=== PATIENT | female | born 1960 | race Caucasian/White ===

== ENCOUNTER 2021-06-09 21:36 | Emergency (ER) | payer MEDICARE, MEDICAID, SELFPAY ==
[2021-06-09 22:39] VITALS: BP 173/93; PULSE 64; RESP 16; TEMP 37.2; O2SAT 98; BMI 29.0
[2021-06-09 22:58] LABS: Add Urine Microscopic? NO; Charge for UA Resulting for Rev
[2021-06-09 23:05] LABS: Bilirubin Urine Neg (Negative); Blood Urine Neg (Negative); Glucose Urine UA Norm (Normal); Ketones Urine Negative (Negative); Leukocyte Esterase Urine Negative (Negative); Nitrate Urine Negative (Negative); Protein Urine Neg (Negative); Specific Gravity, Urine 1.005 (1.005-1.030); Urine Appearance Clear (CLEAR); Urine Color Yellow (Yellow); Urobilinogen Urine Norm (Negative); pH Urine 7 (5-7)
[2021-06-10 00:30] LABS: Basophils # 0.1 10^3/uL (0.0-0.1); Basophils % 0.7 %; Eosinophils # 0.3 10^3/uL (0.0-0.8); Eosinophils % 2.6 %; Hematocrit 45.6 % (37.0-47.0); Hemoglobin 14.7 g/dL (11.5-15.3); Lymphocytes # 4.1 10^3/uL (0.8-4.8); Lymphocytes % 35.1 %; Mean Corpuscular HGB Conc 32.2 g/dL (30.0-36.0); Mean Corpuscular Hemoglobin 31.4 pg (28.0-34.0); Mean Corpuscular Volume 97.4 fL (81-99); Mean Platelet Volume 12.3 fL (7.4-10.4); Monocytes # 0.7 10^3/uL (0.2-0.9); Monocytes % 5.7 %; Neutrophils # 6.45 10^3/uL (1.8-7.7); Neutrophils % 55.5 %; Nucleated Red Blood Cells % 0 %; Platelet Count 269 10^3/cmm (130-400); Red Blood Count 4.68 10^6/uL (4.1-5.3); Red Cell Distribution Width 12.5 % (12.1-15.1); White Blood Count 11.6 10^3/uL (4.0-10.0)
[2021-06-10 00:55] LABS: Alanine Aminotransferase 23 U/L (0-33); Albumin Level 4.3 g/dL (3.5-5.2); Alkaline Phosphatase 82 IU/L (35-105); Anion Gap 10.9 (5-19); Aspartate Amino Transferase 30 U/L (0-32); Blood Urea Nitrogen 11 mg/dL (8-23); Calcium 9.2 mg/dL (8.5-10.5); Carbon Dioxide 29 mmol/L (22-29); Chloride 107 mmol/L (98-107); Creatinine Clr Calc Pharmacy 76.4991; Globulin 3.5 g/dL (1.3-4.6); Glomerular Filtration Rate 84.5 mL/min (90-130); Glucose 99 mg/dL (65-115); Lipase 19 U/L (13-60); Osmolality Calculated 295 mOsm/kg (285-295); Potassium 3.9 mmol/L (3.5-5.1); Sodium 143 mmol/L (136-145); Total Bilirubin 0.2 mg/dL (0.15-1.2); Total Protein 7.8 g/dL (6.6-8.7)
--- NOTE | 2021-06-10 02:01 | CTR_ITS ---
PROCEDURE INFORMATION: Exam: CT Abdomen And Pelvis With Contrast Exam date and time: 06/10/2021 2:01 AM Age: 61 years old Clinical indication: Nausea and vomiting and other: Diarrhea; Abdominal pain; Localized; Right TECHNIQUE: Imaging protocol: Computed tomography of the abdomen and pelvis with contrast. Radiation optimization: All CT scans at this facility use at least one of these dose optimization techniques: automated exposure control; mA and/or kV adjustment per patient size (includes targeted exams where dose is matched to clinical indication); or iterative reconstruction. Contrast material: OMNI 300; Contrast volume: 95 ml; Contrast route: INTRAVENOUS (IV); COMPARISON: No relevant prior studies available. RADIATION DOSE METRICS: Total DLP (mGy-cm): 1554.3 FINDINGS: Liver: An 8.3 mm hypoattenuation lesions seen within the left hepatic lobe compatible with a simple cyst. Gallbladder and bile ducts: A densities seen in the gallbladder neck possibly representing a partially calcified gallstone. Pancreas: There is an irregular hypoattenuation cystic mass seen within the lesser sac interposed between the pancreas and stomach. It measures approximately 3.5 cm transverse dimension by 1.7 cm AP dimension by 1.6 cm craniocaudal dimension. This could represent pancreatic cyst or pseudocyst. The main pancreatic duct is prominent measuring 3.8 mm within the pancreatic body. However, this may represent a walled-off perforated gastric ulceration. Spleen: Normal. No splenomegaly. Adrenal glands: Normal. No mass. Kidneys and ureters: Normal. No hydronephrosis. Stomach and bowel: Nondilated small bowel loops are seen containing fluid and a few air-fluid levels, findings could represent ileus. Appendix: The appendix is visualized and is normal in configuration. Intraperitoneal space: Unremarkable. No free air. No significant fluid collection. Vasculature: Unremarkable. No abdominal aortic aneurysm. Lymph nodes: Unremarkable. No enlarged lymph nodes. Urinary bladder: Unremarkable as visualized. Reproductive: There is prominence of the left ovarian and adnexal vasculature. Pelvic congestion syndrome can have this appearance. Bones/joints: Unremarkable. No acute fracture. Soft tissues: Unremarkable. CT/CT abdomen pelvis w con* [id number] IMPRESSION: 1. Irregular cystic mass seen within the lesser sac interposed between the pancreas and stomach. Its origin is indeterminate. This may represent a pancreatic cyst or pseudocyst although a walled-off perforated gastric ulceration cannot be excluded. 2. There is mild prominence of the main pancreatic duct measuring 3.8 mm. 3. Prominence of the left ovarian and adnexal vasculature. 4. Nondilated small bowel loops containing fluid and air fluid levels may represent mild ileus. 5. Density present in the gallbladder neck may represent a partially calcified gallstone. 6. Benign appearing hepatic cyst in the left hepatic lobe measuring 8.3 mm. No further workup needed. Radiation Dose CTDIVOL = (mGy): DLP = 1554.3 (mGy-cm)
--- NOTE | 2021-06-10 02:05 | W.ED.NAVMDI ---
HPI - Nausea/Vomiting/Diarrhea General: Chief complaint: Nausea/Vomiting/Diarrhea Stated complaint: abd pain/vomiting Time Seen by Provider: 06/10/21 01:55 Source: patient Mode of arrival: ambulatory Limitations: no limitations History of Present Illness: HPI Narrative: 61-year-old female with a history of chronic pancreatitis and states she has chronic vomiting from that but states of last 2 days she has had pain in her right lower quadrant that is new. States pain is sharp in nature and rates it a 6 out of 10. States is worse with movement improved with rest. She has had some diarrhea as well. Denies any fevers. She is resting comfortably in the room currently. Associated nausea: Yes Associated symtoms: Reports nausea; Denies chest pain, dysuria or headache(s) Review of Systems Const: Denies: fever(s), chills, body aches or change in appetite Eyes: Denies: blurry vision or eye discomfort ENMT: Denies: throat pain or dental pain Card: Denies: chest pain Resp: Denies: dyspnea GI: Reports: abdominal pain, nausea and vomiting : Denies: dysuria Musc: Denies: neck pain or back pain Skin/Breast: Denies: rash Neuro: Denies: headache(s) Psych: Denies: depression Pacheco/Lymph: Denies: easy bruising All/Imm: Denies: urticaria Physical Exam Const: COMMON NORMALS: no acute distress, patient oriented x3 and healthy appearing HENMT: COMMON NORMALS: normocephalic and atraumatic HEAD & SCALP: normocephalic and atraumatic Eye: COMMON NORMALS: Equal, round and reactive pupils present and EOMs intact bilaterally PUPIL: Yes Equal, round and reactive pupils present Neck/C-Spine: COMMON NORMALS: full ROM and supple Chest: COMMONS NORMALS: normal inspection of the chest and normal palpation of entire chest wall Resp: COMMON NORMALS: normal respiratory effort, No retractions, No use of accessory muscles and clear to auscultation bilaterally AUSCULTATION: clear to auscultation bilaterally Cardio: COMMON NORMALS: regular rate, regular rhythm and No murmurs present (Cardio) RATE: regular rate RHYTHM: regular rhythm GI: COMMON NORMALS: Normal to inspection, nondistended, normoactive bowel sounds present, Soft to palpation and no masses PALPATION: Yes Soft to palpation and Yes Tenderness to palpation present (GI) Details: RLQ Extremity: COMMON NORMALS: normal to inspection and full ROM Neuro: COMMON NORMALS: patient oriented x3, moves all extremities and no focal motor deficits Psych: COMMON NORMALS: mental status grossly normal, Normal thought process present and cooperative THOUGHT PROCESS: Normal thought process present Skin: COMMON NORMALS: no rashes or lesions noted and no wounds GENERAL SKIN EXAM: no rashes or lesions noted Course Vital Signs: Vital signs: Vital Signs Temperature 98.9 F 06/09/21 22:39 Pulse Rate 64 06/09/21 22:39 Respiratory Rate 20 H 06/10/21 02:18 Blood Pressure 173/93 06/09/21 22:39 Pulse Oximetry 98 06/09/21 22:39 MDM - Nausea/Vomiting/Diarrhea MDM Narrative: Medical decision making narrative: Patient presents here with abdominal pain likely chronic in nature from her chronic pancreatitis. CT scan showed a cystic mass that believe is likely a pancreatic pseudocyst. Her lactate white count is normal she has no tenderness no signs of a perforated gastric ulcer. She is stable for discharge and she is to follow-up with her PCP and return if worsening. Understands agrees to plan. Lab Data: Labs: Lab Results 06/09/21 06/10/21 06/10/21 Range/Units 22:50 00:22 00:22 WBC 11.6 H (4.0-10.0) 10^3/ uL RBC 4.68 (4.1-5.3) 10^6/u L Hgb 14.7 (11.5-15.3) g/dL Hct 45.6 (37.0-47.0) % MCV 97.4 (81-99) fL MCH 31.4 (28.0-34.0) pg MCHC 32.2 (30.0-36.0) g/dL RDW 12.5 (12.1-15.1) % Plt Count 269 (130-400) 10^3/c mm MPV 12.3 H (7.4-10.4) fL Neut % (Auto) 55.5 % Lymph % (Auto) 35.1 % [place] % (Auto) 5.7 % Eos % (Auto) 2.6 % Baso % (Auto) 0.7 % Neut # (Auto) 6.45 (1.8-7.7) 10^3/u L Lymph # (Auto) 4.1 (0.8-4.8) 10^3/u L [place] # (Auto) 0.7 (0.2-0.9) 10^3/u L Eos # (Auto) 0.3 (0.0-0.8) 10^3/u L Baso # (Auto) 0.1 (0.0-0.1) 10^3/u L Nucleated RBC % (a uto) 0 % Nucleated RBCs # 0.0 /100WBC Sodium 143 (136-145) mmol/L Potassium 3.9 (3.5-5.1) mmol/L Chloride 107 (98-107) mmol/L Carbon Dioxide 29 (22-29) mmol/L Anion Gap 10.9 (5-19) BUN 11 (8-23) mg/dL Creatinine 0.7 (0.5-0.9) mg/dL GFR Calculation 84.5 L (90-130) mL/min Glucose 99 (65-115) mg/dL Calculated Osmolal ity 295 (285-295) mOsm/k g Lactate (0.5-2.2) mmol/L Calcium 9.2 (8.5-10.5) mg/dL Total Bilirubin 0.2 (0.15-1.2) mg/dL AST 30 (0-32) U/L ALT 23 (0-33) U/L Alkaline Phosphata se 82 (35-105) IU/L Total Protein 7.8 (6.6-8.7) g/dL Albumin 4.3 (3.5-5.2) g/dL Globulin 3.5 (1.3-4.6) g/dL Lipase 19 (13-60) U/L Urine Color Yellow (Yellow) Urine Appearance Clear (CLEAR) Urine pH 7 (5-7) Ur Specific Gravit y 1.005 (1.005-1.030) Urine Protein Neg (Negative) Urine Glucose (UA) Norm (Normal) Urine Ketones Negative (Negative) Urine Blood Neg (Negative) Urine Nitrate Negative (Negative) Urine Bilirubin Neg (Negative) Urine Urobilinogen Norm (Negative) mg/dL Ur Leukocyte Arabella ase Negative (Negative) 06/10/21 Range/Units 04:30 WBC (4.0-10.0) 10^3/ uL RBC (4.1-5.3) 10^6/u L Hgb (11.5-15.3) g/dL Hct (37.0-47.0) % MCV (81-99) fL MCH (28.0-34.0) pg MCHC (30.0-36.0) g/dL RDW (12.1-15.1) % Plt Count (130-400) 10^3/c mm MPV (7.4-10.4) fL Neut % (Auto) % Lymph % (Auto) % [place] % (Auto) % Eos % (Auto) % Baso % (Auto) % Neut # (Auto) (1.8-7.7) 10^3/u L Lymph # (Auto) (0.8-4.8) 10^3/u L [place] # (Auto) (0.2-0.9) 10^3/u L Eos # (Auto) (0.0-0.8) 10^3/u L Baso # (Auto) (0.0-0.1) 10^3/u L Nucleated RBC % (a uto) % Nucleated RBCs # /100WBC Sodium (136-145) mmol/L Potassium (3.5-5.1) mmol/L Chloride (98-107) mmol/L Carbon Dioxide (22-29) mmol/L Anion Gap (5-19) BUN (8-23) mg/dL Creatinine (0.5-0.9) mg/dL GFR Calculation (90-130) mL/min Glucose (65-115) mg/dL Calculated Osmolal ity (285-295) mOsm/k g Lactate 0.6 (0.5-2.2) mmol/L Calcium (8.5-10.5) mg/dL Total Bilirubin (0.15-1.2) mg/dL AST (0-32) U/L ALT (0-33) U/L Alkaline Phosphata se (35-105) IU/L Total Protein (6.6-8.7) g/dL Albumin (3.5-5.2) g/dL Globulin (1.3-4.6) g/dL Lipase (13-60) U/L Urine Color (Yellow) Urine Appearance (CLEAR) Urine pH (5-7) Ur Specific Gravit y (1.005-1.030) Urine Protein (Negative) Urine Glucose (UA) (Normal) Urine Ketones (Negative) Urine Blood (Negative) Urine Nitrate (Negative) Urine Bilirubin (Negative) Urine Urobilinogen (Negative) mg/dL Ur Leukocyte Arabella ase (Negative) Imaging Data^: CT Abd/Pel: Attestation: I personally reviewed and interpreted this imaging study as follows: Radiologist's impression: [facility] [address] [address] Scan Report Signed Patient: Judy Malloy Unit #: [id number] : 1960 Age/Sex: 61 / F ADM Date: 06/09/21 Loc: ER Room/Bed: Attending Dr: Ordering Provider/Ordering MD: Latoya Warren MD Date of Service: 06/10/21 Procedure(s): CT abdomen pelvis w con* [id number] Accession Number(s): [id number] Report Number: [id number] PROCEDURE INFORMATION: Exam: CT Abdomen And Pelvis With Contrast Exam date and time: 06/10/2021 2:01 AM Age: 61 years old Clinical indication: Nausea and vomiting and other: Diarrhea; Abdominal pain; Localized; Right TECHNIQUE: Imaging protocol: Computed tomography of the abdomen and pelvis with contrast. Radiation optimization: All CT scans at this facility use at least one of these dose optimization techniques: automated exposure control; mA and/or kV adjustment per patient size (includes targeted exams where dose is matched to clinical indication); or iterative reconstruction. Contrast material: OMNI 300; Contrast volume: 95 ml; Contrast route: INTRAVENOUS (IV); COMPARISON: No relevant prior studies available. RADIATION DOSE METRICS: Total DLP (mGy-cm): 1554.3 FINDINGS: Liver: An 8.3 mm hypoattenuation lesions seen within the left hepatic lobe compatible with a simple cyst. Gallbladder and bile ducts: A densities seen in the gallbladder neck possibly representing a partially calcified gallstone. Pancreas: There is an irregular hypoattenuation cystic mass seen within the lesser sac interposed between the pancreas and stomach. It measures approximately 3.5 cm transverse dimension by 1.7 cm AP dimension by 1.6 cm craniocaudal dimension. This could represent pancreatic cyst or pseudocyst. The main pancreatic duct is prominent measuring 3.8 mm within the pancreatic body. However, this may represent a walled-off perforated gastric ulceration. Spleen: Normal. No splenomegaly. Adrenal glands: Normal. No mass. Kidneys and ureters: Normal. No hydronephrosis. Stomach and bowel: Nondilated small bowel loops are seen containing fluid and a few air-fluid levels, findings could represent ileus. Appendix: The appendix is visualized and is normal in configuration. Intraperitoneal space: Unremarkable. No free air. No significant fluid collection. Vasculature: Unremarkable. No abdominal aortic aneurysm. Lymph nodes: Unremarkable. No enlarged lymph nodes. Urinary bladder: Unremarkable as visualized. Reproductive: There is prominence of the left ovarian and adnexal vasculature. Pelvic congestion syndrome can have this appearance. Bones/joints: Unremarkable. No acute fracture. Soft tissues: Unremarkable. CT/CT abdomen pelvis w con* [id number] IMPRESSION: 1. Irregular cystic mass seen within the lesser sac interposed between the pancreas and stomach. Its origin is indeterminate. This may represent a pancreatic cyst or pseudocyst although a walled-off perforated gastric ulceration cannot be excluded. 2. There is mild prominence of the main pancreatic duct measuring 3.8 mm. 3. Prominence of the left ovarian and adnexal vasculature. 4. Nondilated small bowel loops containing fluid and air fluid levels may represent mild ileus. 5. Density present in the gallbladder neck may represent a partially calcified gallstone. 6. Benign appearing hepatic cyst in the left hepatic lobe measuring 8.3 mm. No further workup needed. Radiation Dose CTDIVOL = (mGy): DLP = 1554.3 (mGy-cm) Dictated By: Roman Kay MD Signed By: Roman Kay MD Signed Date/Time: 06/10/21414 DD/ 3 Discharge Plan Discharge Patient Disposition: Home Clinical Impression: Abdominal pain Qualifiers: Abdominal location: generalized Qualified Code(s): R10.84 - Generalized abdominal pain Vomiting Qualifiers: Vomiting type: unspecified Vomiting Intractability: non-intractable Nausea presence: with nausea Qualified Code(s): R11.2 - Nausea with vomiting, unspecified Condition: Stable Prescriptions: New ondansetron 4 mg tablet,disintegrating 4 mg PO Q6H PRN (Reason: nausea and vomiting) Qty: 14 RF: 0 Discharge Orders: Discharge ED (Routine); Ordered 06/10/21 Ordered By: Latoya Warren Discharge Diet: Advance as tolerated Discharge Activity: Resume usual activity Patient Instructions: Abdominal Pain (ED) Coding Level of Care Code ED Video Control Operator for Tatig Fwd Exam Comprehensive
[2021-06-10 02:18] VITALS: RESP 20
[2021-06-10] MEDS: HYDROmorphone 1 mg/mL INJ 1 mL IVP (02:18)
[2021-06-10] MEDS: ondansetron 2 mg/ML SDV 2 mL 4 MG IVP (02:19)
[2021-06-10] MEDS: iohexol 300 mg/mL 100 mL Btl IV (02:29)
[2021-06-10 05:06] LABS: Lactate (Lactic Acid level) 0.6 mmol/L (0.5-2.2)
[2021-06-10 05:24] VITALS: BP 148/86; PULSE 75; RESP 16; TEMP 36.6; O2SAT 98
[2021-06-10 05:27] VITALS: BP 129/69; PULSE 54; RESP 18; O2SAT 100
== END 2021-06-10 05:29 | disposition home or self-care (01) ==
PROVIDERS: Nurse Practitioner Family; Emergency Provider Emergency Medicine
DX: R11.2 Nausea with vomiting, unspecified (principal); R10.84 Generalized abdominal pain
CPT/HCPCS: 36415; 74177; 80053; 81003; 83605; 83690; 85025; 96374; 96375; 99283; J1170; J2405; Q9967

== ENCOUNTER → 2023-11-05 09:57 | Outpatient (BNVA) | payer MEDICARE, MEDICAID, SELFPAY | PROVIDERS: Visit Provider Family Medicine | DX: E78.5 Hyperlipidemia, unspecified (principal) | CPT/HCPCS: 80053; 80061; 81000; 84439; 84443; 85025 ==

== ENCOUNTER 2023-11-10 03:08 | Emergency (ER) | payer MEDICARE, MEDICAID, SELFPAY ==
[2023-11-10 03:16] VITALS: BP 163/105; PULSE 96; RESP 18; TEMP 36.9; O2SAT 94
--- NOTE | 2023-11-10 03:24 | CTR_ITS ---
PROCEDURE INFORMATION: Exam: CT Abdomen And Pelvis With Contrast Exam date and time: 11/10/2023 4:05 AM Age: 63 years old Clinical indication: Nausea and vomiting; Patient HX: N/v x 2 days. History of pancreatitis. ; Additional info: Abd pain, vomiting TECHNIQUE: Imaging protocol: Computed tomography of the abdomen and pelvis with contrast. Radiation optimization: All CT scans at this facility use at least one of these dose optimization techniques: automated exposure control; mA and/or kV adjustment per patient size (includes targeted exams where dose is matched to clinical indication); or iterative reconstruction. Contrast material: OMNI 350; Contrast volume: 100 ml; Contrast route: INTRAVENOUS (IV); COMPARISON: CT abdomen pelvis w con* [id number] 06/10/2021 2:26 AM RADIATION DOSE METRICS: Total DLP (mGy-cm): 605.74 FINDINGS: Lungs: There is a calcified granuloma in the left lung base. Diaphragm: There is a small hiatal hernia. Liver: There is mild fatty infiltration of the liver. There are no focal liver lesions Gallbladder and bile ducts: The gallbladder is distended. No gallstones or gallbladder wall thickening detected. There is no biliary ductal dilatation. Pancreas: The pancreatic duct is dilated measuring up to 5 mm. There is a cystic mass involving the anterior panc superior pancreas at the junction of the pancreatic head and body. It measures 3.1 x 2.0 x 1.9 cm. Patient apparently has a history of pancreatitis in this may be a pancreatic cyst or pseudocyst related to previous pancreatitis. Cystic neoplasm can not be excluded. It extends to and is contiguous with the thick-walled gastric antrum. The possibility that the pink shunt could have a cystic pancreatic neoplasm can not be excluded. If there are old studies that can be obtained for comparison, recommend that they be obtained in order to establish stability. If old studies can not be obtained recommend follow-up with MRI in 3-4 months' time.. There are no active inflammatory changes at this time to suggest active pancreatitis. Recommend correlation with serum laboratory values. Spleen: Normal. No splenomegaly. Adrenal glands: Normal. No mass. Kidneys and ureters: There is right renal cortical scarring. There is a nonobstructing calculus in the right kidney. Small low-density lesions in the right kidney are favored to be cysts but too small to accurately characterize. There is no hydronephrosis and there are no ureteral calculi detected Stomach and bowel: The bowel-gas pattern is not obstructed. There is definite prominent wall thickening involving the gastric body and antrum findings suggest severe gastritis/peptic ulcer disease. Infiltrating neoplasm can not be excluded however . There is a fairly large amount of stool in the colon suggesting constipation Appendix: Patient's appendix is not definitively identified. There are no inflammatory changes adjacent to the cecum Intraperitoneal space: Unremarkable. No free air. No significant fluid collection. Vasculature: There are atherosclerotic changes involving the aorta and branch vessels without aneurysm. Lymph nodes: There are enlarged mesenteric lymph nodes beginning posterior to the stomach and extending into the more inferior mesentery. Packaging Assembler lymph node is measured on series 3, image 29 1.4 x 0.9 cm. There also mildly enlarged periaortic lymph nodes. One near the takeoff of the superior mesenteric artery is measured on image 29 at 1.0 x 0.8 cm. Urinary bladder: Bladder is decompressed. Reproductive: Uterus and adnexa are unremarkable. Bones/joints: There are degenerative changes in the hips, sacroiliac joints and spine Soft tissues: There is diastasis of the rectus muscles with superimposed umbilical hernia containing only fat. CT/CT abdomen pelvis w con* [id number] IMPRESSION: 1. Prominent wall thickening involving gastric body and antrum suggesting severe gastritis/peptic ulcer disease though infiltrating process such as infiltrating neoplasm can not be excluded 2. Dilated pancreatic duct likely sequela of prior pancreatitis 3. Cystic mass associated with the pancreas and extending to the thickened gastric wall. Given history of prior pancreatitis this is likely a pancreatic cyst or pseudocyst however pancreatic neoplasm can not be excluded. Recommend any attempts to obtain old studies for comparison to establish stability. If no old studies can be obtained, then follow-up with MRI is recommended in 3-4 months' time 4. Fatty infiltration liver 5. Small hiatal hernia 6. Large amount of stool throughout the colon suggesting constipation without fecal impaction 7. Right renal cortical scarring. Nonobstructing calculus right kidney. Tiny low-density lesions likely cysts but too small to accurately characterize 8. Diastasis of the rectus muscles with protrusion of the anterior abdominal wall and superimposed small umbilical hernia 9. Retroperitoneal and mesenteric adenopathy as described. COMMENTS: Consistent with the [place] [employer]'s Incidental Findings Committee white paper (J Am Faviola Radiol 2018): Any incidental renal lesion less than 1 cm or classified as too small to characterize, or any incidental cystic renal lesion characterized as simple-appearing, is likely benign. No follow-up imaging is recommended for these lesions per consensus recommendations based on imaging criteria.
[2023-11-10 03:37] LABS: Basophils # 0.1 10^3/uL (0.0-0.1); Basophils % 0.6 %; Eosinophils % 0.3 %; Hematocrit 45.6 % (36-47); Lymphocytes # 2.4 10^3/uL (0.8-4.8); Lymphocytes % 15.7 %; Mean Corpuscular Hemoglobin 31.7 pg (27-33); Mean Corpuscular Volume 93.3 fl (85-98); Mean Platelet Volume 12.2 fL (7.4-10.4); Monocytes # 0.5 10^3/uL (0.2-0.9); Monocytes % 3.5 %; Neutrophils % 79.5 %; Nucleated Red Blood Cells % 0 %; Platelet Count 371 10^3/cmm (157-399); Red Blood Count 4.89 10^6/uL (3.85-5.65); Red Cell Distribution Width 14.6 % (12.1-15.1); White Blood Count 15.33 10^3/uL (3.29-11.43)
[2023-11-10] MEDS: iohexol 350 mg/mL 500 mL Btl (per mL) IV (04:08)
--- NOTE | 2023-11-10 04:08 | ED_ITS ---
HPI - Nausea/Vomiting/Diarrhea 2 General: Chief complaint: Nausea/Vomiting/Diarrhea Stated complaint: vomiting Time Seen by Provider: 11/10/23 03:20 History of Present Illness: 63-year-old female with a history of mix creatitis. She reports epigastric pain, nausea, and vomiting for the last 5 days or so. No fever. No blood in the stool. No diarrhea. No new medications. No history of abdominal surgery other than a tubal ligation. She took Zofran at home, but this has not seemed to help. She has vomited 10 times in the last 24 hours. Associated nausea: Yes Associated symtoms: Reports nausea; Denies change in vision, chest pain, dizziness, headache(s) or palpitations Review of Systems 2 Const: Denies: fever(s), chills or body aches Eyes: Denies: change in vision Card: Denies: chest pain or palpitations Resp: Denies: dyspnea, productive cough, non-productive cough or wheezing GI: Reports: abdominal pain, nausea and vomiting; Denies: hematemesis, diarrhea or hematochezia : Denies: difficulty voiding Skin/Breast: Denies: rash Neuro: Denies: headache(s), weakness in extremities, dizziness or confusion PFSH ED 2 PFSH: Medical History (Updated 11/10/23 @ 06:19 by Giovanni High DO) Tobacco use disorder, moderate, dependence Pulmonary embolism COPD (chronic obstructive pulmonary disease) History of TIAs Hypokalemia Nausea Chronic pain Severe major depression Insomnia Chronic pancreatitis Hyperlipidemia Hypothyroidism Surgical History (Updated 11/05/23 @ 09:19 by Jun Jaquez MD) History of knee replacement History of back surgery Social History (Updated 11/05/23 @ 09:20 by Jun Jaquez MD) Smoking and tobacco/nicotine status: current every day tobacco/nicotine user cigarettes [ Other cigarette details: 11/07 PPD< 25 PYHx] Alcohol intake: former Substance/Drug Use: former Physical Exam 2 Const: COMMON NORMALS: no acute distress GENERAL APPEARANCE: cooperative; not ill appearing and not frail appearing HENMT: COMMON NORMALS: normocephalic, atraumatic and Normal external nose present HEAD & SCALP: normocephalic and atraumatic FACE & SINUS: normal facial exam and face symmetric NOSE: Normal external nose present Eye: COMMON NORMALS: Equal, round and reactive pupils present and EOMs intact bilaterally PUPIL: Yes Equal, round and reactive pupils present Neck/C-Spine: GENERAL: Yes trachea midline Chest: CHEST: Yes Symmetrical chest wall rise Resp: COMMON NORMALS: normal respiratory effort, No retractions, No use of accessory muscles and clear to auscultation bilaterally AUSCULTATION: clear to auscultation bilaterally Cardio: COMMON NORMALS: regular rate and regular rhythm RATE: regular rate RHYTHM: regular rhythm GI: COMMON NORMALS: Normal to inspection, nondistended, normoactive bowel sounds present PALPATION: Yes Tenderness to palpation present (GI) (Epigastric) and Yes Guarding due to palpation present (GI) Extremity: COMMON NORMALS: no pedal edema Neuro: LORENZO COMA SCALE: document GCS findings Lorenzo coma scale eye opening: Spontaneous [place] coma scale verbal response: Orientated Lorenzo coma scale motor response: Obey commands [place] coma scale total score: 15 S ENSORY EXAM: Yes extremities (intact) Psych: COMMON NORMALS: speech normal SPEECH: Yes normal speech Skin: COMMON NORMALS: no rashes or lesions noted GENERAL SKIN EXAM: no rashes or lesions noted Course 2 Vital Signs: Vital signs: Vital Signs Temperature 98.5 F 11/10/23 03:16 Pulse Rate 60 11/10/23 06:34 Respiratory Rate 16 11/10/23 06:34 Blood Pressure 151/77 11/10/23 06:34 Pulse Oximetry 97 11/10/23 06:34 Oxygen Delivery Me thod Room Air 11/10/23 05:29 MDM - Nausea/Vomiting/Diarrhea Medical Decision Making White blood cell count is 15. Other laboratory and CT are pending. Patient is feeling significantly improved following a liter of fluid antiemetics and pain medication. She has a potassium of 3.1, which has been repleted orally. She has held that down. She has on CAT scan wall thickening involving the gastric body and antrum suggesting gastritis or peptic ulcer disease. She has what appears to be a pseudocyst or cyst in the pancreas that was present on prior studies. With improvement in her symptoms, she would like to try treatment at home. She will be prescribed Reglan, which she will be taking every 4 hours while awake for the first 48 hours, then as needed. She may take her home Zofran intermittently if needed. Liquid diet. Will treat her for a gastric ulcer/gastritis as well. She will be allowed discharged to return for worsening symptoms. Lab Data 11/10/23 03:32 11/10/23 04:28 Radiology Impressions Abdomen/Pelvis CT 11/10/23 03:24 IMPRESSION: 1. Prominent wall thickening involving gastric body and antrum suggesting severe gastritis/peptic ulcer disease though infiltrating process such as infiltrating neoplasm can not be excluded 2. Dilated pancreatic duct likely sequela of prior pancreatitis 3. Cystic mass associated with the pancreas and extending to the thickened gastric wall. Given history of prior pancreatitis this is likely a pancreatic cyst or pseudocyst however pancreatic neoplasm can not be excluded. Recommend any attempts to obtain old studies for comparison to establish stability. If no old studies can be obtained, then follow-up with MRI is recommended in 3-4 months' time 4. Fatty infiltration liver 5. Small hiatal hernia 6. Large amount of stool throughout the colon suggesting constipation without fecal impaction 7. Right renal cortical scarring. Nonobstructing calculus right kidney. Tiny low-density lesions likely cysts but too small to accurately characterize 8. Diastasis of the rectus muscles with protrusion of the anterior abdominal wall and superimposed small umbilical hernia 9. Retroperitoneal and mesenteric adenopathy as described. COMMENTS: Consistent with the [employer]'s Incidental Findings Committee white paper (J Am Faviola Radiol 2018): Any incidental renal lesion less than 1 cm or classified as too small to characterize, or any incidental cystic renal lesion characterized as simple-appearing, is likely benign. No follow-up imaging is recommended for these lesions per consensus recommendations based on imaging criteria. Laboratory Results WBC 15.33 10^3/uL (3.29-11.43) H 11/10/23 03:32 RBC 4.89 10^6/uL (3.85-5.65) 11/10/23 03:32 Hgb 15.50 g/dL (11.27-16.99) 11/10/23 03:32 Hct 45.6 % (36-47) 11/10/23 03:32 MCV 93.3 fl (85-98) 11/10/23 03:32 MCH 31.7 pg (27-33) 11/10/23 03:32 MCHC 34.0 g/dL (30-55) 11/10/23 03:32 RDW 14.6 % (12.1-15.1) 11/10/23 03:32 Plt Count 371 10^3/cmm (157-399) 11/10/23 03:32 MPV 12.2 fL (7.4-10.4) H 11/10/23 03:32 Neut % (Auto) 79.5 % 11/10/23 03:32 Lymph % (Auto) 15.7 % 11/10/23 03:32 Smith % (Auto) 3.5 % 11/10/23 03:32 Eos % (Auto) 0.3 % 11/10/23 03:32 Baso % (Auto) 0.6 % 11/10/23 03:32 Neut # (Auto) 12.20 10^3/uL (1.8-7.7) H 11/10/23 03:32 Lymph # (Auto) 2.4 10^3/uL (0.8-4.8) 11/10/23 03:32 Smith # (Auto) 0.5 10^3/uL (0.2-0.9) 11/10/23 03:32 Eos # (Auto) 0.0 10^3/uL (0.0-0.8) 11/10/23 03:32 Baso # (Auto) 0.1 10^3/uL (0.0-0.1) 11/10/23 03:32 Nucleated RBC % (auto) 0 % 11/10/23 03:32 Nucleated RBCs # 0.0 /100WBC 11/10/23 03:32 Sodium 139 mmol/L (136-145) 11/10/23 04:28 Potassium 3.1 mmol/L (3.5-5.1) L 11/10/23 04:28 Chloride 99 mmol/L (98-107) 11/10/23 04:28 Carbon Dioxide 30 mmol/L (22-29) H 11/10/23 04:28 Anion Gap 13.1 (5-19) 11/10/23 04:28 BUN 22 mg/dL (8-23) 11/10/23 04:28 Creatinine 0.9 mg/dL (0.5-0.9) 11/10/23 04:28 GFR Calculation 62.8 mL/min (90-130) L 11/10/23 04:28 Glucose 136 mg/dL (65-115) H 11/10/23 04:28 Calculated Osmolality 293 mOsm/kg (285-295) 11/10/23 04:28 Lactic Acid 1.3 mmol/L (0.5-2.2) 11/10/23 04:28 Calcium 9.4 mg/dL (8.5-10.5) 11/10/23 04:28 Total Bilirubin 0.4 mg/dL (0.15-1.2) 11/10/23 04:28 AST 22 U/L (0-32) 11/10/23 04:28 ALT 7 U/L (0-33) 11/10/23 04:28 Alkaline Phosphatase 64 U/L (35-105) 11/10/23 04:28 C-Reactive Protein 24.0 mg/L (0.0-4.9) H 11/10/23 04:28 Total Protein 7.0 g/dL (6.6-8.7) 11/10/23 04:28 Albumin 3.9 g/dL (3.5-5.2) 11/10/23 04:28 Globulin 3.1 g/dL (1.3-4.6) 11/10/23 04:28 Lipase 41 U/L (13-60) 11/10/23 04:28 Urine Color Yellow (Yellow) 11/10/23 05:12 Urine Appearance Clear (CLEAR) 11/10/23 05:12 Urine pH 8 (5-7) H 11/10/23 05:12 Ur Specific [place] 1.005 (1.005-1.030) 11/10/23 05:12 Urine Protein 2+ (Negative) H 11/10/23 05:12 Urine Glucose (UA) Norm (Normal) 11/10/23 05:12 Urine Ketones 1+ (Negative) H 11/10/23 05:12 Urine Blood 2+ (Negative) H 11/10/23 05:12 Urine Nitrate Positive (Negative) H 11/10/23 05:12 Urine Bilirubin 1+ (Negative) H 11/10/23 05:12 Prot Sulfosalicylic Acd Negative (Negative) 11/10/23 05:12 Urine Urobilinogen 1 mg/dL (Negative) H 11/10/23 05:12 Ur Leukocyte Esterase Trace (Negative) H 11/10/23 05:12 Urine RBC 5-10 /hpf (0-2) H 11/10/23 05:12 Urine WBC 0-4 /hpf (0-5) H 11/10/23 05:12 Ur Squamous Epith Cells 5-10 /hpf (0-5) H 11/10/23 05:12 Amorphous Sediment 1+ /hpf 11/10/23 05:12 Urine Bacteria 1+ /hpf (NONE) H 11/10/23 05:12 Urine Mucus Trace /hpf 11/10/23 05:12 All radiology interpretation(s) finalized by discharge Discharge Plan Discharge Patient Disposition: Home Clinical Impression: Gastritis, Chronic pancreatitis Condition: Stable Prescriptions: New Reglan 10 mg tablet 10 mg PO Q6H PRN (Reason: nausea and vomiting) Qty: 14 0RF sucralfate 1 gram tablet 1 g PO TID 28 Days Qty: 84 0RF Prevacid 30 mg capsule,delayed release(DR/EC) 30 mg PO DAILY Qty: 30 0RF No Action atorvastatin [Lipitor] 40 mg tablet 40 mg PO DAILY Qty: 90 1RF ondansetron 8 mg tablet,disintegrating 8 mg PO Q8H PRN (Reason: nausea and vomiting) Qty: 180 0RF fenofibrate nanocrystallized 48 mg tablet 48 mg PO DAILY Qty: 90 1RF hydroxyzine HCl 25 mg tablet 25 mg PO TID PRN (Reason: itching) Qty: 180 1RF aripiprazole [Abilify] 10 mg tablet 10 mg PO DAILY Qty: 90 0RF bupropion HCl [Wellbutrin XL] 300 mg tablet extended release 24 hr 300 mg PO QAM Qty: 90 1RF tizanidine 4 mg tablet 4 mg PO Q8H PRN (Reason: muscle spasticity) Qty: 180 1RF gabapentin 300 mg capsule 300 mg PO BID Qty: 180 1RF potassium chloride 20 mEq tablet extended release 20 meq PO DAILY Qty: 90 1RF fluticasone propion-salmeterol 250-50 mcg/dose blister with device See Rx Instructions .ROUTE .COMPLEX Qty: 180 0RF Dose Instruction: INHALE 1 PUFF BY MOUTH TWICE DAILY Rx Instructions: INHALE 1 PUFF BY MOUTH TWICE DAILY ondansetron 4 mg tablet,disintegrating 4 mg PO Q6H PRN (Reason: nausea and vomiting) Qty: 14 0RF Discharge Orders: Discharge ED (Routine); Ordered 11/10/23 Ordered By: Giovanni High Patient Instructions: Gastritis (ED), Pancreatitis (ED), Opioid Safety, Pain Management Activity Restrictions/Additional Instructions: Take medicine for gastritis as directed. Sucralfate should be taken 30 minutes prior to meals 3 times daily. Take the new nausea medication (metoclopramide) every 4 hours while awake for the first 48 hours, then as needed following. You may use your home ondansetron for breakthrough nausea. Liquid diet for the first 48 hours, then you may add foods then as tolerated following if no vomiting. Return for significant fever, liquid in the vomit or stool, vomiting liquids or medications despite treatment, other concerning symptoms. See your doctor next week. Coding Level of Care Code ED [employer] Research Technician for [employer]
[2023-11-10 04:49] LABS: Alanine Aminotransferase 7 U/L (0-33); Albumin Level 3.9 g/dL (3.5-5.2); Alkaline Phosphatase 64 U/L (35-105); Anion Gap 13.1 (5-19); Aspartate Amino Transferase 22 U/L (0-32); Blood Urea Nitrogen 22 mg/dL (8-23); Calcium 9.4 mg/dL (8.5-10.5); Carbon Dioxide 30 mmol/L (22-29); Chloride 99 mmol/L (98-107); Globulin 3.1 g/dL (1.3-4.6); Glomerular Filtration Rate 62.8 mL/min (90-130); Glucose 136 mg/dL (65-115); Lipase 41 U/L (13-60); Osmolality Calculated 293 mOsm/kg (285-295); Potassium 3.1 mmol/L (3.5-5.1); Sodium 139 mmol/L (136-145); Total Bilirubin 0.4 mg/dL (0.15-1.2)
[2023-11-10 04:50] LABS: Lactic Sepsis W/Reflex 1.3 mmol/L (0.5-2.2)
[2023-11-10] MEDS: ondansetron 2 mg/ML SDV 2 mL 4 MG IVP (04:53)
[2023-11-10 04:54] VITALS: RESP 18
[2023-11-10] MEDS: fentaNYL 50 mcg/mL INJ 2mL IVP (04:54)
[2023-11-10] MEDS: sodium chloride 0.9% 1,000 ML 999 ML IV (04:54)
[2023-11-10] MEDS: metoclopramide 5 mg/mL SDV 2 mL 10 MG IVP (04:54)
[2023-11-10 05:23] LABS: Glucose Urine UA Norm (Normal); Protein Urine 2+ (Negative); Specific Gravity, Urine 1.005 (1.005-1.030); Urine Appearance Clear (CLEAR); Urine Color Yellow (Yellow); pH Urine 8 (5-7)
[2023-11-10 05:24] LABS: Add Urine Microscopic? YES; Bilirubin Urine 1+ (Negative); Blood Urine 2+ (Negative); Ketones Urine 1+ (Negative); Leukocyte Esterase Urine Trace (Negative); Nitrate Urine Positive (Negative); Sulfosalicylic Acid Urine Negative (Negative); Urobilinogen Urine 1 mg/dL (Negative)
[2023-11-10 05:26] LABS: Add Urine Culture? Yes; Amorphous Sediment Urine 1+ /hpf; Bacteria Urine 1+ /hpf; Mucus Urine TRACE /hpf; WBC Urine 0-4 /hpf (0-5)
[2023-11-10 05:29] VITALS: BP 151/77; PULSE 76; O2SAT 94
[2023-11-10] MEDS: potassium chloride ER 20 mEq Tablet 40 MEQ PO (06:06)
[2023-11-10 06:34] VITALS: BP 151/77; PULSE 60; RESP 16; O2SAT 97
== END 2023-11-10 06:36 | disposition home or self-care (01) ==
PROVIDERS: Emergency Provider Emergency Medicine
DX: K29.70 Gastritis, unspecified, without bleeding (principal); K86.1 Other chronic pancreatitis; J44.9 Chronic obstructive pulmonary disease, unspecified; Z86.73 Personal history of transient ischemic attack (TIA), and cerebral infarction without residual deficits; E78.5 Hyperlipidemia, unspecified; F17.210 Nicotine dependence, cigarettes, uncomplicated
CPT/HCPCS: 74177; 80053; 81001; 83605; 83690; 85025; 86140; 87086; 96374; 96375; 99285; J2405; J2765; J3010; J7030; Q9967

== ENCOUNTER 2023-11-21 07:44 | Outpatient (CLI) | payer MEDICARE, MEDICAID, SELFPAY ==
--- NOTE | 2023-11-21 07:53 | MM_ITS ---
WS: [id number] SCREENING DIGITAL BREAST TOMOSYNTHESIS MAMMOGRAM WITH CAD HISTORY: Z12.39 - Encounter for other screening for malignant neop... COMPARISON: 08/18/2009 Bilateral CC and MLO with tomosynthesis and synthetic mammography submitted. Computer aided detection analyzed. Breast composition: The breasts are heterogeneously dense, which may obscure small masses. There is a new well-circumscribed 6 x 5 mm nodule in the mid LEFT breast near the 5-6 o'clock axis. This will n eed to be further evaluated. Benign calcifications RIGHT breast. IMPRESSION: MM/[id number] BI-RADS: 0-Incomplete: Need additional imaging evaluation FOLLOW UP: Need Additional Imaging LEFT breast: Spot compression views (CC and MLO). True ML. Ultrasound to follow if abnormality persists.
== END 2023-11-21 07:45 | disposition home or self-care (01) ==
LOC: MOBLMAM 07:46 → RAD 07:53
PROVIDERS: PCP Family Medicine; Visit Provider Family Medicine
DX: Z12.31 Encounter for screening mammogram for malignant neoplasm of breast (principal); N63.23 Unspecified lump in the left breast, lower outer quadrant; R92.333 Mammographic heterogeneous density, bilateral breasts; R92.1 Mammographic calcification found on diagnostic imaging of breast
CPT/HCPCS: 77063; 77067

== ENCOUNTER 2023-11-25 09:52 | Inpatient (IN) | payer MEDICARE, MEDICAID, SELFPAY ==
[2023-11-25] VITALS (7 sets, daily range): BP systolic 171–178; BP diastolic 75–85; PULSE 55–65; RESP 16–18; TEMP 37.1–37.2; O2SAT 96–99; BMI 28.7; BMI 28.1
--- NOTE | 2023-11-25 09:59 | ECG_ITS ---
[facility] Test Date: 2023-11-25 Pat Name: Judy Malloy Department: Room: Gender: Female Soaker Helper: : 1960 Requested By: Wilder Villafana Order Number: [id number] Juli MD: Milana Perez M.D. Measurements Intervals [place] Rate: 61 P: 65 [place]: 176 QRS: -61 QRSD: 109 T: 95 QT: 436 QTc: 442 Interpretive Statements SINUS RHYTHM INCOMPLETE RIGHT BUNDLE BRANCH BLOCK [90+ ms QRS DURATION, TERMINAL R IN V1/V2, 40+ ms S IN I/aVL/V4/V5/V6] LEFT ANTERIOR FASCICULAR BLOCK [QRS AXIS <= -45, QR IN I, RS IN II] NONSPECIFIC ST & T-WAVE ABNORMALITY No previous ECG available for comparison Electronically Signed On 11-25-2023 18:48:30 REGULATORY ATTORNEY by Milana Perez M.D. [id number]
[2023-11-25 10:25] LABS: Basophils # 0.1 10^3/uL (0.0-0.1); Basophils % 0.6 %; Eosinophils # 0.1 10^3/uL (0.0-0.8); Eosinophils % 0.9 %; Hematocrit 40.7 % (36-47); Lymphocytes # 1.6 10^3/uL (0.8-4.8); Lymphocytes % 14.7 %; Mean Corpuscular HGB Conc 33.4 g/dL (30-55); Mean Corpuscular Hemoglobin 31.6 pg (27-33); Mean Corpuscular Volume 94.7 fl (85-98); Mean Platelet Volume 11.4 fL (7.4-10.4); Monocytes # 0.3 10^3/uL (0.2-0.9); Monocytes % 2.5 %; Neutrophils # 8.89 10^3/uL (1.8-7.7); Neutrophils % 80.4 %; Nucleated Red Blood Cells % 0 %; Platelet Count 331 10^3/cmm (157-399); Red Cell Distribution Width 14.3 % (12.1-15.1); White Blood Count 11.07 10^3/uL (3.29-11.43)
[2023-11-25 10:47] LABS: Alanine Aminotransferase 11 U/L (0-33); Albumin Level 4.1 g/dL (3.5-5.2); Alkaline Phosphatase 106 U/L (35-105); Anion Gap 15.3 (5-19); Aspartate Amino Transferase 22 U/L (0-32); Blood Urea Nitrogen 9 mg/dL (8-23); Calcium 9.9 mg/dL (8.5-10.5); Carbon Dioxide 28 mmol/L (22-29); Chloride 99 mmol/L (98-107); Globulin 3.9 g/dL (1.3-4.6); Glucose 156 mg/dL (65-115); Lipase 254 U/L (13-60); Osmolality Calculated 290 mOsm/kg (285-295); Potassium 3.3 mmol/L (3.5-5.1); Sodium 139 mmol/L (136-145); Total Bilirubin 0.3 mg/dL (0.15-1.2)
--- NOTE | 2023-11-25 11:59 | W.ED.ABDPA2 ---
HPI - Abdominal Pain General: Chief Complaint: ER Hold Stated Complaint: abd pains, n/v Time Seen by Provider: 11/25/23 10:57 History of Present Illness: 63-year-old female presents emergency department with complaints of abdominal pain to the epigastric region. She states this been going on for the previous 3 days. She was seen here previously on November 10, 2023 and diagnosed with pancreatitis. She did receive a CT scan that showed a pancreatic pseudocyst and gastritis at that time. Patient also had an elevated white blood cell count of 15,000 and hypokalemia. At that time the patient requested to be discharged home and she will treat herself at home. She presents today with complaints of increased nausea and vomiting and 6 out of 10 abdominal pain. Associated Symptoms: Reports nausea and vomiting Review of Systems General: Reports: 10 or more systems reviewed and unremarkable except in HPI and below GI: Reports: abdominal pain, nausea and vomiting [facility] ED PFSH: Medical History Tobacco use disorder, moderate, dependence Pulmonary embolism COPD (chronic obstructive pulmonary disease) History of TIAs Hypokalemia Nausea Chronic pain Severe major depression Insomnia Chronic pancreatitis Hyperlipidemia Hypothyroidism Surgical History History of knee replacement History of back surgery Social History Smoking and tobacco/nicotine status: current every day tobacco/nicotine user cigarettes [ Other cigarette details: 11/07 PPD< 25 PYHx] Alcohol intake: former Substance/Drug Use: former Physical Exam Narrative: EXAM NARRATIVE: Constitutional: the patient appears well nourished and of normal development. Vital signs as documented. No acute distress at present. Alert and oriented-to person, place, time and situation. Head, eyes, ears, nose, mouth, throat: Normocephalic, atraumatic. Pupils-equal, round, reactive to light. No scleral icterus. Normal-appearing external ears. Normal appearing nasal turbinates, no drainage. No obvious oral lesions, posterior oropharynx without erythema or exudates. Neck: Supple, trachea is midline, no lymphadenopathy, no jugular venous distension, thyromegaly, or carotid bruits. Carotid upstrokes are brisk bilaterally. Lungs: clear to auscultation to all lung de [place]z. Symmetrical rise and fall of chest, no obvious signs of increased work of breathing at present. Cardiac: Regular rate and rhythm, positive S1, S2. No murmurs, rubs or gallops that I can appreciate Abdomen: Soft, tender to palpation to the epigastric region, normal active bowel sounds to all quadrants. No palpable masses, no organomegaly and abdominal bruits. Extremities: 2+ pulses in the upper extremities that are equal bilaterally, 2+ pulses in the lower extremities that are equal bilaterally. Non-edematous. Moves all extremities well, sensation to all extremities are noted. Skin: Warm, dry, intact. Course Vital Signs: Vital signs: Vital Signs Temperature 98.8 F 11/25/23 11:00 Pulse Rate 65 11/25/23 15:46 Respiratory Rate 18 11/25/23 15:46 Blood Pressure 171/85 11/25/23 15:46 Pulse Oximetry 98 11/25/23 15:46 Oxygen Delivery Me thod Room Air 11/25/23 15:46 MDM - Abdominal Pain Medical Decision Making Physical exam completed and documented I reviewed the patient's previous medical records, patient is a 63-year-old female with recurrent history of pancreatitis nonalcohol associated. She states that she was recently seen here in the emergency department and attempted to treat her symptoms after discharged home and has had a reoccurrence of her pancreatitis I will obtain a CBC, CMP PT PTT INR triglycerides and a CT scan of her abdomen provide her IV fluid rehydration as well as antiemetics and pain medication for pain control. I will also contact the hospitalist and request admission of the patient. Medical Records I reviewed the patient's medical records. Lab Data I reviewed the patient's lab results. 11/25/23 10:15 11/25/23 10:15 Labs/Radiology: Laboratory Results WBC 11.07 10^3/uL (3.29-11.43) 11/25/23 10:15 RBC 4.30 10^6/uL (3.85-5.65) 11/25/23 10:15 Hgb 13.60 g/dL (11.27-16.99) 11/25/23 10:15 Hct 40.7 % (36-47) 11/25/23 10:15 MCV 94.7 fl (85-98) 11/25/23 10:15 MCH 31.6 pg (27-33) 11/25/23 10:15 MCHC 33.4 g/dL (30-55) 11/25/23 10:15 RDW 14.3 % (12.1-15.1) 11/25/23 10:15 Plt Count 331 10^3/cmm (157-399) 11/25/23 10:15 MPV 11.4 fL (7.4-10.4) H 11/25/23 10:15 Neut % (Auto) 80.4 % 11/25/23 10:15 Lymph % (Auto) 14.7 % 11/25/23 10:15 [place] % (Auto) 2.5 % 11/25/23 10:15 Eos % (Auto) 0.9 % 11/25/23 10:15 Baso % (Auto) 0.6 % 11/25/23 10:15 Neut # (Auto) 8.89 10^3/uL (1.8-7.7) H 11/25/23 10:15 Lymph # (Auto) 1.6 10^3/uL (0.8-4.8) 11/25/23 10:15 [place] # (Auto) 0.3 10^3/uL (0.2-0.9) 11/25/23 10:15 Eos # (Auto) 0.1 10^3/uL (0.0-0.8) 11/25/23 10:15 Baso # (Auto) 0.1 10^3/uL (0.0-0.1) 11/25/23 10:15 Nucleated RBC % (auto) 0 % 11/25/23 10:15 Nucleated RBCs # 0.0 /100WBC 11/25/23 10:15 Sodium 139 mmol/L (136-145) 11/25/23 10:15 Potassium 3.3 mmol/L (3.5-5.1) L 11/25/23 10:15 Chloride 99 mmol/L (98-107) 11/25/23 10:15 Carbon Dioxide 28 mmol/L (22-29) 11/25/23 10:15 Anion Gap 15.3 (5-19) 11/25/23 10:15 BUN 9 mg/dL (8-23) 11/25/23 10:15 Creatinine 0.8 mg/dL (0.5-0.9) 11/25/23 10:15 GFR Calculation 72.0 mL/min (90-130) L 11/25/23 10:15 Glucose 156 mg/dL (65-115) H 11/25/23 10:15 Estimat Average Glucose 117 11/25/23 10:15 Hemoglobin A1c 5.7 % (4.0-6.0) 11/25/23 10:15 Calculated Osmolality 290 mOsm/kg (285-295) 11/25/23 10:15 Calcium 9.9 mg/dL (8.5-10.5) 11/25/23 10:15 Magnesium 1.8 mg/dL (1.7-2.3) 11/25/23 10:15 Total Bilirubin 0.3 mg/dL (0.15-1.2) 11/25/23 10:15 AST 22 U/L (0-32) 11/25/23 10:15 ALT 11 U/L (0-33) 11/25/23 10:15 Alkaline Phosphatase 106 U/L (35-105) H 11/25/23 10:15 Total Protein 8.0 g/dL (6.6-8.7) 11/25/23 10:15 Albumin 4.1 g/dL (3.5-5.2) 11/25/23 10:15 Globulin 3.9 g/dL (1.3-4.6) 11/25/23 10:15 Triglycerides 248 mg/dL (0-150) H 11/25/23 10:15 Lipase 254 U/L (13-60) H 11/25/23 10:15 TSH 74.89 uIU/mL (0.27-4.20) H 11/25/23 10:15 Urine Color Yellow (Yellow) 11/25/23 12:00 Urine Appearance Cloudy (CLEAR) A 11/25/23 12:00 Urine pH 8 (5-7) H 11/25/23 12:00 Ur Specific [place] 1.015 (1.005-1.030) 11/25/23 12:00 Urine Protein Neg (Negative) 11/25/23 12:00 Urine Glucose (UA) Norm (Normal) 11/25/23 12:00 Urine Ketones Negative (Negative) 11/25/23 12:00 Urine Blood Neg (Negative) 11/25/23 12:00 Urine Nitrate Negative (Negative) 11/25/23 12:00 Urine Bilirubin Neg (Negative) 11/25/23 12:00 Prot Sulfosalicylic Acd Negative (Negative) 11/25/23 12:00 Urine Urobilinogen Norm mg/dL (Negative) 11/25/23 12:00 Ur Leukocyte Esterase Negative (Negative) 11/25/23 12:00 Urine RBC 0-4 /hpf (0-2) H 11/25/23 12:00 Urine WBC 0-4 /hpf (0-5) H 11/25/23 12:00 Ur Squamous Epith Cells 5-10 /hpf (0-5) H 11/25/23 12:00 Amorphous Sediment 3+ /hpf 11/25/23 12:00 Urine Bacteria 1+ /hpf (NONE) H 11/25/23 12:00 All radiology interpretation(s) finalized by discharge EKG Data EKG 1: Interpretation: Twelve-lead EKG obtained at 1234 reviewed at 1236 demonstrates sinus rhythm with a incomplete right bundle branch block, ventricular rate of 61 bpm LA interval 176, QRS duration 109, QT 436, QTc [address] elevation or depression to demonstrate acute ischemia or infarction at present. Discharge Plan Discharge Patient Disposition: Admitted As Inpatient Admit Provider: David Montemayor Clinical Impression: Acute pancreatitis Qualifiers: Pancreatitis type: unspecified pancreatitis type Acute pancreatitis complication: no infection or necrosis Qualified Code(s): K85.90 - Acute pancreatitis without necrosis or infection, unspecified Abdominal pain Qualifiers: Abdominal location: epigastric Qualified Code(s): R10.13 - Epigastric pain Condition: Stable Coding Level of Care Code ED Cabana Attendant for [facility] Sayda
--- NOTE | 2023-11-25 12:14 | CT_ITS ---
WS: [id number] CT ABDOMEN PELVIS TECHNIQUE: Contrast-enhanced CT of the abdomen and pelvis with coronal and sagittal reformatted image s. CLINICAL INFORMATION: epigastric pain COMPARISON: CT 11/10/2023 DLP: 642.[address] scans at [facility] use at least one of these dose optimization techniques: automated e xposure control; mA and/or kV adjustment per patient size (includes targeted exams where dose is matc hed to clinical indication); or iterative reconstruction. FINDINGS: Atelectasis in the lung bases. Diffuse fatty filtration of the liver. Normal gallbladder. Normal port al vein and splenic vein. Small esophageal hernia. Diffuse gastric wall thickening extending into the duodenum similar to previous can be seen with gastritis and duodenitis but neoplasm is an additional consideration. Recommend further evaluation with endoscopy. This is unchanged from 11/10/2023 Dilatation of the pancreatic duct. Stable cystic lesion near the head of the pancreas is indeterminan t and may represent pseudocyst but cystic pancreatic neoplasm not excluded. A few prominent lymph nod es in the upper abdomen. No definite evidence of acute pancreatitis Adrenal glands are normal. Small RIGHT renal cyst. Normal caliber abdominal aorta. Aortic calcificati on. Small amount of free fluid in the cul-de-sac. Fat-containing umbilical hernia. IMPRESSION: 1. Overall no significant changes since 11/10/2023. 2. Stable diffuse gastric and duodenal wall thickening with submucosal enhancement. This can be seen with gastritis and duodenitis but recommend further evaluation with endoscopy to evaluate for neopla sm. This is unchanged in appearance. 3. Stable dilatation of the pancreatic duct with cystic lesion likely pancreatic cyst or pseudocyst. Cystic pancreatic neoplasm not excluded. This measures approximately 1.9 cm. This can be further louise luated with ERCP or endoscopic ultrasound. 4. Diffuse fatty infiltration of the liver. 5. A few reactive lymph nodes in the upper abdomen. Recommend correlation with pancreatic function s tudies. 6. Small esophageal hiatal hernia. 7. Small amount of free fluid in the cul-de-sac. 8. Fat-containing umbilical hernia.
[2023-11-25 12:43] LABS: Add Urine Microscopic? YES; Bilirubin Urine Neg (Negative); Blood Urine Neg (Negative); Glucose Urine UA Norm (Normal); Ketones Urine Negative (Negative); Leukocyte Esterase Urine Negative (Negative); Nitrate Urine Negative (Negative); Protein Urine Neg (Negative); Specific Gravity, Urine 1.015 (1.005-1.030); Sulfosalicylic Acid Urine Negative (Negative); Urine Appearance Cloudy (CLEAR); Urine Color Yellow (Yellow); Urobilinogen Urine Norm (Negative); pH Urine 8 (5-7)
[2023-11-25 12:44] LABS: Add Urine Culture? No; Amorphous Sediment Urine 3+ /hpf; Bacteria Urine 1+ /hpf; RBC Urine 0-4 /hpf (0-2); WBC Urine 0-4 /hpf (0-5)
[2023-11-25] MEDS: sodium chloride 0.9% 1,000 ML 999 ML IV (12:54)
[2023-11-25] MEDS: ondansetron 2 mg/ML SDV 2 mL 4 MG IVP ×2 (12:55→20:30)
[2023-11-25] MEDS: iohexol 350 mg/mL 500 mL Btl (per mL) IV (12:57)
[2023-11-25] MEDS: pantoprazole 40 mg SDV IVP ×2 (13:47→20:35)
[2023-11-25] MEDS: fentaNYL 50 mcg/mL INJ 2mL IVP (13:47)
--- NOTE | 2023-11-25 14:05 | P.HP_ITS ---
Providers/Chief Complaint 2 Admitting Physician: David Montemayor MD Primary Care Provider: Jun Jaquez MD Chief Complaint: abd pains, n/v History of Present Illness Judy Malloy is a 63 year old female presenting to the emergency department with complaints of abdominal pain, epigastric. She has had this for the last 5 days, and has been associated with vomiting. She reports some loose stool with some hard stool. She reports a fever around 5 days ago, but none since. She has had some mild runny nose. She denies any blood in her stool or black or tarry stools. She has had intermittent episodes of pancreatitis for the last 15 years. Review of Systems 2 Card: Denies: chest pain Resp: Denies: dyspnea GI: Reports: abdominal pain, nausea and vomiting; Denies: hematochezia or melena Medications/Allergies Home Medications Medication Instructions Recorded Confirmed Last Taken Type ondansetron 4 mg disintegrating 4 mg PO Q6H PRN nausea and 06/10/21 11/05/23 Unknown Rx tablet vomiting #14 tabs aripiprazole 10 mg tablet (Abilify) 10 mg PO DAILY #90 tabs 11/05/23 11/05/23 Unknown Rx atorvastatin 40 mg tablet (Lipitor) 40 mg PO DAILY #90 tabs 11/05/23 11/05/23 Unknown Rx bupropion HCl 300 mg 24 hr tablet, 300 mg PO QAM #90 tabs 11/05/23 11/05/23 Unknown Rx extended release (Wellbutrin XL) fenofibrate nanocrystallized 48 mg 48 mg PO DAILY #90 tabs 11/05/23 11/05/23 Unknown Rx tablet fluticasone 250 mcg-salmeterol 50 See Rx Instructions .Route 11/05/23 11/05/23 Unknown Rx mcg/dose blistr powdr for .COMPLEX #180 ea inhalation gabapentin 300 mg capsule 300 mg PO BID #180 caps 11/05/23 11/05/23 Unknown Rx hydroxyzine HCl 25 mg tablet 25 mg PO TID PRN itching #180 tabs 11/05/23 11/05/23 Unknown Rx ondansetron 8 mg disintegrating 8 mg PO Q8H PRN nausea and 11/05/23 11/05/23 Unknown Rx tablet vomiting #180 tabs potassium chloride 20 mEq 20 meq PO DAILY #90 tabs 11/05/23 11/05/23 Unknown Rx tablet,extended release tizanidine 4 mg tablet 4 mg PO Q8H PRN muscle spasticity 11/05/23 11/05/23 Unknown Rx #180 tabs lansoprazole 30 mg capsule,delayed 30 mg PO DAILY #30 caps 11/10/23 Unknown Rx release (Prevacid) metoclopramide HCl 10 mg tablet 10 mg PO Q6H PRN nausea and 11/10/23 Unknown Rx (Reglan) vomiting #14 tabs sucralfate 1 gram tablet 1 g PO TID 4 weeks #84 tabs 11/10/23 Unknown Rx Allergies Allergy/AdvReac Type Severity Reaction Status Date / Time morphine Allergy ADR-Halluci Verified 11/10/23 03:19 nating promethazine [From Phenergan] Allergy ADR-Itching Verified 11/10/23 03:19 PFSH Acute 2 PFSH: Medical History Tobacco use disorder, moderate, dependence Pulmonary embolism COPD (chronic obstructive pulmonary disease) History of TIAs Hypokalemia Nausea Chronic pain Severe major depression Insomnia Chronic pancreatitis Hyperlipidemia Hypothyroidism Surgical History History of knee replacement History of back surgery Social History Smoking and tobacco/nicotine status: current every day tobacco/nicotine user cigarettes [ Other cigarette details: 11/07 PPD< 25 PYHx] Alcohol intake: former Substance/Drug Use: former Vitals/I&O/Wt Last Vital Signs Temp 98.8 F 11/25/23 11:00 Pulse 55 L 11/25/23 11:00 Resp 16 11/25/23 13:47 BP 178/75 11/25/23 11:00 Pulse Ox 98 11/25/23 11:00 Weight last 48 hrs Weight 71.214 kg Physical Exam 2 Narrative: General exam is white female, complaining of epigastric pain HEENT: Atraumatic normocephalic. Oropharynx edentulous. Neck is supple no lymphadenopathy thyromegaly Cardiovascular regular rate and rhythm without murmur. No S3 or S4 Lungs clear no wheezing or crackles Abdomen is soft. Tenderness is present in the epigastric area. No obviously organomegaly. exam deferred Extremities no cyanosis, edema, cap refill brisk Skin no rash Neuro no obvious focal deficits. Data 11/25/23 10:15 11/25/23 10:15 Other Labs: Glucose elevated at 156. I have ordered a hemoglobin A1c. LFTs are normal with exception of alk phos which is slightly high at 106 Triglyceride level 248 Albumin, calcium normal Urinalysis 0-4 reds 0-[address] which I reviewed demonstrated some gastric and duodenal wall thickening, stable dilation of pancreatic duct with cystic lesion that has been present at least since 2020. I also believe there is a generous amount of stool. EKG which I reviewed demonstrates sinus rhythm, left axis deviation, nonspecific ST-T wave changes with incomplete right bundle branch block. A&P Assessment and plan (1) Acute pancreatitis: Patient has acute pancreatitis in the setting of chronic pancreatitis Pain control IV hydration Close follow-up Clear liquids Nausea control Triglyceride level has been checked and not significantly elevated. Protonix IV Qualifiers: Acute pancreatitis complication: no infection or necrosis Pancreatitis type: unspecified pancreatitis type Qualified Code(s): K85.90 - Acute pancreatitis without necrosis or infection, unspecified (2) URI (upper respiratory infection): Recent URI with temperature 5 days ago. Check influenza and COVID (3) Hyperglycemia: Check hemoglobin A1c (4) COPD (chronic obstructive pulmonary disease): Budesonide twice daily DuoNeb every 6 hours. (5) Hypokalemia: Supplement with IV fluids Check magnesium level Plan Constipation. Start senna, MiraLAX History of hypothyroidism, check TSH History of pulmonary embolism. She reports she takes Eliquis twice daily 5 mg. Will continue. Attestations 2 Medical Necessity Statement*: Will need greater than 2 midnight stay for evaluation and treatment of acute pancreatitis with vomiting Diagnoses Acute pancreatitis K85.90 Acute pancreatitis complication: no infection or necrosis Pancreatitis type: unspecified pancreatitis type URI (upper respiratory infection) J06.9 Hyperglycemia R73.9 COPD (chronic obstructive pulmonary disease) J44.9 Hypokalemia E87.6 Time Spent (min) 46
[2023-11-25 14:11] LABS: Triglycerides 248 mg/dL (0-150)
[2023-11-25 15:13] LABS: Influenza A by IFA negative (Negative); Influenza B by IFA negative (Negative)
[2023-11-25 15:35] LABS: Estmated Average Glucose 117; Hemoglobin A1C 5.7 % (4.0-6.0)
[2023-11-25 15:48] LABS: Magnesium 1.8 mg/dL (1.7-2.3); Thyroid Stimulating Hormone 74.89 uIU/mL (0.27-4.20)
[2023-11-25] MEDS: sucralfate 1 gm Tablet PO ×2 (16:06→20:35)
[2023-11-25 16:39] LABS: Adenovirus Not Detected (NOT DETECT); Chlamydia Pneumoniae Not Detected (NOT DETECT); Coronavirus 229E,HKU1,NL63,OC4 Not Detected (NOT DETECT); Human Metapneumovirus Not Detected (NOT DETECT); Human Rhinovirus/Enterovirus Not Detected (NOT DETECT); Influenza A Not Detected (NOT DETECT); Influenza A H1 Not Detected (NOT DETECT); Influenza A H1-2009 Not Detected (NOT DETECT); Influenza A H3 Not Detected (NOT DETECT); Influenza B Not Detected (NOT DETECT); Mycoplasma Pneumoniae Not Detected (NOT DETECT); Parainfluenza Virus Type 1 Not Detected (NOT DETECT); Parainfluenza Virus Type 2 Not Detected (NOT DETECT); Parainfluenza Virus Type 3 Not Detected (NOT DETECT); Parainfluenza Virus Type 4 Not Detected (NOT DETECT); Respiratory Syncytial Virus A Not Detected (NOT DETECT); Respiratory Syncytial Virus B Not Detected (NOT DETECT); SARS-COV-2 Not Detected (NOT DETECT)
[2023-11-25] MEDS: polyethylene glycol 3350 Pkt 17 gm PO (18:31)
[2023-11-25] MEDS: sennosides-docusate Tablet 2 TAB PO (18:31)
[2023-11-25] MEDS: gabapentin 300 mg Capsule PO (18:31)
[2023-11-25] MEDS: apixaban 5 mg Tablet PO (20:35)
[2023-11-25] MEDS: sodium chlor 0.9% + KCl 20 mEq 20 MEQ/1,000 ML BAG 125 MEQ IV (20:36)
[2023-11-26] VITALS (12 sets, daily range): BP systolic 145–179; BP diastolic 72–94; PULSE 55–81; RESP 16–18; TEMP 36.7–37.2; O2SAT 94–98
[2023-11-26] MEDS: ondansetron 2 mg/ML SDV 2 mL 4 MG IVP ×2 (02:57→08:49)
[2023-11-26] MEDS: HYDROmorphone 1 mg/mL INJ 1 mL 0.5 MG IVP ×3 (03:03→21:16)
--- NOTE | 2023-11-26 03:38 | USCV_ITS ---
Judy Malloy Age: 63 Gender: F : 1960 Exam Date: 11/26/2023 06:18 Ordering Phys: Gareth Schmitz MD Technologist: Larry Bowen Exam Location: [facility] Indication: rt arm pain and swelling PROCEDURES: Venous duplex imaging was performed in only the right upper extremity. The following venous structures were evaluated: internal jugular vein, subclavian vein, axillary vein, and brachial veins. In addition, the basilic vein, cephalic vein, radial vein, and ulnar vein. FINDINGS: No evidence of deep vein thrombosis or superficial thrombophlebitis in the right upper extremity. CONCLUSIONS No evidence of thrombus of the right upper extremity veins. Alfonzo Choudhury MD (Electronically Signed) Final Date: 26 November 2023 09:56 S
--- NOTE | 2023-11-26 03:42 | PC.NURSE ---
NELLIE was found to be swollen, reddened, and warm to the touch. notified via phone call and gave verbal order for venous duplex US of extremity, No further concerns at this time.
[2023-11-26] MEDS: buPROPion XL (24 HR) 150 mg Tablet 300 MG PO (05:35)
[2023-11-26] MEDS: levothyroxine 150 mcg Tablet PO (05:35)
[2023-11-26] MEDS: oxyCODONE 5 mg IR Tab/Cap PO (05:36)
[2023-11-26 05:44] LABS: Basophils # 0.1 10^3/uL (0.0-0.1); Basophils % 0.6 %; Eosinophils # 0.1 10^3/uL (0.0-0.8); Eosinophils % 0.7 %; Hematocrit 39.7 % (36-47); Lymphocytes # 2.1 10^3/uL (0.8-4.8); Lymphocytes % 22.1 %; Mean Corpuscular Hemoglobin 31.8 pg (27-33); Mean Corpuscular Volume 93.4 fl (85-98); Mean Platelet Volume 11.1 fL (7.4-10.4); Monocytes # 0.4 10^3/uL (0.2-0.9); Monocytes % 3.8 %; Neutrophils # 6.89 10^3/uL (1.8-7.7); Neutrophils % 72.3 %; Nucleated Red Blood Cells % 0 %; Platelet Count 349 10^3/cmm (157-399); Red Blood Count 4.25 10^6/uL (3.85-5.65); Red Cell Distribution Width 14.1 % (12.1-15.1); White Blood Count 9.54 10^3/uL (3.29-11.43)
[2023-11-26 06:05] LABS: Lipase 262 U/L (13-60)
[2023-11-26 06:10] LABS: Alanine Aminotransferase 9 U/L (0-33); Albumin Level 3.8 g/dL (3.5-5.2); Alkaline Phosphatase 85 U/L (35-105); Anion Gap 14.4 (5-19); Aspartate Amino Transferase 19 U/L (0-32); Blood Urea Nitrogen 9 mg/dL (8-23); Calcium 9.3 mg/dL (8.5-10.5); Carbon Dioxide 27 mmol/L (22-29); Chloride 101 mmol/L (98-107); Globulin 2.9 g/dL (1.3-4.6); Glomerular Filtration Rate 123.8 mL/min (90-130); Glucose 117 mg/dL (65-115); Magnesium 1.8 mg/dL (1.7-2.3); Osmolality Calculated 288 mOsm/kg (285-295); Potassium 3.4 mmol/L (3.5-5.1); Sodium 139 mmol/L (136-145); Total Bilirubin 0.3 mg/dL (0.15-1.2); Total Protein 6.7 g/dL (6.6-8.7)
[2023-11-26] MEDS: budesonide 0.5 mg/2 mL Neb INHALATION ×2 (07:33→22:03)
[2023-11-26] MEDS: ipratropium-albuterol 3 mL Neb INHALATION ×2 (07:33→22:03)
[2023-11-26] MEDS: polyethylene glycol 3350 Pkt 17 gm PO (08:19)
[2023-11-26] MEDS: ARIPiprazole 10 mg Tablet PO (08:19)
[2023-11-26] MEDS: fenofibrate 48 mg Tablet PO (08:19)
[2023-11-26] MEDS: pantoprazole 40 mg SDV IVP ×2 (08:19→20:55)
[2023-11-26] MEDS: sucralfate 1 gm Tablet PO ×2 (08:20→20:34)
[2023-11-26] MEDS: apixaban 5 mg Tablet PO ×2 (08:20→17:52)
[2023-11-26] MEDS: gabapentin 300 mg Capsule PO ×2 (08:20→20:34)
[2023-11-26] MEDS: atorvastatin 40 mg Tablet PO (08:20)
[2023-11-26] MEDS: sennosides-docusate Tablet 2 TAB PO (08:21)
[2023-11-26] MEDS: potassium chloride ER 20 mEq Tablet 40 MEQ PO (08:25)
[2023-11-26] MEDS: sodium chlor 0.9% + KCl 20 mEq 20 MEQ/1,000 ML BAG 125 MEQ IV ×2 (08:47→17:52)
--- NOTE | 2023-11-26 11:05 | P.PN_ITS ---
Subjective 2 Subjective: Judy reports she is feeling better this morning but still has abdominal pain. She did vomit this morning. She has been having bowel movements. She does not feel like she can eat anymore currently. Medications: Reviewed: Yes Vitals/I&O/Wt Last Vital Signs Temp 98.0 F 11/26/23 07:55 Pulse 55 L 11/26/23 07:55 Resp 17 11/26/23 07:55 BP 165/72 11/26/23 07:55 Pulse Ox 98 11/26/23 07:55 O2 Del Method Room Air 11/26/23 07:55 11/25/23 11/26/23 11/26/23 22:59 06:59 14:59 Intake Total 1120 / 1120 1000 / 2120 120 / 120 Balance 1120 / 1120 1000 / 2120 120 / 120 Weight last 48 hrs Weight 67.449 kg Weight 69.853 kg Weight 69.853 kg Weight 71.214 kg Physical Exam 2 Narrative: General exam appears comfortable Neck is supple no lymphadenopathy thyromegaly Cardiovascular regular rate and rhythm without murmur. No S3 or S4 Lungs clear no wheezing or crackles Abdomen is soft. Tenderness is present in the epigastric area. No obviously organomegaly. Extremities no cyanosis, edema, cap refill brisk Data 11/26/23 05:19 11/26/23 05:19 A&P Assessment and plan (1) Acute pancreatitis: Patient has acute pancreatitis in the setting of chronic pancreatitis She is having continued pain Continue working on pain control Continue IV hydration Continue clear liquids. If pain improves considering advancing diet Nausea control Triglyceride level has been checked and not significantly elevated. Continue Protonix IV Qualifiers: Acute pancreatitis complication: no infection or necrosis Pancreatitis type: unspecified pancreatitis type Qualified Code(s): K85.90 - Acute pancreatitis without necrosis or infection, unspecified (2) URI (upper respiratory infection): Recent URI with temperature 5 days ago. COVID and flu are negative (3) Hyperglycemia: Hemoglobin A1c normal (4) COPD (chronic obstructive pulmonary disease): Budesonide twice daily DuoNeb every 6 hours. (5) Hypokalemia: Potassium still slightly low Magnesium level normal Supplement potassium Plan Constipation. Start senna, MiraLAX History of hypothyroidism, TSH is abnormal. Will need to reconcile medicine list. She had told me she was taking thyroid hormone but it is not on her list currently. History of pulmonary embolism. She reports she takes Eliquis twice daily 5 mg. Will continue. Full code currently Apixaban will suffice for DVT prophylaxis. Attestations 2 Medical Necessity Statement*: Needs continued hospitalization for current support for pain, nausea control secondary to acute pancreatitis. Diagnoses Acute pancreatitis K85.90 Acute pancreatitis complication: no infection or necrosis Pancreatitis type: unspecified pancreatitis type URI (upper respiratory infection) J06.9 Hyperglycemia R73.9 COPD (chronic obstructive pulmonary disease) J44.9 Hypokalemia E87.6 Time Spent (min) 24
[2023-11-27] MEDS: sodium chlor 0.9% + KCl 20 mEq 20 MEQ/1,000 ML BAG 125 MEQ IV ×2 (01:09→10:22)
[2023-11-27 04:00] VITALS: BP 158/84; PULSE 68; RESP 18; TEMP 37.2; O2SAT 96
[2023-11-27] MEDS: buPROPion XL (24 HR) 150 mg Tablet 300 MG PO (05:25)
[2023-11-27] MEDS: levothyroxine 150 mcg Tablet PO (05:25)
[2023-11-27 06:15] LABS: Basophils # 0.1 10^3/uL (0.0-0.1); Basophils % 0.8 %; Eosinophils # 0.2 10^3/uL (0.0-0.8); Eosinophils % 2.6 %; Hematocrit 34.7 % (36-47); Lymphocytes # 2.2 10^3/uL (0.8-4.8); Lymphocytes % 25.2 %; Mean Corpuscular HGB Conc 33.4 g/dL (30-55); Mean Corpuscular Hemoglobin 31.9 pg (27-33); Mean Corpuscular Volume 95.3 fl (85-98); Monocytes # 0.4 10^3/uL (0.2-0.9); Monocytes % 4.9 %; Neutrophils # 5.64 10^3/uL (1.8-7.7); Neutrophils % 66.1 %; Nucleated Red Blood Cells % 0 %; Platelet Count 300 10^3/cmm (157-399); Red Blood Count 3.64 10^6/uL (3.85-5.65); White Blood Count 8.53 10^3/uL (3.29-11.43)
[2023-11-27 06:41] LABS: Alanine Aminotransferase 8 U/L (0-33); Albumin Level 3.5 g/dL (3.5-5.2); Alkaline Phosphatase 74 U/L (35-105); Anion Gap 12.7 (5-19); Aspartate Amino Transferase 17 U/L (0-32); Blood Urea Nitrogen 6 mg/dL (8-23); Calcium 8.8 mg/dL (8.5-10.5); Carbon Dioxide 24 mmol/L (22-29); Chloride 105 mmol/L (98-107); Glomerular Filtration Rate 123.8 mL/min (90-130); Glucose 96 mg/dL (65-115); Magnesium 1.9 mg/dL (1.7-2.3); Osmolality Calculated 283 mOsm/kg (285-295); Potassium 3.7 mmol/L (3.5-5.1); Sodium 138 mmol/L (136-145); Total Bilirubin 0.4 mg/dL (0.15-1.2); Total Protein 6.5 g/dL (6.6-8.7)
[2023-11-27] MEDS: budesonide 0.5 mg/2 mL Neb INHALATION (07:54)
[2023-11-27] MEDS: ipratropium-albuterol 3 mL Neb INHALATION (07:54)
[2023-11-27 07:55] VITALS: PULSE 68; RESP 16; O2SAT 98
[2023-11-27 08:00] VITALS: BP 142/86; PULSE 67; RESP 17; TEMP 36.7; O2SAT 96
[2023-11-27 08:03] VITALS: PULSE 66
[2023-11-27] MEDS: apixaban 5 mg Tablet PO (09:59)
[2023-11-27] MEDS: pantoprazole 40 mg SDV IVP (09:59)
[2023-11-27] MEDS: atorvastatin 40 mg Tablet PO (09:59)
[2023-11-27] MEDS: sucralfate 1 gm Tablet PO (09:59)
[2023-11-27] MEDS: ARIPiprazole 10 mg Tablet PO (09:59)
[2023-11-27] MEDS: gabapentin 300 mg Capsule PO (09:59)
[2023-11-27] MEDS: fenofibrate 48 mg Tablet PO (09:59)
[2023-11-27 11:48] VITALS: BP 150/79; PULSE 71; RESP 18; TEMP 36.8; O2SAT 96
--- NOTE | 2023-11-27 12:38 | P.DS_ITS ---
Discharge Providers Date of Admission: 11/25/23 14:00 Date of Discharge: November 27, 2023 Attending Provider at Admission: David Montemayor MD Attending Provider at Discharge: David Montemayor MD Primary Care Provider: Jun Jaquez MD Diagnoses at Discharge Discharge Diagnosis (1) Acute pancreatitis: Status: Acute Qualifiers: Acute pancreatitis complication: no infection or necrosis Pancreatitis type: unspecified pancreatitis type Qualified Code(s): K85.90 - Acute pancreatitis without necrosis or infection, unspecified (2) URI (upper respiratory infection): Status: Acute (3) Hyperglycemia: Status: Acute (4) COPD (chronic obstructive pulmonary disease): Status: Acute (5) Hypokalemia: Status: Acute Reason for Visit Reason for Visit: abd pains, n/v Hospital Course Hospital Course Judy is a 63-year-old female with history of recurrent pancreatitis who presented to the hospital with elevated lipase abdominal pain and vomiting. She received pain control, fluids, nausea control and over the course of several days gradually improved. By the end of her hospital stay she was able to take full liquids without difficulty. Pain had significantly improved. It was thought she could be discharged home on a low-fat diet and continue to recover there. She had no fevers. She will be discharged on Protonix 40 twice a day. She told me that she was taking Eliquis 5 twice a day and Synthroid 150 mcg daily. I have called pharmacy to reconcile her medication list again prior to discharge. Patient was given opportunity ask questions and agreed with plan. Physical Exam Narrative: General exam no distress Neck is supple Cardiovascular regular in rhythm Lungs clear Abdomen is soft Extremities no sinus clubbing edema Discharge Data Studies Completed and Pending Completed Studies During Hospitalization Category Date Time Status CT abdomen pelvis w con* [id number] Stat Cat Scan 11/25/23 12:14 Completed US venous duplex upper extremity RT [CV venous duplex Ultrasound 11/26/23 03:38 [place] [id number]] Routine Laboratory Results WBC 8.53 10^3/uL (3.29-11.43) 11/27/23 05:47 RBC 3.64 10^6/uL (3.85-5.65) L 11/27/23 05:47 Hgb 11.60 g/dL (11.27-16.99) 11/27/23 05:47 Hct 34.7 % (36-47) L 11/27/23 05:47 MCV 95.3 fl (85-98) 11/27/23 05:47 MCH 31.9 pg (27-33) 11/27/23 05:47 MCHC 33.4 g/dL (30-55) 11/27/23 05:47 RDW 14.0 % (12.1-15.1) 11/27/23 05:47 Plt Count 300 10^3/cmm (157-399) 11/27/23 05:47 MPV 11.0 fL (7.4-10.4) H 11/27/23 05:47 Neut % (Auto) 66.1 % 11/27/23 05:47 Lymph % (Auto) 25.2 % 11/27/23 05:47 [place] % (Auto) 4.9 % 11/27/23 05:47 Eos % (Auto) 2.6 % 11/27/23 05:47 Baso % (Auto) 0.8 % 11/27/23 05:47 Neut # (Auto) 5.64 10^3/uL (1.8-7.7) 11/27/23 05:47 Lymph # (Auto) 2.2 10^3/uL (0.8-4.8) 11/27/23 05:47 [place] # (Auto) 0.4 10^3/uL (0.2-0.9) 11/27/23 05:47 Eos # (Auto) 0.2 10^3/uL (0.0-0.8) 11/27/23 05:47 Baso # (Auto) 0.1 10^3/uL (0.0-0.1) 11/27/23 05:47 Nucleated RBC % (auto) 0 % 11/27/23 05:47 Nucleated RBCs # 0.0 /100WBC 11/27/23 05:47 Sodium 138 mmol/L (136-145) 11/27/23 05:47 Potassium 3.7 mmol/L (3.5-5.1) 11/27/23 05:47 Chloride 105 mmol/L (98-107) 11/27/23 05:47 Carbon Dioxide 24 mmol/L (22-29) 11/27/23 05:47 Anion Gap 12.7 (5-19) 11/27/23 05:47 BUN 6 mg/dL (8-23) L 11/27/23 05:47 Creatinine 0.5 mg/dL (0.5-0.9) 11/27/23 05:47 GFR Calculation 123.8 mL/min (90-130) 11/27/23 05:47 Glucose 96 mg/dL (65-115) 11/27/23 05:47 Estimat Average Glucose 117 11/25/23 10:15 Hemoglobin A1c 5.7 % (4.0-6.0) 11/25/23 10:15 Calculated Osmolality 283 mOsm/kg (285-295) L 11/27/23 05:47 Calcium 8.8 mg/dL (8.5-10.5) 11/27/23 05:47 Magnesium 1.9 mg/dL (1.7-2.3) 11/27/23 05:47 Total Bilirubin 0.4 mg/dL (0.15-1.2) 11/27/23 05:47 AST 17 U/L (0-32) 11/27/23 05:47 ALT 8 U/L (0-33) 11/27/23 05:47 Alkaline Phosphatase 74 U/L (35-105) 11/27/23 05:47 Total Protein 6.5 g/dL (6.6-8.7) L 11/27/23 05:47 Albumin 3.5 g/dL (3.5-5.2) 11/27/23 05:47 Globulin 3.0 g/dL (1.3-4.6) 11/27/23 05:47 Triglycerides 248 mg/dL (0-150) H 11/25/23 10:15 Lipase 262 U/L (13-60) H 11/26/23 05:19 TSH 74.89 uIU/mL (0.27-4.20) H 11/25/23 10:15 Urine Color Yellow (Yellow) 11/25/23 12:00 Urine Appearance Cloudy (CLEAR) A 11/25/23 12:00 Urine pH 8 (5-7) H 11/25/23 12:00 Ur Specific [place] 1.015 (1.005-1.030) 11/25/23 12:00 Urine Protein Neg (Negative) 11/25/23 12:00 Urine Glucose (UA) Norm (Normal) 11/25/23 12:00 Urine Ketones Negative (Negative) 11/25/23 12:00 Urine Blood Neg (Negative) 11/25/23 12:00 Urine Nitrate Negative (Negative) 11/25/23 12:00 Urine Bilirubin Neg (Negative) 11/25/23 12:00 Prot Sulfosalicylic Acd Negative (Negative) 11/25/23 12:00 Urine Urobilinogen Norm mg/dL (Negative) 11/25/23 12:00 Ur Leukocyte Esterase Negative (Negative) 11/25/23 12:00 Urine RBC 0-4 /hpf (0-2) H 11/25/23 12:00 Urine WBC 0-4 /hpf (0-5) H 11/25/23 12:00 Ur Squamous Epith Cells 5-10 /hpf (0-5) H 11/25/23 12:00 Amorphous Sediment 3+ /hpf 11/25/23 12:00 Urine Bacteria 1+ /hpf (NONE) H 11/25/23 12:00 Coronavirus 229E (PCR) Not detected (NOT DETECT) 11/25/23 14:30 Influenza Type A Ag negative (Negative) 11/25/23 14:30 Influenza Type B Ag negative (Negative) 11/25/23 14:30 SARS-CoV-2 (PCR) Not detected (NOT DETECT) 11/25/23 14:30 Vitals Last Vital Signs Temp 98.2 F 11/27/23 11:48 Pulse 71 11/27/23 11:48 Resp 18 11/27/23 11:48 BP 150/79 11/27/23 11:48 Pulse Ox 96 11/27/23 11:48 O2 Del Method Room Air 11/27/23 11:48 Discharge Plan Discharge Patient Disposition: Home Condition: Stable Prescriptions: New oxycodone 5 mg Tablet 5 mg PO Q4H PRN (Reason: Pain) Qty: 10 0RF sennosides-docusate sodium [Stool Softener-Laxative] 8.6-50 mg Tablet 2 tab PO BID Qty: 120 0RF pantoprazole [Protonix] 40 mg tablet,delayed release (DR/EC) 40 mg PO BID Qty: 60 0RF Eliquis 5 mg Tablet 5 mg PO BID Qty: 60 0RF levothyroxine 150 mcg Tablet 150 mcg PO QAM Qty: 30 0RF Continued atorvastatin [Lipitor] 40 mg tablet 40 mg PO DAILY Qty: 90 1RF ondansetron 8 mg tablet,disintegrating 8 mg PO Q8H PRN (Reason: nausea and vomiting) Qty: 180 0RF fenofibrate nanocrystallized 48 mg tablet 48 mg PO DAILY Qty: 90 1RF hydroxyzine HCl 25 mg tablet 25 mg PO TID PRN (Reason: itching) Qty: 180 1RF aripiprazole [Abilify] 10 mg tablet 10 mg PO DAILY Qty: 90 0RF bupropion HCl [Wellbutrin XL] 300 mg tablet extended release 24 hr 300 mg PO QAM Qty: 90 1RF tizanidine 4 mg tablet 4 mg PO Q8H PRN (Reason: muscle spasticity) Qty: 180 1RF gabapentin 300 mg capsule 300 mg PO BID Qty: 180 1RF potassium chloride 20 mEq tablet extended release 20 meq PO DAILY Qty: 90 1RF sucralfate 1 gram tablet 1 g PO TID 28 Days Qty: 84 0RF fluticasone propion-salmeterol 250-50 mcg/dose blister with device 1 inh inhalation BID Discontinued metoclopramide HCl [Reglan] 10 mg tablet 10 mg PO Q6H PRN (Reason: nausea and vomiting) Qty: 14 0RF lansoprazole [Prevacid] 30 mg capsule,delayed release(DR/EC) 30 mg PO DAILY Qty: 30 0RF amitriptyline 50 mg tablet 50 mg PO BEDTIME Discharge Orders: Discharge Order (Routine); Ordered 11/27/23 Ordered By: David Montemayor Referrals: Jun Jaquez MD [Primary Care Provider] - 4-7 days Discharge Diet: Low Fat Discharge Activity: Increase activity as tolerated Patient Instructions: Opioid Safety Activity Restrictions/Additional Instructions: Take all medicine as prescribed Follow-up with your primary care provider 3 to 5 days Low-fat diet Discharge Attestations Time Spent in Discharge Care*: greater than 30 min Quality Metrics Clinical Quality Measures [ No reported AMI, CVA or VTE this stay] Coding Level of Care Code 63773 Total time (in minutes) for Discharge: 34 Diagnoses Acute pancreatitis K85.90 Acute pancreatitis complication: no infection or necrosis Pancreatitis type: unspecified pancreatitis type URI (upper respiratory infection) J06.9 Hyperglycemia R73.9 COPD (chronic obstructive pulmonary disease) J44.9 Hypokalemia E87.6
--- NOTE | 2023-11-27 12:51 | PC.PHAR ---
PT HAS LEVOTHYROXINE 150 MCG 1 DAILY ON FILE LAST FILLED AND PICKED UP 05/28/23 (0 REFILLS REMAIN) AT [place], [place] [phone]. PT ALSO HAS ELIQUIS 5 MG TWICE DAILY LAST FILLED AND PICKED UP 05/14/23 (3 REFILLS REMAIN) AT [place], [place] [phone]. NEITHER PHARMACY HAS TRANSFERED PRESCRIPTION OUT. PT DID NOT INDICATE TAKING EITHER MEDICATION DURING MED REC. 11/27/23
--- NOTE | 2023-11-27 12:58 | PC.SOCIAL ---
IMM Update pg 2 of IMM updated and reviewed w/ patient. Copy provided and copy dated, initialed and placed in chart.
[2023-11-27 14:11] VITALS: BP 150/79; PULSE 71; RESP 18; TEMP 36.8; O2SAT 96
== END 2023-11-27 14:10 | disposition home or self-care (01) | DRG 440 ==
LOC: ER 13:39 → ER IP 15:25 → MEDSURG 18:46
PROVIDERS: Family Medicine; Admitting Provider Internal Medicine; Emergency Provider Internal Medicine; PCP Family Medicine; Visit Provider Internal Medicine
DX: K85.90 Acute pancreatitis without necrosis or infection, unspecified (principal); K86.1 Other chronic pancreatitis; F17.210 Nicotine dependence, cigarettes, uncomplicated; G89.29 Other chronic pain; F32.9 Major depressive disorder, single episode, unspecified; E78.5 Hyperlipidemia, unspecified; E03.9 Hypothyroidism, unspecified; R73.9 Hyperglycemia, unspecified; E87.6 Hypokalemia; J44.9 Chronic obstructive pulmonary disease, unspecified; M79.89 Other specified soft tissue disorders; J06.9 Acute upper respiratory infection, unspecified; Z11.52 Encounter for screening for COVID-19; Z86.711 Personal history of pulmonary embolism; Z86.73 Personal history of transient ischemic attack (TIA), and cerebral infarction without residual deficits
CPT/HCPCS: 36415; 74177; 80053; 81001; 83036; 83690; 83735; 84443; 84478; 85025; 87635; 87804; 93005; 93971; 94640; 96361; 96374; 96375; 99285; C9113; J1170; J2405; J3010; J3480; J7030; J7626; Q9967

== ENCOUNTER 2023-12-09 18:01 | Emergency (ER) | payer MEDICARE, MEDICAID, SELFPAY ==
[2023-12-09 18:54] VITALS: BP 152/97; PULSE 80; RESP 14; TEMP 36.6; O2SAT 97; BMI 23.8
--- NOTE | 2023-12-09 19:42 | W.ED.ABDPA2 ---
HPI - Abdominal Pain General: Chief Complaint: Abdominal Pain Stated Complaint: n/v,abdomen pain Time Seen by Provider: 12/09/23 19:24 History of Present Illness: Patient presents to the ER with what she says is pancreatitis. Patient had upper abdominal pain with nausea vomiting. Patient was admitted here approximately 2 weeks ago for pancreatitis and when she went home she was feeling better but does not quite perfect and since then she has progressed downhill till she is been vomiting everything she tries to put down for the last 24 hours. Patient said this feels exactly like the other times before but is not quite as bad as far as the pain goes. Patient has Zofran at home which has already been trying with no success. Review of Systems General: Reports: 10 or more systems reviewed and unremarkable except in HPI and below PFSH ED PFSH: Medical History Tobacco use disorder, moderate, dependence Pulmonary embolism COPD (chronic obstructive pulmonary disease) History of TIAs Hypokalemia Nausea Chronic pain Severe major depression Insomnia Chronic pancreatitis Hyperlipidemia Hypothyroidism Surgical History History of knee replacement History of back surgery Social History Smoking and tobacco/nicotine status: current every day tobacco/nicotine user cigarettes [ Other cigarette details: 11/07 PPD< 25 PYHx] Alcohol intake: former Substance/Drug Use: former Physical Exam Const: COMMON NORMALS: no acute distress, average body habitus, patient oriented x3, no limitations, healthy appearing, alert and well nourished HENMT: COMMON NORMALS: normocephalic, atraumatic, hearing grossly normal bilaterally, external ears normal, Normal external nose present, moist oral mucous membranes and oropharynx normal HEAD & SCALP: normocephalic and atraumatic NOSE: Normal external nose present EXTERNAL EAR: Yes external ears normal Neck/C-Spine: COMMON NORMALS: full ROM, no lymphadenopathy, supple, no meningeal signs, no JVD and Thyroid normal THYROID: Thyroid normal Chest: COMMONS NORMALS: normal inspection of the chest and normal palpation of entire chest wall Resp: COMMON NORMALS: normal respiratory effort, No retractions, No use of accessory muscles and clear to auscultation bilaterally AUSCULTATION: clear to auscultation bilaterally Cardio: COMMON NORMALS: no JVD, regular rate, regular rhythm, S1 normal heart sound present, S2 normal heart sound present, No gallops present (Cardio), No clicks present (Cardio), No murmurs present (Cardio) and No rub (Cardio) RATE: regular rate RHYTHM: regular rhythm HEART SOUNDS: S1 normal heart sound present and S2 normal heart sound present GI: COMMON NORMALS: Normal to inspection, nondistended, normoactive bowel sounds present, Soft to palpation, No hepatosplenomegaly present, no masses and no bruits; negative for non-tender (Mild tender to palpate epigastric right upper quadrant region) PALPATION: Yes Soft to palpation and Yes No hepatosplenomegaly present Neuro: COMMON NORMALS: patient oriented x3 SENSORIUM/ORIENTATION: Yes alert MENINGEAL SIGNS: Yes no meningeal signs Course Vital Signs: Vital signs: Vital Signs Temperature 97.9 F 12/09/23 21:49 Pulse Rate 76 12/09/23 21:49 Respiratory Rate 16 12/09/23 21:49 Blood Pressure 152/97 12/09/23 21:49 Pulse Oximetry 96 12/09/23 21:49 Oxygen Delivery Me thod Room Air 12/09/23 18:54 MDM - Abdominal Pain Medical Decision Making Patient was given 0.5 mg Dilaudid, Zofran 8 mg, and 1 L of bolus normal saline while we are waiting on lab work. Lab work was essentially unremarkable. With a lipase of 80 and a CRP of 3.0, urinalysis showed 3+ blood but no signs of infection. Patient was reevaluated and is feeling much better and is ready to go home. Patient be discharged home. Differential Diagnosis Likely abdominal pain and pancreatitis; Unlikely acute appendicitis, calculus of kidney, constipation, diverticulitis, endometriosis, gastroenteritis or small bowel obstruction Medical Records I reviewed the patient's medical records. Lab Data I reviewed the patient's lab results. 12/09/23 19:49 12/09/23 19:49 Labs/Radiology: Laboratory Results WBC 12.02 10^3/uL (3.29-11.43) H 12/09/23 19:49 RBC 4.40 10^6/uL (3.85-5.65) 12/09/23 19:49 Hgb 14.10 g/dL (11.27-16.99) 12/09/23 19:49 Hct 42.8 % (36-47) 12/09/23 19:49 MCV 97.3 fl (85-98) 12/09/23 19:49 MCH 32.0 pg (27-33) 12/09/23 19:49 MCHC 32.9 g/dL (30-55) 12/09/23 19:49 RDW 14.3 % (12.1-15.1) 12/09/23 19:49 Plt Count 373 10^3/cmm (157-399) 12/09/23 19:49 MPV 11.2 fL (7.4-10.4) H 12/09/23 19:49 Neut % (Auto) 78.2 % 12/09/23 19:49 Lymph % (Auto) 15.7 % 12/09/23 19:49 [place] % (Auto) 4.5 % 12/09/23 19:49 Eos % (Auto) 0.7 % 12/09/23 19:49 Baso % (Auto) 0.5 % 12/09/23 19:49 Neut # (Auto) 9.40 10^3/uL (1.8-7.7) H 12/09/23 19:49 Lymph # (Auto) 1.9 10^3/uL (0.8-4.8) 12/09/23 19:49 [place] # (Auto) 0.5 10^3/uL (0.2-0.9) 12/09/23 19:49 Eos # (Auto) 0.1 10^3/uL (0.0-0.8) 12/09/23 19:49 Baso # (Auto) 0.1 10^3/uL (0.0-0.1) 12/09/23 19:49 Nucleated RBC % (auto) 0 % 12/09/23 19:49 Nucleated RBCs # 0.0 /100WBC 12/09/23 19:49 Sodium 141 mmol/L (136-145) 12/09/23 19:49 Potassium 3.7 mmol/L (3.5-5.1) 12/09/23 19:49 Chloride 102 mmol/L (98-107) 12/09/23 19:49 Carbon Dioxide 26 mmol/L (22-29) 12/09/23 19:49 Anion Gap 16.7 (5-19) 12/09/23 19:49 BUN 16 mg/dL (8-23) 12/09/23 19:49 Creatinine 0.9 mg/dL (0.5-0.9) 12/09/23 19:49 GFR Calculation 62.8 mL/min (90-130) L 12/09/23 19:49 Glucose 125 mg/dL (65-115) H 12/09/23 19:49 Calculated Osmolality 295 mOsm/kg (285-295) 12/09/23 19:49 Calcium 9.6 mg/dL (8.5-10.5) 12/09/23 19:49 Magnesium 2.1 mg/dL (1.7-2.3) 12/09/23 19:49 Total Bilirubin 0.3 mg/dL (0.15-1.2) 12/09/23 19:49 AST 20 U/L (0-32) 12/09/23 19:49 ALT 11 U/L (0-33) 12/09/23 19:49 Alkaline Phosphatase 73 U/L (35-105) 12/09/23 19:49 C-Reactive Protein 3.0 mg/L (0.0-4.9) 12/09/23 19:49 Total Protein 8.2 g/dL (6.6-8.7) 12/09/23 19:49 Albumin 4.3 g/dL (3.5-5.2) 12/09/23 19:49 Globulin 3.9 g/dL (1.3-4.6) 12/09/23 19:49 Lipase 80 U/L (13-60) H 12/09/23 19:49 Urine Color Dark yellow (Yellow) 12/09/23 19:39 Urine Appearance Sl hazy (CLEAR) A 12/09/23 19:39 Urine pH 6.5 (5-7) 12/09/23 19:39 Ur Specific [place] 1.015 (1.005-1.030) 12/09/23 19:39 Urine Protein Trace (Negative) 12/09/23 19:39 Urine Glucose (UA) Norm (Normal) 12/09/23 19:39 Urine Ketones 1+ (Negative) H 12/09/23 19:39 Urine Blood 3+ (Negative) H 12/09/23 19:39 Urine Nitrate Negative (Negative) 12/09/23 19:39 Urine Bilirubin 1+ (Negative) H 12/09/23 19:39 Urine Urobilinogen 1 mg/dL (Negative) H 12/09/23 19:39 Ur Leukocyte Esterase Negative (Negative) 12/09/23 19:39 Urine RBC 5-10 /hpf (0-2) H 12/09/23 19:39 Urine WBC 0-4 /hpf (0-5) H 12/09/23 19:39 Ur Squamous Epith Cells None /hpf (0-5) 12/09/23 19:39 Amorphous Sediment Not Reportable 12/09/23 19:39 Urine Bacteria 1+ /hpf (NONE) H 12/09/23 19:39 Urine Mucus 3+ /hpf 12/09/23 19:39 All radiology interpretation(s) finalized by discharge Discharge Plan Discharge Patient Disposition: Home Clinical Impression: Abdominal pain Qualifiers: Abdominal location: epigastric Qualified Code(s): R10.13 - Epigastric pain Nausea & vomiting Qualifiers: Vomiting type: unspecified Qualified Code(s): R11.2 - Nausea with vomiting, unspecified Condition: Stable Prescriptions: No Action ondansetron 8 mg tablet,disintegrating 8 mg PO Q8H PRN (Reason: nausea and vomiting) Qty: 180 0RF fenofibrate nanocrystallized 48 mg tablet 48 mg PO DAILY Qty: 90 1RF hydroxyzine HCl 25 mg tablet 25 mg PO TID PRN (Reason: itching) Qty: 180 1RF aripiprazole [Abilify] 10 mg tablet 10 mg PO DAILY Qty: 90 0RF bupropion HCl [Wellbutrin XL] 300 mg tablet extended release 24 hr 300 mg PO QAM Qty: 90 1RF tizanidine 4 mg tablet 4 mg PO Q8H PRN (Reason: muscle spasticity) Qty: 180 1RF gabapentin 300 mg capsule 300 mg PO BID Qty: 180 1RF potassium chloride 20 mEq tablet extended release 20 meq PO DAILY Qty: 90 1RF fluticasone propion-salmeterol [Advair Diskus] 500-50 mcg/dose blister with device 1 inh inhalation BID Qty: 60 1RF scopolamine base 1 mg over 3 days patch 3 day 1 patch transdermal Q3D PRN (Reason: nausea and vomiting) Qty: 4 0RF atorvastatin 80 mg tablet 80 mg PO DAILY Qty: 90 1RF levothyroxine 150 mcg Tablet 150 mcg PO QAM Qty: 30 0RF Eliquis 5 mg Tablet 5 mg PO BID Qty: 60 0RF Stool Softener-Laxative 8.6-50 mg Tablet 2 tab PO BID Qty: 120 0RF oxycodone 5 mg Tablet 5 mg PO Q4H PRN (Reason: Pain) Qty: 10 0RF Protonix 40 mg tablet,delayed release (DR/EC) 40 mg PO BID Qty: 60 0RF Discharge Orders: Discharge ED (Routine); Ordered 12/09/23 Ordered By: Carlo Davila Referrals: Jun Jaquez MD [Primary Care Provider] - 1 week Patient Instructions: Acute Nausea and Vomiting (DC), Abdominal Pain (ED) Activity Restrictions/Additional Instructions: Please continue take your medications including your Zofran as directed, please drink plenty of fluids. Please advance your diet as tolerated starting with full liquid diet working up to normal diet. Please follow-up with your family practice physician for further evaluation and treatment as needed. Coding Level of Care Code ED Multimedia Programmer for Bunny Alfredo
[2023-12-09 20:02] LABS: Basophils # 0.1 10^3/uL (0.0-0.1); Basophils % 0.5 %; Eosinophils # 0.1 10^3/uL (0.0-0.8); Eosinophils % 0.7 %; Hematocrit 42.8 % (36-47); Lymphocytes # 1.9 10^3/uL (0.8-4.8); Lymphocytes % 15.7 %; Mean Corpuscular HGB Conc 32.9 g/dL (30-55); Mean Corpuscular Volume 97.3 fl (85-98); Mean Platelet Volume 11.2 fL (7.4-10.4); Monocytes # 0.5 10^3/uL (0.2-0.9); Monocytes % 4.5 %; Neutrophils % 78.2 %; Nucleated Red Blood Cells % 0 %; Platelet Count 373 10^3/cmm (157-399); Red Cell Distribution Width 14.3 % (12.1-15.1); White Blood Count 12.02 10^3/uL (3.29-11.43)
[2023-12-09] MEDS: sodium chloride 0.9% 1,000 ML 999 ML IV (20:02)
[2023-12-09] MEDS: ondansetron 2 mg/ML SDV 2 mL 8 MG IVP (20:03)
[2023-12-09] MEDS: HYDROmorphone 1 mg/mL INJ 1 mL 0.5 MG IVP (20:04)
[2023-12-09 20:15] LABS: Add Urine Microscopic? YES; Bilirubin Urine 1+ (Negative); Blood Urine 3+ (Negative); Glucose Urine UA Norm (Normal); Ketones Urine 1+ (Negative); Leukocyte Esterase Urine Negative (Negative); Nitrate Urine Negative (Negative); Protein Urine Trace (Negative); Specific Gravity, Urine 1.015 (1.005-1.030); Urine Appearance SL Hazy (CLEAR); Urine Color Dark Yellow (Yellow); Urobilinogen Urine 1 mg/dL (Negative); pH Urine 6.5 (5-7)
[2023-12-09 20:16] LABS: WBC Urine 0-4 /hpf (0-5)
[2023-12-09 20:17] LABS: Add Urine Culture? No; Bacteria Urine 1+ /hpf; Mucus Urine 3+ /hpf
[2023-12-09 20:20] LABS: Alanine Aminotransferase 11 U/L (0-33); Albumin Level 4.3 g/dL (3.5-5.2); Alkaline Phosphatase 73 U/L (35-105); Anion Gap 16.7 (5-19); Aspartate Amino Transferase 20 U/L (0-32); Blood Urea Nitrogen 16 mg/dL (8-23); Calcium 9.6 mg/dL (8.5-10.5); Carbon Dioxide 26 mmol/L (22-29); Chloride 102 mmol/L (98-107); Globulin 3.9 g/dL (1.3-4.6); Glomerular Filtration Rate 62.8 mL/min (90-130); Glucose 125 mg/dL (65-115); Lipase 80 U/L (13-60); Magnesium 2.1 mg/dL (1.7-2.3); Osmolality Calculated 295 mOsm/kg (285-295); Potassium 3.7 mmol/L (3.5-5.1); Sodium 141 mmol/L (136-145); Total Bilirubin 0.3 mg/dL (0.15-1.2); Total Protein 8.2 g/dL (6.6-8.7)
[2023-12-09 20:24] VITALS: PULSE 76; RESP 16; O2SAT 96
[2023-12-09 21:49] VITALS: BP 152/97; PULSE 76; RESP 16; TEMP 36.6; O2SAT 96
== END 2023-12-09 21:50 | disposition home or self-care (01) ==
PROVIDERS: Emergency Medicine; Emergency Provider Emergency Medicine; PCP Family Medicine
DX: R10.13 Epigastric pain (principal); R11.2 Nausea with vomiting, unspecified; Z79.01 Long term (current) use of anticoagulants; J44.9 Chronic obstructive pulmonary disease, unspecified; E78.5 Hyperlipidemia, unspecified; F17.210 Nicotine dependence, cigarettes, uncomplicated
CPT/HCPCS: 36415; 80053; 81001; 83690; 83735; 85025; 86140; 96361; 96374; 96375; 99284; J1170; J2405; J7030

== ENCOUNTER 2023-12-26 12:19 | Outpatient (CLI) | payer MEDICARE, MEDICAID, SELFPAY ==
--- NOTE | 2023-12-26 12:22 | CT_ITS ---
WS: [id number] LDCT LUNG CANCER SCREENING HISTORY: screening TECHNIQUE: Axial imaging performed from the apices to 1 cm below the costophrenic angles. Coronal and sagittal reformats are submitted with axial MIP series. All CT scans at [facility] use at least one of these dose optimization techniques: automated exposure control; mA and/or kV adjustment per patient size (includes targeted exams where dose is matched to clinical indication); or iterativ e reconstruction. DLP: 59.30 mGy.cm DIvol: Mean CTDIvol: 1.20 (mGy) COMPARISON: None available. Diagnostic quality: Satisfactory Lungs: Benign calcified granuloma central RIGHT lung. No suspicious nodules or masses. There is mild bronchiectasis in the RIGHT middle lobe. Heart: Normal size heart with no pericardial effusion.. Moderate calcification [place] coronary arteri es. Other findings: Pulmonary artery is dilated to 4.0 cm. Normal ascending aorta. Mild plaque which is c alcified in the thoracic aorta. No adenopathy. Small hiatal hernia. No adrenal mass. Reidentified is known wall thickening involving the antrum and duodenum similar to 11/25/2023. Not as well visualized on today's examination as it is without IV contrast. Previously described abnormality at the pancreas is not included on this examination. IMPRESSION: CT/CT lung screening 11724 LUNG-RADS: 1S-Negative with Significant Findings FOLLOW UP: 12 Month: Continue annual screening with LDCT OTHER FINDINGS (S MODIFIER): Pulmonary hypertension. Atherosclerotic plaque within the aorta. Continued wall thickening involving the antrum and duodenum as described on 11/05. Recommend continued close follow-up.
== END 2023-12-26 12:20 | disposition home or self-care (01) ==
LOC: RAD 12:19
PROVIDERS: Visit Provider Family Medicine
DX: F17.219 Nicotine dependence, cigarettes, with unspecified nicotine-induced disorders (principal)
CPT/HCPCS: 71271

== ENCOUNTER → 2023-12-30 10:18 | Outpatient (BNVA) | payer MEDICARE, MEDICAID, SELFPAY | PROVIDERS: PCP Family Medicine; Visit Provider Anesthesiology Pain Medicine | DX: G89.29 Other chronic pain; M51.16 Intervertebral disc disorders with radiculopathy, lumbar region; Z98.890 Other specified postprocedural states; M47.816 Spondylosis without myelopathy or radiculopathy, lumbar region | CPT/HCPCS: 99204 ==

== ENCOUNTER 2024-03-31 09:27 | Outpatient (CLI) | payer MEDICARE, SELFPAY ==
--- NOTE | 2024-03-31 09:39 | MM_ITS ---
WS: [id number] ADDITIONAL VIEWS LEFT MAMMOGRAM with tomosynthesis. LEFT BREAST ULTRASOUND HISTORY: ABNORMAL MAMMO COMPARISON: 12/17/2023, 11/21/2023 LEFT MAMMOGRAM: Spot compression views and true ML with tomosynthesis and sympathetic mammography. Ad ditional full-field LEFT CC and MLO. 5 mm nodule persists along the inferior lateral LEFT breast. Really best seen on the lateral projecti on on today's exam. This is well-circumscribed. No additional abnormalities. LEFT BREAST ULTRASOUND 2-D and color Doppler imaging submitted. LEFT breast at 4:00 is a complex slightly lobulated mass with internal debris and echoes measuring 6 x 5 x 3 mm. This does correspond in location and size to the mammographic abnormality. There is no in creased vascularity but the complex appearance needs to be further evaluated. Recommend follow-up bio psy. MM/[place] [id number] IMPRESSION: BI-RADS: 4-Suspicious Finding-Biopsy Should Be Considered FOLLOW UP: Biopsy Recommended Ultrasound-guided biopsy recommended LEFT breast mass at 4:00. This may be a co mplex cyst that were collapsed after biopsy. This is not a simple cyst and need s to be further evaluated. Notified Jun Jaquez MD at 03/31/2024 11:19 AM. Message left on answering serv ice.
== END 2024-03-31 09:28 | disposition home or self-care (01) ==
LOC: RAD 09:28
PROVIDERS: PCP Family Medicine; Visit Provider Family Medicine
DX: R92.8 Other abnormal and inconclusive findings on diagnostic imaging of breast (principal); Z12.31 Encounter for screening mammogram for malignant neoplasm of breast; N63.20 Unspecified lump in the left breast, unspecified quadrant; N63.23 Unspecified lump in the left breast, lower outer quadrant
CPT/HCPCS: 76642; 77061; G0279

== ENCOUNTER → 2024-04-02 10:27 | Outpatient (BNVA) | payer MEDICARE, MEDICAID, SELFPAY | PROVIDERS: PCP Family Medicine; Visit Provider Family Medicine | DX: E03.9 Hypothyroidism, unspecified (principal); K86.1 Other chronic pancreatitis | CPT/HCPCS: 80053; 83690; 84439; 84443; 85025 ==

== ENCOUNTER 2024-04-29 10:36 | Outpatient (CLI) | payer MEDICARE, MEDICAID, SELFPAY ==
--- NOTE | 2024-04-29 11:45 | US_ITS ---
WS: [id number] ULTRASOUND-GUIDED LEFT BREAST BIOPSY HISTORY: breast mass 4'oclock position. COMPARISON: 03/31/2024, 12/17/2023 Procedure, risks and complications are explained to the patient. Medications are reviewed. Consent is obtained. The mass in the LEFT breast is localized with ultrasound. Breast mass localizes to 4:00, 1 cm from th e nipple. Skin is cleansed with ChloraPrep and anesthetized with 1% buffered lidocaine. Small dermato me is made. Under sterile conditions mass is biopsied with a 14-gauge Achieve needle. Multiple core b iopsies are performed. Material placed in formalin and sent to pathology for review. No complications encountered. Breast tissue marker (Bard ultrasound enhanced ribbon): None. After the first biopsy this mass comple tely collapsed and the exact location could not be reidentified. Patient left the radiology suite with no complications. Patient is instructed to return to [facility] or [facility] with any concerns. US/[place] [id number] IMPRESSION: 1. Uncomplicated core needle biopsy LEFT breast mass at 4:00. PATHOLOGY: Benign fat and fibrocystic changes. Negative for malignancy. RECOMMENDATION: Diagnostic LEFT mammogram and ultrasound follow-up in 6 months.
== END 2024-04-29 10:37 | disposition home or self-care (01) ==
LOC: RAD 10:36
PROVIDERS: PCP Family Medicine; Visit Provider Family Medicine
DX: N63.42 Unspecified lump in left breast, subareolar (principal)
CPT/HCPCS: 19083; 88305

== ENCOUNTER → 2024-06-22 09:08 | Outpatient (BNVA) | payer OTHER, MEDICAID, SELFPAY | PROVIDERS: PCP Family Medicine; Visit Provider Family Medicine | DX: K86.1 Other chronic pancreatitis (principal) | CPT/HCPCS: 80053; 83690; 84439; 84443 ==

== ENCOUNTER → 2024-08-14 11:53 | Outpatient (BNVA) | payer MEDICAID, OTHER, SELFPAY | PROVIDERS: PCP Family Medicine; Visit Provider Family Medicine | DX: E03.9 Hypothyroidism, unspecified (principal) | CPT/HCPCS: 84439; 84443 ==

== ENCOUNTER 2024-10-10 13:15 | Emergency (ER) | payer MEDICARE, MEDICAID, SELFPAY ==
[2024-10-10 13:46] VITALS: BP 122/82; PULSE 52; RESP 16; TEMP 36.7; O2SAT 98
--- NOTE | 2024-10-10 13:57 | XRR_ITS ---
PROCEDURE INFORMATION: Exam: XR Right Knee Exam date and time: 10/10/2024 2:48 PM Age: 64 years old Clinical indication: Injury or trauma; Fall; Blunt trauma; Knee; Right TECHNIQUE: Imaging protocol: Radiologic exam of the right knee. Views: 3 views. COMPARISON: No relevant prior studies available. FINDINGS: Bones/joints: Status post total knee arthroplasty with patellar resurfacing. Hardware appears intact without complication. No periprosthetic fracture. Soft tissues: Mild soft tissue swelling along the medial aspect of the knee. XR/XR knee RT 3V* [id number] IMPRESSION: 1. No acute osseous findings. 2. Mild medial soft tissue swelling.
--- NOTE | 2024-10-10 16:34 | W.ED.EXTPRO ---
HPI - Extremity Problem General: Chief complaint: Extremity Injury, Lower Stated complaint: Right leg injury - Fall Time Seen by Provider: 10/10/24 13:20 Source: patient Mode of arrival: ambulatory Limitations: no limitations History of Present Illness: 64-year-old female states she had slipped and fall in a parking lot states she landed on her right knee she had a history of knee replacement will make sure that she did not have any damage states she has been able to ambulate since then states her pain is a 2 out of 10 denies any other injuries from the fall. Associated symptoms: Deny chest pain, fever(s) or rash Related Data Previous Rx's Medication Instructions Recorded fluticasone 500 mcg-salmeterol 50 1 inh inhalation BID #60 ea 01/31/24 mcg/dose blistr powdr for inhalation (Advair Diskus) lidocaine 4 % topical patch 1 patch topical DAILY PRN pain #30 05/08/24 (Salonpas (lidocaine)) ea scopolamine base 1 mg over 3 days 1 patch transdermal Q3D PRN nausea 06/25/24 transdermal patch and vomiting #24 ea bupropion HCl 300 mg 24 hr tablet, 300 mg PO QAM #90 tabs 07/15/24 extended release (Wellbutrin XL) [id number] 1 cap PO TID #90 caps 08/14/24 24,000-76,000-120,000 unit capsule,delayed rel (Creon) nicotine 14 mg/24 hr daily 1 patch transdermal DAILY #28 ea 08/14/24 transdermal patch potassium chloride 20 mEq 20 meq PO DAILY #90 tabs 08/14/24 tablet,extended release levothyroxine 200 mcg tablet 200 mcg PO DAILY #90 tabs 08/17/24 ondansetron 8 mg disintegrating 8 mg PO Q8H PRN nausea and 08/31/24 tablet vomiting #180 tabs apixaban 5 mg tablet (Eliquis) 5 mg PO BID #180 tabs 09/10/24 aripiprazole 10 mg tablet (Abilify) 10 mg PO DAILY #90 tabs 09/10/24 atorvastatin 80 mg tablet 80 mg PO DAILY #90 tabs 09/10/24 fenofibrate nanocrystallized 48 mg 48 mg PO DAILY #90 tabs 09/10/24 tablet gabapentin 300 mg capsule 300 mg PO BID #180 caps 09/10/24 hydroxyzine HCl 25 mg tablet 25 mg PO TID PRN itching #180 tabs 09/10/24 pantoprazole 40 mg tablet,delayed 40 mg PO DAILY #90 tabs 09/10/24 release (Protonix) sumatriptan succinate 50 mg tablet See Rx Instructions PO .COMPLEX 09/10/24 #10 tabs tizanidine 4 mg tablet 4 mg PO Q8H PRN muscle spasticity 09/10/24 #180 tabs Allergies Allergy/AdvReac Type Severity Reaction Status Date / Time morphine Allergy ADR-Halluci Verified 09/21/24 14:27 nating promethazine [From Phenergan] Allergy ADR-Itching Verified 09/21/24 14:27 chantex Allergy ADR-Confusi Uncoded 09/21/24 14:27 on Review of Systems Const: Denies: fever(s), chills, body aches or change in appetite ENMT: Denies: throat pain or dental pain Card: Denies: chest pain Resp: Denies: dyspnea GI: Denies: abdominal pain, nausea, vomiting or diarrhea Musc: Reports: extremity pain; Denies: neck pain or back pain Skin/Breast: Denies: rash Neuro: Denies: headache(s) PFSH ED PFSH: Medical History Left breast mass Tobacco use disorder, moderate, dependence Pulmonary embolism COPD (chronic obstructive pulmonary disease) History of TIAs Hypokalemia Nausea Chronic pain Severe major depression Insomnia Chronic pancreatitis Hyperlipidemia Hypothyroidism Surgical History History of knee replacement History of back surgery Social History Smoking and tobacco/nicotine status: former use of tobacco/nicotine Alcohol intake: former Substance/Drug Use: former Physical Exam Const: COMMON NORMALS: no acute distress, patient oriented x3 and healthy appearing HENMT: COMMON NORMALS: normocephalic and atraumatic HEAD & SCALP: normocephalic and atraumatic Eye: COMMON NORMALS: conjunctivae normal CONJUNCTIVA: Yes conjunctivae normal Neck/C-Spine: COMMON NORMALS: full ROM and supple Chest: COMMONS NORMALS: normal inspection of the chest Resp: COMMON NORMALS: normal respiratory effort Cardio: COMMON NORMALS: regular rate RATE: regular rate Extremity: COMMON NORMALS: full ROM NARRATIVE EXTREMITY EXAM: Abrasion noted to right knee no obvious deformity has full range of motion able to bear weight Neuro: COMMON NORMALS: patient oriented x3, moves all extremities and no focal motor deficits Psych: COMMON NORMALS: mental status grossly normal, Normal thought process present and cooperative THOUGHT PROCESS: Normal thought process present Skin: COMMON NORMALS: no rashes or lesions noted and no wounds GENERAL SKIN EXAM: no rashes or lesions noted Course Vital Signs: Vital signs: Vital Signs Temperature 98.0 F 10/10/24 13:46 Pulse Rate 52 L 10/10/24 13:46 Respiratory Rate 16 10/10/24 13:46 Blood Pressure 122/82 10/10/24 13:46 Pulse Oximetry 98 10/10/24 13:46 Oxygen Delivery Me thod Room Air 10/10/24 13:46 MDM - Extremity (Nontraumatic) Medical Decision Making Patient presents here with right knee abrasion imaging here is negative patient stable for discharge follow-up PCP return if worsening. Medical Records I reviewed the patient's medical records. Lab Data Radiology Impressions Knee X-Ray 10/10/24 13:57 IMPRESSION: 1. No acute osseous findings. 2. Mild medial soft tissue swelling. All radiology interpretation(s) finalized by discharge Discharge Plan Discharge Patient Disposition: Home Clinical Impression: Injury of knee, right Condition: Stable Prescriptions: No Action bupropion HCl [Wellbutrin XL] 300 mg tablet extended release 24 hr 300 mg PO QAM Qty: 90 1RF Creon 24,000-76,000 -120,000 unit capsule,delayed release(DR/EC) 1 cap PO TID Qty: 90 0RF Rx Instructions: administer with meals and/or snacks nicotine 14 mg/24 hr patch 24 hour 1 patch transdermal DAILY Qty: 28 4RF potassium chloride 20 mEq tablet extended release 20 meq PO DAILY Qty: 90 1RF fluticasone propion-salmeterol [Advair Diskus] 500-50 mcg/dose blister with device 1 inh inhalation BID Qty: 60 1RF lidocaine [Salonpas (lidocaine)] 4 % adhesive patch,medicated 1 patch topical DAILY PRN (Reason: pain) Qty: 30 2RF scopolamine base 1 mg over 3 days patch 3 day 1 patch transdermal Q3D PRN (Reason: nausea and vomiting) Qty: 24 0RF levothyroxine 200 mcg tablet 200 mcg PO DAILY Qty: 90 1RF ondansetron 8 mg tablet,disintegrating 8 mg PO Q8H PRN (Reason: nausea and vomiting) Qty: 180 0RF tizanidine 4 mg tablet 4 mg PO Q8H PRN (Reason: muscle spasticity) Qty: 180 1RF sumatriptan succinate 50 mg tablet See Rx Instructions PO .COMPLEX Qty: 10 4RF Rx Instructions: take 1 tab at onset of headache; if no relief may repeat 1 tab after at least 2 hrs; max = 4 tabs/24 hr PO Eliquis 5 mg tablet 5 mg PO BID Qty: 180 0RF atorvastatin 80 mg tablet 80 mg PO DAILY Qty: 90 1RF aripiprazole [Abilify] 10 mg tablet 10 mg PO DAILY Qty: 90 0RF fenofibrate nanocrystallized 48 mg tablet 48 mg PO DAILY Qty: 90 1RF gabapentin 300 mg capsule 300 mg PO BID Qty: 180 1RF hydroxyzine HCl 25 mg tablet 25 mg PO TID PRN (Reason: itching) Qty: 180 1RF Protonix 40 mg tablet,delayed release (DR/EC) 40 mg PO DAILY Qty: 90 0RF Discharge Orders: Discharge ED (Routine); Ordered 10/10/24 Ordered By: Latoya Warren Referrals: Jun Jaquez MD [Primary Care Provider] - 4-7 days Discharge Diet: Advance as tolerated Discharge Activity: Resume usual activity Patient Instructions: Knee Pain (ED) Coding Level of Care Code ED In Flight Refueling System Repairer for Bunny Alfredo
[2024-10-10 16:39] VITALS: BP 124/80; PULSE 45; O2SAT 96
== END 2024-10-10 16:39 | disposition home or self-care (01) ==
PROVIDERS: Emergency Provider Emergency Medicine; PCP Family Medicine
DX: S89.81XA Other specified injuries of right lower leg, initial encounter (principal); W19.XXXA Unspecified fall, initial encounter; Z79.01 Long term (current) use of anticoagulants; Z87.891 Personal history of nicotine dependence; J44.9 Chronic obstructive pulmonary disease, unspecified; E78.5 Hyperlipidemia, unspecified; Z86.73 Personal history of transient ischemic attack (TIA), and cerebral infarction without residual deficits
CPT/HCPCS: 73562; 99283

== ENCOUNTER 2024-10-19 09:06 | Emergency (ER) | payer MEDICARE, MEDICAID, SELFPAY ==
[2024-10-19 09:47] VITALS: BP 192/78; PULSE 61; RESP 18; TEMP 36.7; O2SAT 95; BMI 25.3
[2024-10-19 13:13] LABS: Basophils # 0.1 10^3/uL (0.0-0.1); Basophils % 0.7 %; Eosinophils # 0.4 10^3/uL (0.0-0.8); Eosinophils % 4.9 %; Hematocrit 38.7 % (36-47); Lymphocytes # 2.9 10^3/uL (0.8-4.8); Lymphocytes % 34.9 %; Mean Corpuscular HGB Conc 32.3 g/dL (30-55); Mean Corpuscular Hemoglobin 30.3 pg (27-33); Mean Corpuscular Volume 93.7 fl (85-98); Monocytes # 0.5 10^3/uL (0.2-0.9); Monocytes % 5.6 %; Neutrophils # 4.42 10^3/uL (1.8-7.7); Neutrophils % 53.7 %; Nucleated Red Blood Cells % 0 %; Platelet Count 246 10^3/cmm (157-399); Red Blood Count 4.13 10^6/uL (3.85-5.65); Red Cell Distribution Width 14.3 % (12.1-15.1); White Blood Count 8.23 10^3/uL (3.29-11.43)
[2024-10-19 13:37] LABS: Alanine Aminotransferase 7 U/L (0-33); Albumin Level 3.6 g/dL (3.5-5.2); Alkaline Phosphatase 96 U/L (35-105); Anion Gap 15.7 (5-19); Aspartate Amino Transferase 15 U/L (0-32); Blood Urea Nitrogen 10 mg/dL (8-23); Calcium 9.3 mg/dL (8.5-10.5); Carbon Dioxide 27 mmol/L (22-29); Chloride 106 mmol/L (98-107); Creatinine Clr Calc Pharmacy 57.8684; Globulin 3.3 g/dL (1.3-4.6); Glomerular Filtration Rate 123.4 mL/min (90-130); Glucose 80 mg/dL (65-115); Lipase 36 U/L (13-60); Osmolality Calculated 298 mOsm/kg (285-295); Potassium 3.7 mmol/L (3.5-5.1); Sodium 145 mmol/L (136-145); Total Bilirubin 0.3 mg/dL (0.15-1.2); Total Protein 6.9 g/dL (6.6-8.7)
--- NOTE | 2024-10-19 14:12 | W.ED.ABDPA2 ---
HPI - Abdominal Pain General: Chief Complaint: Abdominal Pain Stated Complaint: abd pain Time Seen by Provider: 10/19/24 14:08 Source: patient Mode of arrival: ambulatory Limitations: no limitations History of Present Illness: 64-year-old female who states she has had history of pancreatitis states she has been having diffuse abdominal pain today states pains been sharp in nature rates it a 4 out of 10 she had some nausea as well. She denies any fevers denies any dysuria. Associated Symptoms: Denies chills, diarrhea, dysuria, fever(s), nausea and vomiting Related Data Previous Rx's Medication Instructions Recorded fluticasone 500 mcg-salmeterol 50 1 inh inhalation BID #60 ea 01/31/24 mcg/dose blistr powdr for inhalation (Advair Diskus) scopolamine base 1 mg over 3 days 1 patch transdermal Q3D PRN nausea 06/25/24 transdermal patch and vomiting #24 ea sumatriptan succinate 50 mg tablet See Rx Instructions PO .COMPLEX 09/10/24 #10 tabs apixaban 5 mg tablet (Eliquis) 5 mg PO BID #180 tabs 10/14/24 aripiprazole 10 mg tablet (Abilify) 10 mg PO DAILY #90 tabs 10/14/24 atorvastatin 80 mg tablet 80 mg PO DAILY #90 tabs 10/14/24 bupropion HCl 300 mg 24 hr tablet, 300 mg PO QAM #90 tabs 10/14/24 extended release (Wellbutrin XL) fenofibrate nanocrystallized 48 mg 48 mg PO DAILY #90 tabs 10/14/24 tablet gabapentin 300 mg capsule 300 mg PO BID #180 caps 10/14/24 hydroxyzine HCl 25 mg tablet 25 mg PO TID PRN itching #180 tabs 10/14/24 levothyroxine 200 mcg tablet 200 mcg PO DAILY #90 tabs 10/14/24 ollzig-syxzzzaf-edfurer 1 cap PO TID #90 caps 10/14/24 24,000-76,000-120,000 unit capsule,delayed rel (Creon) pantoprazole 40 mg tablet,delayed 40 mg PO DAILY #90 tabs 10/14/24 release (Protonix) potassium chloride 20 mEq 20 meq PO DAILY #90 tabs 10/14/24 tablet,extended release tizanidine 4 mg tablet 4 mg PO Q8H PRN muscle spasticity 10/14/24 #180 tabs ondansetron 4 mg disintegrating 4 mg PO Q6H PRN nausea and 10/19/24 tablet vomiting #14 tabs Allergies Allergy/AdvReac Type Severity Reaction Status Date / Time morphine Allergy ADR-Halluci Verified 10/14/24 11:19 nating promethazine [From Phenergan] Allergy ADR-Itching Verified 10/14/24 11:19 chantex Allergy ADR-Confusi Uncoded 10/14/24 11:19 on Review of Systems Const: Denies: fever(s), chills, body aches or change in appetite ENMT: Denies: throat pain or dental pain Card: Denies: chest pain Resp: Denies: dyspnea GI: Reports: abdominal pain; Denies: nausea, vomiting or diarrhea : Denies: dysuria Musc: Denies: neck pain or back pain Skin/Breast: Denies: rash Neuro: Denies: headache(s) PFSH ED PFSH: Medical History Left breast mass Tobacco use disorder, moderate, dependence Pulmonary embolism COPD (chronic obstructive pulmonary disease) History of TIAs Hypokalemia Nausea Chronic pain Severe major depression Insomnia Chronic pancreatitis Hyperlipidemia Hypothyroidism Surgical History History of knee replacement History of back surgery Social History Smoking and tobacco/nicotine status: former use of tobacco/nicotine Alcohol intake: former Substance/Drug Use: former Physical Exam Const: COMMON NORMALS: no acute distress, patient oriented x3 and healthy appearing HENMT: COMMON NORMALS: normocephalic and atraumatic HEAD & SCALP: normocephalic and atraumatic Eye: COMMON NORMALS: conjunctivae normal CONJUNCTIVA: Yes conjunctivae normal Neck/C-Spine: COMMON NORMALS: full ROM and supple Chest: COMMONS NORMALS: normal inspection of the chest Resp: COMMON NORMALS: normal respiratory effort, No retractions, No use of accessory muscles and clear to auscultation bilaterally AUSCULTATION: clear to auscultation bilaterally Cardio: COMMON NORMALS: regular rate, regular rhythm and No murmurs present (Cardio) RATE: regular rate RHYTHM: regular rhythm GI: COMMON NORMALS: Normal to inspection, nondistended, normoactive bowel sounds present, Soft to palpation and no masses PALPATION: Yes Soft to palpation OTHER: diffuse tenderness Extremity: COMMON NORMALS: normal to inspection and full ROM Neuro: COMMON NORMALS: patient oriented x3, moves all extremities and no focal motor deficits Psych: COMMON NORMALS: mental status grossly normal, Normal thought process present and cooperative THOUGHT PROCESS: Normal thought process present Skin: COMMON NORMALS: no rashes or lesions noted and no wounds GENERAL SKIN EXAM: no rashes or lesions noted Course Vital Signs: Vital signs: Vital Signs Temperature 98.1 F 10/19/24 09:47 Pulse Rate 44 L 10/19/24 15:53 Respiratory Rate 18 10/19/24 09:47 Blood Pressure 172/69 10/19/24 15:53 Pulse Oximetry 97 10/19/24 15:53 Oxygen Delivery Me thod Room Air 10/19/24 15:53 MDM - Abdominal Pain Medical Decision Making Patient presents here with abdominal pain her blood work here is normal she is much improved here abdominal exam at discharge benign patient is wanting to go home at this time. We had a power outage here that knocked down the CT scans I informed her it probably be about another 30 minutes to an hour to get the CT scanners up she states she feels much improved and wants to go home I informed her if her pain worsens she is to return she understands agrees to plan. Medical Records I reviewed the patient's medical records. Lab Data I reviewed the patient's lab results. 10/19/24 12:39 10/19/24 12:39 Labs/Radiology: Laboratory Results WBC 8.23 10^3/uL (3.29-11.43) 10/19/24 12:39 RBC 4.13 10^6/uL (3.85-5.65) 10/19/24 12:39 Hgb 12.50 g/dL (11.27-16.99) 10/19/24 12:39 Hct 38.7 % (36-47) 10/19/24 12:39 MCV 93.7 fl (85-98) 10/19/24 12:39 MCH 30.3 pg (27-33) 10/19/24 12:39 MCHC 32.3 g/dL (30-55) 10/19/24 12:39 RDW 14.3 % (12.1-15.1) 10/19/24 12:39 Plt Count 246 10^3/cmm (157-399) 10/19/24 12:39 MPV 12.0 fL (7.4-10.4) H 10/19/24 12:39 Neut % (Auto) 53.7 % 10/19/24 12:39 Lymph % (Auto) 34.9 % 10/19/24 12:39 [place] % (Auto) 5.6 % 10/19/24 12:39 Eos % (Auto) 4.9 % 10/19/24 12:39 Baso % (Auto) 0.7 % 10/19/24 12:39 Neut # (Auto) 4.42 10^3/uL (1.8-7.7) 10/19/24 12:39 Lymph # (Auto) 2.9 10^3/uL (0.8-4.8) 10/19/24 12:39 [place] # (Auto) 0.5 10^3/uL (0.2-0.9) 10/19/24 12:39 Eos # (Auto) 0.4 10^3/uL (0.0-0.8) 10/19/24 12:39 Baso # (Auto) 0.1 10^3/uL (0.0-0.1) 10/19/24 12:39 Nucleated RBC % (auto) 0 % 10/19/24 12:39 Nucleated RBCs # 0.0 /100WBC 10/19/24 12:39 Sodium 145 mmol/L (136-145) 10/19/24 12:39 Potassium 3.7 mmol/L (3.5-5.1) 10/19/24 12:39 Chloride 106 mmol/L (98-107) 10/19/24 12:39 Carbon Dioxide 27 mmol/L (22-29) 10/19/24 12:39 Anion Gap 15.7 (5-19) 10/19/24 12:39 BUN 10 mg/dL (8-23) 10/19/24 12:39 Creatinine 0.5 mg/dL (0.5-0.9) 10/19/24 12:39 GFR Calculation 123.4 mL/min (90-130) 10/19/24 12:39 Glucose 80 mg/dL (65-115) 10/19/24 12:39 Calculated Osmolality 298 mOsm/kg (285-295) H 10/19/24 12:39 Calcium 9.3 mg/dL (8.5-10.5) 10/19/24 12:39 Total Bilirubin 0.3 mg/dL (0.15-1.2) 10/19/24 12:39 AST 15 U/L (0-32) 10/19/24 12:39 ALT 7 U/L (0-33) 10/19/24 12:39 Alkaline Phosphatase 96 U/L (35-105) 10/19/24 12:39 Total Protein 6.9 g/dL (6.6-8.7) 10/19/24 12:39 Albumin 3.6 g/dL (3.5-5.2) 10/19/24 12:39 Globulin 3.3 g/dL (1.3-4.6) 10/19/24 12:39 Lipase 36 U/L (13-60) 10/19/24 12:39 Urine Color Yellow (Yellow) 10/19/24 13:30 Urine Appearance Clear (CLEAR) 10/19/24 13:30 Urine pH 7.0 (5-7) 10/19/24 13:30 Ur Specific [place] 1.011 (1.005-1.030) 10/19/24 13:30 Urine Protein Negative (Negative) 10/19/24 13:30 Urine Glucose (UA) Negative (Normal) 10/19/24 13:30 Urine Ketones Negative (Negative) 10/19/24 13:30 Urine Blood Trace (Negative) A 10/19/24 13:30 Urine Nitrate Negative (Negative) 10/19/24 13:30 Urine Bilirubin Negative (Negative) 10/19/24 13:30 Urine Urobilinogen 1.0 mg/dL (Negative) 10/19/24 13:30 Ur Leukocyte Esterase Negative (Negative) 10/19/24 13:30 Urine RBC 0-2 /hpf (0-2) 10/19/24 13:30 Urine WBC 0-5 /hpf (0-5) 10/19/24 13:30 Ur Squamous Epith Cells 0-5 /hpf (0-5) 10/19/24 13:30 Amorphous Sediment Not Reportable 10/19/24 13:30 Urine Bacteria None seen /hpf (NONE) 10/19/24 13:30 Hyaline Casts 0.40 /lpf 10/19/24 13:30 No radiology studies performed this visit Discharge Plan Discharge Patient Disposition: Home Clinical Impression: Abdominal pain Qualifiers: Abdominal location: epigastric Qualified Code(s): R10.13 - Epigastric pain Condition: Stable Prescriptions: New ondansetron 4 mg tablet,disintegrating 4 mg PO Q6H PRN (Reason: nausea and vomiting) Qty: 14 0RF No Action Creon 24,000-76,000 -120,000 unit capsule,delayed release(DR/EC) 1 cap PO TID Qty: 90 6RF Rx Instructions: administer with meals and/or snacks potassium chloride 20 mEq tablet extended release 20 meq PO DAILY Qty: 90 3RF levothyroxine 200 mcg tablet 200 mcg PO DAILY Qty: 90 3RF Eliquis 5 mg tablet 5 mg PO BID Qty: 180 3RF aripiprazole [Abilify] 10 mg tablet 10 mg PO DAILY Qty: 90 3RF atorvastatin 80 mg tablet 80 mg PO DAILY Qty: 90 3RF bupropion HCl [Wellbutrin XL] 300 mg tablet extended release 24 hr 300 mg PO QAM Qty: 90 3RF fenofibrate nanocrystallized 48 mg tablet 48 mg PO DAILY Qty: 90 3RF gabapentin 300 mg capsule 300 mg PO BID Qty: 180 3RF hydroxyzine HCl 25 mg tablet 25 mg PO TID PRN (Reason: itching) Qty: 180 3RF Protonix 40 mg tablet,delayed release (DR/EC) 40 mg PO DAILY Qty: 90 3RF tizanidine 4 mg tablet 4 mg PO Q8H PRN (Reason: muscle spasticity) Qty: 180 3RF fluticasone propion-salmeterol [Advair Diskus] 500-50 mcg/dose blister with device 1 inh inhalation BID Qty: 60 1RF scopolamine base 1 mg over 3 days patch 3 day 1 patch transdermal Q3D PRN (Reason: nausea and vomiting) Qty: 24 0RF sumatriptan succinate 50 mg tablet See Rx Instructions PO .COMPLEX Qty: 10 4RF Rx Instructions: take 1 tab at onset of headache; if no relief may repeat 1 tab after at least 2 hrs; max = 4 tabs/24 hr PO Discharge Orders: Discharge ED (Routine); Ordered 10/19/24 Ordered By: Latoya Warren Referrals: Jun Jaquez MD [Primary Care Provider] - 4-7 days Discharge Diet: Advance as tolerated Discharge Activity: Resume usual activity Patient Instructions: Abdominal Pain (ED) Coding Level of Care Code ED Screen Making Supervisor for Bunny Alfredo
[2024-10-19 14:23] LABS: Bacteria Urine None Seen /hpf; RBC Urine 0-2 /hpf (0-2); Squamous Epithelial Cell Urine 0-5 /hpf (0-5); WBC Urine 0-5 /hpf (0-5)
[2024-10-19 14:34] LABS: Add Urine Microscopic? YES; Bilirubin Urine Negative (Negative); Blood Urine Trace (Negative); Glucose Urine UA Negative (Normal); Ketones Urine Negative (Negative); Leukocyte Esterase Urine Negative (Negative); Nitrate Urine Negative (Negative); Protein Urine Negative (Negative); Specific Gravity, Urine 1.011 (1.005-1.030); Urine Appearance Clear (CLEAR); Urine Color Yellow (Yellow)
[2024-10-19] MEDS: HYDROmorphone 1 mg/mL INJ 1 mL 0.5 MG IVP (14:50)
[2024-10-19] MEDS: ondansetron 2 mg/ML SDV 2 mL 4 MG IVP (14:50)
[2024-10-19 15:53] VITALS: BP 172/69; PULSE 44; O2SAT 97
[2024-10-19 17:52] VITALS: BP 175/84; PULSE 54; O2SAT 98
== END 2024-10-19 17:53 | disposition home or self-care (01) ==
PROVIDERS: Physician Assistant; Emergency Provider Emergency Medicine; PCP Family Medicine
DX: R10.13 Epigastric pain (principal); Z79.01 Long term (current) use of anticoagulants; Z87.891 Personal history of nicotine dependence; E78.5 Hyperlipidemia, unspecified; J44.9 Chronic obstructive pulmonary disease, unspecified; Z86.73 Personal history of transient ischemic attack (TIA), and cerebral infarction without residual deficits; Z86.711 Personal history of pulmonary embolism
CPT/HCPCS: 36415; 80053; 81001; 83690; 85025; 96374; 96375; 99285; J1171; J2405

== ENCOUNTER 2024-11-16 10:24 | Outpatient (CLI) | payer MEDICARE, MEDICAID, SELFPAY ==
--- NOTE | 2024-11-16 10:30 | MM_ITS ---
WS: [id number] ADDITIONAL VIEWS LEFT MAMMOGRAM with tomosynthesis. LEFT BREAST ULTRASOUND HISTORY: Left Breast Mass COMPARISON: 03/31/2024, 12/17/2023, 11/21/2023 LEFT MAMMOGRAM: Spot compression views and true ML with tomosynthesis and synthetic mammography. No suspicious masses or calcifications. Previously biopsied mass at 4:00 is not identified. Benign sc attered calcifications. Ultrasound will be performed of the LEFT breast at 4:00 to ensure there is no recurrence of the cyst that was biopsied. LEFT BREAST ULTRASOUND 2-D and color Doppler imaging submitted. Ultrasound is directed to 4:00, 1 cm from the nipple at the site of the previous biopsy. There is no recurrent cyst or mass. MM/MM diag LT tomosynthesis [id number] IMPRESSION: BI-RADS: 2- Benign FOLLOW UP: 1 Year Follow-up Return to annual screening mammography.
== END 2024-11-16 10:25 | disposition home or self-care (01) ==
LOC: RAD 10:27
PROVIDERS: PCP Family Medicine; Visit Provider Family Medicine
DX: N63.23 Unspecified lump in the left breast, lower outer quadrant (principal); R92.322 Mammographic fibroglandular density, left breast; R92.1 Mammographic calcification found on diagnostic imaging of breast
CPT/HCPCS: 76642; 77061; G0279

== ENCOUNTER → 2024-11-24 10:15 | Outpatient (BNVA) | payer MEDICARE, SELFPAY | PROVIDERS: PCP Family Medicine; Visit Provider Family Medicine | DX: E03.9 Hypothyroidism, unspecified (principal) | CPT/HCPCS: 80048; 84439; 84443 ==

== ENCOUNTER 2024-11-26 09:06 | Emergency (ER) | payer MEDICARE, SELFPAY ==
--- NOTE | 2024-11-26 09:10 | ECG_ITS ---
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 Measurements Intervals [place] Rate: 53 P: 9 W[place]: 151 QRS: -56 QRSD: 110 T: 105 QT: 469 QTc: 442 Interpretive Statements SINUS BRADYCARDIA INCOMPLETE RIGHT BUNDLE BRANCH BLOCK [90+ ms QRS DURATION, TERMINAL R IN V1/V2, 40+ ms S IN I/aVL/V4/V5/V6] LEFT ANTERIOR FASCICULAR BLOCK [QRS AXIS <= -45, QR IN I, RS IN II] SEPTAL MYOCARDIAL INFARCTION , OF INDETERMINATE AGE [40+ ms Q WAVE IN V1/V2] MODERATE T-WAVE ABNORMALITY, CONSIDER LATERAL ISCHEMIA [-0.1+ mV T-WAVE IN I/aVL/V5/V6] Compared to ECG 11/25/2023 12:34:07 Myocardial infarct finding now present Sinus rhythm no longer present T-wave abnormality still present Electronically Signed On 11-27-2024 09:03:31 MEDICAID BILLER by Catracho Doherty M.D. [id number]
[2024-11-26 09:13] VITALS: BP 153/65; PULSE 57; RESP 18; TEMP 36.8; O2SAT 100; BMI 23.3
--- NOTE | 2024-11-26 09:16 | XR_ITS ---
WS: [id number] Portable AP upright chest, 11/26/2024 Clinical Data: cp Comparison: Portable chest, 10/22/2009 Findings: No nodules, masses or effusions are seen. The heart is normal. The pulmonary vascularity is not increased. No pneumonia or pneumothorax is seen. The aortic arch shows calcification and tortuos ity. XR/XR chest 1V portable [id number] Impression: Atherosclerosis.
[2024-11-26 09:30] LABS: Basophils % 0.6 %; Eosinophils # 0.2 10^3/uL (0.0-0.8); Eosinophils % 3.3 %; Hematocrit 44.8 % (36-47); Lymphocytes # 2.4 10^3/uL (0.8-4.8); Lymphocytes % 32.9 %; Mean Corpuscular HGB Conc 33.5 g/dL (30-55); Mean Corpuscular Hemoglobin 30.8 pg (27-33); Mean Platelet Volume 10.9 fL (7.4-10.4); Monocytes # 0.4 10^3/uL (0.2-0.9); Monocytes % 5.6 %; Neutrophils # 4.18 10^3/uL (1.8-7.7); Neutrophils % 57.5 %; Nucleated Red Blood Cells % 0 %; Platelet Count 315 10^3/cmm (157-399); Red Blood Count 4.87 10^6/uL (3.85-5.65); Red Cell Distribution Width 13.2 % (12.1-15.1); White Blood Count 7.27 10^3/uL (3.29-11.43)
--- NOTE | 2024-11-26 09:47 | ED_ITS ---
HPI - Chest Pain 2 General: Chief Complaint: Chest Pain Stated Complaint: chest pain, sob Time Seen by Provider: 11/26/24 09:16 Source: patient Mode of arrival: ambulatory Limitations: no limitations History of Present Illness: 64-year-old female who states that she h as been having chest pain since last night states it worsened today pains in the center of her chest she has had some dyspnea. Patient states she had a procedure done in [place] last month she believes it was an angiogram of her leg but she is unsure. She denies any fever cough Associated symptoms: Deny abdominal pain, dyspnea, fever(s), nausea or vomiting Related Data Home Medications Medication Instructions Recorded Confirmed gabapentin 300 mg capsule 600 mg PO BID 11/23/24 11/26/24 aspirin 81 mg tablet,delayed 81 mg PO DAILY 11/26/24 11/26/24 release (Fozia Low Dose Aspirin) gabapentin 600 mg tablet 600 mg PO BID 11/26/24 11/26/24 Previous Rx's Medication Instructions Recorded scopolamine base 1 mg over 3 days 1 patch transdermal Q3D PRN nausea 06/25/24 transdermal patch and vomiting #24 ea sumatriptan succinate 50 mg tablet See Rx Instructions PO .COMPLEX 09/10/24 #10 tabs apixaban 5 mg tablet (Eliquis) 5 mg PO BID #180 tabs 10/14/24 aripiprazole 10 mg tablet (Abilify) 10 mg PO DAILY #90 tabs 10/14/24 atorvastatin 80 mg tablet 80 mg PO DAILY #90 tabs 10/14/24 bupropion HCl 300 mg 24 hr tablet, 300 mg PO QAM #90 tabs 10/14/24 extended release (Wellbutrin XL) fenofibrate nanocrystallized 48 mg 48 mg PO DAILY #90 tabs 10/14/24 tablet hydroxyzine HCl 25 mg tablet 25 mg PO TID PRN itching #180 tabs 10/14/24 levothyroxine 200 mcg tablet 200 mcg PO DAILY #90 tabs 10/14/24 mzdowa-vyqlkxui-xvntsui 1 cap PO TID #90 caps 10/14/24 24,000-76,000-120,000 unit capsule,delayed rel (Creon) pantoprazole 40 mg tablet,delayed 40 mg PO DAILY #90 tabs 10/14/24 release (Protonix) potassium chloride 20 mEq 20 meq PO DAILY #90 tabs 10/14/24 tablet,extended release tizanidine 4 mg tablet 4 mg PO Q8H PRN muscle spasticity 10/14/24 #180 tabs ondansetron 4 mg disintegrating 4 mg PO Q6H PRN nausea and 10/19/24 tablet vomiting #14 tabs ropinirole 0.5 mg tablet 0.5 mg PO .qnightly #30 tabs 11/23/24 Allergies Allergy/AdvReac Type Severity Reaction Status Date / Time morphine Allergy ADR-Halluci Verified 11/23/24 15:19 nating promethazine [From Phenergan] Allergy ADR-Itching Verified 11/23/24 15:19 chantex Allergy ADR-Confusi Uncoded 11/23/24 15:19 on Review of Systems 2 Const: Denies: fever(s), chills, body aches or change in appetite ENMT: Denies: throat pain or dental pain Card: Reports: chest pain Resp: Denies: dyspnea GI: Denies: abdominal pain, nausea, vomiting or diarrhea Musc: Denies: neck pain or back pain Skin/Breast: Denies: rash Neuro: Denies: headache(s) PFSH ED 2 PFSH: Medical History Hx of non-ST elevation myocardial infarction (NSTEMI) Restless leg syndrome Left breast mass Tobacco use disorder, moderate, dependence Pulmonary embolism COPD (chronic obstructive pulmonary disease) History of TIAs Hypokalemia Nausea Chronic pain Severe major depression Insomnia Chronic pancreatitis Hyperlipidemia Hypothyroidism Surgical History History of knee replacement History of back surgery Social History Smoking and tobacco/nicotine status: former use of tobacco/nicotine Alcohol intake: former Substance/Drug Use: former Physical Exam 2 Const: COMMON NORMALS: patient oriented x3 HENMT: COMMON NORMALS: normocephalic and atraumatic HEAD & SCALP: n ormocephalic and atraumatic Eye: COMMON NORMALS: Equal, round and reactive pupils present and EOMs intact bilaterally PUPIL: Yes Equal, round and reactive pupils present Neck/C-Spine: COMMON NORMALS: full ROM and supple Chest: COMMONS NORMALS: normal inspection of the chest and normal palpation of entire chest wall Resp: COMMON NORMALS: normal respiratory effort, No retractions, No use of accessory muscles and clear to auscultation bilaterally AUSCULTATION: clear to auscultation bilaterally Cardio: COMMON NORMALS: regular rate, regular rhythm and No murmurs present (Cardio) RATE: regular rate RHYTHM: regular rhythm GI: COMMON NORMALS: Normal to inspection, nondistended, normoactive bowel sounds present, Soft to palpation, non-tender and no masses PALPATION: Yes Soft to palpation Extremity: COMMON NORMALS: normal to inspection and full ROM Neuro: COMMON NORMALS: patient oriented x3, moves all extremities and no focal motor deficits Psych: COMMON NORMALS: mental status grossly normal, Normal thought process present and cooperative THOUGHT PROCESS: Normal thought process present Skin: COMMON NORMALS: no rashes or lesions noted and no wounds GENERAL SKIN EXAM: no rashes or lesions noted Course 2 Vital Signs: Vital signs: Vital Signs Temperature 98.3 F 11/26/24 09:13 Pulse Rate 51 L 11/26/24 12:31 Respiratory Rate 18 11/26/24 09:13 Blood Pressure 163/80 11/26/24 12:31 Pulse Oximetry 98 11/26/24 12:31 Oxygen Delivery Me thod Room Air 11/26/24 09:13 MDM - Chest Pain Medical Decision Making Patient presents here with chest pain that is resolved here her 2-hour troponin here is negative did get her records from [facility] she had a heart cath less than a month ago that showed no severe acute coronary syndrome did not require any stents I feel she is stable for discharge she has no signs of ACS here no signs of pulmonary embolism she is to follow-up with her esthetician facialist return if worsening Medical Records I reviewed the patient's medical records. Lab Data I reviewed the patient's lab results. 11/26/24 09:22 11/26/24 09:22 Radiology Impressions Chest X-Ray 11/26/24 09:16 Impression: Atherosclerosis. Laboratory Results WBC 7.27 10^3/uL (3.29-11.43) 11/26/24 09:22 RBC 4.87 10^6/uL (3.85-5.65) 11/26/24 09:22 Hgb 15.00 g/dL (11.27-16.99) 11/26/24 09:22 Hct 44.8 % (36-47) 11/26/24 09:22 MCV 92.0 fl (85-98) 11/26/24 09:22 MCH 30.8 pg (27-33) 11/26/24 09:22 MCHC 33.5 g/dL (30-55) 11/26/24 09:22 RDW 13.2 % (12.1-15.1) 11/26/24 09:22 Plt Count 315 10^3/cmm (157-399) 11/26/24 09:22 MPV 10.9 fL (7.4-10.4) H 11/26/24 09:22 Neut % (Auto) 57.5 % 11/26/24 09:22 Lymph % (Auto) 32.9 % 11/26/24 09:22 [place] % (Auto) 5.6 % 11/26/24 09:22 Eos % (Auto) 3.3 % 11/26/24 09:22 Baso % (Auto) 0.6 % 11/26/24 09:22 Neut # (Auto) 4.18 10^3/uL (1.8-7.7) 11/26/24 09:22 Lymph # (Auto) 2.4 10^3/uL (0.8-4.8) 11/26/24 09:22 [place] # (Auto) 0.4 10^3/uL (0.2-0.9) 11/26/24 09:22 Eos # (Auto) 0.2 10^3/uL (0.0-0.8) 11/26/24 09:22 Baso # (Auto) 0.0 10^3/uL (0.0-0.1) 11/26/24 09:22 Nucleated RBC % (auto) 0 % 11/26/24 09: Nucleated RBCs # 0.0 /100WBC 11/26/24 09:22 Sodium 136 mmol/L (136-145) 11/26/24 09:22 Potassium 4.0 mmol/L (3.5-5.1) 11/26/24 09:22 Chloride 99 mmol/L (98-107) 11/26/24 09:22 Carbon Dioxide 26 mmol/L (22-29) 11/26/24 09:22 Anion Gap 15.0 (5-19) 11/26/24 09:22 BUN 8 mg/dL (8-23) 11/26/24 09:22 Creatinine 0.7 mg/dL (0.5-0.9) 11/26/24 09:22 GFR Calculation 83.7 mL/min (90-130) L 11/26/24 09:22 Glucose 135 mg/dL (65-115) H 11/26/24 09:22 Calculated Osmolality 282 mOsm/kg (285-295) L 11/26/24 09:22 Calcium 9.7 mg/dL (8.5-10.5) 11/26/24 09:22 Total Bilirubin 0.2 mg/dL (0.15-1.2) 11/26/24 09:22 AST 14 U/L (0-32) 11/26/24 09:22 ALT 11 U/L (0-33) 11/26/24 09:22 Alkaline Phosphatase 112 U/L (35-105) H 11/26/24 09:22 Troponin T Baseline 18 ng/L (0-10) H 11/26/24 09:22 Troponin T 120 Minute 16.63 ng/L (0-10) H 11/26/24 11:50 Delta Troponin T -1.37 ABS# (0-10) L 11/26/24 11:50 Total Protein 7.1 g/dL (6.6-8.7) 11/26/24 09:22 Albumin 4.2 g/dL (3.5-5.2) 11/26/24 09:22 Globulin 2.9 g/dL (1.3-4.6) 11/26/24 09:22 Lipase 86 U/L (13-60) H 11/26/24 09:22 All radiology interpretation(s) finalized by discharge EKG Data EKG 1: I personally reviewed and interpreted this EKG as follows: EKG interpretation date: 11/26/24 EKG interpretation time: 09:21 Interpretation: sinus [place] hr [address] elevation t wave inversion noted qrs 110 qtc 452 Discharge Plan Discharge Patient Disposition: Home Clinical Impression: Chest pain Condition: Stable Prescriptions: No Action Creon 24,000-76,000 -120,000 unit capsule,delayed release(DR/EC) 1 cap PO TID Qty: 90 6RF Rx Instructions: administer with meals and/or snacks potassium chloride 20 mEq tablet extended release 20 meq PO DAILY Qty: 90 3RF levothyroxine 200 mcg tablet 200 mcg PO DAILY Qty: 90 3RF Eliquis 5 mg tablet 5 mg PO BID Qty: 180 3RF aripiprazole [Abilify] 10 mg tablet 10 mg PO DAILY Qty: 90 3RF atorvastatin 80 mg tablet 80 mg PO DAILY Qty: 90 3RF bupropion HCl [Wellbutrin XL] 300 mg tablet extended release 24 hr 300 mg PO QAM Qty: 90 3RF fenofibrate nanocrystallized 48 mg tablet 48 mg PO DAILY Qty: 90 3RF hydroxyzine HCl 25 mg tablet 25 mg PO TID PRN (Reason: itching) Qty: 180 3RF Protonix 40 mg tablet,delayed release (DR/EC) 40 mg PO DAILY Qty: 90 3RF tizanidine 4 mg tablet 4 mg PO Q8H PRN (Reason: muscle spasticity) Qty: 180 3RF gabapentin 300 mg capsule 600 mg PO BID ropinirole 0.5 mg tablet 0.5 mg PO .qnightly Qty: 30 3RF scopolamine base 1 mg over 3 days patch 3 day 1 patch transdermal Q3D PRN (Reason: nausea and vomiting) Qty: 24 0RF sumatriptan succinate 50 mg tablet See Rx Instructions PO .COMPLEX Qty: 10 4RF Rx Instructions: take 1 tab at onset of headache; if no relief may repeat 1 tab after at least 2 hrs; max = 4 tabs/24 hr PO gabapentin 600 mg tablet 600 mg PO BID aspirin [Fozia Low Dose Aspirin] 81 mg Tablet,Delayed Release (Dr/Ec) 81 mg PO DAILY ondansetron 4 mg tablet,disintegrating 4 mg PO Q6H PRN (Reason: nausea and vomiting) Qty: 14 0RF Discharge Orders: Discharge ED (Routine); Ordered 11/26/24 Ordered By: Latoya Warren Referrals: Jun Jaquez MD [Primary Care Provider] - 4-7 days Discharge Diet: Advance as tolerated Discharge Activity: Use walker/crutches as instructed Patient Instructions: Chest Pain (ED) Coding Level of Care Code ED Ski Maker for Bunny Alfredo
[2024-11-26 09:53] LABS: Alanine Aminotransferase 11 U/L (0-33); Albumin Level 4.2 g/dL (3.5-5.2); Alkaline Phosphatase 112 U/L (35-105); Aspartate Amino Transferase 14 U/L (0-32); Blood Urea Nitrogen 8 mg/dL (8-23); Calcium 9.7 mg/dL (8.5-10.5); Carbon Dioxide 26 mmol/L (22-29); Chloride 99 mmol/L (98-107); Creatinine Clr Calc Pharmacy 58.1869; Globulin 2.9 g/dL (1.3-4.6); Glomerular Filtration Rate 83.7 mL/min (90-130); Glucose 135 mg/dL (65-115); Lipase 86 U/L (13-60); Osmolality Calculated 282 mOsm/kg (285-295); Sodium 136 mmol/L (136-145); Total Bilirubin 0.2 mg/dL (0.15-1.2); Total Protein 7.1 g/dL (6.6-8.7)
[2024-11-26 09:54] LABS: Troponin(5th) Baseline 18 ng/L (0-10)
[2024-11-26 09:57] VITALS: BP 153/65; PULSE 50; O2SAT 99
[2024-11-26 11:05] VITALS: PULSE 54; O2SAT 99
[2024-11-26] MEDS: aspirin 81 mg Chew Tablet 324 MG PO (11:15)
--- NOTE | 2024-11-26 11:16 | ECG_ITS ---
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 Measurements Intervals [place] Rate: 50 P: 8 SC: 155 QRS: -51 QRSD: 113 T: 116 QT: 489 QTc: 449 Interpretive Statements SINUS BRADYCARDIA INCOMPLETE RIGHT BUNDLE BRANCH BLOCK [90+ ms QRS DURATION, TERMINAL R IN V1/V2, 40+ ms S IN I/aVL/V4/V5/V6] LEFT ANTERIOR FASCICULAR BLOCK [QRS AXIS <= -45, QR IN I, RS IN II] LEFT VENTRICULAR HYPERTROPHY AND ST-T CHANGE [VOLTAGE CRITERIA PLUS ST/T ABNORMALITY] Compared to ECG 11/26/2024 09:21:02 Left anterior fascicular block now present Ventricular premature complex(es) no longer present ST (T wave) deviation still present Myocardial infarct finding still present Electronically Signed On 11-28-2024 23:30:59 NEWS CLERK by Catracho Doherty M.D. [id number]
[2024-11-26 11:30] VITALS: BP 188/76; PULSE 49; O2SAT 97
[2024-11-26 12:27] LABS: Troponin 5 2HR 16.63 ng/L (0-10)
[2024-11-26 12:29] LABS: Troponin 5 2HR Delta -1.37 ABS# (0-10)
[2024-11-26 12:31] VITALS: BP 163/80; PULSE 51; O2SAT 98
[2024-11-26 13:03] VITALS: BP 163/80; PULSE 52; O2SAT 98
== END 2024-11-26 13:10 | disposition home or self-care (01) ==
PROVIDERS: Emergency Provider Emergency Medicine; PCP Family Medicine
DX: R07.9 Chest pain, unspecified (principal); Z79.01 Long term (current) use of anticoagulants; Z79.82 Long term (current) use of aspirin; Z87.891 Personal history of nicotine dependence; J44.9 Chronic obstructive pulmonary disease, unspecified; E78.5 Hyperlipidemia, unspecified
CPT/HCPCS: 36415; 71045; 80053; 83690; 84484; 85025; 93005; 99285

== ENCOUNTER 2025-05-04 07:49 | Emergency (ER) | payer OTHER, MEDICAID, SELFPAY ==
--- OUTSIDE RECORDS SUMMARY | 2024-04-13 06:46 | XMS_ITS | Continuity of Care Document ---
Author Organization [facility] Address [address] 346X02009257[place] [address] Phone Care Team Providers Care Associate Professor Of Forestry Name Role Phone Nurse Specialist, Team Unavailable [...] PANEL ROUTINE VENIPUNCTURE OFFICE/OUTPATIENT VISIT EST Nurse Grinder Carbon PlantBusiness Professor Face To Fac e SBIRT - AUDIT/DAST, [...] VISIT EST Pap Test & HPV CPT 28560/90951 16 OFFICE/OUTPATIENT VISIT EST ASSAY THYROID STIM [...] COMPLETE CBC W/AUTO DIFF WBC (PP $10) Wv LIPID PANEL (PP $20) OFFICE/OUTPATIENT VISIT, EST [...] OFFICE/OUTPATIENT VISIT, EST COMPREHEN METABOLIC PANEL $15 (397985) M TSH+Free T4 $20 (865709) Office/Outpatient Visit, Est X-RAY SPINE - LUMBAR-2 OR 3 VIEWS Estab Outpatient Expanded H&P - Low Comp lexity Decisions INJ KETOROLAC TROMETHAMINE 30 MG 2009 TSH+Free T4 $20 (098551) Office/Outpatient Visit, Est Office/Outpatient Visit, Est TSH+Free T4 $20 (135702) Office/Outpatient Visit, Est PROTIME $5 in-house Office/Outpatient Visit, Est COMPLETE CBC W/AUTO DIFF WBC $10 (070425 ) TSH+Free T4 $20 (624942) LIPID PANEL $20 (980078) Hemoglobin Glycosated (A1C) $15 (in-hous e) URINALYSIS MACROSCOPIC $5 (in-house) Jan COMPREHEN METABOLIC PANEL $15 (903987) M Office/Outpatient Visit, Est COMPLETE CBC W/AUTO DIFF WBC LIPID PANEL [facility] TSH FREE T4 Office/Outpatient Visit, New GLYCATED HEMOGLOBIN TEST URINALYSIS NONAUTO W/O SCOPE COMPREHEN METABOLIC PANEL Advance Directives Directive Yes / No Effective Date File Name No Information Encounters Encounter Description Practice Location Reason(s) For Visit Diagnoses Date Provider Providers Copied on Encounter [facility], [id number] 7508664VS- [place], [address], [place] tel:[phone] Family Medicine F1 No Information 0 4 Nurse Specialist Team. [address], [place], [address], [place]. tel:[phone] [facility], [address] Ktttb975W9 5103448EUCh[place], [place], [address], [place] tel:[phone] Family Medicine F1 No Information 3 No Information [facility], [address] Edbpf342M8 3548630JZCh[place], [address], [place] tel:[phone] Family Medicine F1 No Information 3 Anders Handy. [address], [place], [address], [place]. tel:[phone] [facility], [address] Fxwjk233W9 9104520HFCh[place], [address], [place] tel:[phone] Family Medicine F1 No Information 3 Anders Handy. [address], [place], [address], [place]. tel:[phone] OFFICE/OUTPA TIENT VISIT EST [facility], [address] Ioaca214K9 6658117ZZCh[place], [place], [address], [place] tel:[phone] Family Medicine F1 Hospital f/u (chief complaint) Lower abdominal painLeft flank painEpigastr ic abdominal painMicrosco pic hematuriaHos pital discharge follow-upChr onic pancreatitis , unspecified pancreatitis type 3 Anders Handy. [address], [place], [address], [place]. tel:[phone] Referring Provider: Ole Stacy, [address] [place], [address] . tel:[phone] [facility], [address] Zwirh333G4 3323918HE- [place], [address], [place] tel:[phone] [place] [address] No Information 3 Anders Handy. [address], [place], [address], [place]. tel:[phone] [facility], [address] Uawjg224O9 1292501AU- [place], [address], [place] tel:[phone] [place] [address] No Information 3 Anders Handy. [address], [place], [address], [place]. tel:[phone] OFFICE/OUTPA TIENT VISIT EST [facility], [address] Sqazw642A4 1652731FBLea[place], [place], [address], [place] tel:[phone] [facility] Eval cough, headache (chief complaint) Acute coughRhinorr heaScattered rhonchi of right lung 3 Jovanny Gray. [address], [place], [address], [place]. tel:[phone] Referring Provider: Isaac Petty, [address] [place], [address] . tel:[phone] [facility], [address] Kmzim639I2 3354729WL- [place], [address], [place] tel:[phone] Family Medicine F1 No Information 3 Anders Ole. [address], [place], [address], [place]. tel:[phone] OFFICE/OUTPA TIENT VISIT EST [facility], [address] Ppkko648A0 6097603MW- [place], [address], [place] tel:[phone] Family Medicine F1 Pain follow up (chief complaint) Chronic left shoulder painEssentia l hypertension Hypothyroidi sm (acquired)Hu meral head fracture, left, sequelaLumba r spondylosisH yperlipidemi a, unspecified Jan- 3 Anders Ole. [address], [place], [address], [place]. tel:[phone] Referring Provider: Ole Stacy, [address] [place], [address] . tel:[phone] [facility], [address] Ahiyc705X2 0239918YJ- [place], [address], [place] tel:[phone] Family Medicine F1 No Information 3 Anders Ole. [address], [place], [address], [place]. tel:[phone] [facility], [address] Srose023L7 5679615SD- [place], [place], [address], [place] tel:[phone] Family [facility] F1 Closed fracture of proximal end of left humerus, unspecified fracture morphology, sequelaChron ic left shoulder pain 3 Anders Handy. [address], [place], [address], [place]. tel:[phone] [facility], [address] Fbjav382Z4 3259898YE- [place], [place], [address], [place] tel:[phone] [facility] No Information 3 Anders Handy. [address], [place], [address], [place]. tel:[phone] [facility], [address] Lzgjs176L8 3091763GLCharenton, [place], [address], [place] tel:[phone] [place] [address] No Information 3 [employer]. [address], [place], [address], [place]. tel:[phone] Referring Provider: Freight Flow Sales Leader, [address] [place], [address] . tel:[phone] OFFICE/OUTPA TIENT VISIT, [facility], [address] Dwmyy631J7 0481619EPCh[place], [place], [address], [place] tel:[phone] Family [facility] Hospital f/u (chief complaint)gary k pain (chief complaint)thy roid f/u (chief complaint) Cigarette nicotine dependence without complication COPD with chronic bronchitisEs sential hypertension Hypothyroidi sm (acquired)In jury of left shoulder, subsequent encounterOth er chronic pancreatitis Chronic low back pain without sciatica, unspecified back pain lateralityOt her chronic painOther digester capper (current) drug therapyChron ic left shoulder pain 3 Anders Handy. [address], [place], [address], [place]. tel:[phone] Referring Provider: lOe Stacy, [address] [place], [address] . tel:[phone] [facility], [address] Koxuc922D4 4165012WR- [place], [address], [place] tel:[phone] [place] [address] No Information 2 Anders Handy. [address], [place], [address], [place]. tel:[phone] OFFICE/OUTPA TIENT VISIT [facility], [address] Kiukm289C0 8309501ZN- [place], [place], [address], [place] tel:[phone] [facility] Hospital follow up (chief complaint)Daniel quent falls (chief complaint) COPD with chronic bronchitisCi garette nicotine dependence without complication H/O: strokeHeart murmurLong term (current) use of anticoagulan tsUnsteady gait 2 Anders Handy. [address], [place], [address], [place]. tel:[phone] Referring Provider: Ole Stacy, [address] [place], [address] . tel:[phone] [facility], [address] Ettsb388R0 8142040BQDille, [place], [address], [place] tel:[phone] [place] [address] No Information 2 [employer]. [address], [place], [address], [place]. tel:[phone] OFFICE/OUTPA TIENT VISIT [facility], [address] Dwrxl307A8 5018710YPCharenton, [place], [address], [place] tel:[phone] [place] [address] falls (chief complaint) Unsteady gaitLow back pain, unspecifiedI njury of left shoulder, subsequent encounterEss ential (primary) hypertension Vitamin D deficiency, unspecifiedH ypothyroidis m, unspecified 2 Anders Handy. [address], [place], [address], [place]. tel:[phone] Referring Provider: Ole Stacy, [address] [place], [address] . tel:[phone] OFFICE/OUTPA TIENT VISIT [facility], [address] Xklpr445I0 1066341NVCharenton, [place], [address], [place] tel:[phone] [facility] Eval. PAULA, sore throat, fatigue, cough x 2-3 days (chief complaint) Fatigue, unspecified typeAcute coughAcute pharyngitis, unspecifiedO ther headache syndromeExpo sure to COVID-19 virus 2 Jovanny Gray. [address], [place], [address], [place]. tel:[phone] Referring Provider: Isaac Petty, [address] [place], [address] . tel:[phone] [facility], [address] Xiwjh271N2 0709445WWCh[place]on, [place], [address], [place] tel:[phone] [facility] No Information 2 Arsalan Walters. [address] [place], [address], [place]. tel:[phone] OFFICE/OUTPA TIENT VISIT EST [facility], [address] Relst613K7 5849235RVCharenton, [place], [address], [place] tel:[phone] Family Medicine F1 Est Care (chief complaint) Chronic nauseaTIA (transient ischemic attack)Prima ry insomniaRepe ated fallsRight carotid artery occlusionPer samson hx of PEOther chronic pancreatitis Tobacco abuse 2 Anders Handy. [address], [place], [address], [place]. tel:[phone] Referring Provider: Ole Stacy, [address] [place], [address] . tel:[phone] [facility], [address] Lieva276T8 7451627CU- [place], [place], [address], [place] tel:[phone] [facility] No Information 2 No Information [facility], [address] Bwuxq670D9 7766396YK- [place], [address], [place] tel:[phone] [facility] No Information 2 No Information [facility], [address] Uxlii665G5 3097569AX- [facility], [place], [place], [address], [place] tel:[phone] Family Medicine F1 Contact w and exposure to oth viral communicable diseases 2 No Information OFFICE/OUTPA TIENT VISIT [facility], [address] Ckcxy419Y7 4787679RVCom[facility], [place], [place], [address], [place] tel:[phone] [facility] Follow up (chief complaint) History of shinglesRigh t foot dropCough, persistentCO PD with chronic bronchitisCh soledad GERDEncsudheere r for immunization 1 No Information [facility], [address] Tnloc649G4 0700545EOBob [facility], [place], [place], [address], [place] tel:[phone] [facility] No Information 1 No Information OFFICE/OUTPA TIENT VISIT, [facility], [address] Ruzhc887E2 7688092FCBob [facility], [place], [place], [address], [place] tel:[phone] [facility] rash worse, burning, painful (chief complaint) Herpes zoster without complication 1 Carolann Quinteros. [address], [place], [address], [place]. tel:[phone] Referring Provider: Neli Vuong, [address] [place], [address] . tel:[phone] OFFICE/OUTPA TIENT VISIT [facility], [address] Vtjqs051V8 8716954DFCh[place]on, [place], [address], [place] tel:[phone] [facility] rash (chief complaint) Dermatitis 1 Karishma Howell. [address] [place], [address], [place]. tel:[phone] Referring Provider: Lynda Schwarz, [address] [place], [address]. tel:[phone] OFFICE/OUTPA TIENT VISIT EST [facility], [address] Evkta524B0 5531097UV- [place], [address], [place] tel:[phone] [place] [address] follow up (chief complaint) COPD with chronic bronchitisEs sential hypertension TIA (transient ischemic attack)Right carotid artery occlusionHyp othyroidism (acquired)Ch ronic nauseaMajor depress, part remisEncount er for screening mammogram for malignant neoplasm of breastScreen ing for colon cancerScreen ing for cervical cancer 1 No Information [facility], [address] Ynkrk250R7 6659543DTLeawood, [place], [address], [place] tel:[phone] [facility] HTN Follow-up (chief complaint) Essential hypertension 1 Avelino Ulloa. [address], [place], [address], [place]. tel:[phone] Referring Provider: Laila You, [address] [place], [address] . tel:[phone] OFFICE/OUTPA TIENT VISIT [facility], [address] Pnvxb630R6 7593704GXLeawood, [place], [address], [place] tel:[phone] Family [place] [phone] Hospital followup (chief complaint) Essential hypertension DizzinessLef t lower quadrant abdominal painTobacco abuseOther chronic pancreatitis Pharyngoesop hageal dysphagiaTIA (transient ischemic attack)Right carotid artery occlusion 1 No Information [facility], [address] Fserx868E4 3031134QJLeawood, [place], [address], [place] tel:[phone] Patient (chief complaint)HTN Initial (chief complaint) Essential hypertension 0 Avelino Ulloa. [address], [place], [address], [place]. tel:[phone] Referring Provider: Laila You, [address] [place], [address] . tel:[phone] OFFICE/OUTPA TIENT VISIT EST [facility], [address] Zwgrv360K0 0909977BOLeawood, [place], [address], [place] tel:[phone] Family Medicine F1 Followup (chief complaint)hyp ertension (chief complaint) Essential hypertension Migraine without aura and without status migrainosus, not intractableP ain in right axillaRight carotid bruit 0 No Information OFFICE/OUTPA TIENT VISIT EST [facility], [address] Ptjet690A9 5740000XYCharenton, [place], [address], [place] tel:[phone] Family Medicine F1 C/O migraines ~2 months (chief complaint)Dis cuss brace for RT foot (chief complaint)CHr onic Pancreatitis Pain (chief complaint)'Va ginal Cramps' (chief complaint) Right foot dropElevated BP without diagnosis of hypertension Migraine without aura and without status migrainosus, not intractable 0 No Information PREV VISIT, EST, AGE 40-64 [facility], [address] Ewmvz663T1 3235821DGCharenton, [place], [address], [place] tel:[phone] Family Medicine F2 Well Woman Exam (chief complaint) Encounter for gynecologica l examination (general) (routine) without abnormal findingsEnco unter for screening mammogram for malignant neoplasm of breastScreen ing for cervical cancer 0 No Information OFFICE/OUTPA TIENT VISIT EST [facility], [address] Ifwwz815K7 2588707MNCh[place]on, [place], [address], [place] tel:[phone] Family Medicine F2 Chronic Pancreatitis (chief complaint)Nithin costello (chief complaint) Encounter for immunization Other chronic pancreatitis Hypothyroidi sm (acquired)CO PD with chronic bronchitisPr imary insomniaVita min D deficiencySc reening for breast cancerScreen ing for cervical cancerScreen ing for colon cancer 0 No Information [facility], [address] Kmffq425W1 1298614QR- [place], [place], [address], [place] tel:[phone] Family Medicine F1 No Information 0 [employer]. [address], [place], [address], [place]. tel:[phone] OFFICE/OUTPA TIENT VISIT [facility], [address] Qcztd399T3 0982248MSCharenton, [place], [address], [place] tel:[phone] [facility] follow up (chief complaint) Spring of footOther chronic pancreatitis Tobacco use 0 No Information OFFICE/OUTPA TIENT VISIT, [facility], [address] Sturj596C2 0197899DSCharenton, [place], [address], [place] tel:[phone] Family [facility] F1 Follow Up of [facility] (chief complaint)smo trang cessation (chief complaint) Other chronic pancreatitis Encounter for immunization Tobacco abuseChronic obstructive pulmonary disease, unspecified 9 No Information BEHAV CHNG SMOKING > 10 MIN [facility], [address] Ntedw634J1 6665619NKCharenton, [place], [address], [place] tel:[phone] [facility] Tobacco use disorder, moderate Sep-2 9 Kaylie Brambila. [address], [place], [address], [place]. tel:[phone] Referring Provider: Patty Lott, [address] [place], [address] . tel:[phone] OFFICE/OUTPA TIENT VISIT [facility], [address] Iwuqa947K9 3636452LQCharenton, [place], [address], [place] tel:[phone] Family Medicine F1 blood work (chief complaint)med ication refills (chief complaint)smo trang cessation (chief complaint) Nausea with vomiting, unspecifiedH ypokalemiaHy pothyroidism Tobacco useHyperlipi demia, unspecified Sep-2 9 No Information OFFICE/OUTPA TIENT VISIT, [facility], [address] Zxejv395Y2 0865817AE- [facility], [place], [place], [address], [place] tel:[phone] Family Medicine F1 3 mo f/u (chief complaint) Hypothyroidi smOther chronic pancreatitis HypokalemiaS creening mammogram, encounter for Aron 9 No Information OFFICE/OUTPA TIENT VISIT, [facility], [address] Txshr635Q7 6706929CW- [place], [place], [address], [place] tel:[phone] Family Medicine F1 Follow Up of ER (chief complaint) Gross hematuriaIdi opathic chronic pancreatitis March- 9 No Information [facility], [address] Ccqyl132J2 9299844VECharenton, [place], [address], [place] tel:[phone] Family Medicine F1 Other chronic pancreatitis Apr-3 9 Roselia Coppola. [address], [place], [address], [place]. tel:[phone] Referring Provider: Abdon Veloz, [address] [place], [address] . tel:[phone] [facility], [address] Vqfxy387V8 4727946XT- [place], [place], [address], [place] tel:[phone] [facility] F1 Other chronic pancreatitis Feb-2 9 No Information [facility], [address] Iwgvs146I4 9274673VHCharenton, [place], [address], [place] tel:[phone] Family Medicine F1 Chronic obstructive pulmonary disease, unspecified Feb- 9 [employer]. [address], [place], [address], [place]. tel:[phone] OFFICE/OUTPA TIENT VISIT, [facility], [address] Zczbo961X4 6810311VG- [facility], [facility] [place], [address], [place] tel:[phone] [facility] Hospital f/u for Hematuria (chief complaint) Gross hematuriaOth er chronic pancreatitis 9 No Information OFFICE/OUTPA TIENT VISIT [facility], [address] Veoyi278V2 6769627KDComanche [facility], [facility] [place], [address], [place] tel:[phone] Family Medicine Follow Up of Hypothyroidis m (chief complaint)Fol low Up of Hyperlipidemi a (chief complaint)Fol low Up of Hypokalemia (chief complaint)Ramirez creatitis (chief complaint) HypokalemiaH ypothyroidis mNausea with vomiting, unspecifiedI diopathic chronic pancreatitis 9 No Information OFFICE/OUTPA TIENT VISIT [facility], [address] Pmyul769I8 3536289HS- [facility], [place], [place], [address], [place] tel:[phone] Family Medicine history of Pancreatitis (chief complaint)Hyp erlipidemia (chief complaint)Hyp othyroidism (chief complaint)Chon n Management (chief complaint) Hyperlipidem iaHypothyroi dismHypokale miaInsomniaE ncounter for immunization Tobacco use 8 No Information [facility], [address] Ehcks819Q7 6774447MNComanche County Hospital, [facility] [place], [address], [place] tel:[phone] Family Medicine No Information 8 No Information OFFICE/OUTPA TIENT VISIT, [facility], [address] Swhzz231I6 9424516FMCitizens [facility] [place], [address], [place] tel:[phone] Family Medicine F1 Follow Up of anxiety (chief complaint)Fol low Up of depression (chief complaint) Anxiety disorder, unspecifiedM ajor depressive disorder, single episode, unspecified 8 No Information OFFICE/OUTPA TIENT VISIT EST [facility], [address] Mdmof676Z4 0185007KX- [facility], [place], [place], [address], [place] tel:[phone] Family Medicine F1 Hypothyroid (chief complaint)N/V (chief complaint)Ins omnia (chief complaint) Nausea with vomiting, unspecifiedH ypothyroidis m, unspecifiedI nsomnia, unspecified 8 No Information PSYTX PT&/FAMILY 30 MINUTES [facility], [address] Dyivr618M6 2718862JS- [facility], [place], [place], [address], [place] tel:[phone] [facility] Depressive disorder due to another medical condition, with major depressive-l neelima episode 8 No Information [facility], [address] Bhshc112B8 1008255IRBob [facility], [place], [place], [address], [place] tel:[phone] Family Medicine F1 Hypothyroidi sm, unspecifiedV itamin D deficiency, unspecified 8 No Information OFFICE/OUTPA TIENT VISIT EST [facility], [address] Fiaef590K6 1571851QO- [facility], [place], [place], [address], [place] tel:[phone] Family Medicine F1 Hypothyroidis m (chief complaint)hyp erlipidemia (chief complaint)dep ression (chief complaint)Vit D Deficiency (chief complaint) Hypothyroidi sm, unspecifiedV itamin D deficiency, unspecifiedD ry skin dermatitis 8 No Information [facility], [address] Lmbtr627H9 7247985BXBob [facility], [place], [place], [address], [place] tel:[phone] Family [facility] F1 No Information [facility]. [address], [place], [address], [place]. tel:[phone] [facility], [address] Gxelm629M4 8855262AV- [facility], [facility] [place], [address], [place] tel:[phone] Family Medicine F1 No Information [facility]. [address], [place], [address], [place]. tel:[phone] [facility], [address] Uhxbz540A2 0478438VI- [place], [place], [address], [place] tel:[phone] Family [facility] F1 No Information [facility]. [address], [place], [address], [place]. tel:[phone] [facility], [address] Qynvr264B0 5167072OB- [place], [place], [address], [place] tel:[phone] Family Medicine F1 No Information 8 [facility]. [address], [place], [address], [place]. tel:[phone] [facility], [address] Hnvzr320D2 1477557QR- [place], [place], [address], [place] tel:[phone] Family Medicine F1 Abnormal weight lossHypothyr oidism, unspecifiedV itamin D deficiency, unspecified 8 Anders Handy. [address], [place], [address], [place]. tel:[phone] Referring Provider: Ole Stacy, [address] [place], [address] . tel:[phone] OFFICE/OUTPA TIENT VISIT EST [facility], [address] Tdmdg767T5 7949704FMLeawood, [place], [address], [place] tel:[phone] Family [facility] F1 Weight Loss (chief complaint) Vitamin D deficiency, unspecifiedN icotine dependence, unspecified, uncomplicate dHypothyroid ism, unspecifiedO ther chronic pancreatitis Abnormal weight loss 8 Anders Handy. [address], [place], [address], [place]. tel:[phone] Referring Provider: Ole Stacy, [address] [facility], [place], [address] . tel:[phone] OFFICE/OUTPA TIENT VISIT EST [facility], [address] Wwwyb940F4 1266162DG- [facility], [place], [place], [address], [place] tel:[phone] [facility] F1 [facility] f/u (chief complaint)R foot pain (chief complaint)dep ression (chief complaint) HeadacheVita min D deficiency, unspecifiedH ypothyroidis m, unspecifiedH yperlipidemi a, unspecifiedM ajor depressive disorder, single episode, unspecifiedD isorder of the skinInsomnia , unspecified 7 No Information [facility], [address] Qendb723J6 2475749OP- [place], [address], [place] tel:[phone] Family Medicine F1 Hyperlipidem ia, unspecifiedH ypothyroidis m, unspecifiedV itamin D deficiency, unspecifiedH eadache 7 No Information [facility], [address] Rfjvz422J6 5232589WV- [facility], [place], [place], [address], [place] tel:[phone] Family Medicine F1 Major depressive disorder, single episode, unspecifiedN icotine dependence, unspecified, uncomplicate dChronic obstructive pulmonary disease, unspecified 7 [employer]. [address], [place], [address], [place]. tel:[phone] [facility], [address] Cqeiv256U3 1531201KY- [place], [place], [address], [place] tel:[phone] Family [facility] F1 No Information [facility]. [address], [place], [address], [place]. tel:[phone] [facility], [address] Ppgxo929A5 7965995VR- [facility], [place], [place], [address], [place] tel:[phone] Family Medicine F1 No Information 7 No Information [facility], [address] Mslgf950F9 8320582DWComanche County [facility], [place], [place], [address], [place] tel:[phone] Family Medicine F1 No Information [employer]. [address], [place], [address], [place]. tel:[phone] OFFICE/OUTPA TIENT VISIT [facility], [address] Fytdt[address]Y7 [id number], [place], [address], [place] tel:[phone] Family Medicine F1 foot sore/swelling (chief complaint) Disorder of the skinAcute pancreatitis with infected necrosis, unspecified No Information [facility], [address] Fpjmx534F0 9976477WALeawood, [place], [address], [place] tel:[phone] Family Medicine F1 Major depressive disorder, single episode, unspecifiedN icotine dependence, unspecified, uncomplicate dChronic obstructive pulmonary disease, unspecified [employer]. [address], [place], [address], [place]. tel:[phone] [facility], [address] Dydfs000E6 3089064IHCharenton, [place], [address], [place] tel:[phone] Family Medicine F1 Abnormal weight lossOther chronic pancreatitis 7 Kisha Babcock. [address] [place], [place], [address], [place]. tel:[phone] Referring Provider: Yoko Beard, [address] [place], [address] . tel:[phone] OFFICE/OUTPA TIENT VISIT EST [facility], [address] Dzysx323O6 7944712NI- [place], [place], [address], [place] tel:[phone] Family Medicine F1 blister to right foot (chief complaint) Local infection of the skin and subcutaneous tissue, unspecified Hernan Bethea. [address], [place], [address], [place]. tel:[phone] Referring Provider: Lake Becerra, [address] [place], [address] . tel:[phone] [facility], [address] Kyfuw966Q2 4052865SU- [place], [place], [address], [place] tel:[phone] Family Medicine F1 Local infection of the skin and subcutaneous tissue, unsp Hernan Bethea. [address], [place], [address], [place]. tel:[phone] Referring Provider: Lake Becerra, [address] [place], [address] . tel:[phone] [facility], [address] Smxhr187Z1 5431445UW- [place], [address], [place] tel:[phone] Family Medicine F1 No Information Kisha Babcock. [address] [place], [place], [address], [place]. tel:[phone] Referring Provider: Yoko Beard, [address] [place], [address] . tel:[phone] [facility], [address] Lewyt284D2 5007126WF- [place], [place], [address], [place] tel:[phone] Family Medicine F1 No Information 7 [employer]. [address], [place], [address], [place]. tel:[phone] [facility], [address] Iqgnh025A0 2747683VM- [facility], [place], [place], [address], [place] tel:[phone] Family Medicine F1 Hyperlipidem ia, unspecifiedN icotine dependence, unspecified, uncomplicate dChronic obstructive pulmonary disease, unspecifiedM ajor depressive disorder, single episode, unspecified 7 [employer]. [address], [place], [address], [place]. tel:[phone] OFFICE/OUTPA TIENT VISIT EST [facility], [address] Pofml257O9 7540644NEComanche [facility], [place], [place], [address], [place] tel:[phone] Family Medicine F1 rash on legs (chief complaint)f/u on pancreas (chief complaint)sharad lucinating (chief complaint) HypokalemiaH ypothyroidis m, unspecifiedC hronic pancreatitis Stenosis of cerebral arteryRepeat ed falls 7 No Information OFFICE/OUTPA TIENT VISIT EST [facility], [address] Fgfho116D6 0147328CF- [facility], [place], [place], [address], [place] tel:[phone] Family Medicine F1 F/U swollen feet (chief complaint)kathia ght loss (chief complaint)Ramirez creatitis (chief complaint)TSH (chief complaint) Hypothyroidi sm, unspecifiedH ypokalemiaEd jenn, unspecifiedO ther chronic pancreatitis Abnormal wt loss No Information [facility], [address] Leqrw277K2 3289775DMComanche County Hospital, [place], [place], [address], [place] tel:[phone] Family Medicine F1 Other chronic pancreatitis HypokalemiaE reshma, unspecifiedH ypothyroidis m, unspecified 7 No Information [facility], [address] Tqnnx661Y4 8891718AGComanche County Hospital, [place], [place], [address], [place] tel:[phone] Family Medicine F1 Other chronic pancreatitis HypokalemiaE reshma, unspecifiedH ypothyroidis m, unspecified Sep-1 5 7 No Information [facility], [address] Zigom520X0 8266577HA- [facility], [place], [place], [address], [place] tel:[phone] Family Medicine F1 Localized swelling, mass and lump, unspecified lower limb Sep-1 7 Roselia Coppola. [address], [place], [address], [place]. tel:[phone] [facility], [address] Cmvmh642E7 5479424NR- [place], [place], [address], [place] tel:[phone] Family Medicine F1 No Information Sep-1 7 [facility]. [address], [place], [address], [place]. [phone] [facility], [address] Mhwmm818D7 8560818BW- [place], [address], [place] tel:[phone] Family Medicine F1 Localized swelling, mass and lump, unspecified lower limb Sep-1 7 Hernan Bethea. [address], [place], [address], [place]. tel:[phone] Referring Provider: Lake Becerra, [address] [place], [address] . tel:[phone] [facility], [address] Rbbnv715L2 4606044IL- [place], [place], [address], [place] tel:[phone] Family Medicine F1 Localized swelling, mass and lump, unspecified lower limb Sep-1 7 Hernan Bethea. [address], [place], [address], [place]. tel:[phone] Referring Provider: Lake Becerra, [address] [place], [address] . tel:[phone] OFFICE/OUTPA TIENT VISIT [facility], [address] Rsuyc452I0 0192160QG- [place], [place], [address], [place] tel:[phone] Family Medicine F1 bilateral foot swelling (chief complaint) Localized swelling of leg w/ lump 7 Hernan Bethea. [address], [place], [address], [place]. tel:[phone] Referring Provider: Lake Becerra, [address] [place], [address] . tel:[phone] [facility], [address] Iumqp680R3 9483401ACCharenton, [place], [address], [place] tel:[phone] Family Medicine F1 No Information [facility]. [address], [place], [address], [place]. tel:[phone] OFFICE/OUTPA TIENT VISIT, [facility], [address] Fhtoo669F1 2270411KOLeawood, [place], [address], [place] tel:[phone] Family Medicine F1 Pancreatitis (chief complaint)TIA (chief complaint) Prsnl hx of TIA (TIA), and cereb infrc w/o resid deficits 7 Anders Handy. [address], [place], [address], [place]. tel:[phone] Referring Provider: Ole Stacy, [address] [place], [address] . tel:[phone] [facility], [address] Quend526R6 3539680WNCharenton, [place], [address], [place] tel:[phone] Family Medicine F1 No Information 7 [facility]. [address], [place], [address], [place]. tel:[phone] [facility], [address] Ezmaw543G5 0099481SK- [facility], [place], [place], [address], [place] tel:[phone] Family Medicine F1 Hypokalemia Aron-1 2- 7 No Information OFFICE/OUTPA TIENT VISIT, EST [facility], [address] Lqjce984E0 1612206QEComanche County Hospital, [place], [place], [address], [place] tel:[phone] Family Medicine F1 ER f/u (chief complaint) Hypokalemia Aron-1 2 7 No Information [facility], [address] Yybvo180Q7 8046555OKComanche County Hospital, [place], [place], [address], [place] tel:[phone] Family Medicine F1 Repeated falls Aron-0 7 Roselia Coppola. [address], [place], [address], [place]. tel:[phone] [facility], [address] Uxjnn311S7 1606855IJBob [facility], [place], [place], [address], [place] tel:[phone] Family Medicine F1 No Information Aron-0 7 [employer]. [address], [place], [address], [place]. tel:[phone] [facility], [address] Qhmbm038J1 0471878XRComanche County Hospital, [place], [place], [address], [place] tel:[phone] Family Medicine F1 Repeated falls Aron-0 2 7 No Information [facility], [address] Upxxm682A1 7377167KEComanche County Hospital, [place], [place], [address], [place] tel:[phone] Family Medicine F1 No Information Aron-0 7 No Information [facility], [address] Kjujs636N3 [id number] [facility], [place], [place], [address], [place] tel:[phone] Family Medicine F1 Nicotine dependence, unspecified, uncomplicate d 7 [employer]. [address], [place], [address], [place]. tel:[phone] [facility], [address] Tjqwy869M7 2362730NN- [place], [address], [place] tel:[phone] Family Medicine F1 Acute pancreatitis with infected necrosis, unspecifiedA bnormal weight loss March-3 0- 7 No Information OFFICE/OUTPA TIENT VISIT [facility], [address] Vamop036T0 1171330IRLeawood, [place], [address], [place] tel:[phone] Family Medicine F1 Falling (chief complaint)Fol low Up of Pancreatitis (chief complaint)Col onoscopy (chief complaint) Abnormal wt lossPain in right kneeEncounte r for screening colonoscopy NOSRepeated falls 3 0 7 No Information [facility], [address] Txqvf712F3 0348150QO- [place], [place], [address], [place] tel:[phone] Family Medicine F1 Cervicalgia March-0 3 7 Roselia Coppola. [address], [place], [address], [place]. tel:[phone] OFFICE/OUTPA TIENT VISIT, [facility], [address] Gnjti157U1 0668259LVLeawood, [place], [address], [place] tel:[phone] Family Medicine F1 Neck pain (chief complaint)Blo od thinner (chief complaint)Ramirez creatitis (chief complaint) CervicalgiaP ersonal hx of PEAcute pancreatitis with infected necrosis, unspecified March-0 7 No Information OFFICE/OUTPA TIENT VISIT [facility], [address] Rvluw797I5 5791930QFCharenton, [place], [address], [place] tel:[phone] Family Medicine F1 f/u on pancreas (chief complaint)Nec k pain (chief complaint)Dep ression (chief complaint) CervicalgiaD epressionAcu te pancreatitis with infected necrosis, unspecified May-0 1-201 7 No Information [facility], [address] Ooexm348T4 1467452XVComanche County Hospital, [place], [place], [address], [place] tel:[phone] Family Medicine F1 No Information [facility] [address], [place], [address], [place]. tel:[phone] OFFICE/OUTPA TIENT VISIT, [facility], [address] Stxhs732B8 5043990UWBob [facility], [place], [place], [address], [place] tel:[phone] Family Medicine F1 Follow Up of [facility] Inpatient - Pancreatitis (chief complaint) Acute pancreatitis with infected necrosis, unspecified No Information OFFICE/OUTPA TIENT VISIT, [facility], [address] Vumeb685D0 3876525HFComanche County Hospital, [place], [place], [address], [place] tel:[phone] Family Medicine F1 Hopital Follow-up (chief complaint) Idiopathic acute pancreatitis without necrosis or infection No Information [facility], [address] Lumpm305G9 9478643GBCharenton, [place], [address], [place] tel:[phone] Family Medicine F1 Nicotine dependence, unspecified, uncomplicate d [employer]. [address], [place], [address], [place]. tel:[phone] OFFICE/OUTPA TIENT VISIT [facility], [address] Arswr866F2 3617292AGBob [facility], [place], [place], [address], [place] tel:[phone] Family Medicine F1 Follow Up of [facility] ER (chief complaint) Constipation , unspecifiedA cute pancreatitis with infected necrosis, unspecifiedP ersonal hx of PE No Information [facility], [address] Rtdcr249J0 [id number] [facility], [place], [place], [address], [place] tel:[phone] Family Medicine F1 Nicotine dependence, unspecified, uncomplicate d [employer]. [address], [place], [address], [place]. tel:[phone] OFFICE/OUTPA TIENT VISIT, [facility], [address] Lxewg720M5 1801525AELeawood, [place], [address], [place] tel:[phone] Family Medicine F1 Follow Up of [facility] (chief complaint)Fol low Up of Pancreatitis (chief complaint) Vitamin D deficiency, unspecifiedN icotine dependence, unspecified, uncomplicate dHypothyroid ism, unspecified 7 No Information OFFICE/OUTPA TIENT VISIT, [facility], [address] Kokru999R4 1118918WPLeawood, [place], [address], [place] tel:[phone] Family Medicine F1 Eval abdominal pain, nauswa, vomitting (chief complaint) Generalized abdominal painNausea with vomiting, unspecified 7 No Information Referring Provider: Kaushal Siegel, [address] [place], [address] . tel:[phone] [facility], [address] Jqmhk348J9 2300196DKLeawood, [place], [address], [place] tel:[phone] Family Medicine F1 Vitamin D deficiency, unspecifiedH ypothyroidis m, unspecified 7 No Information OFFICE/OUTPA TIENT VISIT, [facility], [address] Wijya610C6 9606303UULeawood, [place], [address], [place] tel:[phone] Family Medicine F1 Fasting labs (chief complaint)Hea dache (chief complaint)sle ep walking (chief complaint) Hypothyroidi sm, unspecifiedV itamin D deficiency, unspecifiedA cute sinusitis, unspecifiedH eadache 7 No Information [facility], [address] Yzhdn414C6 2665295WWComanche County Hospital, [place], [place], [address], [place] tel:[phone] Family Medicine F1 No Information Oct-3 1- 6 [employer]. [address], [place], [address], [place]. tel:[phone] [facility], [address] Bvarb058Z8 [id number] [facility], [place], [place], [address], [place] tel:[phone] Family Medicine F1 No Information Oct-1 8 6 [employer]. [address], [place], [address], [place]. tel:[phone] OFFICE/OUTPA TIENT VISIT, EST [facility], [address] Ocaed732I3 0303678ELComanche County Hospital, [place], [place], [address], [place] tel:[phone] Family Medicine F1 Eval increases sleep walking (chief complaint)fal l (chief complaint) Sleepwalking [somnambulis m]Nicotine dependence Oct-1 0-201 6 No Information [facility], [address] Xafyx492D2 5116065ZOCharenton, [place], [address], [place] tel:[phone] Family Medicine F1 No Information Oct-1 0- 6 [employer]. [address], [place], [address], [place]. tel:[phone] BEHAV CHNG SMOKING > 10 MIN [facility], [address] Nkzqm937U0 6940457DLCharenton, [place], [address], [place] tel:[phone] [facility] Nicotine dependence, unspecified, uncomplicate d Oct-1 0-201 6 No Information [facility], [address] Urbaj317G0 8207243KUCharenton, [place], [address], [place] tel:[phone] Family Medicine F1 No Information Oct-0 7-201 6 [employer]. [address], [place], [address], [place]. tel:[phone] [facility], [address] Arwic788A0 7771057CP- [place], [place], [address], [place] tel:[phone] Family Medicine F1 No Information 6 [employer]. [address], [place], [address], [place]. tel:[phone] [facility], [address] Beelq977B1 4640237MYLeawood, [place], [address], [place] tel:[phone] Family Medicine F1 Chronic obstructive pulmonary disease, unspecified Jul- 6 [employer]. [address], [place], [address], [place]. tel:[phone] [facility], [address] Yrmek864O9 6783021WDCharenton, [place], [address], [place] tel:[phone] Family Medicine F1 Encounter for screening for lipoid disordersNic otine dependence, unspecified, uncomplicate dHypothyroid ism, unspecified Jul- 6 No Information OFFICE/OUTPA TIENT VISIT EST [facility], [address] Bisqe369L8 0532563WBLeawood, [place], [address], [place] tel:[phone] Family Medicine F1 Thyroid problems (chief complaint)Meseret l Feet swelling (chief complaint)ER Visit (chief complaint)smo trang (chief complaint) Hypothyroidi smNicotine dependenceEn counter for screening for lipoid disorders Sep-2 6 No Information OFFICE/OUTPA TIENT VISIT EST [facility], [address] Dhzxc390V5 3672619JHCharenton, [place], [address], [place] tel:[phone] Family Medicine F1 Thyroid Check (chief complaint)Meseret l bumps on back, arms (chief complaint)Velásquez dicapp plaquard (chief complaint) HeadacheHist ory of fallingHypot hyroidismWhe ezingNicotin e dependence, unspecified, uncomplicate d No Information [facility], [address] Mtkyc657T5 8880607HUBob [facility], [place], [place], [address], [place] tel:[phone] Family Medicine F1 Hyperlipidem ia [employer]. [address], [place], [address], [place]. [phone] [facility], [address] Wimcc235S0 2815081IHDille, [place], [address], [place] tel:[phone] Family Medicine F1 Repeated fallsOther amnesiaHypot hyroidism, unspecifiedN icotine dependence, unspecified, uncomplicate d No Information OFFICE/OUTPA TIENT VISIT [facility], [address] Tdmom434X1 6999866ZHDille, [place], [address], [place] tel:[phone] Family Medicine F1 MRI results (chief complaint)Thy roid check (chief complaint) Hypothyroidi smNicotine dependence, unspecified, uncomplicate dOther amnesiaRepea kathy falls No Information BEHAV CHNG SMOKING > 10 MIN [facility], [address] Sgkvi236T0 1590199ZKCharenton, [place], [address], [place] tel:[phone] [facility] Nicotine dependence, unspecified, uncomplicate d No Information OFFICE/OUTPA TIENT VISIT EST [facility], [address] Axfxe051X6 6228872NZCharenton, [place], [address], [place] tel:[phone] Family Medicine F1 Discuss increased falls (chief complaint)Smo trang cessations (chief complaint)Hea dache (chief complaint) HeadacheRepe ated fallsNicotin e dependence, unspecified, uncomplicate d 6 No Information [facility], [address] Uzktq479M2 5353229SPSt. Francis at [facility], [address], [place] tel:[phone] Family Medicine F1 Chronic obstructive pulmonary disease, unspecified [employer]. [address] [place], [place], [address], [place]. tel:[phone] OFFICE/OUTPA TIENT VISIT [facility], [address] Joahz453M8 7779668DRBob [facility], [place], [place], [address], [place] tel:[phone] Family Medicine F1 WWE (chief complaint) Encntr for neurosurgical physician assistant exam (general) (routine) w/o abn findingsEnco unter for screening for malignant neoplasm of cervixEncoun ter for oth screening for malignant neoplasm of breast 6 No Information [facility], [address] Nuifx888D1 8381529HXDille, [place], [address], [place] tel:[phone] Family Medicine F1 Encounter for screening for malignant neoplasm of cervix No Information [facility], [address] Ydneb886V2 1952605QXDille, [place], [address], [place] tel:[phone] Family Medicine F1 Hypothyroidi sm, unspecified No Information OFFICE/OUTPA TIENT VISIT [facility], [address] Qhoad084Z2 3326192CSDille, [place], 133[address], [place] tel:[phone] Family Medicine F1 Follow Up of Thyroid (chief complaint)Dis cuss Smoking Cessation (chief complaint)Sor e throat (chief complaint) Hypothyroidi smNicotine dependenceAc ivette pharyngitis, unspecified 6 No Information OFFICE/OUTPA TIENT VISIT, [facility], [address] Oiwiq969Z8 3816855TFBob [facility], [place], [place], [address], [place] tel:[phone] Family Medicine F1 Rash (chief complaint) Rash 6 No Information OFFICE/OUTPA TIENT VISIT [facility], [address] Brqqm111W2 3677042FL- [place], [place], [address], [place] tel:[phone] Family Medicine F1 Discuss Back & Knee Braces (chief complaint)Thy roid problems (chief complaint)Raj h (chief complaint) RashHypothyr oidismLow back pain Dec- 6 No Information OFFICE/OUTPA TIENT VISIT [facility], [address] Kmvpq203I5 8239707KNCharenton, [place], [address], [place] tel:[phone] Family Medicine F1 Estab Care (chief complaint)hyp othyroidism (chief complaint)hea dache (chief complaint)hyp erlipidemia (chief complaint)dep ression (chief complaint) Hyperlipidem iaHypothyroi dismHeadache Depression Oct- 5 No Information [facility], [address] Thmgn318T8 6719610HHCharenton, [place], [address], [place] tel:[phone] Family Medicine F1 No Information 5 Johnathon Brambila. [address], [place], [address], [place]. tel:[phone] Referring Provider: Patty Zavaleta, [address] [place], [address] . tel:[phone] OFFICE/OUTPA TIENT VISIT [facility], [address] Gqeht273C6 4448036IRCharenton, [place], [address], [place] tel:[phone] Family Medicine F1 Follow Up of Thyroid problems (chief complaint)mem ory concerns (chief complaint) No Information 5 Johnathon Brambila. [address], [place], [address], [place]. tel:[phone] Referring Provider: Patty Zavaleta, [address] [place], [address] . tel:[phone] [facility], [address] Ewfag767Q7 0311171IB- [place], [place], 344[address], [place] tel:[phone] Family Medicine F1 No Information 5 Johnathon Brambila. [address], [place], [address], [place]. tel:[phone] Referring Provider: Patty Zavaleta, [address] [place], [address] . tel:[phone] [facility], [address] Djrwn556Y3 8318002DI- [place], [place], [address], [place] tel:[phone] Family Medicine F1 No Information 5 [employer]. [address], [place], [address], [place]. tel:[phone] [facility], [address] Bwbsb141G4 3934150FM- [place], [place], [address], [place] tel:[phone] Family Medicine F1 No Information 5 Johnathno Brambila. [address], [place], [address], [place]. tel:[phone] Referring Provider: Patty Zavaleta, [address] [place], [address] . tel:[phone] [facility], [address] Npfqx135P3 7025144HU- [place], [place], [address], [place] tel:[phone] Family Medicine F1 No Information 5 Johnathon Brambila. [address], [place], [address], [place]. tel:[phone] Referring Provider: Patyt Zavaleta, [address] [place], [address] . tel:[phone] OFFICE/OUTPA TIENT VISIT EST [facility], [address] Rdvdc489B1 8377093HXLeawood, [place], [address]606[address], [place] tel:[phone] Family Medicine F1 Meds (chief complaint)Mem ory loss (FP) (chief complaint)Fol low Up of Swollen Feet (chief complaint) No Information 5 Johnathon Brambila. [address], [place], [address], [place]. tel:[phone] Referring Provider: Patty Zavaleta, [address] [place], [address] . tel:[phone] [facility], [address] Sftgx867D1 7382847FECharenton, [place], 126222505, [place] tel:[phone] Family Medicine F1 No Information 5 Roselia Coppola. [address], [place], [address], [place]. tel:[phone] OFFICE/OUTPA TIENT VISIT EST [facility], [address] Yghtg806W9 5871191SSCharenton, [place], [address]406, [place] tel:[phone] Family Medicine F1 Follow Up of Pain Clinic (chief complaint)Hea daches (chief complaint)dys phagia (chief complaint)jeremiah st pain (chief complaint) No Information Johnathon Brambila. [address], [place], [address], [place]. tel:[phone] Referring Provider: Patty Zavaleta, [address] [place], [address] . tel:[phone] [facility], [address] Vjbfd282I2 4527113CKCharenton, [place], [address]64[address]34, [place] tel:[phone] Family Medicine F1 No Information 5 Johnathon Brambila. [address], [place], [address], [place]. tel:[phone] Referring Provider: Patty Zavaleta, [address] [place], [address] . tel:[phone] [facility], [address] Bsyuc857Q1 2856895QX- [place], [place], [address]676[address], [place] tel:[phone] Family Medicine F1 No Information Apr-0 1 5 Johnathon Brambila. [address], [place], [address], [place]. tel:[phone] Referring Provider: Patty Zavaleta, [address] [place], [address] . tel:[phone] OFFICE/OUTPA TIENT VISIT EST [facility], [address] Yosdj211T5 9169386FH- [place], [place], [address], [place] tel:[phone] Family Medicine F1 Follow Up of Thyroid problems (FP) (chief complaint)Fol low Up of Headache (FP) (chief complaint)hea rt burn (chief complaint) No Information Apr-0 1 5 Johnathon Brambila. [address], [place], [address], [place]. tel:[phone] Referring Provider: Patty Zavaleta, [address] [place], [address] . tel:[phone] [facility], [address] Hozcv555K2 6863600AQ- [place], [place], [address], [place] tel:[phone] Family Medicine F1 No Information Apr-0 1 5 Johnathon Brambila. [address], [place], [address], [place]. tel:[phone] Referring Provider: Patty Zavaleta, [address] [place], [address] . tel:[phone] [facility], [address] Gqmew953I7 4475050ZB- [place], [place], 13854[address]87, [place] tel:[phone] Family Medicine F1 No Information 5 Roselia Coppola. [address], [place], [address], [place]. tel:[phone] [facility], [address] [id number] [id number], [place], [address], [place] tel:[phone] Family Medicine F1 No Information 5 Jovanny Gray. [address], [place], [address], [place]. tel:[phone] Referring Provider: Isaac Petty, [address] [place], [address] . 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 [address], [place], [address], [place]. tel:[phone] Referring Provider: Isaac Petty, [address] [place], [address] . 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 [address], [place], [address], [place]. tel:[phone] Referring Provider: Isaac Petty, [address] [place], [address] . tel:[phone] [facility], [address] [id number] 0334659UQ- [place], [address], [place] tel:[phone] Family Medicine F1 No Information 4 Petty Isaac. [address], [place], [address], [place]. tel:[phone] Referring Provider: Isaac Petty, [address] [place], [address] . tel:[phone] [facility], [address] Zhuxn572D7 7455917GJLeawood, [place], [address], [place] tel:[phone] Family Medicine F1 No Information 3 No Information OFFICE/OUTPA TIENT VISIT, [facility], [address] [id number] 9301631XBLeawood, [place], [address], [place] tel:[phone] Family Medicine F1 thyroid problems (chief complaint)hyp erlipidemia (chief complaint)dep ression (chief complaint) No Information 3 No Information [facility], [address] [id number], [place], [address], [place] tel:[phone] Family Medicine F1 No Information 3 [employer]. [address], [place], [address], [place]. tel:[phone] OFFICE/OUTPA TIENT VISIT, [facility], [address] [id number] 1419362PSLeawood, [place], [address], [place] tel:[phone] Family Medicine F1 total knee replacement f/u (chief complaint) No Information 3 No Information [facility], [address] [id number] 4373156HDLeawood, [place], [address], [place] tel:[phone] Family Medicine F1 No Information 3 No Information OFFICE/OUTPA TIENT VISIT, [facility], [address] [id number] 9675068JSCom[facility], [place], [place], [address], [place] tel:[phone] Family Medicine F1 abdominal pain (chief complaint)UA (chief complaint) No Information 2 No Information [facility], [address] Oqyqi652F9 0908874TSComanche [facility], [place], [place], [address], [place] tel:[phone] Family Medicine F1 No Information 2 No Information OFFICE/OUTPA TIENT VISIT, [facility], [address] [id number] 4018610ZLComanche County Hospital, [place], [place], [address], [place] tel:[phone] Family Medicine F1 hospital f/u (chief complaint)hyp erlipidemia (chief complaint)hyp othyroidism (chief complaint) No Information 2 No Information [facility], [address] [id number] [id number] [facility], [place], [place], [address], [place] tel:[phone] Family Medicine F1 No Information 2 No Information OFFICE/OUTPA TIENT VISIT, [facility], [address] Unjbi836U2 [id number] County Hospital, [place], [place], [address], [place] tel:[phone] Family Medicine F1 dizziness (chief complaint)hyp erthyroidism (chief complaint)con stipation (chief complaint) No Information 2 No Information OFFICE/OUTPA TIENT VISIT, [facility], [address] [id number] 5024396MZComanche County Hospital, [place], [place], [address], [place] tel:[phone] Family Medicine F1 foot swelling/pain (chief complaint) No Information 2 No Information OFFICE/OUTPA TIENT VISIT, [facility], [address] Gaztk559R6 [id number] [facility], [place], [place], [address], [place] tel:[phone] Family Medicine F1 pain (chief complaint)med s (chief complaint) No Information 2 No Information OFFICE/OUTPA TIENT VISIT, [facility], [address] [id number] [id number] Regional [facility], [place], [place], [address], [place] tel:[phone] Family Medicine F1 back pain (chief complaint)cou gh (chief complaint) No Information 1 No Information OFFICE/OUTPA TIENT VISIT, [facility], [address] [id number] Regional [facility], [place], [place], [address], [place] tel:[phone] Family Medicine F1 scooter eval (chief complaint)hea rtburn (chief complaint)hea dache (chief complaint) No Information 1 No Information OFFICE/OUTPA TIENT VISIT, [facility], [address] Cdqme289R7 4706206EVHutchinson Regional Medical Center, [place], [place], [address], [place] tel:[phone] Family Medicine F1 multiple falls (chief complaint)dep ression (chief complaint) No Information 1 No Information OFFICE/OUTPA TIENT VISIT, [facility], [address] Fgpmj290U5 8194423BLHutchinson Regional Medical Center, [place], [place], [address], [place] tel:[phone] Family Medicine F1 Potassium levels (chief complaint)hea rtburn (chief complaint)moo ds (chief complaint)rx refills (chief complaint) No Information 1 No Information OFFICE/OUTPA TIENT VISIT, [facility], [address] Khavj676K5 7570166ROHutchinson Regional Medical Center, [place], [place], [address], [place] tel:[phone] Family Medicine F1 hypokalemia (chief complaint) No Information 1 No Information OFFICE/OUTPA TIENT VISIT, [facility], [address] [id number] 0182467WQComanche County Hospital, [place], [place], [address], [place] tel:[phone] Family Medicine F1 pain (chief complaint) No Information 1 No Information OFFICE/OUTPA TIENT VISIT, [facility], [address] Daupk978H5 [id number] [facility], [place], [place], [address], [place] tel:[phone] Family Medicine F1 swelling (chief complaint)hyp othyroidism (chief complaint) No Information 1 No Information OFFICE/OUTPA TIENT VISIT, [facility], [address] [id number] [id number] [facility], [place], [place], [address], [place] tel:[phone] Family Medicine F1 swelling (chief complaint) No Information 1 No Information OFFICE/OUTPA TIENT VISIT, [facility], [address] Fbgow123F6 1833061QXHutchinson Regional Medical Center, [place], [place], [address], [place] tel:[phone] Family Medicine F1 MRI results (chief complaint)nee ds refill on Albuterol (chief complaint) No Information 0 No Information OFFICE/OUTPA TIENT VISIT, [facility], [address] [id number] Regional Medical Center, [place], [place], [address], [place] tel:[phone] Family Medicine F1 follow up on lab / diagnostic test (chief complaint)chon n (chief complaint) No Information 0 No Information OFFICE/OUTPA TIENT VISIT, [facility], [address] [id number] 1573039QEBob [facility], [place], [place], [address], [place] tel:[phone] Family Medicine F1 chest pain (chief complaint)hea dache (chief complaint) No Information 0 No Information OFFICE/OUTPA TIENT VISIT, [facility], [address] Fuqqm281K5 [id number] County Hospital, [place], [place], [address], [place] tel:[phone] Family Medicine F1 F/U hosp visit for pneumonia (chief complaint) No Information Jul-2 7 0 No Information OFFICE/OUTPA TIENT VISIT, [facility], [address] Mgxxm071U4 [id number] County Hospital, [place], [place], [address], [place] tel:[phone] Family Medicine F1 Pneumonia (chief complaint) No Information Sep-0 2- 0 No Information OFFICE/OUTPA TIENT VISIT, [facility], [address] Exisc168W1 [id number] [facility], [place], [place], [address], [place] tel:[phone] Family Medicine F1 headache (chief complaint)dep ression (chief complaint) No Information Jun- 0 No Information OFFICE/OUTPA TIENT VISIT, [facility], [address] Idbzc231F9 0807523DSBob [facility], [place], [place], [address], [place] tel:[phone] Family Medicine F1 remove wart to left thumb (chief complaint)ski n peeling on right hand (chief complaint) No Information 0- 0 No Information OFFICE/OUTPA TIENT VISIT, [facility], [address] Czmti571Q1 [id number] [facility], [place], [place], [address], [place] tel:[phone] Family Medicine F1 headache (chief complaint) No Information 4 0 No Information OFFICE/OUTPA TIENT VISIT, [facility], [address] Vpehh169Y7 8403616YACharenton, [place], [address], [place] tel:[phone] Family Medicine F1 pain (chief complaint) No Information 0- 0 No Information Office/Outpa tient Visit, [facility], [address] [id number] [facility], [place], [place], [address], [place] tel:[phone] Family Medicine F1 No Information 8- 0 No Information Estab Outpatient Expanded H&P - Low Complexity Decisions [facility], [address] [id number] 0182554PAComanche County Hospital, [place], [place], [address], [place] tel:[phone] Family Medicine F1 No Information Feb-2 6 0 No Information Office/Outpa tient Visit, [facility], [address] Pyojc304E9 6460157WJComanche County Hospital, [place], [place], [address], [place] tel:[phone] Family Medicine F1 No Information 2 0- 0 No Information Office/Outpa tient Visit, [facility], [address] [id number] 6292018YFComanche County Hospital, [place], [place], [address], [place] tel:[phone] Family Medicine F1 No Information Jan-3 1- 0 No Information Office/Outpa tient Visit, [facility], [address] [id number] [facility], [place], [place], [address], [place] tel:[phone] Family Medicine F1 No Information Jan-2 4- 0 No Information Office/Outpa tient Visit, [facility], [address] [id number] 0645251EYComanche County Hospital, [place], [place], [address], [place] tel:[phone] Family Medicine F1 No Information Jan-0 8- 0 No Information Office/Outpa tient Visit, [facility], [address] [id number] [id number], [place], [address], [place] tel:[phone] Family Medicine F1 No Information Apr- 0-200 9 No Information Office/Outpa tient Visit, [facility], [address] Tpsvh384U9 8113455RTComanche County Hospital, [place], [place], [address], tel:[phone] Family Medicine F1 No Information 9 No [...] with no adverse reactions reported in 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 [place] VIS:06/10/15 ; Source: New Immunization Record InfluenzaQuad Inj P 6+MOS administered So urce: Other Registry Flu (split) (3 yrs or older) administered Note: [facility]#[id number] ; Source: New Immunization Record Tdap, Adsorbed administered Source: Other Registry Flu (split) (3 yrs or older) cancelled Source: New Immunization Record Payers Payer name Insurance type Covered green party ID Authoriza tion(s) M [facility] [id number] M [facility] Dual Com plete Medica [id number] M [place] [employer] MC [id number] [facility] Dual Com plete Medica CI [id number] M [place] [employer] MC [id number] M Tirso Ortiz HMO BL [id number] M [place] [employer] [place] [id number] M [facility] [id number] M [place] [employer] [place] [id number] M [facility] [id number] M [place] [employer] MC [id number] Social History Type Description Quantity Date Captured [...] Goal Mammogram. Due on 2 due Goal Dental exam. Due on 023 due Goal Mammogram. Due on due Goal [...] due Goal Mammogram. Due on due Goal Dietary manageme nt [...] nt education, guidance, and counseling completed Goal Tobacco cessation counseling completed Goal Dietary [...] Goal Dental exam. Due on due Goal Tobacco cessation counseling completed Goal Mammogram. Due on due Goal Eye exam. Due on due Goal Lipid panel. Due on due Goal Dental exam. Due on due Goal Tobacco cessation counseling completed Goal Mammogram. Due on due Goal Lipid [...] Goal Dental exam. Due on due Goal Tobacco cessation [...] Goal Eye exam. Due on due Goal Influenza Vaccin e. Due on due Goal Colonoscopy. Due on due Goal Pap/HPV testing. Due on due Goal Mammogram. Due on due Goal Diabetes screeni ng. Due on due Goal Eye exam. Due on due Goal Influenza Vaccin [...] Goal Eye exam. Due on due Goal HIV screen. Due [...] Goal TD Vaccine. Due on due Goal HIV screen. Due on due Goal FOBT. Due on due Goal TD Vaccine. Due on due Goal Hep B Screening. Due on due Goal Dental exam. Due on due Goal Sigmoidoscopy. Due on due Goal Diabetes screeni ng. Due on due Goal Mammogram. Due on 2 due Goal Pap/HPV testing. Due on due Goal H&P. Due on due Goal Eye exam. Due on due Goal Breast exam. Due on due Goal Colonoscopy. Due on due Goal Influenza Vaccin e. Due on due Goal Eye exam. Due on due Goal HIV screen. Due on due Goal Sigmoidoscopy. Due on [...] due Goal FOBT. Due on due Goal H&P. Due on due Goal Tdap. Due on due Goal Breast exam. Due on due Goal Mammogram. Due on due Goal TD Vaccine. Due on 16 due Goal FOBT. Due on due Goal Diabetes screeni ng. Due on due Goal Pap/HPV testing. Due on due Goal Eye exam. Due on due Goal Sigmoidoscopy. Due on due Goal Influenza Vaccin e. Due on due Goal Colonoscopy. Due on due Goal PAP. Due on [...] due Goal H&P. Due on due Goal PAP. Due on due Goal Tdap. Due on due Goal H&P. Due on due Goal Pap/HPV testing. Due on due Goal Sigmoidoscopy. Due on due Goal Influenza Vaccin e. Due on due Goal Mammogram. Due on due Goal FOBT. Due on due Goal Breast exam. Due on due Goal Eye exam. Due on due Goal Diabetes screeni ng. Due on due Goal TD Vaccine. Due on due Goal Colonoscopy. Due on due Goal Breast exam. Due on due Goal Eye exam. Due on due Goal Influenza Vaccin [...] Diabetes screeni ng. Due on due Goal PAP. Due on due Goal Breast exam. Due on due Goal FOBT. Due on due Goal Mammogram. Due on 2 due Goal Diabetes screeni ng. Due on due Goal H&P. Due on due Goal Colonoscopy. Due on due Goal Influenza Vaccin e. Due on due Goal Depression scree alan. Due on due Goal Tdap. Due on due Goal Sigmoidoscopy. Due on due Goal Pap/HPV testing. Due on due Goal Lipid Panel. Due on 021 due Goal COMPUTER REPAIRER exam. Due on due Goal Eye exam. Due on due Goal TD Vaccine. Due on 16 due Goal Sigmoidoscopy. Due on due Goal H&P. Due on due Goal Influenza Vaccin e. Due on due Goal Tdap. Due on due Goal Mammogram. Due on 2 due Goal Colonoscopy. Due on 016 due Goal TD Vaccine. Due on 16 due Goal Pap/HPV testing. Due on due Goal Diabetes screeni ng. Due on due Goal Breast exam. Due on due Goal PAP. Due on due Goal FOBT. Due on due Goal Eye exam. Due on due Goal FOBT. Due on due Goal Tdap. Due on due Goal PAP. Due on due Goal H&P. Due on due Goal Mammogram. Due on 2 due Goal Sigmoidoscopy. Due on due Goal Influenza Vaccin e. Due on due Goal TD Vaccine. Due on 16 due Goal Colonoscopy. Due on due Goal Breast exam. Due on due Goal Pap/HPV testing. Due on due Goal Diabetes screeni ng. Due on due Goal Eye exam. Due on due Goal Sigmoidoscopy. Due on due Goal FOBT. Due on due Goal Colonoscopy. Due on 016 due Goal COMPUTER REPAIRER exam. Due on due Goal H&P. Due on due Goal Influenza Vaccin e. Due on due Goal PAP. Due on due Goal TD Vaccine. Due on 16 due Goal Breast exam. Due on due Goal Mammogram. Due on 2 due Goal Mammogram. Due on due Goal H&P. Due on due Goal FOBT. Due on due Goal Sigmoidoscopy. Due on due Goal Breast exam. Due on due Goal COMPUTER REPAIRER exam. Due on due Goal TD Vaccine. Due on 16 due Goal PAP. Due on due Goal Colonoscopy. Due on due Goal Influenza Vaccin e. Due on due Goal Tobacco cessation counseling completed Goal Mammogram. Due on due Goal Influenza Vaccin e. Due on due Goal FOBT. Due on due Goal Breast exam. Due on due Goal PAP. Due on due Goal Sigmoidoscopy. Due on due Goal COMPUTER REPAIRER exam. Due on due Goal TD Vaccine. Due on 16 due Goal Colonoscopy. Due on due Goal H&P. Due on due Goal Tobacco cessation counseling completed Goal PAP. Due on due Goal COMPUTER REPAIRER exam. Due on due Goal Sigmoidoscopy. Due on due Goal Colonoscopy. Due on due Goal FOBT. Due on due Goal Influenza Vaccin e. Due on due Goal Mammogram. Due on due Goal Breast exam. Due on due Goal H&P. Due on due Goal TD Vaccine. Due on 16 due Goal Breast exam. Due on due Goal COMPUTER REPAIRER exam. Due on due Goal Sigmoidoscopy. Due on due Goal Colonoscopy. Due on due Goal PAP. Due on due Goal TD Vaccine. Due on due Goal FOBT. Due on due Goal Mammogram. Due on due Goal H&P. Due on due Goal Influenza Vaccin e. Due on due Goal FOBT. Due on due Goal COMPUTER REPAIRER exam. Due on due Goal Colonoscopy. Due on due Goal Influenza Vaccin e. Due on due Goal H&P. Due on due Goal Breast exam. Due on due Goal Mammogram. Due on due Goal Sigmoidoscopy. Due on due Goal TD Vaccine. Due on due Goal PAP. Due on due Goal PAP. Due on due Goal COMPUTER REPAIRER exam. Due on due Goal TD Vaccine. Due on 16 due Goal FOBT. Due on due Goal Influenza Vaccin e. Due on due Goal Sigmoidoscopy. Due on due Goal Colonoscopy. Due on due Goal Mammogram. Due on due Goal Breast exam. Due on due Goal H&P. Due on due Goal Tobacco cessation counseling completed Goal H&P. Due on due Goal FOBT. Due on due Goal Colonoscopy. Due on due Goal Mammogram. Due on due Goal Sigmoidoscopy. Due on due Goal Breast exam. Due on due Goal PAP. Due on due Goal TD Vaccine. Due on 16 due Goal Influenza Vaccin e. Due on due Goal COMPUTER REPAIRER exam. Due on due Goal H&P. Due on due Goal FOBT. Due on due Goal PAP. Due on due Goal COMPUTER REPAIRER exam. Due on due Goal Sigmoidoscopy. Due on due Goal Influenza Vaccin e. Due on due Goal Mammogram. Due on 2 due Goal TD Vaccine. Due on 16 due Goal Colonoscopy. Due on due Goal Breast exam. Due on due Goal Tobacco cessation counseling completed Goal Colonoscopy. Due on due Goal Sigmoidoscopy. Due on due Goal Breast exam. Due on due Goal FOBT. Due on due Goal COMPUTER REPAIRER exam. Due on due Goal Mammogram. Due on due Goal Influenza Vaccin e. Due on due Goal PAP. Due on due Goal H&P. Due on due Goal TD Vaccine. Due on due Goal Sigmoidoscopy. Due on due Goal Colonoscopy. Due on due Goal Breast exam. Due on due Goal COMPUTER REPAIRER exam. Due on due Goal TD Vaccine. Due on due Goal Mammogram. Due on due Goal PAP. Due on due Goal H&P. Due on due Goal FOBT. Due on due Goal Influenza Vaccin e. Due on due Goal COMPUTER REPAIRER exam. Due on due Goal TD Vaccine. [...] due Goal Sigmoidoscopy. Due on due Goal COMPUTER REPAIRER exam. Due on due Goal Mammogram. Due on due Goal TD Vaccine. Due on due Goal H&P. Due on due Goal Colonoscopy. Due on due Goal COMPUTER REPAIRER exam. Due on due Goal FOBT. Due on due Goal Mammogram. Due on due Goal Influenza Vaccin e. Due on due Goal PAP. Due on due Goal TD Vaccine. Due on due Goal Breast exam. Due on due Goal Sigmoidoscopy. Due on due Goal PAP. Due on due Goal TD Vaccine. Due on due Goal Influenza Vaccin e. Due on due Goal Breast exam. Due on due Goal Sigmoidoscopy. Due on due Goal Colonoscopy. Due on due Goal FOBT. Due on due Goal Mammogram. Due on due Goal COMPUTER REPAIRER exam. Due on due Goal H&P. Due on due Goal PAP. Due on due Goal Colonoscopy. Due on due Goal COMPUTER REPAIRER exam. Due on due Goal H&P. Due on due Goal Breast exam. Due on due Goal Influenza Vaccin e. Due on due Goal Sigmoidoscopy. Due on due Goal Mammogram. Due on due Goal TD Vaccine. Due on due Goal FOBT. Due on due Goal Tobacco cessation counseling completed Goal PAP. Due on due Goal TD Vaccine. Due on due Goal FOBT. Due on due Goal Breast exam. Due on due Goal Colonoscopy. Due on due Goal H&P. Due on due Goal Mammogram. Due on due Goal Influenza Vaccin e. Due on due Goal Sigmoidoscopy. Due on due Goal COMPUTER REPAIRER exam. Due on due Goal Tobacco cessation counseling completed Goal FOBT. Due on due Goal Breast exam. Due on due Goal Colonoscopy. Due on due Goal PAP. Due on due Goal TD Vaccine. Due on 15 due Goal Influenza Vaccin e. Due on due Goal COMPUTER REPAIRER exam. Due on due Goal Sigmoidoscopy. Due [...] Goal Colonoscopy. Due on 015 due Goal COMPUTER REPAIRER exam. Due on due Goal PAP. Due on due Goal Influenza Vaccin e. Due on due Goal COMPUTER REPAIRER exam. Due on due Goal Breast exam. [...] falls ordered Referral Ordered: Referrals: Neurology. Location: [facility]. Evaluate and treat ordered Referral Ordered: Referrals: Neurology. Location: [facility] ordered Referral Ordered: Referrals: Screening Mammogram. Location: [facility] ordered Referral Ordered: Referrals: [facility] Interventional Pain Management. Location: [facility]. Consult ordered Referral Ordered: Referrals: Bilateral Screening Mammogram of the Breast. Location: [facility] ordered Referral Ordered: Referrals: Gastroenterology. Location: [facility]. Evaluate and treat ordered Referral Ordered: [...] 2 lumbar surgeries---last one 2001; went to [facility] pain clinic around that time for epidurals; would like to see if she can have these again. thanks-- (related to Lumbago) ordered Referral Ordered: Roentgenology,Radiology, DO. Appointment date/timeframe: 09/26/2010 ordered Referral Ordered: Interventional Radiology. ordered Referral Ordered: Cardiology. Appointment date/timeframe: 05/18/2010 ordered Future Order: Radiology Order Ca rotid Artery Bilateral ([id number]), Ordered on: Ordered Future Order: Radiology Order Re nal - Bilateral ([id number]), Sent on: Sent Future Order: Lab Order T4 Free ([id number]), Scheduled for: , Scheduled for: Sent Future Order: Lab Order TSH-[place] use ([id number]), Scheduled for: , Scheduled for: Sent Future Order: Lab Order CMP ([id number]), Sen t on: Sent Future Order: Lab Order Lipid Pr ofile ([id number]), Sent on: Sent Future Order: Lab Order Vitamin D 25-OH ([id number]), Sent on: Sent Future Order: Lab Order Ammonia, Plasma ([id number]), Sent on: Sent Future Order: Radiology Order Ch est X-ray- PA/AP and Left Lateral, 2 Views ([id number]), Ordered on: Ordered Future Order: Radiology Order Ab dominal Series X-ray - Upright and Flat, Minimum 2 views ([id number]), Ordered on: Ordered History Of Present Illness Encounter Date Complaint History Of Prese nt Illness Hospital f/u Pt was admitted to [facility] from 06/25/23-06/27/23 for pancreatitis and UTI [...] see specialist or J PM.Saw neuro at [facility] Dr. Figueroa, to get NELLIE and event monitor x 14 days via specialist; wearing it right now. Pt has not had opiate medication since Nov 2022. Hospital f/u [facility] for pa ncreatitis and covid infection x 5 days. Pt finished with abx/steroids and eating bland food. back pain Additional infor curt: Was seeing [facility]as [facility] ans she would [...] by Dr. Waldrop in clinic: 110/58 mmHg [id number]/64 mmHg S/Sx of hypertension: Patient gets dizzy [...] a hospital followup- she was admitted to [facility] for TIA.Reviewed hospital records for admission from [...] name: Judy Malloy [address] : 1960Date of prescription order: 10/26/2020 Clinical indication: HTN Authorizing physician: Kathy Tolliver Physician's address: [address] [place] [address]. HTN Initial The client state s the [...] dysuria, frequency Well Woman Exam Presents for [facility] woman exam. Breast Lumps/Masses - None Breast [...] Compliant with inhalersChr Pancr - Going to [place] for evaluation of her GI condition. Was going to have injinto pancreas but pain management doctor suggested she be seen in [place] or for this. Still has chronic abdominal [...] her pain upon standing. She sees her obstetrics and gynecology professor soon .PMH= hypothyroid, chronic pancreatitis, depression Social= [...] today Follow Up of ER-Raj Went to [facility] ER on 08/14/19 due to vomiting [...] on Creon smoking cessation Willing to see [facility], wonders about nicotine patches, down to 2-3 cigarettes per day medication refills Needs refills on eloquis and potassium blood work time to recheck TSH, K and cholesterol per pt 3 mo f/u She was admitted to [facility] on 04/09/18-04/12/19 for recurrent Acute on chronic [...] Follow Up of ER Went to the [facility] ED on 03/03/19. she was discharged [...] Management For DJD - seegabriel Huertas at [facility] Hypothyroidism TSH has been jimmy vated on [...] brain without IV contrast from 05/02/17 at [facility] discussed loss of the normal flow [...] and swelling started after being discharged from [facility]. Swelling up to b/l knees now. TIA Additional infor mation: Patient states she was in [facility] for TIA on 05-03-17. 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 Follow Up of [facility] I npatient - Pancreatitis Pt presents to clinic to discuss recent [facility] admission for pancreatitis. Pt had endoscopic ultrasound, [...] for hopital follow-up. Patient was admitted to [facility] with pancreatitis. Patient was RX'd medications while [...] routine mammogram as well Follow Up of [facility] ER Robin jain reports she was an inpatient at [facility] for pancreatitis at which time they did [...] cause pancreatitis. Patient brought in records form [facility]. Follow Up of [facility] Patient is a 6 year old female presents today for [facility] inpatient f/u and was Dx with pancreatitisReports was released form [facility] 11/27/16 Reports seeing surgeon 12/10/16 Dr [...] Dr Huertas knows that medications prescribed at [facility]. Reports getting medication from [facility] and [facility]. Reports left sholder bruise, right hip pain [...] (Opana and Oxycodone) From Dr Huertas at [facility] and medication at [facility]. ER Visit Went to [facility] last Wednesday 07/25 thinking she was [...] to Dr Orion Ballesteros for neurology at [facility] where her friend recieves care. Handicapp plaquard [...] weeks. Estab Care headache (comments) Has been shubahm ing depakote for headaches for years. Thinks [...] to Lumbar spondylosis per #2 Related to Chron ic left shoulder pain per #2 Related to Other chronic pain Labs ordered. Will c all with results and treat as needed per results. Continue current medications. Prescription sent if due. Follow up depending on how you are doing and every 3-6 months. 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 Related to Essential hypertension Try to cut back on t obacco [...] months. 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 Related to Primary insomnia Restart Eliquis 5mg. Related to Personal hx of PE Follow up with baljit marcus as directed. Related to Right carotid artery occlusion Continue ondansetron. Related to Other chronic pancreatitis Ondansetron refill. Continue to follow with GI. [...] Continue Zofran Related to Chron ic nausea No further symptoms Followed up with Neurology Related to TIA (transient ischemic attack) Will schedule follow up mammogra m Related to Encounter for screening mammogram for malignant neoplasm of breast Reviewed dietary radha delines for hypertension management Continue current medication and monitor BP regularly Call office for consistently elevated SBP > 150 mmhg or DBP > 90mmHgEmphasized importance of daily exercise and low salt diet. 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 Referred to neurology Related to Right carotid artery occlusion will f/u neuro for r ecommendations on any needed changes/right ica stenosis Added atorvastatin as no documented statin allergy Last lipids in 05/2020 were normal Related to TIA (transient ischemic attack) Will f/u gi Related to Phary ngoesophageal dysphagia Episodes are more in frequent now than [...] aura and without status migrainosus, not intractable -Monitor for now-Use heat / ice as needed Related to Pain in right axilla -Start Lisinopril 5m g- F/U Alila in 2 weeks - Low salt diet Related to Essential hypertension Dietary management e [...] gynecological examination (general) (routine) without abnormal findings Decrease dose of Rem darcie since does not appear to be effective for sleep at current dose denies current or past h/o depression Related to Primary insomnia [facility] Will review notes from Dr. 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 - Up to date Related to Scree alan for colon cancer Recheck today Related to Vitam in D deficiency - PAP Smear ordered Related to S creening for cervical cancer - STOP Smoking- Does not use nicotine patch - CHantix does not work - Wellbutrin to be considered if unable to quit - f/U in 3 months Related to Tobacco use - STOP SMOKING, this could be worsening pancreatitis episodes- Referred to Raj Hagan PM for consideration of nerve block for chronic pancreatitis - Will f/u with GI next week - if no improvement, will consider referral to GI at [facility] center- Zofran to ODT Related to Other chronic pancreatitis - Will use corn pads - Supportive shoes Related to Spring of foot Continue Inhalers Related to Chr onic obstructive pulmonary disease, unspecified Hopefully she has qu it smokingEncouraged to maintain Related to Tobacco abuse - Continue to advanc e diet as tolerated- Continue to avoid cigarettes Related to Other chronic pancreatitis recheck labs todayrefill K Relat ed to Hypokalemia recheck labs today Related to Hy pothyroidism hx of pancreatitis d oes take pancreatic enzymes with mealscontinue to stay hydrated, take Zofran as needed Related to Nausea with vomiting, unspecified Referred for screening mammogram Related to Screening mammogram, encounter for Resolved Related to Hypok alemia F?U with GI Dr. Cristina and discuss other investigations/prevention of episodes Related to Other chronic pancreatitis Low TSH but will re- check due [...] x 10 d ays Related to Hypokalemia See #1 Related to Nause a with vomiting, unspecified LTX dose increased t o 175mcgRepeat TSH in 12 weeks Related to Hypothyroidism - Continue Ice chips /Popsicles to stay hydrated and advance as tolerated - Restart Creon - Tolerating medication - If pain worsens/unable to tolerate hydration, go to the ED for admission - GI Referral placed for recommendations regarding chronic episodes- Creon restarted- She is abstinent from drugs/alcohol Related to Idiopathic chronic pancreatitis Continue Levothyroxi ne at 175 mcg TSH, FT4 in 8 weeks Related to Hypothyroidism Taper off Amitryptil line since patient is also on RemeronConsider Ambien or Trazodone Related to Insomnia Repeat BMP done toda y and this is improved Related to Hypokalemia Flu shot given today Related to Encounter for immunization Continue Fenofibrate, refilled R elated to Hyperlipidemia See above # Related to Major depressive disorder, single episode, unspecified Take medications as directed.Encouraged therapy. RTC for recheck in and refills in 3 month.Call with any questions or concerns.Go to ED immediately for SI, HI, hallucinations or delusions.Patient verbalized understanding and is agreeable to plan. Related to Anxiety disorder, unspecified Labs today. Will not epi of results. Treatment will depend on results. Related to Hypothyroidism, unspecified Take medications as directed.Call with any [...] Related to Nicotine dependence, unspecified, uncomplicated Continue to follow u p with specialist as scheduled and as needed. Call them with concerns specific to the specialty. Continue current medications. Related to Other chronic pancreatitis Continue current sonu atment plan and follow-up with PCP as instructed/needed. Related to Vitamin D deficiency, unspecified Will call with lab r esults and any changes in medications/dosing. If pt has not heard from this office in two weeks regarding results, instructed to call and inquire. Related to Hypothyroidism, unspecified Will start Remeron for sleep. Re lated to Insomnia, unspecified Will stop Zoloft. Wi ll start Abilify. Take medications as directed.Encouraged therapy. Will have Eva [facility] contact patient psychRTC for recheck in and [...] low fat diet Related to Hyperlipidemia, unspecified labs today and will resend meds if needed and be sure to get 30 minutes of sunlight daily. Call with any questions or concerns. Pt verbalzied understanding and is agreeable to plan. Related to Vitamin D deficiency, unspecified Labs today. Will not epi of results. Treatment will depend on results. Recheck in 2 months. Related to Hypothyroidism, unspecified Will Topimax as her headaches are stable and Topimax may be increasing weight loss. Pt verbalized understanding and is agreeable to plan. Related to Headache Mental health care education Rel ated to Major depressive disorder, single episode, unspecified Chronic disease will refer to GI Related to Acut e pancreatitis with infected necrosis, unspecified Will refer to wound care Related to Disorder of the skin Chronic disease Mental health care education Rel ated to Major depressive disorder, single episode, unspecified Cultures obtained, w ill try oral clindamycin, Pt to f/u with PCP in 7-10 days if not better or sooner if problems. Will contact pt when cultures are available. Related to Local infection of the skin and subcutaneous tissue, unspecified Labs today. Will not epi of results. Treatment will depend on results. Related to Hypothyroidism, unspecified Will send CREON but consider:Pancreaze, Pertzye, [...] Will try and get PA approved for [facility] GI med has been continously declined. Related to Other chronic pancreatitis Labs today. Will not epi of results. Treatment will depend on results. Related to Edema, unspecified Labs today. Will not epi of results. Treatment will depend on results. Related to Hypothyroidism, unspecified Labs today. Will not epi of results. Treatment will depend on results. Related to Hypokalemia Will refer to ER for further evaluation [...] ioid pain medication through Dr. Huertas at [facility]. So she will begin taking coolies stool [...] depend on results Related to Hypothyroidism, unspecified Rx sent to pharmacy[facility] as directedRTC if worsensCall with any questions or concernsPatient understands and agrees to plan Related to Acute sinusitis, unspecified Labs doneWill notify with result s Related to Vitamin D deficiency, unspecified Will increase dose t o 100 [...] [facility] directedPatient understands and agrees to plan. [...] agreeable to plan. Related to Sleepwalking [somnambulism] See above Related to Encou nter for screening for lipoid disorders Labs done today Will notify with results Treatment will depend on resultsRTC in 6 months or PRN for f/u on medicationsCall with any questions or concerns Related to Hypothyroidism Chronic Disease - COPD Related t o Chronic obstructive pulmonary disease, unspecified Weight control education Related to Hypothyroidism [facility] directedCall with any questions or concerns.Patient [...] dependence, unspecified, uncomplicated [facility] as directedRTC in 1 monthCall with any questions or concerns.Patient verbalizes and agrees to plan. Related to Wheezing Will check throid ne xt visit.Call with any questions or concernsPatient verbalizes and agrees to plan Related to Hypothyroidism See above #1 Related to Histo ry of falling Will refer to [facility] neurology Dr Orion Ballesteros after reviewing the MRI if appropriate.Keep all apointsments as madeFilled out paperwork for parking pass and gave to patient. Related to Headache Thyroid today. Will refill meds. Continue to medication as prescribed. Related to Hypothyroidism See above #4Angjayjay Hong leandro was acting as the scribe [...] start Topamax on Saturday. Related to Headache See above #1 Related to Encou nter for oth screening for malignant neoplasm of breast See above #1 Related to Encou nter for screening for malignant neoplasm of cervix Pap today. Will noti fy of results. Treatment will depend on results.Will refer for Mammogram at [facility] as this was were she believes her last was peformed.Patient verbalized understanding and is agreeable to plan. Related to Encntr for neurosurgical physician assistant exam (general) (routine) w/o abn findings Chronic Disease - COPD Related t o [...] is agreeable to plan. Related to Rash Zoloft refilled. Doi ng well on it. Will let me know if counseling needed. Follow up in 6 months or sooner as needed. Related to Depression Lipid profile today. Will call with results and refill lovastatin and tricor accordingly. Low-cholesterol, low-fat diet, regular physical activity strongly encouraged. Follow up in 6 months or sooner as needed. Related to Hyperlipidemia Depakote refilled. W ill restart amitriptyline. Noticed [...] Related to Hypothyroidism [facility] PT agreeable with plan. Will monitor [...]
--- OUTSIDE RECORDS SUMMARY | 2024-12-15 04:00 | XMS_ITS ---
Author Organization [facility] Address [address] [place] [address] Care Team Providers Care Skiver Hand Name Role Phone Gisele SALAMANCA, Jun Primary Care Provider UnavailLiane Mijares Unavailable [phone] REASON FOR VISIT 1 month f/u Medications Medication SIG (Take, Route, Frequency, Duration) Notes Start Date End Date Status Eliquis bid Active Potassium Active tiZANidine HCl 4 MG as directed Orally t hree times a day Active Gabapentin 300 MG 1 capsule Orally thr ee times a day twice a day Active Levothyroxine Sodium Active Amitriptyline HCl Ac tive Atorvastatin Calcium Active Gabapentin 600 MG 1 tablet Orally twic e a day for 30 days 11/17/2024 Active Acetaminophen Active Problems Problem Type SNOMED Code ICD Code Onset Dates Problem Status W/U Status Risk Notes Problem Lumbosacral spondylosis (355274993) Lumbosacral spondylosis (M47.817) Active confirmed Encounters Encounter Location Date Provider Diagnosis [facility] Interventional Pain Management [address] [address] 12/15/2024 Liane garcia Chronic pain syndrome G89.4 ; Lumbosacral radiculopathy M54.17 ; Lumbosacral spondylosis M47.817 and Myalgia M79.10 Assessments Encounter Date Diagnosis (ICD Code) Assessment Notes Treatment Notes Treatment Clinical Notes Section Notes 12/15/2024 Chronic pain syndrome (ICD-10 - G89.4) 12/15/2024 Lumbosacral radiculopathy (ICD-10 - M54.17) 12/15/2024 Lumbosacral spondylosis (ICD-10 - M47.817) 12/15/2024 Myalgia (ICD-10 - M79.10) Plan Of Treatment No Information Progress Notes * Judy MALLOYDOB:[birth year] (65 yo F)Acc No.[id number]:12/15/2024 Progress Notes Patient: Judy AARON Provider: Eliecer Dan MD :1960 A ge:64 Y S ex:Female Date:12/15/2024 Address:[address] [place] [address], [id number] Pcp:Jun Jaquez MD Subjective: * Chief Complaints: * 1 . 1 month f/u. * HPI: P ain Details: Pain Location : , middle and lower back, down right leg and buttocks, right shoulder down right arm. Both knees. Onset 3 years ago. Frequency of Pain C onstant, Constant with intermittent flareups. Quality T hrobbing, Shooting, Stabbing, Sharp, Tingling, Deep, Tender, Spreading, Aching, Puzy-jty-nvsroch. Severity of pain at its worst : , 10/10. Severity of pain at its best : , 7/10. Severity of pain on medication : , 4/10. Severity of average pain : , 7/10. Severity of pain right now 8 /10. Worsening factors S tanding, Sitting a long time, Walking, Lifting, Coughing, Housework, Lying flat, Increased activity, Bending, Twisting. Relieving factors M edication. Associated symptoms W eakness, Falling, Frustration, Numbness, Tingling, Crying, Depression, Insomnia. When did you last take your pain medicine : , OTC 0600 Tylenol. M edication Details: Do you have a lock box or safe place for medication away from minors and/or others? Y es , Yes. Do you have any leftover pain medication building up at your house? N o , No. Do you understand that pain medication can be addicting and can cause overdose? Y es , Yes. Do you feel you can REDUCE the amount of medication you take today? N o , No. O pioid Assessment Tools: SOAPP-R (Screener/Opioid Assessment for Patient) : , 7-20 : Indicates moderate risk for abuse. Patient will subsequently be monitored by clinic policy at least every two to three months with urine drug screen testing. Pill counts will be performed at every visit. Today's SOAPP-R Score 1 4. COMM (Current Opioid Misuse Measure) _ __. Pill Count n /a. Last Urine Drug Screen n ew patient. Today's Rapid Urine Drug Screen n ot performed. [place] Prescription Monitoring Program m o reviewed. T reatment History: Caregivers you have visited F nuviay physician, Physical therapist, Pain medicine physician. Test undergone in the past M RI scan or CT scan. Past medication you have taken N SAIDs; ibuprofen, Aleve, Tylenol, sports creams, Flexeril, Gabapentin/Neurontin,depakote, Hydrocodone. Treatments you have had injections , TENS, Physical therapy. Were prior treatments of any help? N o. S TOP-BANG Questionnaire: Do you snore loudly (louder than talking or loud enough to be heard through closed doors)? P atient reports no. Do you often feel tired, fatigued, or sleepy during the day??Patient reports yes. Has anyone observed you stop breathing during your sleep P atient reports no. Do you have or are you being treated for high blood pressure??Patient reports no. BMI greater than 35 kg/m2? N o. Age over 50 years old? Y es. Gender: Male N o. Score P kina has scored less than 3 on STOP BANG, which indicates low risk for NELLIE. Oxygen N o. CPAP N o. Ayse sterling Note: Patient presents today for re-evaluation/Patient presents today to establish care. - - - - - - - - - - - - - - - - - - - - - - - - - - - - - - - - - - - - - - - - - Last UDS Confirmation: Consent for chronic opioid therapy/clinic policies: 11/17/24 KIRSTY: 5 4% 11/17/24 SOAPP-R: Physical Therapy: yes, dates: Bowel/bladder incontinence - d enies - - - - - - - - - - - - - - - - - - - - - - - - - - - - - - - - - - - - - - - - -. Interventions: Pertinent Imaging: Original HPI:. * Medical History: P ulmonary embolism (10 years ago), Hypothyroidism, COPD, [place], Stomach ulcers, Migraine headaches, Stroke, Depression. * Surgical History: k nee replacements bilateral , 4 back surgeries . * Hospitalization/Major Diagno stic Procedure: a angel . * Family History: heart disease, fibromyalgia, chronic pain,stroke, cancer ,RA. * Social History: c urrent smoker on disablilty currently denies alcohol denies street drugs denies rehab/detox. * Medications: T aking Gabapentin 600 MG Tablet 1 tablet Orally twice a day , Taking Acetaminophen , Taking Amitriptyline HCl , Taking Atorvastatin Calcium , Taking Eliquis , Notes to Pharmacist: bid, Taking Gabapentin 300 MG Capsule 1 capsule Orally three times a day , Notes to Pharmacist: twice a day, Taking Levothyroxine Sodium , Taking Potassium , Taking tiZANidine HCl 4 MG Capsule as directed Orally three times a day Objective: * Vitals: Assessment: * Assessment: 1. C hronic pain syndrome - G89.4 (Primary) 2 . L umbosacral radiculopathy - M54.17 3 . L umbosacral spondylosis - M47.817 4 . M yalgia - M79.10 Plan: * Treatment: Forms: * Billing Information: * Visit Code: * Procedure Codes: Care Plan Details* * Electronic signature of Kiera Dan MD on 05/04/2025 at 08:03 AM CDT Sign off status: Pending * Provider: Eliecer Dan MD Date: 0 12/15/2024 Generated for Lavern pena/Marcela/Rivka on: 0 05/04/2025 08:03 AM CDT History and Physical Notes * HPI (History of Present Illness) Category Sub-Category Detail Notes Category Not es Provider Note Interventions: Pertinent Imaging: Original HPI: Pain Details Pain Location : , middle and l ower back, down right leg and buttocks, right shoulder down right arm. Both knees Duration Onset 3 years ago Frequency of Pain Constant, Constant w ith intermittent flareups Quality Throbbing, Shooting, Stabbing, Sharp, Tingling, Deep, Tender, Spreading, Aching, Pxna-xxd-aqmkaci Severity of pain at its worst : , 10/10 Severity of pain at its best : , 710 Severity of average pain : , 710 Severity of pain right now 8/10 Worsening factors Standing, Sitting a long time, Walking, Lifting, Coughing, Housework, Lying flat, Increased activity, Bending, Twisting Relieving factors Medication Associated symptoms Weakness, Falling, F rustration, Numbness, Tingling, Crying, Depression, Insomnia Severity of pain on medication : , 02/11 When did you last take your pain medicin e : , OTC 0600 Tylenol Medication Details Do you have a lock b ox or safe place for medication away from minors and/or others? Yes , Yes Do you have any leftover pain medication building up at your house? No , No Do you understand that pain medication can be addicting and can cause overdose? Yes , Yes Do you feel you can REDUCE the amount of medication you take today? No , No Opioid Assessment Tools Pill Count n/a Last Urine Drug Screen new patient Today's Rapid Urine Drug Screen not [facility] Prescription Monitoring Program mo reviewed SOAPP-R (Screener/Opioid Ass essment for Patient) : , 7-20 : Indicates moderate risk for a buse. Patient will subsequently be monitored by clinic policy at least every two to three months with urine drug screen testing. Pill counts will be performed at every visit Today's SOAPP-R Score 14 COMM (Current Opioid Misuse Measure) ___ Treatment History Caregivers you have visited [facility] physician, Physical therapist, Pain medicine physician Test undergone in the past MRI scan or C T scan Past medication you have taken NSAIDs; i buprofen, Aleve, Tylenol, sports creams, Flexeril, Gabapentin/Neurontin,depakote, Hydrocodone Treatments you have had injections , TE NS, Physical therapy Were prior treatments of any help? No STOP-BANG Questionnaire Do you snore cristian dly (louder than talking or loud enough to be heard through closed doors)? Patient reports no Do you often feel tired, fat igued, or sleepy during the day? Patient reports yes Has anyone observed you stop breathing during your sleep Patient reports no Do you have or are you being treated for high blood pressure? Patient reports no BMI greater than 35 kg/m2? No Age over 50 years old? Yes Gender: Male No Score Patient has scored l ess than 3 on STOP BANG, which indicates low risk for NELLIE Oxygen No CPAP No
--- NOTE | 2025-05-04 07:56 | ECG_ITS ---
[employer] Test Date: 2025-05-04 Pat Name: Judy Malloy Department: Room: Gender: Female Wire Rigger: : 1960 Requested By: Wilder Villafaan Order Number: [id number] Juli MD: Catracho Doherty M.D. Measurements Intervals [place] Rate: 57 P: 29 WI: 185 QRS: -51 QRSD: 115 T: 69 QT: 475 QTc: 466 Interpretive Statements SINUS BRADYCARDIA PATTERN CONSISTENT WITH PULMONARY DISEASE INCOMPLETE RIGHT BUNDLE BRANCH BLOCK [90+ ms QRS DURATION, TERMINAL R IN V1/V2, 40+ ms S IN I/aVL/V4/V5/V6] LEFT ANTERIOR FASCICULAR BLOCK [QRS AXIS <= -45, QR IN I, RS IN II] LEFT VENTRICULAR HYPERTROPHY AND ST-T CHANGE [VOLTAGE CRITERIA PLUS ST/T ABNORMALITY] POSSIBLE SEPTAL MYOCARDIAL INFARCTION , OF INDETERMINATE AGE [30 ms Q WAVE IN V1/V2] Compared to ECG 11/26/2024 10:29:02 Myocardial infarct finding now present ST (T wave) deviation still present Electronically Signed On 05-06-2025 09:05:34 CDT by Catracho Doherty M.D. [email or web address]
--- NOTE | 2025-05-04 07:56 | CTR_ITS ---
PROCEDURE INFORMATION: Exam: CT Head Without Contrast Exam date and time: 05/04/2025 8:42 AM Age: 65 years old Clinical indication: Dizziness TECHNIQUE: Imaging protocol: Computed tomography of the head without contrast. Radiation optimization: All CT scans at this facility use at least one of these dose optimization techniques: automated exposure control; mA and/or kV adjustment per patient size (includes targeted exams where dose is matched to clinical indication); or iterative reconstruction. COMPARISON: No relevant prior studies available. RADIATION DOSE METRICS: Total DLP (mGy-cm): 1019.79 FINDINGS: Brain: No hemorrhage, mass effect or midline shift. No acute, major vascular distribution infarction identified. There are foci of decreased attenuation in the periventricular and subcortical white matter, likely representing chronic small vessel ischemic changes. Mild cerebral volume loss is present. No intra-axial or extra-axial fluid collection seen. Cerebral ventricles: No ventriculomegaly. Paranasal sinuses: Visualized sinuses are unremarkable. No fluid levels. Mastoid air cells: Visualized mastoid air cells are well aerated. Bones: Unremarkable. No acute fracture. Soft tissues: Unremarkable. CT/CT head wo con* [id number] IMPRESSION: No acute intracranial abnormality.
[2025-05-04 07:57] VITALS: BP 165/54; PULSE 60; RESP 18; TEMP 36.7; O2SAT 99; BMI 26.5
--- OUTSIDE RECORDS SUMMARY | 2025-05-04 08:02 | XMS_ITS | Encounter Summary ---
Author Organization [facility] Address [address] [place] [address] Care Team Providers Care Blending Tank Tender Helper Name Role Phone Kathy Tolliver MD Primary Care Provider +1- [phone] Encounter Details Date Type Department Care Team (Latest Contact Info) Description 09/24/2003 Outpatient [facility] Dermatology- 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
--- OUTSIDE RECORDS SUMMARY | 2025-05-04 08:02 | XMS_ITS | Encounter Summary ---
Author Organization [facility] Address [address] [place] [address] Care Team Providers Care Light Rail Vehicle Operator Name Role Phone Kathy Tolliver MD Primary Care Provider +1- [phone] Encounter Details Date Type Department Care Team (Latest Contact Info) Description 04/21/[address] 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
--- OUTSIDE RECORDS SUMMARY | 2025-05-04 08:02 | XMS_ITS | Encounter Summary ---
Author Organization [facility] Address [address] [place] [address] Care Team Providers Care Patient Advocate Name Role Phone Kathy Tolliver MD Primary Care Provider +1- [phone] Encounter Details Date Type Department Care Team (Latest Contact Info) Description 02/24/2002 Outpatient Historical [facility] Medicine-[facility] [address] [place] [address] Krishna Toscano DO NO ADDRESS ON FILE LUMBAGO (Primary Dx); HYPOTHYROIDISM NOS Social History Tobacco Use Types Packs/Day Years Used Date Smoking Tobacco: Never Assessed Comments Unknown Sex and Gender Information Value Date Recorded Sex Assigned at Not on file Legal Sex 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
--- OUTSIDE RECORDS SUMMARY | 2025-05-04 08:02 | XMS_ITS | Encounter Summary ---
Author Organization [facility] Address [address] [place] [address] Care Team Providers Care Diesel Truck Driver Name Role Phone Kathy Tolliver MD Primary Care Provider +1- [phone] Encounter Details Date Type Department Care Team (Latest Contact Info) Description 04/11/2004 Outpatient Historical [facility] Medicine-[facility] [address] [place] [address] Krishna Toscano DO NO ADDRESS ON FILE MENSTRUAL DISORDER NOS (Primary Dx); UTERINE LEIOMYOMA NOS; HYPOTHYROIDISM NOS Social History Tobacco Use Types Packs/Day Years Used Date Smoking Tobacco: Never Assessed Comments Unknown Sex and Gender Information Value Date Recorded Sex Assigned at Not on file Legal Sex Female 2:46 AM BRAIDED RUG MAKER Gender Identity Not on file Sexual Orientation Not on file documented as of this encounter Plan of Treatment Not on file documented as of this encounter Visit Diagnoses Diagnosis Unspecified disorder of menstruation and other abnormal bleeding from female genital tract- Primary Leiomyoma of uterus, unspecified Unspecified hypothyroidism documented in this encounter Care Teams Diesel Truck Driver Relationship Specialty Start Date End Date Kathy Tolliver MD [address] [place] [address] PCP - General Internal Medicine 07/06/20 documented as of this encounter
--- OUTSIDE RECORDS SUMMARY | 2025-05-04 08:02 | XMS_ITS | Encounter Summary ---
Author Organization [facility] Address [address] [place] [address] Care Team Providers Care Metal Melter Name Role Phone Kathy Tolliver MD Primary Care Provider +1- [phone] Encounter Details Date Type Department Care Team (Late st Contact Info) Description 08/16/[address] 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
--- OUTSIDE RECORDS SUMMARY | 2025-05-04 08:02 | XMS_ITS | Encounter Summary ---
Author Organization [facility] Address [address] [place] [address] Care Team Providers Care Oil Recovery Operator Name Role Phone Kathy Tolliver MD Primary Care Provider +1- [phone] Encounter Details Date Type Department Care Team (Late st Contact Info) Description 06/13/2003 Emergency [facility] Emergency Department [address] [place] [phone] Joe Marcano, DO NO ADDRESS ON FILE LUMBAGO (Primary Dx) Social History Tobacco Use Types Packs/Day Years Used Date Smoking Tobacco: Never Assessed Comments Unknown Sex and Gender Information Value Date Recorded Sex Assigned at Not on file Legal Sex Female 2: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
--- OUTSIDE RECORDS SUMMARY | 2025-05-04 08:02 | XMS_ITS | Encounter Summary ---
Author Organization [facility] Address [address] [place] [address] Care Team Providers Care Financial Advisor Trainee Name Role Phone Kathy Tolliver MD Primary Care Provider +1- [phone] Encounter Details Date Type Department Care Team (Latest Contact Info) Description 09/27/2003 Outpatient [facility] Podiatry-[facility] [address] [place] [address] Issa Howard, DPM NO ADDRESS ON FILE MONONEURITIS LEG NOS (Primary Dx); Pain in limb Social History Tobacco Use Types Packs/Day Years Used Date Smoking Tobacco: Never Assessed Comments Unknown Sex and Gender Information Value Date Recorded Sex Assigned at Not on file Legal 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
--- OUTSIDE RECORDS SUMMARY | 2025-05-04 08:02 | XMS_ITS | Encounter Summary ---
Author Organization [facility] Address [address] [place] [address] Care Team Providers Care Seo Manager Name Role Phone Kathy Tolliver MD Primary Care Provider +1- [phone] Encounter Details Date Type Department Care Team (Latest Contact Info) Description 09/21/2002 Outpatient [facility] Podiatry-[facility] Alfredo [address] [place] [address] Issa Howard, DPM NO ADDRESS ON FILE MONONEURITIS LEG NOS (Primary Dx); Pain in limb Social History Tobacco Use Types Packs/Day Years Used Date Smoking Tobacco: Never Assessed Comments Unknown Sex and Gender Information Value Date Recorded Sex Assigned at Not on file Legal Sex Female 2:46 AM EVENTS 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
--- OUTSIDE RECORDS SUMMARY | 2025-05-04 08:02 | XMS_ITS | Encounter Summary ---
Author Organization [facility] Address [address] [place] [address] Care Team Providers Care Team Assistant Name Role Phone Kathy Tolliver MD Primary Care Provider +1- [phone] Encounter Details Date Type Department Care Team (Latest Contact Info) Description 02/05/2002 Outpatient [facility] [address] [place] [phone] Krishna Toscano, NO ADDRESS ON FILE LUMBAGO (Primary Dx) Social History Tobacco Use Types Packs/Day Years Used Date Smoking Tobacco: Never Assessed Comments Unknown Sex and Gender Information Value Date Recorded Sex Assigned at Not on file Legal Sex Female 2: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
--- OUTSIDE RECORDS SUMMARY | 2025-05-04 08:02 | XMS_ITS | Encounter Summary ---
Author Organization [facility] Address [address] [place] [address] Care Team Providers Care Corporate Securities Research Analyst Name Role Phone Kathy Tolliver MD Primary Care Provider +1- [phone] Encounter Details Date Type Department Care Team (Latest Contact Info) Description 03/23/2002 Outpatient [facility] [address] [place] [address] Krishna Toscano, NO ADDRESS ON FILE LUMBAGO (Primary Dx) Social History Tobacco Use Types Packs/Day Years Used Date Smoking Tobacco: Never Assessed Comments Unknown Sex and Gender Information Value Date Recorded Sex Assigned at Not on file Legal 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
--- OUTSIDE RECORDS SUMMARY | 2025-05-04 08:02 | XMS_ITS | Encounter Summary ---
Author Organization [facility] Address [address] [place] [address] Care Team Providers Care Metal Organ Pipe Maker Name Role Phone Kathy Tolliver MD Primary Care Provider +1- [phone] Encounter Details Date Type Department Care Team (Latest Contact Info) Description 09/10/2002 Outpatient Historical [facility] [address] [place] [address] Krishna Toscano DO NO ADDRESS ON FILE MENSTRUAL DISORDER NOS (Primary Dx); DEPRESSIVE DISORDER NEC; FEMALE GENITAL SYMPTOMS NOS Social History Tobacco Use Types Packs/Day Years Used Date Smoking Tobacco: Never Assessed Comments Unknown Sex and Gender Information Value Date Recorded Sex Assigned at Not on file Legal Sex Female 2:46 AM CITY DRIVER Gender Identity Not on file Sexual Orientation Not on file documented as of this encounter Plan of Treatment Not on file documented as of this encounter Visit Diagnoses Diagnosis Unspecified disorder of menstruation and other abnormal bleeding from female genital tract- Primary Depressive disorder, not elsewhere classified Unspecified symptom associated with female genital organs documented in this encounter Care Teams Metal Organ Pipe Maker Relationship Specialty Start Date End Date Kathy Tolliver MD [address] [place] [address] PCP - General Internal Medicine 07/06/20 documented as of this encounter
--- OUTSIDE RECORDS SUMMARY | 2025-05-04 08:02 | XMS_ITS | Encounter Summary ---
Author Organization [facility] Address [address] [place] [address] Care Team Providers Care Agricultural Researcher Name Role Phone Kathy Tolliver MD Primary Care Provider +1- [phone] Encounter Details Date Type Department Care Team (Latest Contact Info) Description 03/19/2002 Outpatient Historical [facility] [address] [place] [address] Krishna Toscano, NO ADDRESS ON FILE LUMBAGO (Primary Dx) Social History Tobacco Use Types Packs/Day Years Used Date Smoking Tobacco: Never Assessed Comments Unknown Sex and Gender Information Value Date Recorded Sex Assigned at Not on file Legal Sex Female 2:46 AM PERSONNEL SCHEDULER Gender Identity Not on file Sexual Orientation Not on file documented as of this encounter Plan of Treatment Not on file documented as of this encounter Visit Diagnoses Diagnosis Lumbago- Primary documented in this encounter Care Teams Agricultural Researcher Relationship Specialty Start Date End Date Kathy Tolliver MD [address] [place] [address] PCP - General Internal Medicine 07/06/20 documented as of this encounter
--- OUTSIDE RECORDS SUMMARY | 2025-05-04 08:02 | XMS_ITS | Encounter Summary ---
Author Organization [facility] Address [address] [place] [address] Care Team Providers Care Video Production Coordinator Name Role Phone Kathy Tolliver MD Primary Care Provider +1- [phone] Encounter Details Date Type Department Care Team (Late st Contact Info) Description 01/08/2002 Outpatient [facility]- [place] [address] [place] [address] Ruben Geiger MD [address] [place] [address] CARDIAC DYSRHYTHMIA NOS (Primary Dx); PRECORDIAL PAIN Social History Tobacco Use Types Packs/Day Years Used Date Smoking Tobacco: Never Assessed Comments Unknown Sex and Gender Information Value Date Recorded Sex Assigned at Not on file Legal Sex Female 2:46 AM FINISH PAINTER Gender Identity Not on file Sexual Orientation Not on file documented as of this encounter Plan of Treatment Not on file documented as of this encounter Visit Diagnoses Diagnosis Cardiac dysrhythmia, unspecified- Primary Precordial pain documented in this encounter Care Teams Video Production Coordinator Relationship Specialty Start Date End Date Kathy Tolliver MD [address] [place] [address] PCP - General Internal Medicine 07/06/20 documented as of this encounter
--- OUTSIDE RECORDS SUMMARY | 2025-05-04 08:02 | XMS_ITS | Encounter Summary ---
Author Organization [facility] Address [address] [place] [address] Care Team Providers Care Medical Receptionist Medical Assistant Name Role Phone Kathy Tolliver MD Primary Care Provider +1- [phone] Encounter Details Date Type Department Care Team (Latest Contact Info) Description 09/22/2003 Outpatient [facility] [address] [place] [address] Krishna Toscano DO NO ADDRESS ON FILE BONE/SKIN NEOPLASM NOS (Primary Dx); HYPOTHYROIDISM NOS; LUMBAGO Social History Tobacco Use Types Packs/Day Years Used Date Smoking Tobacco: Never Assessed Comments Unknown Sex and Gender Information Value Date Recorded Sex Assigned at Not on file Legal Sex Female 2:46 AM PATHOLOGIST Gender Identity Not on file Sexual Orientation Not on file documented as of this encounter Plan of Treatment Not on file documented as of this encounter Visit Diagnoses Diagnosis Neoplasm of unspecified nature of bone, soft tissue, and skin- Primary Unspecified hypothyroidism Lumbago documented in this encounter Care Teams Medical Receptionist Medical Assistant Relationship Specialty Start Date End Date Kathy Tolliver MD [address] [place] [address] PCP - General Internal Medicine 07/06/20 documented as of this encounter
--- OUTSIDE RECORDS SUMMARY | 2025-05-04 08:02 | XMS_ITS | Encounter Summary ---
Author Organization [facility] Address [address] Gupta: [place] [address] Care Team Providers Care Program Checker Name Role Phone Kathy Tolliver MD Primary Care Provider +1- [phone] Encounter Details Date Type Department Care Team (Late st Contact Info) Description 03/25/2002 Outpatient Historical Matty Barlow MD [address] [place] [address] [address] [place] [address] Social History Tobacco Use Types Packs/Day Years Used Date Smoking Tobacco: Never Assessed Comments Unknown Sex and Gender Information Value Date Recorded Sex Assigned at Not on file Legal Sex Female 2:46 AM DIRECTOR STYLE Gender Identity Not on file Sexual Orientation Not on file documented as of this encounter Plan of Treatment Not on file documented as of this encounter Visit Diagnoses Not on filedocumented in this encounter Care Teams Program Checker Relationship Specialty Start Date End Date Kathy Tolliver MD [address] [place] [address] PCP - General Internal Medicine 07/06/20 documented as of this encounter
--- OUTSIDE RECORDS SUMMARY | 2025-05-04 08:02 | XMS_ITS | Encounter Summary ---
Author Organization [facility] Address [address] [place] [address] Care Team Providers Care Senior Search Marketing Analyst Name Role Phone Kathy Tolliver MD Primary Care Provider +1- [phone] Encounter Details Date Type Department Care Team (Latest Contact Info) Description 09/01/2002 Outpatient Historical [facility] [address] [place] [address] Krishna Toscano, NO ADDRESS ON FILE Pain in limb (Primary Dx) Social History Tobacco Use Types Packs/Day Years Used Date Smoking Tobacco: Never Assessed Comments Unknown Sex and Gender Information Value Date Recorded Sex Assigned at Not on file Legal Sex Female 2:46 AM ENDOCRINOLOGIST Gender Identity Not on file Sexual Orientation Not on file documented as of this encounter Plan of Treatment Not on file documented as of this encounter Visit Diagnoses Diagnosis Pain in limb- Primary Pain in soft tissues of limb documented in this encounter Care Teams Senior Search Marketing Analyst Relationship Specialty Start Date End Date Kathy Tolliver MD [address] [place] [address] PCP - General Internal Medicine 07/06/20 documented as of this encounter
--- OUTSIDE RECORDS SUMMARY | 2025-05-04 08:02 | XMS_ITS | Encounter Summary ---
Author Organization [facility] Address [address] [place] [address] Care Team Providers Care Housekeeping Laundry Worker Name Role Phone Kathy Tolliver MD Primary Care Provider +1- [phone] Encounter Details Date Type Department Care Team (Late st Contact Info) Description 08/05/2003 Emergency [facility] Emergency Department [address] [place] [address] Edgar Powell MD NO ADDRESS ON FILE TRICHOMONIASIS NOS (Primary Dx) Social History Tobacco Use Types Packs/Day Years Used Date Smoking Tobacco: Never Assessed Comments Unknown Sex and Gender Information Value Date Recorded Sex Assigned at Not on file Legal Sex Female 2:46 AM MANAGER FINANCIAL PLANNING Gender Identity Not on file Sexual Orientation Not on file documented as of this encounter Plan of Treatment Not on file documented as of this encounter Visit Diagnoses Diagnosis Trichomoniasis, unspecified- Primary documented in this encounter Care Teams Housekeeping Laundry Worker Relationship Specialty Start Date End Date Kathy Tolliver MD [address] [place] [address] PCP - General Internal Medicine 07/06/20 documented as of this encounter
--- OUTSIDE RECORDS SUMMARY | 2025-05-04 08:02 | XMS_ITS | Encounter Summary ---
Author Organization [facility] Address [address] [place] [address] Care Team Providers Care Tinning Equipment Tender Name Role Phone Kathy Tolliver MD Primary Care Provider +1- [phone] Encounter Details Date Type Department Care Team (Latest Contact Info) Description 01/09/2002 Outpatient [facility] [address] [phone] Robin Brito MD [address] [address] [place] [address] PRECORDIAL PAIN (Primary Dx); SHORTNESS OF BREATH Social History Tobacco Use Types Packs/Day Years Used Date Smoking Tobacco: Never Assessed Comments Unknown Sex and Gender Information Value Date Recorded Sex Assigned at Not on file Legal Sex Female 2:46 AM BRICK OFFBEARER Gender Identity Not on file Sexual Orientation Not on file documented as of this encounter Plan of Treatment Not on file documented as of this encounter Visit Diagnoses Diagnosis Precordial pain- Primary Shortness of breath documented in this encounter Care Teams Tinning Equipment Tender Relationship Specialty Start Date End Date Kathy Tolliver MD [address] [place] [address] PCP - General Internal Medicine 07/06/20 documented as of this encounter
--- OUTSIDE RECORDS SUMMARY | 2025-05-04 08:02 | XMS_ITS | Encounter Summary ---
Author Organization [facility] Address [address] [place] [address] Care Team Providers Care Platform Material Handling Supervisor Name Role Phone Kathy Tolliver MD Primary Care Provider +1- [phone] Encounter Details Date Type Department Care Team (Latest Contact Info) Description 12/31/2001 Outpatient [facility] [address] [address] Miguel A Augustine MD NO ADDRESS ON FILE MAMMOGRAPHIC MICROCALCIFICATION (Primary Dx) Social History Tobacco Use Types Packs/Day Years Used Date Smoking Tobacco: Never Assessed Comments Unknown Sex and Gender Information Value Date Recorded Sex Assigned at Not on file Legal Sex Female 2:46 AM ER PHYSICIAN Gender Identity Not on file Sexual Orientation Not on file documented as of this encounter Plan of Treatment Not on file documented as of this encounter Visit Diagnoses Diagnosis Mammographic microcalcification- Primary documented in this encounter Care Teams Platform Material Handling Supervisor Relationship Specialty Start Date End Date Kathy Tolliver MD [address] [place] [address] PCP - General Internal Medicine 07/06/20 documented as of this encounter
--- OUTSIDE RECORDS SUMMARY | 2025-05-04 08:02 | XMS_ITS | Encounter Summary ---
Author Organization [facility] Address [address] [place] [address] Care Team Providers Care Extrusion Press Operator Name Role Phone Kathy Tolliver MD Primary Care Provider +1- [phone] Encounter Details Date Type Department Care Team (Latest Contact Info) Description 11/26/2003 Outpatient Historical [facility] [address] [place] [address] Reena Tillman MD [address] [place] [address] SHOULDER REGION DIS NEC (Primary Dx) Social History Tobacco Use Types Packs/Day Years Used Date Smoking Tobacco: Never Assessed Comments Unknown Sex and Gender Information Value Date Recorded Sex Assigned at Not on file Legal Sex Female 2:46 AM TANGIBLE PERSONAL PROPERTY APPRAISER Gender Identity Not on file Sexual Orientation Not on file documented as of this encounter Plan of Treatment Not on file documented as of this encounter Visit Diagnoses Diagnosis Other affections of shoulder region, not elsewhere classified- Primary documented in this encounter Care Teams Extrusion Press Operator Relationship Specialty Start Date End Date Kathy Tolliver MD [address] [place] [address] PCP - General Internal Medicine 07/06/20 documented as of this encounter
--- OUTSIDE RECORDS SUMMARY | 2025-05-04 08:02 | XMS_ITS | Encounter Summary ---
Author Organization [facility] Address [address] [place] [address] Care Team Providers Care Distance Education Faculty Liaison Name Role Phone Kathy Tolliver MD Primary Care Provider +1- [phone] Encounter Details Date Type Department Care Team (Late st Contact Info) Description 02/28/2003 Emergency [facility] Emergency Department [address] [place] [address] Aline Young MD [address] [address] PAIN IN LIMB (Primary Dx) Social History Tobacco Use Types Packs/Day Years Used Date Smoking Tobacco: Never Assessed Comments Unknown Sex and Gender Information Value Date Recorded Sex Assigned at Not on file Legal Sex Female 2:46 AM CARPENTER ASSISTANT INSTALLER Gender Identity Not on file Sexual Orientation Not on file documented as of this encounter Plan of Treatment Not on file documented as of this encounter Visit Diagnoses Diagnosis Pain in limb- Primary documented in this encounter Care Teams Distance Education Faculty Liaison Relationship Specialty Start Date End Date Kathy Tolliver MD [address] [place] [address] PCP - General Internal Medicine 07/06/20 documented as of this encounter
--- OUTSIDE RECORDS SUMMARY | 2025-05-04 08:02 | XMS_ITS | Encounter Summary ---
Author Organization [facility] Address [address] [place] [address] Care Team Providers Care Forging Die Finisher Name Role Phone Kathy Tolliver MD Primary Care Provider +1- [phone] Encounter Details Date Type Department Care Team (Latest Contact Info) Description 01/15/2002 Outpatient Historical [facility] [address] [place] [address] Reena Tillman MD [address] [place] [address] SPRAIN SACROILIAC NOS (Primary Dx); POSTSURGICAL STATES NEC; LUMBAGO Social History Tobacco Use Types Packs/Day Years Used Date Smoking Tobacco: Never Assessed Comments Unknown Sex and Gender Information Value Date Recorded Sex Assigned at Not on file Legal Sex Female 2:46 AM MOVER HELPER Gender Identity Not on file Sexual Orientation Not on file documented as of this encounter Plan of Treatment Not on file documented as of this encounter Visit Diagnoses Diagnosis Sprain of unspecified site of sacroiliac region- Primary Other postprocedural status(V45.89) Other postprocedural status Lumbago documented in this encounter Care Teams Forging Die Finisher Relationship Specialty Start Date End Date Kathy Tolliver MD [address] [place] [address] PCP - General Internal Medicine 9/2/20 documented as of this encounter
--- OUTSIDE RECORDS SUMMARY | 2025-05-04 08:02 | XMS_ITS | Encounter Summary ---
Author Organization [facility] Address [address] [place] [address] Care Team Providers Care Weatherization Technician Name Role Phone Kathy Tolliver MD Primary Care Provider +1- [phone] Encounter Details Date Type Department Care Team (Late st Contact Info) Description 04/11/[address] [address] Krishna Toscano, NO ADDRESS ON FILE Social History Tobacco Use Types Packs/Day Years Used Date Smoking Tobacco: Never Assessed Comments Unknown Sex and Gender Information Value Date Recorded Sex Assigned at Not on file Legal Sex Female 2:46 AM MOVEMENT ASSEMBLER Gender Identity Not on file Sexual Orientation Not on file documented as of this encounter Plan of Treatment Not on file documented as of this encounter Visit Diagnoses Not on filedocumented in this encounter Care Teams Weatherization Technician Relationship Specialty Start Date End Date Kathy Tolliver MD [address] [place] [address] PCP - General Internal Medicine 07/06/20 documented as of this encounter
--- OUTSIDE RECORDS SUMMARY | 2025-05-04 08:02 | XMS_ITS | Encounter Summary ---
Author Organization [employer] [facility] Address [address] [place] [address] Care Team Providers Care Die Engraving Supervisor Name Role Phone Kathy Tolliver MD Primary Care Provider +1- [phone] Encounter Details Date Type Department Care Team (Latest Contact Info) Description 04/11/2004 Outpatient Historical [facility] [address] [place] [address] [place] [address] Krishna Toscano, NO ADDRESS ON FILE DISORDERS OF UTERUS NEC (Primary Dx) Social History Tobacco Use Types Packs/Day Years Used Date Smoking Tobacco: Never Assessed Comments Unknown Sex and Gender Information Value Date Recorded Sex Assigned at Not on file Legal Sex Female 2:46 AM INSPECTOR SALVAGE Gender Identity Not on file Sexual Orientation Not on file documented as of this encounter Plan of Treatment Not on file documented as of this encounter Visit Diagnoses Diagnosis Other specified disorders of uterus, not elsewhere classified- Primary documented in this encounter Care Teams Die Engraving Supervisor Relationship Specialty Start Date End Date Kathy Tolliver MD [address] [place] [address] PCP - General Internal Medicine 07/06/20 documented as of this encounter
--- OUTSIDE RECORDS SUMMARY | 2025-05-04 08:02 | XMS_ITS | Encounter Summary ---
Author Organization [facility] Address [address] Gupta: [place] [address] Care Team Providers Care Upholstery Cutter Name Role Phone Kathy Tolliver MD Primary Care Provider +1- [phone] Encounter Details Date Type Department Care Team (Late st Contact Info) Description 03/26/2002 Inpatient Historical Matty Barlow MD [address] [facility] [place] [address] Social History Tobacco Use Types Packs/Day Years Used Date Smoking Tobacco: Never Assessed Comments Unknown Sex and Gender Information Value Date Recorded Sex Assigned at Not on file Legal Sex Female 2:46 AM APPLICATION ARCHITECT MANAGER Gender Identity Not on file Sexual Orientation Not on file documented as of this encounter Plan of Treatment Not on file documented as of this encounter Visit Diagnoses Not on filedocumented in this encounter Care Teams Upholstery Cutter Relationship Specialty Start Date End Date Kathy Tolliver MD [address] [place] [address] PCP - General Internal Medicine 07/06/20 documented as of this encounter
--- OUTSIDE RECORDS SUMMARY | 2025-05-04 08:02 | XMS_ITS | Encounter Summary ---
Author Organization [facility] Address [address] Gupta: [place] [address] Care Team Providers Care Taker Off Drying Kiln Name Role Phone Kathy Tolliver MD Primary Care Provider +1- [phone] Encounter Details Date Type Department Care Team (Late st Contact Info) Description 03/03/2002 Outpatient Historical Krishna Toscano DO NO ADDRESS ON FILE Social History Tobacco Use Types Packs/Day Years Used Date Smoking Tobacco: Never Assessed Comments Unknown Sex and Gender Information Value Date Recorded Sex Assigned at Not on file Legal Sex Female 2:46 AM NEGATIVE CHECKER Gender Identity Not on file Sexual Orientation Not on file documented as of this encounter Plan of Treatment Not on file documented as of this encounter Visit Diagnoses Not on filedocumented in this encounter Care Teams Taker Off Drying Kiln Relationship Specialty Start Date End Date Kathy Tolliver MD [address] [place] [address] PCP - General Internal Medicine 07/06/20 documented as of this encounter
--- OUTSIDE RECORDS SUMMARY | 2025-05-04 08:02 | XMS_ITS | Encounter Summary ---
Author Organization [facility] Address [address] [place] [address] Care Team Providers Care Production Honing Machine Operator Name Role Phone Kathy Tolliver MD Primary Care Provider +1- [phone] Encounter Details Date Type Department Care Team (Late st Contact Info) Description 10/31/2003 Emergency [facility] Emergency Department [address] [place] [address] Choco George MD SPRAIN LUMBAR REGION (Primary Dx) Social History Tobacco Use Types Packs/Day Years Used Date Smoking Tobacco: Never Assessed Comments Unknown Sex and Gender Information Value Date Recorded Sex Assigned at Not on file Legal Sex Female 2:46 AM LOAN SERVICES PROFESSIONAL Gender Identity Not on file Sexual Orientation Not on file documented as of this encounter Plan of Treatment Not on file documented as of this encounter Visit Diagnoses Diagnosis Sprain of lumbar region- Primary documented in this encounter Care Teams Production Honing Machine Operator Relationship Specialty Start Date End Date Kathy Tolliver MD [address] [place] [address] PCP - General Internal Medicine 07/06/20 documented as of this encounter
--- OUTSIDE RECORDS SUMMARY | 2025-05-04 08:02 | XMS_ITS | Encounter Summary ---
Author Organization [facility] Address [address] [place] [address] Care Team Providers Care Pharmacy Salesperson Name Role Phone Kathy Tolliver MD Primary Care Provider +1- [phone] Encounter Details Date Type Department Care Team (Latest Contact Info) Description 09/04/2002 Outpatient Historical [facility] Medicine-[facility] ks [address] [place] [phone] Reena Tillman MD [address] [place] [address] Pain in limb (Primary Dx); LUMBAGO Social History Tobacco Use Types Packs/Day Years Used Date Smoking Tobacco: Never Assessed Comments Unknown Sex and Gender Information Value Date Recorded Sex Assigned at Not on file Legal Sex Female 2:46 AM BUSINESS PERFORMANCE ADVISOR Gender Identity Not on file Sexual Orientation Not on file documented as of this encounter Plan of Treatment Not on file documented as of this encounter Visit Diagnoses Diagnosis Pain in limb- Primary Pain in soft tissues of limb Lumbago documented in this encounter Care Teams Pharmacy Salesperson Relationship Specialty Start Date End Date Kathy Tolliver MD [address] [place] [address] PCP - General Internal Medicine 07/06/20 documented as of this encounter
--- OUTSIDE RECORDS SUMMARY | 2025-05-04 08:02 | XMS_ITS | Encounter Summary ---
Author Organization [facility] Address [address] [place] [address] Care Team Providers Care Parts Department Supervisor Name Role Phone Kathy Tolliver MD Primary Care Provider +1- [phone] Encounter Details Date Type Department Care Team (Late st Contact Info) Description 07/30/2005 Outpatient [facility] [id number] [place] [address] Social History Tobacco Use Types Packs/Day Years Used Date Smoking Tobacco: Never Assessed Comments Unknown Sex and Gender Information Value Date Recorded Sex Assigned at Not on file Legal Sex Female 2:46 AM EVENT ORGANIZER Gender Identity Not on file Sexual Orientation Not on file documented as of this encounter Plan of Treatment Not on file documented as of this encounter Visit Diagnoses Not on filedocumented in this encounter Care Teams Parts Department Supervisor Relationship Specialty Start Date End Date Kathy Tolliver MD [address] [place] [address] PCP - General Internal Medicine 07/06/20 documented as of this encounter
--- OUTSIDE RECORDS SUMMARY | 2025-05-04 08:02 | XMS_ITS | Encounter Summary ---
Author Organization [facility] Address [address] [place] [address] Care Team Providers Care Lan Analyst Name Role Phone Kathy Tolliver MD Primary Care Provider +1- [phone] Encounter Details Date Type Department Care Team (Latest Contact Info) Description 09/07/2002 Outpatient [facility] Podiatry-[facility] Alfredo [address] [place] [address] Issa Howard, DPM NO ADDRESS ON FILE MONONEURITIS LEG NOS (Primary Dx); Hallux valgus Social History Tobacco Use Types Packs/Day Years Used Date Smoking Tobacco: Never Assessed Comments Unknown Sex and Gender Information Value Date Recorded Sex Assigned at Not on file Legal Sex Female 2:46 AM CAKE ICER Gender Identity Not on file Sexual Orientation Not on file documented as of this encounter Plan of Treatment Not on file documented as of this encounter Visit Diagnoses Diagnosis Mononeuritis of lower limb, unspecified- Primary Hallux valgus Hallux valgus (acquired) documented in this encounter Care Teams Lan Analyst Relationship Specialty Start Date End Date Kathy Tolliver MD [address] [place] [address] PCP - General Internal Medicine 07/06/20 documented as of this encounter
--- OUTSIDE RECORDS SUMMARY | 2025-05-04 08:02 | XMS_ITS | Encounter Summary ---
Author Organization [facility] Address [address] [place] [address] Care Team Providers Care Social And Political Studies Professor Name Role Phone Kathy Tolliver MD Primary Care Provider +1- [phone] Encounter Details Date Type Department Care Team (Late st Contact Info) Description 07/30/2005 Emergency [facility] Emergency Department [address] [place] [phone] Kaleb Maki MD [address] [place] [address] LUMBAGO (Primary Dx) Social History Tobacco Use Types Packs/Day Years Used Date Smoking Tobacco: Never Assessed Comments Unknown Sex and Gender Information Value Date Recorded Sex Assigned at Not on file Legal Sex Female 2:46 AM 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 Gender Identity Not on file Sexual Orientation Not on file documented as of this encounter Plan of Treatment Not on file documented as of this encounter Procedures Procedure Name Priority Date/Time Associated Diagnosis Comments URINALYSIS MICROSCOPY ONLY Routine 07/30/2005 3:30 PM CDT URINALYSIS W/REFLEX MICROSCOPIC Routine 07/30/2005 3:30 PM CDT documented in this encounter Results * (ABNORMAL) URINALYSIS (07/30/2005 3:30 PM CDT) COLOR UA Yellow Straw INTERFACE SYSTEM CLARITY UA Clear Clear INTERFACE SYSTEM LEUKOCYTE ESTERASE UA Trace(A) NEGATIVE INTERFACE SYSTEM NITRITE UA NEGATIVE NEGATIVE INTERFACE SYSTEM PH UA 6.0 5.0 - 9.0 INTERFACE SYSTEM PROTEIN UA NEGATIVE NEGATIVE INTERFACE SYSTEM Comment: As of 05 positive protein results obtained on routine urinalysis will not be confirmed by sulfosalicylic acid (SSA) precipitation. Current methodology for protein detection is highly sensitive for detection of albumin; therefore, confirmation is not necessary. GLUCOSE UA NEGATIVE NEGATIVE INTERFACE SYSTEM KETONES UA NEGATIVE NEGATIVE INTERFACE SYSTEM UROBILINOGEN UA 0.2 0.2 INTE RFACE SYSTEM BILIRUBIN UA NEGATIVE NEGATIVE INTERFA CE SYSTEM BLOOD UA NEGATIVE NEGATIVE INTERFACE SYSTEM SPECIFIC GRAVITY UA <=1.005(A) 1.005 - 1.030 INTERFACE SYSTEM MICRO EXAM Yes(A) No INTERFACE SYSTEM 07/30/2005 3:30 PM CDT Kaleb Maki MD URINE ORDERABLES Final Resul t Performing Organization Address City/[facility] Co de Phone Number INTERFACE SYSTEM Refer to clinic/hospital department * URINALYSIS MICROSCOPY ONLY (07/30/2005 3:30 PM CDT) WBC URINE 0-2 0 - 2 INTERFACE SYSTEM RBC UA None Seen 0 - 2 INTERFACE SYSTEM HYALINE CAST None Seen 0 - 2 INTERFA CE SYSTEM 07/30/2005 3:30 PM CDT Kaleb Maki MD URINE ORDERABLES Final Resul t Performing Organization Address [facility] Co de Phone Number INTERFACE SYSTEM Refer to clinic/hospital department documented in this encounter Visit Diagnoses Diagnosis Lumbago- Primary documented in this encounter Care Teams Social And Political Studies Professor Relationship Specialty Start Date End Date Kathy Tolliver MD [address] [place] [address] PCP - General Internal Medicine 07/06/20 documented as of this encounter
--- OUTSIDE RECORDS SUMMARY | 2025-05-04 08:02 | XMS_ITS | Encounter Summary ---
Author Organization [facility] Address [address] [place] [address] Care Team Providers Care Gridcap Machine Operator Name Role Phone Kathy Tolliver MD Primary Care Provider +1- [phone] Encounter Details Date Type Department Care Team (Latest Contact Info) Description 10/06/2002 Outpatient [facility] Podiatry-[facility] Alfredo [address] [place] [address] Issa Howard, DPM NO ADDRESS ON FILE Pain in limb (Primary Dx); MONONEURITIS LEG NOS Social History Tobacco Use Types Packs/Day Years Used Date Smoking Tobacco: Never Assessed Comments Unknown Sex and Gender Information Value Date Recorded Sex Assigned at Not on file Legal Sex Female 2:46 AM AVIATION 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
--- OUTSIDE RECORDS SUMMARY | 2025-05-04 08:02 | XMS_ITS | Encounter Summary ---
Author Organization [facility] Address [address] [place] [address] Care Team Providers Care Municipal Court Judge Name Role Phone Kathy Tolliver MD Primary Care Provider +1- [phone] Encounter Details Date Type Department Care Team (Latest Contact Info) Description 02/29/2004 Outpatient Historical [facility] Medicine-[facility] [address] [place] [address] Krishna Toscano DO NO ADDRESS ON FILE JOINT PAIN-SHLDER (Primary Dx); VIRAL WARTS NOS; DEPRESSIVE DISORDER NEC Social History Tobacco Use Types Packs/Day Years Used Date Smoking Tobacco: Never Assessed Comments Unknown Sex and Gender Information Value Date Recorded Sex Assigned at Not on file Legal Sex Female 2:46 AM 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
--- OUTSIDE RECORDS SUMMARY | 2025-05-04 08:02 | XMS_ITS | Encounter Summary ---
Author Organization [facility] Address [address] Gupta: [place] [address] Care Team Providers Care Nutrition Program Instructor Name Role Phone Kathy Tolliver MD Primary Care Provider +1- [phone] Encounter Details Date Type Department Care Team (Late st Contact Info) Description 03/22/2002 Outpatient Historical Leroy Hernandez DO NO ADDRESS ON FILE Social History Tobacco Use Types Packs/Day Years Used Date Smoking Tobacco: Never Assessed Comments Unknown Sex and Gender Information Value Date Recorded Sex Assigned at Not on file Legal Sex Female 2:46 AM GIS COORDINATOR Gender Identity Not on file Sexual Orientation Not on file documented as of this encounter Plan of Treatment Not on file documented as of this encounter Visit Diagnoses Not on filedocumented in this encounter Care Teams Nutrition Program Instructor Relationship Specialty Start Date End Date Kathy Tolliver MD [address] [place] [address] PCP - General Internal Medicine 07/06/20 documented as of this encounter
--- OUTSIDE RECORDS SUMMARY | 2025-05-04 08:02 | XMS_ITS | Encounter Summary ---
Author Organization [facility] Address [address] [place] [address] Care Team Providers Care Leave Specialist Name Role Phone Kathy Tolliver MD Primary Care Provider +1- [phone] Encounter Details Date Type Department Care Team (Latest Contact Info) Description 03/14/2004 Outpatient Historical 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
--- OUTSIDE RECORDS SUMMARY | 2025-05-04 08:02 | XMS_ITS | Encounter Summary ---
Author Organization [facility] Address [address] [place] [address] Care Team Providers Care Global Supply Chain Vice President Name Role Phone Kathy Tolliver MD Primary Care Provider +1- [phone] Encounter Details Date Type Department Care Team (Late st Contact Info) Description 09/25/2004 Emergency [facility] Emergency Department [address] [place] [address] Elisabet Craig MD [address] [place] [address] SPRAIN LUMBAR REGION (Primary Dx) Social History Tobacco Use Types Packs/Day Years Used Date Smoking Tobacco: Never Assessed Comments Unknown Sex and Gender Information Value Date Recorded Sex Assigned at Not on file Legal Sex Female 2:46 AM SUPERVISOR ROD PLACING Gender Identity Not on file Sexual Orientation Not on file documented as of this encounter Plan of Treatment Not on file documented as of this encounter Visit Diagnoses Diagnosis Sprain of lumbar region- Primary documented in this encounter Care Teams Global Supply Chain Vice President Relationship Specialty Start Date End Date Kathy Tolliver MD [address] [place] [address] PCP - General Internal Medicine 07/06/20 documented as of this encounter
--- OUTSIDE RECORDS SUMMARY | 2025-05-04 08:02 | XMS_ITS | Encounter Summary ---
Author Organization [facility] Address [address] [place] [address] Care Team Providers Care Cabin Crew Name Role Phone Kathy Tolliver MD Primary Care Provider +1- [phone] Encounter Details Date Type Department Care Team (Latest Contact Info) Description 04/20/2003 Outpatient Historical [facility] Medicine-[facility] [address] [place] [address] Krishna Toscano DO NO ADDRESS ON FILE LUMBAGO (Primary Dx); HYPOTHYROIDISM NOS Social History Tobacco Use Types Packs/Day Years Used Date Smoking Tobacco: Never Assessed Comments Unknown Sex and Gender Information Value Date Recorded Sex Assigned at Not on file Legal Sex Female 2:46 AM LOOM STARTER Gender Identity Not on file Sexual Orientation Not on file documented as of this encounter Plan of Treatment Not on file documented as of this encounter Visit Diagnoses Diagnosis Lumbago- Primary Unspecified hypothyroidism documented in this encounter Care Teams Cabin Crew Relationship Specialty Start Date End Date Kathy Tolliver MD [address] [place] [address] PCP - General Internal Medicine 07/06/20 documented as of this encounter
--- OUTSIDE RECORDS SUMMARY | 2025-05-04 08:02 | XMS_ITS | Encounter Summary ---
Author Organization [facility] Address [address] [place] [address] Care Team Providers Care Supervisor Car Installations Name Role Phone Kathy Tolliver MD Primary Care Provider +1- [phone] Encounter Details Date Type Department Care Team (Late st Contact Info) Description 02/08/2003 Emergency [facility] Emergency Department [address] [place] [phone] Agustín Scales MD [address] [facility] [place] [address] UNS ASTHMA WOSTATUS ASTHMATICUS (Primary Dx) Social History Tobacco Use Types Packs/Day Years Used Date Smoking Tobacco: Never Assessed Comments Unknown Sex and Gender Information Value Date Recorded Sex Assigned at Not on file Legal Sex Female 2:46 AM ASSISTANT NURSE MANAGER Gender Identity Not on file Sexual Orientation Not on file documented as of this encounter Plan of Treatment Not on file documented as of this encounter Visit Diagnoses Diagnosis Unspecified asthma(493.90)- Primary Unspecified asthma documented in this encounter Care Teams Supervisor Car Installations Relationship Specialty Start Date End Date Kathy Tolliver MD [address] [place] [address] PCP - General Internal Medicine 07/06/20 documented as of this encounter
--- OUTSIDE RECORDS SUMMARY | 2025-05-04 08:02 | XMS_ITS | Encounter Summary ---
Author Organization [facility] Address [address] Gupta: [place] [address] Care Team Providers Care Machine Rug Cleaner Name Role Phone Kathy Tolliver MD Primary Care Provider +1- [phone] Encounter Details Date Type Department Care Team (Late st Contact Info) Description 03/24/2002 Outpatient Historical Mynor Delatorre MD NO ADDRESS ON FILE Social History Tobacco Use Types Packs/Day Years Used Date Smoking Tobacco: Never Assessed Comments Unknown Sex and Gender Information Value Date Recorded Sex Assigned at Not on file Legal Sex Female 2:46 AM SCREEN MAKING SUPERVISOR Gender Identity Not on file Sexual Orientation Not on file documented as of this encounter Plan of Treatment Not on file documented as of this encounter Visit Diagnoses Not on filedocumented in this encounter Care Teams Machine Rug Cleaner Relationship Specialty Start Date End Date Kathy Tolliver MD [address] [place] [address] PCP - General Internal Medicine 07/06/20 documented as of this encounter
--- OUTSIDE RECORDS SUMMARY | 2025-05-04 08:02 | XMS_ITS | Encounter Summary ---
Author Organization [facility] Address [address] [place] [address] Care Team Providers Care Drafter Mechanical Name Role Phone Kathy oTlliver MD Primary Care Provider +1- [phone] Encounter Details Date Type Department Care Team (Late st Contact Info) Description 04/17/2005 Emergency [facility] Emergency Department [address] [place] [phone] Aline Young MD [address] [address] BACKACHE NOS (Primary Dx) Social History Tobacco Use Types Packs/Day Years Used Date Smoking Tobacco: Never Assessed Comments Unknown Sex and Gender Information Value Date Recorded Sex Assigned at Not on file Legal Sex Female 2:46 AM BAR WELDER Gender Identity Not on file Sexual Orientation Not on file documented as of this encounter Plan of Treatment Not on file documented as of this encounter Visit Diagnoses Diagnosis Backache, unspecified- Primary documented in this encounter Care Teams Drafter Mechanical Relationship Specialty Start Date End Date Kathy Tolliver MD [address] [place] [address] PCP - General Internal Medicine 07/06/20 documented as of this encounter
--- OUTSIDE RECORDS SUMMARY | 2025-05-04 08:02 | XMS_ITS | Encounter Summary ---
Author Organization [facility] Address [address] Gupta: [place] [address] Care Team Providers Care Agent Licensing Clerk Name Role Phone Kathy Tolliver MD Primary Care Provider +1- [phone] Encounter Details Date Type Department Care Team (Late st Contact Info) Description 01/08/2002 Outpatient Historical Ruben Geiger MD [address] [facility] [address] [place] [address] Social History Tobacco Use Types Packs/Day Years Used Date Smoking Tobacco: Never Assessed Comments Unknown Sex and Gender Information Value Date Recorded Sex Assigned at Not on file Legal Sex Female 2:46 AM HARNESS INSPECTOR Gender Identity Not on file Sexual Orientation Not on file documented as of this encounter Plan of Treatment Not on file documented as of this encounter Visit Diagnoses Not on filedocumented in this encounter Care Teams Agent Licensing Clerk Relationship Specialty Start Date End Date Kathy Tolliver MD [address] [place] [address] PCP - General Internal Medicine 07/06/20 documented as of this encounter
--- OUTSIDE RECORDS SUMMARY | 2025-05-04 08:02 | XMS_ITS | Encounter Summary ---
Author Organization [facility] Address [address] [place] [address] Care Team Providers Care Battery Test Engineer Name Role Phone Kathy Tolliver MD Primary Care Provider +1- [phone] Encounter Details Date Type Department Care Team (Late st Contact Info) Description 01/12/2004 Emergency [facility] Emergency Department [address] [place] [phone] Luke Brown DO NO ADDRESS ON FILE LUMBAGO (Primary Dx) Social History Tobacco Use Types Packs/Day Years Used Date Smoking Tobacco: Never Assessed Comments Unknown Sex and Gender Information Value Date Recorded Sex Assigned at Not on file Legal Sex Female 2:46 AM PENSION CONSULTANT Gender Identity Not on file Sexual Orientation Not on file documented as of this encounter Plan of Treatment Not on file documented as of this encounter Visit Diagnoses Diagnosis Lumbago- Primary documented in this encounter Care Teams Battery Test Engineer Relationship Specialty Start Date End Date Kathy Tolliver MD [address] [place] [address] PCP - General Internal Medicine 07/06/20 documented as of this encounter
--- OUTSIDE RECORDS SUMMARY | 2025-05-04 08:02 | XMS_ITS | Encounter Summary ---
Author Organization [facility] Address [address] [place] [address] Care Team Providers Care Transportation Escort Name Role Phone Kathy Tolliver MD Primary Care Provider +1- [phone] Encounter Details Date Type Department Care Team (Latest Contact Info) Description 05/01/2004 Outpatient Historical [facility] Orthopedics- 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
--- OUTSIDE RECORDS SUMMARY | 2025-05-04 08:02 | XMS_ITS | Encounter Summary ---
Author Organization [facility] Address [address] [place] [address] Care Team Providers Care Spooler Rubber Strand Name Role Phone Kathy Tolliver MD Primary Care Provider +1- [phone] Encounter Details Date Type Department Care Team (Late st Contact Info) Description 03/20/2004 Outpatient Historical [facility] Imaging Services [place] [address] [place] [address] Krishna Toscano, NO ADDRESS ON FILE Social History Tobacco Use Types Packs/Day Years Used Date Smoking Tobacco: Never Assessed Comments Unknown Sex and Gender Information Value Date Recorded Sex Assigned at Not on file Legal Sex Female 2:46 AM SEISMOGRAPH OPERATOR Gender Identity Not on file Sexual Orientation Not on file documented as of this encounter Plan of Treatment Not on file documented as of this encounter Visit Diagnoses Not on filedocumented in this encounter Care Teams Spooler Rubber Strand Relationship Specialty Start Date End Date Kathy Tolliver MD [address] [place] [address] PCP - General Internal Medicine 07/06/20 documented as of this encounter
--- OUTSIDE RECORDS SUMMARY | 2025-05-04 08:02 | XMS_ITS | Encounter Summary ---
Author Organization [facility] Address [address] [place] [address] Care Team Providers Care Pediatric Assistant Name Role Phone Kathy Tolliver MD Primary Care Provider +1- [phone] Encounter Details Date Type Department Care Team (Latest Contact Info) Description 09/10/2002 Outpatient Historical [facility] [employer] [address] [place] [address] Krishna Toscano, NO ADDRESS ON FILE ABNORMAL FINDINGS- ORGANS (Primary Dx) Social History Tobacco Use Types Packs/Day Years Used Date Smoking Tobacco: Never Assessed Comments Unknown Sex and Gender Information Value Date Recorded Sex Assigned at Not on file Legal Sex Female 2:46 AM SALES AND MARKETING SPECIALIST Gender Identity Not on file Sexual Orientation Not on file documented as of this encounter Plan of Treatment Not on file documented as of this encounter Visit Diagnoses Diagnosis Nonspecific (abnormal) findings on radiological and other examination of genitourinary organs- Primary documented in this encounter Care Teams Pediatric Assistant Relationship Specialty Start Date End Date Kathy Tolliver MD [address] [place] [phone] PCP - General Internal Medicine 07/06/20 documented as of this encounter
--- OUTSIDE RECORDS SUMMARY | 2025-05-04 08:02 | XMS_ITS | Encounter Summary ---
Author Organization [facility] Address [address] Gupta: [place] [address] Care Team Providers Care Hand Alterations Seamstress Name Role Phone Kathy Tolliver MD Primary Care Provider +1- [phone] Encounter Details Date Type Department Care Team (Late st Contact Info) Description 02/10/2002 Outpatient Historical Krishna Toscano DO NO ADDRESS ON FILE Social History Tobacco Use Types Packs/Day Years Used Date Smoking Tobacco: Never Assessed Comments Unknown Sex and Gender Information Value Date Recorded Sex Assigned at Not on file Legal Sex Female 2:46 AM MORNING CAREGIVER Gender Identity Not on file Sexual Orientation Not on file documented as of this encounter Plan of Treatment Not on file documented as of this encounter Visit Diagnoses Not on filedocumented in this encounter Care Teams Hand Alterations Seamstress Relationship Specialty Start Date End Date Kathy Tolliver MD [address] [place] [address] PCP - General Internal Medicine 07/06/20 documented as of this encounter
--- OUTSIDE RECORDS SUMMARY | 2025-05-04 08:02 | XMS_ITS | Encounter Summary ---
Author Organization [facility] Address [address] [place] [address] Care Team Providers Care Interior Painter Name Role Phone Kathy Tolliver MD Primary Care Provider +1- [phone] Encounter Details Date Type Department Care Team (Latest Contact Info) Description 09/11/2002 Outpatient Historical [facility] [address] [place] [id number] Krishna Toscano, NO ADDRESS ON FILE OVARIAN CYST NEC/NOS (Primary Dx) Social History Tobacco Use Types Packs/Day Years Used Date Smoking Tobacco: Never Assessed Comments Unknown Sex and Gender Information Value Date Recorded Sex Assigned at Not on file Legal Sex Female 2:46 AM BUDGET COUNSELOR Gender Identity Not on file Sexual Orientation Not on file documented as of this encounter Plan of Treatment Not on file documented as of this encounter Visit Diagnoses Diagnosis Other and unspecified ovarian cyst- Primary documented in this encounter Care Teams Interior Painter Relationship Specialty Start Date End Date Kathy Tolliver MD [address] [place] [phone] PCP - General Internal Medicine 07/06/20 documented as of this encounter
--- OUTSIDE RECORDS SUMMARY | 2025-05-04 08:02 | XMS_ITS | Encounter Summary ---
Author Organization [facility] Address [address] [place] [address] Care Team Providers Care Ophthalmic Lens Inspector Name Role Phone Kathy Tolliver MD Primary Care Provider +1- [phone] Encounter Details Date Type Department Care Team (Late st Contact Info) Description 03/18/2006 Inpatient Historical [facility] Edgar Manzanares Jr., MD NO ADDRESS ON FILE Niki Rodriguez MD NO ADDRESS ON FILE Other Postoperative Infection (Primary Dx) Social History Tobacco Use Types Packs/Day Years Used Date Smoking Tobacco: Never Assessed Comments Unknown Sex and Gender Information Value Date Recorded Sex Assigned at Not on file Legal Sex Female 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 Gender Identity Not on file Sexual Orientation Not on file documented as of this encounter Plan of Treatment Not on file documented as of this encounter Procedures Procedure Name Priority Date/Time Associated Diagnosis Comments CBC WITH DIFFERENTIAL Routine 03/20/2006 4:12 AM CDT BASIC METABOLIC PANEL Routine 03/20/2006 4:12 AM CDT CBC WITH DIFFERENTIAL Routine 03/18/2006 5:59 AM CDT BASIC METABOLIC PANEL Routine 03/18/2006 5:59 AM CDT documented in this encounter Results * (ABNORMAL) BASIC METABOLIC PANEL (03/20/2006 4:12 AM CDT) GLUCOSE 90 70 - 110 mg/dL INTERFACE SYSTEM BUN 8 7 - 17 mg/dL INTERFACE SYSTEM CREATININE 0.5(L) 0.7 - 1.2 mg/dL INTERFACE SYSTEM SODIUM 138 136 - 145 mEq/L INTERFACE SYSTEM POTASSIUM 3.5 3.5 - 5.0 mEq/L INTERFACE SYSTEM CHLORIDE 104 95 - 110 mEq/L INTERFACE SYSTEM CO2 29 22 - 32 mmol/l INTERFACE SYSTEM ANION GAP 9 9 - 20 mEq/L INTERFACE SYSTEM OSMOLALITY, CALCULATED 281 275 - 295 mOsm/Kg INTERFACE SYSTEM CALCIUM 9.1 8.4 - 10.5 mg/dL INTERFACE SYSTEM 03/20/2006 4:12 AM CDT us Niki Rodriguez MD CHEMISTRY ORDERABLES Final Res ult INTERFACE SYSTEM Refer to clinic/hospital department * (ABNORMAL) CBC WITH DIFFERENTIAL (03/20/2006 4:12 AM CDT) WBC 6.2 4.5 - 11.0 K/ul INTERFACE SYSTEM RBC 3.92(L) 4.20 - 5.40 Mil/ul INTERFACE SYSTEM HEMOGLOBIN 12.6 12.0 - 16.0 g/dL INTERFACE SYSTEM HEMATOCRIT 37.5 36.0 - 46.0 % INTERFACE SYSTEM MCV 95.7 84.0 - 103.0 Fl INTERFACE SYSTEM MCH 32.1 27.0 - 34.0 pg INTERFACE SYSTEM MCHC 33.6 30.0 - 35.0 g/dL INTERFACE SYSTEM RDW 12.3 11.0 - 14.5 % INTERFACE SYSTEM PLATELETS 352 140 - 440 K/ul INTERFACE SYSTEM MPV 10.6 8.9 - 12.8 Fl INTERFACE SYSTEM NEUTROPHILS 49.7 42.2 - 75.2 % INTERFACE SYSTEM LYMPHOCYTES 38.5 24.0 - 44.0 % INTERFACE SYSTEM MONOCYTES 8.1 2.0 - 10.0 % INTERFACE SYSTEM EOSINOPHILS 3.2 0.0 - 7.0 % INTERFACE SYSTEM BASOPHILS 0.5 0.0 - 1.0 % INTERFACE SYSTEM NEUTROPHIL ABSOLUTE 3.1 2.0 - 8.0 K/uL INTERFACE SYSTEM LYMPHOCYTE ABSOLUTE 2.4 1.2 - 4.0 K/ul INTERFACE SYSTEM MONOCYTE ABSOLUTE 0.5 0.1 - 0.6 K/ul INTERFACE SYSTEM EOSINOPHIL ABSOLUTE 0.2 0.0 - 0.7 K/ul INTERFACE SYSTEM BASOPHILS ABSOLUTE 0.0 0.0 - 0.2 K/ul INTERFACE SYSTEM 03/20/2006 4:12 AM CDT us Niki Rodriguez MD HEMATOLOGY ORDERABLES Final Re sult INTERFACE SYSTEM Refer to clinic/hospital department * (ABNORMAL) CBC WITH DIFFERENTIAL (03/18/2006 5:59 AM CDT) WBC 8.8 4.5 - 11.0 K/ul INTERFACE SYSTEM RBC 3.97(L) 4.20 - 5.40 Mil/ul INTERFACE SYSTEM HEMOGLOBIN 13.0 12.0 - 16.0 g/dL INTERFACE SYSTEM HEMATOCRIT 37.4 36.0 - 46.0 % INTERFACE SYSTEM MCV 94.2 84.0 - 103.0 Fl INTERFACE SYSTEM MCH 32.7 27.0 - 34.0 pg INTERFACE SYSTEM MCHC 34.8 30.0 - 35.0 g/dL INTERFACE SYSTEM RDW 12.4 11.0 - 14.5 % INTERFACE SYSTEM PLATELETS 289 140 - 440 K/ul INTERFACE SYSTEM MPV 11.2 8.9 - 12.8 Fl INTERFACE SYSTEM NEUTROPHILS 62.1 42.2 - 75.2 % INTERFACE SYSTEM LYMPHOCYTES 26.0 24.0 - 44.0 % INTERFACE SYSTEM MONOCYTES 8.2 2.0 - 10.0 % INTERFACE SYSTEM EOSINOPHILS 3.5 0.0 - 7.0 % INTERFACE SYSTEM BASOPHILS 0.2 0.0 - 1.0 % INTERFACE SYSTEM NEUTROPHIL ABSOLUTE 5.5 2.0 - 8.0 K/uL INTERFACE SYSTEM LYMPHOCYTE ABSOLUTE 2.3 1.2 - 4.0 K/ul INTERFACE SYSTEM MONOCYTE ABSOLUTE 0.7(H) 0.1 - 0.6 K/ul INTERFACE SYSTEM EOSINOPHIL ABSOLUTE 0.3 0.0 - 0.7 K/ul INTERFACE SYSTEM BASOPHILS ABSOLUTE 0.0 0.0 - 0.2 K/ul INTERFACE SYSTEM 03/18/2006 5:59 AM CDT us Matty Garcia MD HEMATOLOGY ORDERABLES Final Res ult INTERFACE SYSTEM Refer to clinic/hospital department * (ABNORMAL) BASIC METABOLIC PANEL (03/18/2006 5:59 AM CDT) GLUCOSE 100 70 - 110 mg/dL INTERFACE SYSTEM BUN 5(L) 7 - 17 mg/dL INTERFACE SYSTEM CREATININE 0.6(L) 0.7 - 1.2 mg/dL INTERFACE SYSTEM SODIUM 136 136 - 145 mEq/L INTERFACE SYSTEM POTASSIUM 3.2(L) 3.5 - 5.0 mEq/L INTERFACE SYSTEM CHLORIDE 99 95 - 110 mEq/L INTERFACE SYSTEM CO2 29 22 - 32 mmol/l INTERFACE SYSTEM ANION GAP 11 9 - 20 mEq/L INTERFACE SYSTEM OSMOLALITY, CALCULATED 276 275 - 295 mOsm/Kg INTERFACE SYSTEM CALCIUM 9.6 8.4 - 10.5 mg/dL INTERFACE SYSTEM 03/18/2006 5:59 AM CDT us Matty Garcia MD CHEMISTRY ORDERABLES Final Resu lt INTERFACE SYSTEM Refer to clinic/hospital department documented in this encounter Visit Diagnoses Diagnosis Other postoperative infection- Primary documented in this encounter Care Teams Ophthalmic Lens Inspector Relationship Specialty Start Date End Date Kathy Tolliver MD [address] [place] [address] PCP - General Internal Medicine 07/06/20 documented as of this encounter
--- OUTSIDE RECORDS SUMMARY | 2025-05-04 08:02 | XMS_ITS | Encounter Summary ---
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
--- OUTSIDE RECORDS SUMMARY | 2025-05-04 08:02 | XMS_ITS | Encounter Summary ---
Author Organization [facility] Address [address] [place] [address] Care Team Providers Care Informatica Developer Name Role Phone Kathy Tolliver MD Primary Care Provider +1- [phone] Encounter Details Date Type Department Care Team (Late st Contact Info) Description 09/20/1999 Outpatient Historical 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
--- OUTSIDE RECORDS SUMMARY | 2025-05-04 08:02 | XMS_ITS | Encounter Summary ---
Author Organization [facility] Address [address] [place] [address] Care Team Providers Care Marking Stitcher Name Role Phone Kathy Tolliver MD Primary Care Provider +1- [phone] Encounter Details Date Type Department Care Team (Late st Contact Info) Description 01/10/2004 Emergency [facility] Emergency Department [address] [place] [id number] Aline Young MD [address] [address] LUMBAGO (Primary Dx) Social History Tobacco Use Types Packs/Day Years Used Date Smoking Tobacco: Never Assessed Comments Unknown Sex and Gender Information Value Date Recorded Sex Assigned at Not on file 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
--- OUTSIDE RECORDS SUMMARY | 2025-05-04 08:03 | XMS_ITS | Encounter Summary ---
Author Organization [facility] Address [address] [place] [address] Care Team Providers Care It Communications Manager Name Role Phone Kathy Tolliver MD Primary Care Provider +1- [phone] Encounter Details Date Type Department Care Team (Latest Contact Info) Description 01/30/[address] 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
--- OUTSIDE RECORDS SUMMARY | 2025-05-04 08:03 | XMS_ITS | Encounter Summary ---
Author Organization [facility] Address [address] [place] [address] Care Team Providers Care Black Powder Glazing Operator Name Role Phone Kathy Tolliver MD Primary Care Provider +1- [phone] Encounter Details Date Type Department Care Team (Latest Contact Info) Description 11/28/2000 Outpatient [facility] Medicine [address] [address] Ashish Woodruff MD NO ADDRESS ON FILE Premenopause menorrhagia (Primary Dx); Thyroiditis, unspecified; Cellulitis and abscess of leg, except foot Social History Tobacco Use Types Packs/Day Years Used Date Smoking Tobacco: Never Assessed Comments Unknown Sex and Gender Information Value Date Recorded Sex Assigned at Not on file Legal Sex Female 2:46 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
--- OUTSIDE RECORDS SUMMARY | 2025-05-04 08:03 | XMS_ITS | Clinical Summary ---
Author Organization [facility] Address [address] [place] [address] Care Team Providers Care Mysql Database Administrator Name Role Phone Ole Mcnamara MD Primary Care Provider [phone] Source Comments PLEASE NOTE, if this patient is a minor, it may be UNLAWFUL to discuss sensitive information that is contained in these records (such as FAMILY PLANNING, MENTAL HEALTH or SUBSTANCE ABUSE) with the minor patient's parent or other person without the patient's specific authorization.[facility] Allergies Active Allergy Reactions Criticality Noted Date Comments Morphine 04/15/2017 Other Reaction(s) from [employer]: aggressive behavior Promethazine Anaphylaxis High 12/18/2024 Medications tiZANidine (ZANAFLEX) 4 mg tablet TAKE 1 TABLET BY MOUTH 3 TIMES A DAY NEEDED FOR MUSCLE SPASMS 09/27/20 23 Active potassium chloride (KAYCIEL) 20 mEq/15 mL solution take 15 milliliter by oral route every day diluted in one-half glass (120 ml) of cold water or juice; to replace tablet form d/t trouble swallowing larger pill 12/24/19 23 Active buPROPion SR (WELLBUTRIN SR) 150 mg 12 hr tablet Take 300 mg by mouth every morning TAKE ONE TABLET BY MOUTH TWICE DAILY FOR SMOKING CESSATION 02/12/20 23 Active fenofibrate nanocrystallized 48 mg tab Take 1 Tablet by mouth nightly at bedtime AT BEDTIME 05/29/20 23 Active levothyroxine 150 mcg tablet Take 200 mcg by mouth daily. 05/28/20 23 Active fluticasone (FLONASE) 50 mcg/actuation nasal spray Place 2 Sprays in both nostrils once daily as needed 02/07/20 22 Active hydrOXYzine HCL (ATARAX) 25 mg tablet Take 1 Tablet by mouth 3 (three) times daily as needed FOR NAUSEA 07/26/20 23 Active ARIPiprazole (ABILIFY) 10 mg tablet TAKE ONE TABLET BY MOUTH EVERY DAY NEEDED FOR MOOD STABILIZATION 12/21/19 23 Active apixaban (ELIQUIS) 5 mg tab Take 1 Tablet by mouth 2 (two) times daily 12/26/19 23 Active CREON 24,000-76,000 -120,[address] capsule take 1 capsule BY MOUTH THREE TIMES DAILY with meal and or snacks Active pantoprazole (PROTONIX) 40 mg EC tablet Take 40 mg by mouth once daily 11/12/19 25 Active atorvastatin (LIPITOR) 80 mg tabletIndications:M ixed hyperlipidemia Take 1 Tablet by mouth daily 90 Tablet 1 01/30/20 25 Active gabapentin (NEURONTIN) 600 mg tabletIndications:S pondylosis of lumbar region without myelopathy or radiculopathy Take 1 Tablet by mouth 2 (two) times daily 180 Tablet 1 01/30/20 25 Active ondansetron ODT (ZOFRAN-ODT) 4 mg disintegrating tabletIndications:O ther chronic pancreatitis ([facility]) Take 1 Tablet by mouth 3 (three) times daily as needed for nausea 30 Tablet 2 01/30/20 25 Active SUMAtriptan succinate (IMITREX) 100 mg tabletIndications:M igraine without aura and without status migrainosus, not intractable Take 1 Tablet by mouth 1 (one) time as needed for migraine May repeat dose x 1 after at least 2 hrs; max 200 mg/day. Note higher dose 9 Tablet 2 02/23/20 25 Active topiramate (TOPAMAX) 50 mg tablet Take 1 Tablet by mouth 2 (two) times daily 60 Tablet 2 03/12/20 25 Active rOPINIRole (REQUIP) 2 mg tablet Take 1 Tablet by mouth nightly at bedtime. 14 Tablet 04/08/20 25 Active rOPINIRole (REQUIP) 2 mg tablet Take 1 Tablet by mouth nightly at bedtime. 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/2016 Recurrent falls 04/04/2016 Nicotine dependence 02/22/2016 Chest pain 09/21/2010 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 10 Hypothyroidism 06/26/2010 Contact dermatitis 06/02/2010 Headache 05/17/2010 Depressive disorder 05/03/2010 Anxiety state 05/03/2010 Low back pain 05/03/2010 Chronic low back pain Long-term current use of drug therapy Chronic pain of left upper limb Wheeze - rhonchi Post-discharge follow-up Lower abdominal pain Left flank pain Epigastric pain Microscopic hematuria Closed fracture of shaft of humerus Lumbar spondylosis Fracture of head of humerus Resolved Problems Problem Noted Date Diagnosed Date Resolved Date Acute sinusitis 11/09/2016 05/20/2024 Acute pharyngitis 02/22/2016 05/20/2024 Encounters Date Type Department Care Team Description 03/08/2025 8:25 AM CDT Ancillary Services [address] [address] Tasha William 02/22/2025 10:00 AM CDT Office Visit [address] [address] Ole Mcnamara MD from Last 3 Months Immunizations Immunization Administration Dates Next Due Flu, Preservative Free 10/10/2021,2019,08/20/2019,10/10/2018, [facility] State Funded Flu Vaccine 07/31/2010 TDAP 05/13/2020,07/29/2010 Social History Tobacco Use Types Packs/Day Years Used Date Smoking Tobacco: Former Cigarettes Smokeless Tobacco: Never Social Connections Answer Date Recorded Connectedness 0 07/16/2024 Financial Resource Strain Answer Date R ecorded Financial Resource Strain 0 2023 Stress Answer Date Recorded Stress 0 02/26/2024 Physical Activity Answer Date Recorded Physical Activity 0 02/26/2024 Food Insecurity Answer Date Recorded Food 0 07/30/2024 Transportation Needs Answer Date Record ed Transportation 0 02/26/2024 Housing Stability Answer Date Recorded Housing 0 02/26/2024 Safety and Environment Answer Date David rded Safety 0 02/26/2024 Utilities Answer Date Recorded Utilities 0 02/26/2024 Employment Answer Date Recorded Stress 0 07/16/2024 Comments No Sex and Gender Information Value Date Recorded Sex Assigned at Female 12/18/2024 2:20 PM PST Legal Sex Female 5:46 PM PDT Gender Identity Female 04/24/2024 4:36 PM PDT Sexual Orientation Choose not to disclose 2023 4:36 PM PDT Last Filed Vital Signs Vital Sign Reading Time Taken Comments Blood Pressure 104/70 02/22/2025 9:50 AM CDT Pulse 68 02/22/2025 9:50 AM CDT Temperature 36.2 C (97.1 F) 02/22/2025 9:50 AM CDT Respiratory Rate 16 02/22/2025 9:50 AM CDT Oxygen Saturation 96% 02/22/2025 9:50 AM CDT Inhaled Oxygen Concentration - - Weight 62.1 kg (137 lb) 02/22/2025 9:50 AM CDT Height 157.5 cm (5' 2 ) 02/22/2025 9:50 AM CDT Body Mass Index 25.06 02/22/2025 9:50 AM CDT Plan of Treatment Upcoming Encounters Date Type Department Care Team (Late st Contact Info) Description 06/03/2025 11:00 AM CDT Behavioral Health Visit [facility] [address] [place] [address] Abdon Black, [facility] [address] [place] [address] Health Maintenance Due Date Last Done Comments Medicare Annual Wellness Visit 1976 CT Colonography 2003 Colonoscopy 2003 Colorectal Cancer Screening 2003 FIT/gFOBT 2003 Fecal DNA 2003 Flexible Sigmoidoscopy 2003 Imm-Zoster, Recombinant (1 of 2) 2008 Imm-Pneumococcal 50+ (2 of 2 - PCV) 07/04/2011 07/04/2010 Breast Cancer Screening (Mammogram) 08/28/2012 08/28/2010, 08/28/2010 Depression Monitoring 11/14/2022 08/14/2022, 022 Bone Density Screening 2023 Falls Prevention 2023 Alcohol and Drug Screen 11/04/2024 [id number] ( season) 2025 07/18/2024, 07/28/2022, 04/27/2022, Additional history exists Diabetes Screening 12/18/2025 12/18/2024, 0 12/18/2024, 12/04/2022, Additional history exists Lipid Screening 12/18/2025 12/18/2024, 01/04, 12/04/2022, Additional history exists TSH Monitoring 12/18/2025 12/18/2024, 01/04, 12/04/2022, Additional history exists Tobacco Cessation Counseling (#1) 03/12/2026 Tobacco Screening 03/12/2026 03/12/2025 Imm-DTaP/Tdap/Td (3 - Td or Tdap) 05/13/2030 020, 07/29/2010 Imm-Influenza Completed 07/18/2024, 12/0 05/2021, 09/15/2020, Additional history exists Hepatitis C Screening Completed 12/18/2024 Procedures Procedure Name Priority Date/Time Associated Diagnosis Comments [facility] PDF REPORT DRUG Routine 02/22/2025 2:44 PM CDT Spondylosis of lumbar region without myelopathy or radiculopathy Encounter for long-term (current) use of medications [facility] URINE DRUG TEST Routine 02/22/2025 12:44 PM CDT Spondylosis of lumbar region without myelopathy or radiculopathy Encounter for long-term (current) use of medications HEALTH HISTORY SCANNED DOCUMENT 02/22/2025 2:00 AM CDT IMAGING SCANNED DOCUMENT 02/10/2025 2:00 AM CDT IMAGING SCANNED DOCUMENT 02/10/2025 2:00 AM CDT REFERRAL SCANNED DOCUMENT 02/03/2025 2:00 AM CDT ASSAY OF THYROID STIMULATING HORMONE TSH Routine 12/18/2024 8:36 AM SENIOR BILLING CONSULTANT Acquired hypothyroidism HEMOGLOBIN GLYCOSYLATED A1C Routine 12/18/2024 8:36 AM SENIOR BILLING CONSULTANT Encounter for long-term (current) use of medications LIPID PANEL Routine 12/18/2024 8:36 AM SENIOR BILLING CONSULTANT Essential (primary) hypertension Mixed hyperlipidemia HEPATITIS C VIRUS Routine 12/18/2024 8:3 5 AM SENIOR BILLING CONSULTANT Screening for viral disease MAMMOGRAM, ABSTRACTED NARRATIVE Routine 08/28/2010 12:00 AM CDT from Last 3 Months or Most Recently Relevant to Health Maintenance Results * [facility] PDF REPORT DRUG (02/22/2025 2:44 PM CDT) 02/22/2025 2:44 PM CDT 02/23/2025 8:15 PM CDT us Ole Mcnamara MD LAB - NO BLOOD DRAW Final Result [facility] [id number] [place] [address], * (ABNORMAL) [employer] URINE DRUG TEST (02/22/2025 12:44 PM CDT) CODEINE QUANTIFICATION negative 50 ng/mL [facility] MORPHINE QUANTIFICATION negative 50 ng/mL [facility] HYDROCODONE QUANTIFICATION negative 50 ng/mL [facility] NORHYDROCODONE QUANTIFICATION negative 50 ng/mL [facility] HYDROMORPHONE QUANTIFICATION negative 50 ng/mL [facility] OXYCODONE QUANTIFICATION negative 50 ng/mL [facility] NOROXYCODONE QUANTIFICATION negative 50 ng/mL [facility] OXYMORPHONE QUANTIFICATION negative 50 ng/mL [facility] BUPRENORPHINE QUANTIFICATION negative 5 ng/mL [facility] NORBUPRENORPHINE QUANTIFICATION negative 20 ng/mL [facility] FENTANYL QUANTIFICATION negative 1 ng/mL [facility] NORFENTANYL QUANTIFICATION negative 8 ng/mL [facility] METHADONE QUANTIFICATION negative 100 ng/mL [facility] EDDP (METHADONE METABOLITE) QUANTIFICATION negative 100 ng/mL [facility] TRAMADOL QUANTIFICATION negative 100 ng/mL [facility] T-[id number]-[id number] QUANTIFICATION negative 100 ng/mL [facility] U-BEHFXISQP-RPTASRIF QUANTIFICATION negative 100 ng/mL [facility] Tapentadol Quantification negative 50 ng/mL [facility] MEPERIDINE QUANTIFICATION negative 50 ng/mL [facility] NORMEPERIDINE QUANTIFICATION negative 50 ng/mL [facility] ALPHA-HYDROXYALPRAZOLAM QUANTIFICATION negative 20 ng/mL [facility] [id number] QUANTIFICATION negative 20 ng/mL [facility] LORAZEPAM QUANTIFICATION negative 40 ng/mL [facility] NORDIAZEPAM QUANTIFICATION positive-10 6.954(A) 40 ng/mL [facility] TEMAZEPAM QUANTIFICATION positive-14 7.923(A) 50 ng/mL [facility] OXAZEPAM QUANTIFICATION positive-24 2.507(A) 40 ng/mL [facility] AMPHETAMINE QUANTIFICATION negative 100 ng/mL [facility] METHYLPHENIDATE QUANTIFICATION negative 50 ng/mL [facility] RITALINIC ACID QUANTIFICATION negative 50 ng/mL [facility] CITALOPRAM/ESCITALOPRAM QUANTIFICATION negative 25 ng/mL [facility] N-DESMETHYLCITALOPRAM QUANTIFICATION negative 25 ng/mL [facility] Hydroxybupropion Quantification positive-17 224.171 50 ng/mL [facility] DULOXETINE QUANTIFICATION negative 25 ng/mL [facility] Fluoxetine Quantification negative 25 ng/mL [facility] Norfluoxetine Quantification negative 25 ng/mL [facility] Paroxetine Quantification negative 25 ng/mL [facility] Venlafaxine Quantification negative 100 ng/mL [facility] Desmethylvenlafaxine Quantification negative 100 ng/mL [facility] ARIPIPAZOLE QUANTIFICATION positive-15 9.188 5 ng/mL [facility] [id number]-[id number] Quantification positive-> 3750 15 ng/mL [facility] CLOZAPINE QUANTIFICATION negative 25 ng/mL [facility] N-Desmethylclozapine Quantification negative 25 ng/mL [facility] Haloperidol Quantification negative 5 ng/mL [facility] Reduced Haloperidol Quantification negative 5 ng/mL [facility] Olanzapine Quantification negative 25 ng/mL [facility] Quetiapine Quantification negative 25 ng/mL [facility] NORQUETIAPINE QUANTIFICATION negative 25 ng/mL [facility] Risperidone Quantification negative 10 ng/mL [facility] Hydroxyrisperidone Quantification negative 25 ng/mL [facility] GABAPENTIN QUANTIFICATION positive-> [id number] 3916 ng/mL [facility] PREGABALIN QUANTIFICATION negative 400 ng/mL [facility] Ketamine Quantification negative 50 ng/mL [facility] Norketamine Quantification negative 50 ng/mL [facility] NALTREXONE QUANTIFICATION negative 10 ng/mL [facility] NALTREXOL QUANTIFICATION negative 10 ng/mL [facility] Naloxone Quantification negative 20 ng/mL [facility] CZOLPIDEM QUANTIFICATION negative 10 ng/mL [facility] CARISOPRODOL QUANTIFICATION negative 100 ng/mL [facility] MEPROBAMATE QUANTIFICATION negative 100 ng/mL [facility] PHENOBARBITAL QUANTIFICATION negative 200 ng/mL [facility] SECOBARBITAL QUANTIFICATION negative 200 ng/mL [facility] BUTALBITAL QUANTIFICATION negative 200 ng/mL [facility] Amitriptyline Quantification negative 50 ng/mL [facility] Nortriptyline Quantification negative 50 ng/mL [facility] Imipramine Quantification negative 50 ng/mL [facility] Desipramine Quantification negative 50 ng/mL [facility] Cyclobenzaprine Quantification negative 50 ng/mL [facility] Dextromethorphan negative 50 ng/mL [facility] Levorphanol / Dextrorphan Quantification negative 50 ng/mL [facility] Phentermine Quantification negative 50 ng/mL [facility] METHAMPHETAMINE QUANTIFICATION negative 100 ng/mL [facility] COCAINE METABOLITE QUANTIFICATION negative 50 ng/mL [facility] CTHC (MARIJUANA METABOLITE) QUANTIFICATION negative 15 ng/mL [facility] MDMA QUANTIFICATION negative 100 ng/mL [facility] 6-BRITTNI (HEROIN METABOLITE) QUANTIFICATION negative 10 ng/mL [facility] Phencyclidine Quantification negative 10 ng/mL [facility] ACETYL FENTANYL QUANTIFICATION Fen Neg 2 ng/mL [facility] ACETYL NORFENTANYL QUANTIFICATION Fen Neg 5 ng/mL [facility] ACRYL FENTANYL QUANTIFICATION Fen Neg 1 ng/mL [facility] CARFENTANIL QUANTIFICATION Fen Neg 2 ng/mL [facility] PARA-FLUOROFENTANYL QUANTIFICATION Fen Neg 1 ng/mL [facility] [id number] METABOLITE QUANTIFICATION negative 10 ng/mL [facility] BBQ085 METABOLITE QUANTIFICATION negative 10 ng/mL [facility] RCS4 METABOLITE QUANTIFICATION negative 10 ng/mL [facility] XLR11/UR144 METABOLITE negative 10 ng/mL [facility] 5F-ADB-M7 negative 10 ng/mL [facility] RF-SYUJTWAE-U2 negative 10 ng/mL Diligent Board Member ServicesE NNyeppt UUYW-[id number] negative 10 ng/mL [facility] EUTYLONE QUANTIFICATION negative 10 ng/mL [facility] METHYLONE QUANTIFICATION SEE COMMENTS 3 ng/mL [facility] XYLAZINE, URINE negative 10 ng/mL [facility] [employer] [facility] [employer] 4-HYDROXY XYLAZINE QUANTIFICATION negative 10 ng/mL [facility] MITRAGYNINE (KRATOM ALKALOID) QUANTIFICATION negative 1 ng/mL [facility] [id number]-[id number] (KRATOM ALKALOID) QUANTIFICATION negative 1 ng/mL [facility] ETHYL GLUCURONIDE QUANTIFICATION negative 500 ng/mL [facility] ETHYL SULFATE QUANTIFICATION negative 500 ng/mL [facility] NICOTINE METABOLITE SCREEN positive 300 ng/mL [facility] CREATININE (CHEMICAL) normal-161. 6 >20 mg/dL mg/dL [facility] OXIDANT normal-0 <200 ug/mL ug/mL [facility] PH normal-5.8 4.5 - 9.5 [facility] SPECIFIC GRAVITY normal-1.02 9 1.003 - 1.035 [facility] Urine Urine specimen / Unknown 02/22/2025 12:44 PM CDT 02/23/2025 8:15 PM CDT us Ole Mcnamara MD LAB URINE AMBULATORY Final Resul t [facility] [id number] [place] [address], * HEALTH HISTORY SCANNED DOCUMENT (02/22/2025 2:00 AM CDT) 02/22/2025 2:00 AM CDT [facility] Provider Default SCAN OTHER ORDERS Final R esult * IMAGING SCANNED DOCUMENT (02/10/2025 2:00 AM CDT) Only the most recent of2 resultswithin the time period is included. 02/10/2025 2:00 AM CDT us Ole Mcnamara MD SCAN IMAGING Final Result * REFERRAL SCANNED DOCUMENT (02/03/2025 2:00 AM CDT) 02/03/2025 2:00 AM CDT us Ole Mcnamara MD SCAN REFERRAL Final Result * (ABNORMAL) TSH (12/18/2024 8:36 AM SENIOR BILLING CONSULTANT) TSH 13.800(H) 0.450 - 4.500 uIU/mL [facility] Blood Blood / Unknown 12/18/2024 8 :36 AM SENIOR BILLING CONSULTANT 12/18/2024 8:39 AM SENIOR BILLING CONSULTANT us Ole Mcnamara MD LAB - BLOOD DRAW Final Result [facility] [address] [place] [address], [place] [phone] * (ABNORMAL) [id number] (12/18/2024 8:36 AM SENIOR BILLING CONSULTANT) YynS9j-Eccbg 5.8(H) 4.8 - 5.6 % [facility] Comment: INTERPRETIVE COMMENT: Normal: Below 5.7% Prediabetes: 5.7 - 6.4% Diabetes: 6.5% or above The level of Hgb A1c reflects the average of a person's glucose levels over the past 3 months. The table shows the predicted relationship between A1C and estimated average glucose: A1C Average Glucose 4 % 60 mg/dL 5 % 90 mg/dL 6 % 126 mg/dL 7 % 154 mg/dL 8 % 183 mg/dL 9 % 212 mg/dL 10 % 240 mg/dL 11 % 269 mg/dL 12+% 298+ mg/dL REFERENCES: 1. Adapted from [place] [employer]. Standards of medical care in diabetes-2014. Diabetes Care.2014;37 (Supp 1):S14-S80, table 8. 2. The A1C Test and Diabetes, National [place] of Diabetes and Digestive and Kidney Diseases, January 2014. Blood Blood / Unknown 12/18/2024 8 :36 AM SENIOR BILLING CONSULTANT 12/18/2024 8:39 AM SENIOR BILLING CONSULTANT us Ole Mcnamara MD LAB - BLOOD DRAW Final Result Performing Organization Address City/[facility]/ZIP Co de Phone Number [facility] [address] [place] [address], * (ABNORMAL) Lipid Profile (12/18/2024 8:36 AM SENIOR BILLING CONSULTANT) Triglycerides 183(H) <149 mg/dL [facility] HDL, Direct 60 39 - 61 mg/dL [facility] Calculated LDL 110(H) <99 [facility] VLDL 37 6 - 40 [facility] CHOL/dHDL RATIO 3 [facility] Cholesterol 206(H) 100 - 199 mg/dL [facility] Blood Blood / Unknown 12/18/2024 8 :36 AM SENIOR BILLING CONSULTANT 12/18/2024 8:39 AM SENIOR BILLING CONSULTANT us Ole Mcnaamra MD LAB - BLOOD DRAW Final Result Performing Organization Address City/[facility]/ZIP Co de Phone Number [facility] [address] [place] [address], * Noel HCV (12/18/2024 8:35 AM SENIOR BILLING CONSULTANT) Noel HCV Negative Negative [facility] Blood Blood / Unknown 12/18/2024 8 :35 AM SENIOR BILLING CONSULTANT 12/18/2024 9:05 AM SENIOR BILLING CONSULTANT Ole Mcnamara MD LAB - BLOOD DRAW Final Result [facility] [address] [place] [address], * MAMMOGRAM, ABSTRACTED NARRATIVE (08/28/2010 12:00 AM CDT) Anatomical Region Laterality Modality Other 08/28/2010 us [facility] Provider Default IMG MAMMO Final Res ult from Last 3 Months or Most Recently Relevant to Health Maintenance Insurance [place] [facility] [place] [address] Member Subscriber Plan / Payer (Ef fective 2025-Present) Name:Judy Malloy Relation to Subscriber:Self Name:uJdy Malloy Payer ID:[id number] Type:Indemnity Address: [address] [address] [place] [address] Care Teams Mysql Database Administrator Relationship Specialty Start Date End Date Ole Mcnamara MD [address] [place] [address] PCP - General 04/24/24
--- OUTSIDE RECORDS SUMMARY | 2025-05-04 08:03 | XMS_ITS | Encounter Summary ---
Author Organization [facility] Address [address] [place] [address] Care Team Providers Care Residential Concierge Name Role Phone Kathy Tolliver MD Primary Care Provider [phone] Encounter Details Date Type Department Care Team (Late st Contact Info) Description 05/13/2001 Outpatient Historical [facility] [address] [place] [phone] Social History Tobacco Use Types Packs/Day Years Used Date Smoking Tobacco: Never Assessed Comments Unknown Sex and Gender Information Value Date Recorded Sex Assigned at Not on file 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
--- OUTSIDE RECORDS SUMMARY | 2025-05-04 08:03 | XMS_ITS | Encounter Summary ---
Author Organization [facility] Address [address] 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
--- OUTSIDE RECORDS SUMMARY | 2025-05-04 08:03 | XMS_ITS | Encounter Summary ---
Author Organization [facility] Address [address] 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
--- OUTSIDE RECORDS SUMMARY | 2025-05-04 08:03 | XMS_ITS | Encounter Summary ---
Author Organization [facility] Address [address] [place] [address] Care Team Providers Care Administrative Assistant Data Entry Name Role Phone Kathy Tolliver MD Primary Care Provider +1- [phone] Encounter Details Date Type Department Care Team (Latest Contact Info) Description 04/06/2016 Ancillary Orders [facility] Pre-Registration [place] CALL TO MAKE APPOINTMENT ONLY [address] [place] [address] Daron Arango, SCOW DERRICK OPERATOR [address] [place] [address] Visit for screening mammogram (Primary Dx) Social History Tobacco Use Types Packs/Day Years Used Date Smoking Tobacco: Every Day Cigarettes Alcohol Use Standard Drinks/Week Comments No 0 (1 standard drink = 0.6 oz pur e alcohol) Comments No Sex and Gender Information Value Date Recorded Sex Assigned at Not on file 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
--- OUTSIDE RECORDS SUMMARY | 2025-05-04 08:03 | XMS_ITS | Encounter Summary ---
Author Organization [facility] Address [address] Gupta: [place] [address] Care Team Providers Care Snorkelling Instructor Name Role Phone Kathy Tolliver MD Primary Care Provider +1- [phone] Encounter Details Date Type Department Care Team (Late st Contact Info) Description 11/08/2000 Outpatient Historical Wade Sahni MD NO ADDRESS ON FILE Social History Tobacco Use Types Packs/Day Years Used Date Smoking Tobacco: Never Assessed Comments Unknown Sex and Gender Information Value Date Recorded Sex Assigned at Not on file Legal Sex Female 2:46 AM RECYCLING DIRECTOR Gender Identity Not on file Sexual Orientation Not on file documented as of this encounter Plan of Treatment Not on file documented as of this encounter Visit Diagnoses Not on filedocumented in this encounter Care Teams Snorkelling Instructor Relationship Specialty Start Date End Date Kathy Tolliver MD [address] [place] [address] PCP - General Internal Medicine 07/06/20 documented as of this encounter
--- OUTSIDE RECORDS SUMMARY | 2025-05-04 08:03 | XMS_ITS | Encounter Summary ---
Author Organization [facility] Address [address] [place] [address] Care Team Providers Care Project Financial Analyst Name Role Phone Kathy Tolliver MD Primary Care Provider +1- [phone] Encounter Details Date Type Department Care Team (Latest Contact Info) Description 01/22/2001 Outpatient Historical [facility] [address] [address] Ashish Woodruff MD NO ADDRESS ON FILE Neuralgia, neuritis, and radiculitis, unspecified (Primary Dx); Acute sinusitis, unspecified Social History Tobacco Use Types Packs/Day Years Used Date Smoking Tobacco: Never Assessed Comments Unknown Sex and Gender Information Value Date Recorded Sex Assigned at Not on file Legal Sex Female 2:46 AM ORGANIZATIONAL EFFECTIVENESS DIRECTOR Gender Identity Not on file Sexual Orientation Not on file documented as of this encounter Plan of Treatment Not on file documented as of this encounter Visit Diagnoses Diagnosis Neuralgia, neuritis, and radiculitis, unspecified- Primary Acute sinusitis, unspecified documented in this encounter Care Teams Project Financial Analyst Relationship Specialty Start Date End Date Kathy Tolliver MD [address] [place] [address] PCP - General Internal Medicine 07/06/20 documented as of this encounter
--- OUTSIDE RECORDS SUMMARY | 2025-05-04 08:03 | XMS_ITS | Encounter Summary ---
Author Organization [facility] Address [address] Gupta: [place] [address] Care Team Providers Care Angle Furnaceman Name Role Phone Kathy Tolliver MD Primary Care Provider +1- [phone] Encounter Details Date Type Department Care Team (Late st Contact Info) Description 12/26/2001 Outpatient Historical Krishna Toscano DO NO ADDRESS ON FILE Social History Tobacco Use Types Packs/Day Years Used Date Smoking Tobacco: Never Assessed Comments Unknown Sex and Gender Information Value Date Recorded Sex Assigned at Not on file Legal Sex Female 2:46 AM ROOF TILE LAYER Gender Identity Not on file Sexual Orientation Not on file documented as of this encounter Plan of Treatment Not on file documented as of this encounter Visit Diagnoses Not on filedocumented in this encounter Care Teams Angle Furnaceman Relationship Specialty Start Date End Date Kathy Tolliver MD [address] [place] [address] PCP - General Internal Medicine 07/06/20 documented as of this encounter
--- OUTSIDE RECORDS SUMMARY | 2025-05-04 08:03 | XMS_ITS | Encounter Summary ---
Author Organization [facility] Address [address] [place] [address] Care Team Providers Care Psychology Tech Name Role Phone Kathy Tolliver MD Primary Care Provider +1- [phone] Encounter Details Date Type Department Care Team (Latest Contact Info) Description 12/30/2001 Outpatient Historical [facility] [address] [place] [address] Krishna Toscano, NO ADDRESS ON FILE CARDIAC DYSRHYTHMIAS NEC (Primary Dx); DIZZINESS AND GIDDINESS; HYPOTHYROIDISM NOS Social History Tobacco Use Types Packs/Day Years Used Date Smoking Tobacco: Never Assessed Comments Unknown Sex and Gender Information Value Date Recorded Sex Assigned at Not on file Legal Sex Female 2:46 AM SUPERVISOR GRA[employer] Gender Identity Not on file Sexual Orientation Not on file documented as of this encounter Plan of Treatment Not on file documented as of this encounter Visit Diagnoses Diagnosis Other specified cardiac dysrhythmias(427.89)- Primary Other specified cardiac dysrhythmias Dizziness and giddiness Unspecified hypothyroidism documented in this encounter Care Teams Psychology Tech Relationship Specialty Start Date End Date Kathy Tolliver MD [address] [place] [address] PCP - General Internal Medicine 07/06/20 documented as of this encounter
--- OUTSIDE RECORDS SUMMARY | 2025-05-04 08:03 | XMS_ITS | Encounter Summary ---
Author Organization [facility] Address [address] [place] [address] Care Team Providers Care Polymerization Oven Operator Name Role Phone Kathy Tolliver MD Primary Care Provider +1- [phone] Encounter Details Date Type Department Care Team (Latest Contact Info) Description 02/20/2001 Outpatient Historical [address] [address] Ashish Woodruff MD NO ADDRESS ON FILE Headache(784.0) (Primary Dx); Abdominal pain, right upper quadrant; Special screening for malignant neoplasms of other sites Social History Tobacco Use Types Packs/Day Years Used Date Smoking Tobacco: Never Assessed Comments Unknown Sex and Gender Information Value Date Recorded Sex Assigned at Not on file Legal Sex Female 2:46 AM MANAGER WEB APPLICATION Gender Identity Not on file Sexual Orientation Not on file documented as of this encounter Plan of Treatment Not on file documented as of this encounter Visit Diagnoses Diagnosis Headache(784.0)- Primary Headache Abdominal pain, right upper quadrant Special screening for malignant neoplasms of other sites documented in this encounter Care Teams Polymerization Oven Operator Relationship Specialty Start Date End Date Kathy Tolliver MD [address] [place] [address] PCP - General Internal Medicine 07/06/20 documented as of this encounter
--- OUTSIDE RECORDS SUMMARY | 2025-05-04 08:03 | XMS_ITS | Encounter Summary ---
Author Organization [facility] Address [address] Gupta: [place] [address] Care Team Providers Care Instructor Psychiatric Aide Name Role Phone Kathy Tolliver MD Primary Care Provider +1- [phone] Encounter Details Date Type Department Care Team (Late st Contact Info) Description 12/30/2000 Outpatient Historical Cordell Pedersen MD NO ADDRESS ON FILE Social History Tobacco Use Types Packs/Day Years Used Date Smoking Tobacco: Never Assessed Comments Unknown Sex and Gender Information Value Date Recorded Sex Assigned at Not on file Legal Sex Female 2:46 AM HAND EDGE BANDER Gender Identity Not on file Sexual Orientation Not on file documented as of this encounter Plan of Treatment Not on file documented as of this encounter Visit Diagnoses Not on filedocumented in this encounter Care Teams Instructor Psychiatric Aide Relationship Specialty Start Date End Date Kathy Tolliver MD [address] [place] [address] PCP - General Internal Medicine 07/06/20 documented as of this encounter
--- OUTSIDE RECORDS SUMMARY | 2025-05-04 08:03 | XMS_ITS | Encounter Summary ---
Author Organization [facility] Address [address] Gupta: [place] [address] Care Team Providers Care Shellfish Bed Worker Name Role Phone Kathy Tolliver MD Primary Care Provider +1- [phone] Encounter Details Date Type Department Care Team (Late st Contact Info) Description 02/21/2000 Outpatient Historical Luke Brown DO NO ADDRESS ON FILE Social History Tobacco Use Types Packs/Day Years Used Date Smoking Tobacco: Never Assessed Comments Unknown Sex and Gender Information Value Date Recorded Sex Assigned at Not on file Legal Sex Female 2:46 AM DISC JOCKEY Gender Identity Not on file Sexual Orientation Not on file documented as of this encounter Plan of Treatment Not on file documented as of this encounter Visit Diagnoses Not on filedocumented in this encounter Care Teams Shellfish Bed Worker Relationship Specialty Start Date End Date Kathy Tolliver MD [address] [place] [address] PCP - General Internal Medicine 07/06/20 documented as of this encounter
--- OUTSIDE RECORDS SUMMARY | 2025-05-04 08:03 | XMS_ITS | Encounter Summary ---
Author Organization [facility] Address [address] Gupta: [place] [address] Care Team Providers Care Typesetter Apprentice Name Role Phone Kathy Tolliver MD Primary Care Provider +1- [phone] Encounter Details Date Type Department Care Team (Late st Contact Info) Description 01/20/2001 Outpatient Historical Harsha Reyes, NO ADDRESS ON FILE Social History Tobacco Use Types Packs/Day Years Used Date Smoking Tobacco: Never Assessed Comments Unknown Sex and Gender Information Value Date Recorded Sex Assigned at Not on file Legal Sex Female 2:46 AM MEAT SUPERVISOR Gender Identity Not on file Sexual Orientation Not on file documented as of this encounter Plan of Treatment Not on file documented as of this encounter Visit Diagnoses Not on filedocumented in this encounter Care Teams Typesetter Apprentice Relationship Specialty Start Date End Date Kathy Tolliver MD [address] [place] [address] PCP - General Internal Medicine 07/06/20 documented as of this encounter
--- OUTSIDE RECORDS SUMMARY | 2025-05-04 08:03 | XMS_ITS | Clinical Summary ---
Author Organization [facility] Address [address] [place] [address] Phone Care Team Providers Care Tile Setter Name Role Phone Ole Mcnamara MD Primary Care Provider [phone] Allergies Active Allergy Reactions Criticality Noted Date Comments Morphine Unknown 07/10/2017 Other reaction(s): hallucinations, it made me act badly Promethazine Hives High 05/28/2010 Medications atorvastatin (LIPITOR) 80 mg tablet Take 1 Tablet (80 mg) by mouth daily. 90 Tablet 3 02/09/20 21 Active fluticasone propion-salmeteroL (ADVAIR DISKUS,WIXELA INHUB) 250-50 mcg/dose disk inhaler 02/22/20 20 Active Additional Information Patient taking differently: 1 Puff Inhalation TWO TIMES DAILY, Reported on 05/28/2023 ondansetron (ZOFRAN ODT) 4 mg Tablet, Rapid Dissolve 02/22/20 20 Active Additional Information Patient taking differently: 4 mg Sublingual EVERY 6 HOURS PRN, Reported on 05/28/2023 calcipotriene (DOVONEX) 0.005 % Cream 02/02/20 20 Active Additional Information Patient taking differently: Topical, Reported on 05/28/2023 tiZANidine (ZANAFLEX) 4 mg Tablet 02/22/20 20 Active Additional Information Patient taking differently: 4 mg Oral EVERY 8 HOURS, Reported on 05/28/2023 pantoprazole (PROTONIX) 40 mg Tablet, Delayed Release (E.C.) Take 1 Tablet (40 mg) by mouth daily. 90 Tablet 3 01/16/20 17 Active buPROPion HCL (Wellbutrin SR) 150 mg Sustained Release 12 hour tablet TAKE ONE TABLET BY MOUTH TWICE DAILY FOR SMOKING CESSATION 02/12/20 23 Active fluticasone propionate (FLONASE) 50 mcg/spray [place], Suspension nasal inhaler USE 1 TO 2 SPRAYS IN EACH NOSTRIL ONCE DAILY NEEDED 02/07/20 22 Active levothyroxine 150 mcg tablet Take 150 mcg by mouth daily. 03/04/20 23 Active potassium CHLORIDE (KAYCIEL) 20 mEq/15 mL solution Take 20 mEq by mouth daily. 12/24/19 23 Active ARIPiprazole (ABILIFY) 10 mg tablet TAKE ONE TABLET BY MOUTH EVERY DAY NEEDED FOR MOOD STABILIZATION 12/21/19 23 Active fenofibrate nanocrystallized (TRICOR) 48 mg tablet Take 1 Tablet by mouth daily at bedtime. 04/18/20 23 Active diclofenac sodium (VOLTAREN) 1 % gel Apply 2 Grams to affected area 4 times daily. Active bismuth subsalicylate (PEPTO-BISMOL MAX) 525 mg/15 mL Suspension Take 15 mL by mouth every 6 hours as needed for Diarrhea/Loose Stools. Active diphenhydrAMINE (BENADRYL) 25 mg tablet Take 25 mg by mouth every 6 hours as needed for Allergies. Active gabapentin (Neurontin) 300 mg capsule Take 1 Capsule (300 mg) by mouth 2 times daily. 60 Capsule 05/29/20 23 Active methylPREDNISolone (MEDROL DOSPACK) 4 mg Tablets, Dose Pack Take as directed 21 Tablet 07/02/20 23 Active diazePAM (Valium) 5 mg tabletIndications:B ilateral low back pain with right-sided sciatica, unspecified chronicity Take 1 Tablet (5 mg) by mouth see administration instructions. Take 1 tablet 1 hour before imaging, may take 2nd tablet 15 minutes prior if needed. 2 Tablet 02/06/20 25 Active Active Problems Problem Noted Date Diagnosed Date DDD (degenerative disc disease), lumbar 05/31/20 23 Preoperative general physical examination 2022 Anemia 05/31/2023 History of tobacco use 05/31/2023 GERD without esophagitis 05/31/2023 Anxiety and depression 05/31/2023 Idiopathic chronic pancreatitis 10/05/2017 Falls frequently 10/03/2017 Hypoalbuminemia due to protein-calorie malnutrit ion 10/03/2017 Mass of head of pancreas 01/10/2017 Protein-calorie malnutrition, severe 01/10/2017 History of CVA (cerebrovascular accident) 2016 Hypothyroidism 01/10/2017 Nausea and vomiting 01/04/2017 Opioid dependence with opioid-induced disorder Resolved Problems Problem Noted Date Diagnosed Date Resolved Date Dehydration, severe 07/12/2017 05/31/20 Idiopathic acute pancreatiti s with infected necrosis 01/11/2017 05/31/2023 Hypokalemia due to inadequat e potassium intake 01/05/2017 05/31/2023 Epigastric pain 01/04/2017 05/31/2023 Community acquired pneumonia 07/02/2010 05/31/2023 Hypovolemic shock 05/31/2023 Encounters Date Type Department Care Team Description 03/23/2025 External Device Data [facility] ABSTRACTION Provider, Abstract 02/10/2025 7:30 AM CDT - 02/10/2025 11:59 PM CDT Hospital Encounter [facility] [address] [place] [address] Faustino Taveras PA Discharge Disposition: Home or Self Care 02/10/2025 Results Follow-Up [facility] [address] [place] [address] Rajni Nelson MRI LUMBAR W WO CONTRAST 02/08/[address] [facility] [address] [place] [address] Faustino Taveras PA Documentation Only 02/05/[address] [facility] [address] [place] [address] Chris Moya MD Bilateral low back pain with right-sided sciatica, unspecified chronicity 02/02/2025 Transcribe Orders [facility] Pre-Registration [place] CALL TO MAKE APPOINTMENT ONLY [address] [place] [address] Ole Mcnamara MD Low bone density for age (Primary Dx) from Last 3 Months Immunizations Immunization Administration Dates Next Due (ADACEL/BOOSTRIX)(10 YR UP) TDAP VACCINE, 0.5ML, IM 07/29/2010 (PNEUMOVAX 23)(50 YRS UP) PN EUMOCOCCAL POLYSACCHARIDE (PPV23) 0.5 ML, IM 07/04/2010 INFLUENZA VACCINE QUADRIVALENT 3 YR UP PF IM 01/2017 Family History Medical History Relation Name Comments Heart Disease Mother [place] 70's CABG Relation Name Status Comments Mother Social History Tobacco Use Types Packs/Day Years Used Date Smoking Tobacco: Former Cigarettes 1 47 0 05/20/1976 - 05/20/2023 Smokeless Tobacco: Never Tobacco Cessation:Counseling Given: Not Answered Alcohol Use Standard Drinks/Week Comments No 0 (1 standard drink = 0.6 oz pur e alcohol) Feeling Safe Answer Date Recorded Are you in a relationship wi th someone who hurts you emotionally and/or physically? No 06/13/2023 Food Insecurity Answer Date Recorded Patient needs follow up regarding: Not on file 01/08/2024 Transportation Needs Answer Date Record ed Patient needs follow up regarding: Not on file 01/08/2024 Housing Stability Answer Date Recorded Patient needs follow up regarding: Not on file 01/08/2024 Utility Needs Answer Date Recorded Patient needs follow up regarding: Not on file 01/08/2024 Comments No Sex and Gender Information Value Date Recorded Sex Assigned at Not on file Legal Sex Female 3:43 AM MILK INSPECTOR Gender Identity Not on file Sexual Orientation Not on file Last Filed Vital Signs Vital Sign Reading Time Taken Comments Blood Pressure 136/70 01/26/2025 10:08 AM CDT Pulse 89 02/03/2024 12:55 PM CDT Temperature 36.8 C (98.2 F) 02/03/2024 12:55 PM CDT Respiratory Rate 16 06/13/2023 6:30 PM CDT Oxygen Saturation 97% 02/03/2024 12:55 PM CDT Inhaled Oxygen Concentration - - Weight 59.9 kg (132 lb) 01/26/2025 10:08 AM CDT Height 157.5 cm (5' 2 ) 01/26/2025 10:08 AM CDT Body Mass Index 24.14 01/26/2025 10:08 AM CDT Plan of Treatment Upcoming Encounters Date Type Department Care Team (Late st Contact Info) Description 05/18/2025 11:15 AM CDT Office Visit [facility] [address] [place] [phone] Reena Tillman MD [address] [place] [phone] Health Maintenance Due Date Last Done Comments BREAST CANCER SCREENING 1998 COLORECTAL SCREENING 2003 Colorectal Cancer Screening 2003 FIT-DNA Q 3 years 2003 FIT/FOBT Q 1 year 2003 Flex Sig/CT Colonography Q 5 years 2003 Lung Cancer Screening 2008 ZOSTER VACCINE (1 of 2) 2008 PNEUMOCOCCAL VACCINE 50+ YEA RS (2 of 2 - PCV) 07/04/2011 07/04/2010 RSV VACCINE (60+ or ) (1 - Risk 60-74 years 1-dose series) 2018 OSTEOPOROSIS SCREENING 2023 Pre-Diabetes and Diabetes Screening 02/09/2024 02/08/2021 INFLUENZA VACCINE (#1) 2024 , 09/15/2020, 08/20/2019, Additional history exists COVID-19 Vaccine (6 - 2023-2 5 season) 2025 07/18/2024, 07/28/2022, 04/27/2022, Additional history exists DTAP/TDAP/TD VACCINES (3 - T d or Tdap) 05/13/2030 05/13/2020, 07/29/2010 Procedures Procedure Name Priority Date/Time Associated Diagnosis Comments MRI LUMBAR W WO CONTRAST Routine 02/10/2025 8:33 AM CDT Post-operative pain HEMOGLOBIN A1C Routine 02/08/2021 3:34 PM CDT from Last 3 Months or Most Recently Relevant to Health Maintenance Results * MRI LUMBAR W WO CONTRAST (02/10/2025 8:33 AM CDT) Anatomical Region Laterality Modality Spine Magnetic Resonan ce 02/10/2025 8:34 AM CDT Impressions 02/10/2025 9:38 AM CDT IMPRESSION: Please see below. Exam: MRI LUMBAR W WO CONTRAST Date/Time of Exam: 02/10/2025 8:33 AM Reason For Exam: Low back pain, prior surgery, new symptoms. Diagnosis: Post-operative pain. Technique: MRI of the lumbar spine was performed prior to and following the administration of intravenous contrast. Contrast: 11 mL Multihance intravenously Findings: Unremarkable sagittal alignment. No compression fracture. Mild subcortical marrow edema anteriorly within the L1 vertebral body is likely degenerative in nature. The conus terminates at the L1 level. L1-2: Mild disc bulge, otherwise unremarkable. L2-3: Slight disc bulge and mild facet arthropathy, otherwise unremarkable. L3-4: Slight disc bulge and mild facet arthropathy, otherwise unremarkable. L4-5: Disc height loss, endplate ridging, and mild facet arthropathy. Mild bilateral foraminal narrowing. L5-S1:Laminectomies and discectomy. Enhancing scar tissue in the laminectomy bed. Previously seen subarticular narrowing on the exam from 03/05/2023 has essentially resolved. No significant spinal stenosis on the current exam. Moderate bilateral foraminal narrowing. There is a small cyst in the right kidney. IMPRESSION: 1. Laminectomies at L5-S1 with resolution of previously seen subarticular narrowing. 2. No significant spinal stenosis on the current exam. 3. Moderate foraminal narrowing bilaterally at L5-S1. Narrative Procedure Note Orion Parmar MD - 02/10/2025 IMPRESSION: Please see below. Exam: MRI LUMBAR W WO CONTRAST Date/Time of Exam: 02/10/2025 8:33 AM Reason For Exam: Low back pain, prior surgery, new symptoms. Diagnosis: Post-operative pain. Technique: MRI of the lumbar spine was performed prior to and following the administration of intravenous contrast. Contrast: 11 mL Multihance intravenously Findings: Unremarkable sagittal alignment. No compression fracture. Mild subcortical marrow edema anteriorly within the L1 vertebral body is likely degenerative in nature. The conus terminates at the L1 level. L1-2: Mild disc bulge, otherwise unremarkable. L2-3: Slight disc bulge and mild facet arthropathy, otherwise unremarkable. L3-4: Slight disc bulge and mild facet arthropathy, otherwise unremarkable. L4-5: Disc height loss, endplate ridging, and mild facet arthropathy. Mild bilateral foraminal narrowing. L5-S1:Laminectomies and discectomy. Enhancing scar tissue in the laminectomy bed. Previously seen subarticular narrowing on the exam from 03/05/2023 has essentially resolved. No significant spinal stenosis on the current exam. Moderate bilateral foraminal narrowing. There is a small cyst in the right kidney. IMPRESSION: 1. Laminectomies at L5-S1 with resolution of previously seen subarticular narrowing. 2. No significant spinal stenosis on the current exam. 3. Moderate foraminal narrowing bilaterally at L5-S1. Faustino WESLEY MR ORDERABLES Final Result * HEMOGLOBIN A1C (02/08/2021 3:34 PM CDT) HEMOGLOBIN A1C 5.6 <=5.6 % 02/08/2021 4:15 PM CDT [facility] EST. AVG GLUCOSE, A1C 114 mg/dL 02/08/2021 4:15 PM CDT [facility] Blood Venipuncture / Unknown 02/08/2021 3:34 PM CDT 02/08/2021 3:34 PM CDT Narrative [facility] - 02/08/2021 4:15 PM CDT HGB A1C INTERPRETATION NORMAL: <5.7% PRE-DIABETES: 5.7 - 6.4% DIABETES: 6.5% OR GREATER Falsely low A1C measurements can occur when: 1. Anemia and/or hemolytic anemia is present. 2. Hemoglobin variants present. 3. Renal failure. 4. Transfusion of blood product in the last 120 days. We recommend ordering a fructosamine test([id number]) to more accurately assess glycemic status if any of the above conditions are present. Shahnaz Nueñz MD CHEMISTRY ORDERABLES Final Result [facility] CLIA# [id number] [id number] [place] [address] [facility] CLIA# [id number] [address] [place] [address] from Last 3 Months or Most Recently Relevant to Health Maintenance Insurance MEDICAID [facility] RX [employer] RX Member Subscriber Plan / Payer (Ef fective 2023-Present) Name:Judy Malloy Relation to Subscriber:Self Name:Vikas Malloyna Karrie Payer ID:Not on file Group ID:[id number] Type:RX Medicare Part D Address: [place], [place] RX INFOCROSSING Medicaid Advance Directives For more information, please contact: [phone] Documents on File Type Date Recorded Patient Side Trimmer Expl anation Advance Directive POA 01/08/2017 4:10 PM Ad jacobs Directive POA Care Teams Tile Setter Relationship Specialty Start Date End Date Ole Mcnamara MD [address] [place] [phone] PCP - General Family Practice 03/20/23
--- OUTSIDE RECORDS SUMMARY | 2025-05-04 08:03 | XMS_ITS | Encounter Summary ---
Author Organization [facility] Address [address] [place] [address] Care Team Providers Care Clinical Informatics Spec Name Role Phone Kathy Tolliver MD Primary Care Provider [phone]- [phone] Encounter Details Date Type Department Care Team (Latest Contact Info) Description 01/06/2001 Outpatient Historical [facility] INDUSTRIAL COMMERCIAL GROUNDSKEEPER [address] [place] [phone] Cordell Pedersen MD NO ADDRESS ON FILE Other disorder of menstruation and other abnormal bleeding from female genital tract (Primary Dx) Social History Tobacco Use Types Packs/Day Years Used Date Smoking Tobacco: Never Assessed Comments Unknown Sex and Gender Information Value Date Recorded Sex Assigned at Not on file Legal Sex Female 2:46 AM SHEAR TENDER Gender Identity Not on file Sexual Orientation Not on file documented as of this encounter Plan of Treatment Not on file documented as of this encounter Visit Diagnoses Diagnosis Other disorder of menstruation and other abnormal bleeding from female genital tract- Primary documented in this encounter Care Teams Clinical Informatics Spec Relationship Specialty Start Date End Date Kathy Tolliver MD [address] [place] [phone] PCP - General Internal Medicine 07/06/20 documented as of this encounter
--- OUTSIDE RECORDS SUMMARY | 2025-05-04 08:03 | XMS_ITS | Encounter Summary ---
Author Organization [facility] Address [address] [place] [address] Care Team Providers Care Certified Nurse Midwife Name Role Phone Kathy Tolliver MD Primary Care Provider [phone]- [phone] Encounter Details Date Type Department Care Team (Latest Contact Info) Description 02/27/2000 Outpatient Historical [facility] [address] [place] [address] Matty Main Jr., DO NO ADDRESS ON FILE Abdominal pain, unspecified site (Primary Dx); Other and unspecified ovarian cyst Social History Tobacco Use Types Packs/Day Years Used Date Smoking Tobacco: Never Assessed Comments Unknown Sex and Gender Information Value Date Recorded Sex Assigned at Not on file Legal Sex Female 2:46 AM WEAPONS SYSTEM INSTRUMENT MECHANIC Gender Identity Not on file Sexual Orientation Not on file documented as of this encounter Plan of Treatment Not on file documented as of this encounter Visit Diagnoses Diagnosis Abdominal pain, unspecified site- Primary Other and unspecified ovarian cyst documented in this encounter Care Teams Certified Nurse Midwife Relationship Specialty Start Date End Date Kathy Tolliver MD [address] [place] [address] PCP - General Internal Medicine 07/06/20 documented as of this encounter
--- OUTSIDE RECORDS SUMMARY | 2025-05-04 08:03 | XMS_ITS | Encounter Summary ---
Author Organization [facility] Address [address] [place] [address] Care Team Providers Care Enterprise Integration Developer Name Role Phone Kathy Tolliver MD Primary Care Provider [phone]- [phone] Encounter Details Date Type Department Care Team (Late st Contact Info) Description 09/22/1999 Outpatient Historical [facility] Social History Tobacco Use Types Packs/Day Years Used Date Smoking Tobacco: Never Assessed Comments Unknown Sex and Gender Information Value Date Recorded Sex Assigned at Not on file Legal Sex Female 2:46 AM TUNGSTEN REFINER Gender Identity Not on file Sexual Orientation Not on file documented as of this encounter Plan of Treatment Not on file documented as of this encounter Visit Diagnoses Not on filedocumented in this encounter Care Teams Enterprise Integration Developer Relationship Specialty Start Date End Date Kathy Tolliver MD [address] [place] [address] PCP - General Internal Medicine 07/06/20 documented as of this encounter
--- OUTSIDE RECORDS SUMMARY | 2025-05-04 08:03 | XMS_ITS | Encounter Summary ---
Author Organization [facility] Address [address] [place] [address] Care Team Providers Care Bar Porter Name Role Phone Kathy Tolliver MD Primary Care Provider [phone]- [phone] Encounter Details Date Type Department Care Team (Latest Contact Info) Description 12/30/2000 Outpatient [facility] SURGICAL INSTRUMENT REPAIR SPECIALIST [address] [place] [phone] Cordell Pedersen MD NO ADDRESS ON FILE Other disorder of menstruation and other abnormal bleeding from female genital tract (Primary Dx); Dysmenorrhea; Hypertrophy of uterus Social History Tobacco Use Types Packs/Day Years Used Date Smoking Tobacco: Never Assessed Comments Unknown Sex and Gender Information Value Date Recorded Sex Assigned at Not on file Legal Sex Female 2:46 AM BUSINESS SYSTEMS ADVISOR Gender Identity Not on file Sexual Orientation Not on file documented as of this encounter Plan of Treatment Not on file documented as of this encounter Visit Diagnoses Diagnosis Other disorder of menstruation and other abnormal bleeding from female genital tract- Primary Dysmenorrhea Hypertrophy of uterus documented in this encounter Care Teams Bar Porter Relationship Specialty Start Date End Date Kathy Tolliver MD [address] [place] [phone] PCP - General Internal Medicine 07/06/20 documented as of this encounter
--- OUTSIDE RECORDS SUMMARY | 2025-05-04 08:03 | XMS_ITS | Encounter Summary ---
Author Organization [facility] Address [address]: [place] [address] Care Team Providers Care Licensing Director Name Role Phone Kathy Tolliver MD Primary Care Provider +1- [phone] Encounter Details Date Type Department Care Team (Late st Contact Info) Description 08/31/2000 Outpatient Historical Etelvina Santos, Matty Wilhelm DO NO ADDRESS ON FILE Social History Tobacco Use Types Packs/Day Years Used Date Smoking Tobacco: Never Assessed Comments Unknown Sex and Gender Information Value Date Recorded Sex Assigned at Not on file Legal Sex Female 2:46 AM SHEET METAL SMITH Gender Identity Not on file Sexual Orientation Not on file documented as of this encounter Plan of Treatment Not on file documented as of this encounter Visit Diagnoses Not on filedocumented in this encounter Care Teams Licensing Director Relationship Specialty Start Date End Date Kathy Tolliver MD [address] [place] [phone] PCP - General Internal Medicine 07/06/20 documented as of this encounter
--- OUTSIDE RECORDS SUMMARY | 2025-05-04 08:03 | XMS_ITS | Encounter Summary ---
Author Organization [facility] Address [address]: [place] [address] Care Team Providers Care Rubber Flap Tuber Machine Operator Name Role Phone Kathy Tolliver MD Primary Care Provider +1- [phone] Encounter Details Date Type Department Care Team (Late st Contact Info) Description 12/31/2001 Outpatient Historical Krishna Toscano DO NO ADDRESS ON FILE Social History Tobacco Use Types Packs/Day Years Used Date Smoking Tobacco: Never Assessed Comments Unknown Sex and Gender Information Value Date Recorded Sex Assigned at Not on file Legal Sex Female 2:46 AM PATTERNMAKER BENCH Gender Identity Not on file Sexual Orientation Not on file documented as of this encounter Plan of Treatment Not on file documented as of this encounter Visit Diagnoses Not on filedocumented in this encounter Care Teams Rubber Flap Tuber Machine Operator Relationship Specialty Start Date End Date Kathy Tolliver MD [address] [place] [address] PCP - General Internal Medicine 07/06/20 documented as of this encounter
--- OUTSIDE RECORDS SUMMARY | 2025-05-04 08:03 | XMS_ITS | Encounter Summary ---
Author Organization [facility] Address [address]: [place] [address] Care Team Providers Care Director Women Name Role Phone Kathy Tolliver MD Primary Care Provider +1- [phone] Encounter Details Date Type Department Care Team (Late st Contact Info) Description 01/12/2000 Outpatient Historical Wilder Powell MD NO ADDRESS ON FILE Social History Tobacco Use Types Packs/Day Years Used Date Smoking Tobacco: Never Assessed Comments Unknown Sex and Gender Information Value Date Recorded Sex Assigned at Not on file Legal Sex Female 2:46 AM NIPPLE THREADER Gender Identity Not on file Sexual Orientation Not on file documented as of this encounter Plan of Treatment Not on file documented as of this encounter Visit Diagnoses Not on filedocumented in this encounter Care Teams Director Women Relationship Specialty Start Date End Date Kathy Tolliver MD [address] [place] [address] PCP - General Internal Medicine 07/06/20 documented as of this encounter
--- OUTSIDE RECORDS SUMMARY | 2025-05-04 08:03 | XMS_ITS | Encounter Summary ---
Author Organization [facility] Address [address] [place] [address] Care Team Providers Care Playground Equipment Erector Name Role Phone Kathy Tolliver MD Primary Care Provider +1- [phone] Encounter Details Date Type Department Care Team (Latest Contact Info) Description 07/04/2020 Ancillary Orders [facility] Pre-Registration [place] CALL TO MAKE APPOINTMENT ONLY [address] [place] [address] Kathy Tolliver MD [address] [place] [address] Screening for breast cancer Social History Tobacco Use Types Packs/Day Years Used Date Smoking Tobacco: Former Cigarettes Q uit: 01/07/2020 Smokeless Tobacco: Never Alcohol Use Standard Drinks/Week Comments No 0 (1 standard drink = 0.6 oz pur e alcohol) Comments No Sex and Gender Information Value Date Recorded Sex Assigned at Not on file Legal Sex Female 2:46 AM MEDICAID ELIGIBILITY SPECIALIST Gender Identity Not on file Sexual Orientation Not on file COVID-19 Exposure Response Date Recorded In the last month, have you been in contact with someone who was confirmed or suspected to have Coronavirus / COVID-19? No / Unsure 07/06/2020 12:51 PM CDT documented as of this encounter Plan of Treatment Not on file documented as of this encounter Visit Diagnoses Diagnosis Screening for breast cancer Breast screening, unspecified documented in this encounter Care Teams Playground Equipment Erector Relationship Specialty Start Date End Date Kathy Tolliver MD [address] [place] [address] PCP - General Internal Medicine 07/06/20 documented as of this encounter
--- OUTSIDE RECORDS SUMMARY | 2025-05-04 08:03 | XMS_ITS | Encounter Summary ---
Author Organization [facility] Address [address] Gupta: [place] [address] Care Team Providers Care Rig Operator Name Role Phone Kathy Tolliver MD Primary Care Provider +1- [phone] Encounter Details Date Type Department Care Team (Late st Contact Info) Description 09/04/2001 Outpatient Historical Woodruff, Ashish Bowie MD NO ADDRESS ON FILE Social History Tobacco Use Types Packs/Day Years Used Date Smoking Tobacco: Never Assessed Comments Unknown Sex and Gender Information Value Date Recorded Sex Assigned at Not on file Legal Sex Female 2:46 AM HAND PAINTER Gender Identity Not on file Sexual Orientation Not on file documented as of this encounter Plan of Treatment Not on file documented as of this encounter Visit Diagnoses Not on filedocumented in this encounter Care Teams Rig Operator Relationship Specialty Start Date End Date Kathy Tolliver MD [address] [place] [address] PCP - General Internal Medicine 07/06/20 documented as of this encounter
--- OUTSIDE RECORDS SUMMARY | 2025-05-04 08:03 | XMS_ITS | Encounter Summary ---
Author Organization [facility] Address [address] Gupta: [place] [address] Care Team Providers Care Waste Baler Name Role Phone Kathy Tolliver MD Primary Care Provider +1- [phone] Encounter Details Date Type Department Care Team (Late st Contact Info) Description 09/08/2001 Outpatient Historical Woodruff, Ashish Bowie MD NO ADDRESS ON FILE Social History Tobacco Use Types Packs/Day Years Used Date Smoking Tobacco: Never Assessed Comments Unknown Sex and Gender Information Value Date Recorded Sex Assigned at Not on file Legal Sex Female 2:46 AM NEWS CLERK Gender Identity Not on file Sexual Orientation Not on file documented as of this encounter Plan of Treatment Not on file documented as of this encounter Visit Diagnoses Not on filedocumented in this encounter Care Teams Waste Baler Relationship Specialty Start Date End Date Kathy Tolliver MD [address] [place] [address] PCP - General Internal Medicine 07/06/20 documented as of this encounter
--- OUTSIDE RECORDS SUMMARY | 2025-05-04 08:03 | XMS_ITS | Encounter Summary ---
Author Organization [facility] Address [address] Gupta: [place] [address] Care Team Providers Care Line Staker Name Role Phone Kathy Tolliver MD Primary Care Provider +1- [phone] Encounter Details Date Type Department Care Team (Late st Contact Info) Description 09/13/1999 Outpatient Historical Matty Barlow MD [address] [facility] [address] [place] [address] Social History Tobacco Use Types Packs/Day Years Used Date Smoking Tobacco: Never Assessed Comments Unknown Sex and Gender Information Value Date Recorded Sex Assigned at Not on file Legal Sex Female 2:46 AM PIZZA DELIVERY Gender Identity Not on file Sexual Orientation Not on file documented as of this encounter Plan of Treatment Not on file documented as of this encounter Visit Diagnoses Not on filedocumented in this encounter Care Teams Line Staker Relationship Specialty Start Date End Date Kathy Tolliver MD [address] [place] [address] PCP - General Internal Medicine 07/06/20 documented as of this encounter
--- OUTSIDE RECORDS SUMMARY | 2025-05-04 08:03 | XMS_ITS | Encounter Summary ---
Author Organization [facility] Address [address] [place] [address] Care Team Providers Care Supervisor Paste Mixing Name Role Phone Kathy Tolliver MD Primary Care Provider +1- [phone] Encounter Details Date Type Department Care Team (Latest Contact Info) Description 10/06/1999 Outpatient [facility] [address] [place] [address] Matty Main Jr., DO NO ADDRESS ON FILE Lumbago (Primary Dx) Social History Tobacco Use Types Packs/Day Years Used Date Smoking Tobacco: Never Assessed Comments Unknown Sex and Gender Information Value Date Recorded Sex Assigned at Not on file Legal Sex Female 2:46 AM HEEL LIFT GOUGER Gender Identity Not on file Sexual Orientation Not on file documented as of this encounter Plan of Treatment Not on file documented as of this encounter Visit Diagnoses Diagnosis Lumbago- Primary documented in this encounter Care Teams Supervisor Paste Mixing Relationship Specialty Start Date End Date Kathy Tolliver MD [address] [place] [address] PCP - General Internal Medicine 07/06/20 documented as of this encounter
--- OUTSIDE RECORDS SUMMARY | 2025-05-04 08:03 | XMS_ITS | Encounter Summary ---
Author Organization [facility] Address [address] [place] [address] Care Team Providers Care Volunteer Manager Name Role Phone Kathy Tolliver MD Primary Care Provider +1- [phone] Encounter Details Date Type Department Care Team (Latest Contact Info) Description 06/20/1998 Outpatient Historical [facility] Orion Francis MD [address] [place] [address] Trigger finger (Primary Dx) Social History Tobacco Use Types Packs/Day Years Used Date Smoking Tobacco: Never Assessed Comments Unknown Sex and Gender Information Value Date Recorded Sex Assigned at Not on file Legal Sex Female 2:46 AM TOPOGRAPHICAL ENGINEER Gender Identity Not on file Sexual Orientation Not on file documented as of this encounter Plan of Treatment Not on file documented as of this encounter Visit Diagnoses Diagnosis Trigger finger- Primary Trigger finger (acquired) documented in this encounter Care Teams Volunteer Manager Relationship Specialty Start Date End Date Kathy Tolliver MD [address] [place] [address] PCP - General Internal Medicine 07/06/20 documented as of this encounter
--- OUTSIDE RECORDS SUMMARY | 2025-05-04 08:03 | XMS_ITS | Encounter Summary ---
Author Organization [facility] Address [address] [place] [address] Care Team Providers Care Orthopedic Rn Name Role Phone Kathy Tolliver MD Primary Care Provider +1- [phone] Encounter Details Date Type Department Care Team (Latest Contact Info) Description 12/01/2001 Outpatient Historical [facility] [address] [place] [address] Krishna Toscano DO NO ADDRESS ON FILE ACUTE SINUSITIS NOS (Primary Dx); URIN TRACT INFECTION NOS; IRRITABLE COLON Social History Tobacco Use Types Packs/Day Years Used Date Smoking Tobacco: Never Assessed Comments Unknown Sex and Gender Information Value Date Recorded Sex Assigned at Not on file Legal Sex Female 2:46 AM PROJECT ASST Gender Identity Not on file Sexual Orientation Not on file documented as of this encounter Plan of Treatment Not on file documented as of this encounter Visit Diagnoses Diagnosis Acute sinusitis, unspecified- Primary Urinary tract infection, site not specified Irritable bowel syndrome documented in this encounter Care Teams Orthopedic Rn Relationship Specialty Start Date End Date Kathy Tolliver MD [address] [place] [address] PCP - General Internal Medicine 07/06/20 documented as of this encounter
--- OUTSIDE RECORDS SUMMARY | 2025-05-04 08:03 | XMS_ITS | Encounter Summary ---
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 Dx) Social History Tobacco Use Types Packs/Day Years Used Date Smoking Tobacco: Never Assessed Comments Unknown Sex and Gender Information Value Date Recorded Sex Assigned at Not on file Legal Sex Female 2:46 AM DIRECTOR OF SALES MARKETING Gender Identity Not on file Sexual Orientation Not on file documented as of this encounter Plan of Treatment Not on file documented as of this encounter Visit Diagnoses Diagnosis Acute pyelonephritis without lesion of renal medullary necrosis- Primary documented in this encounter Care Teams Lithography Contact Worker Relationship Specialty Start Date End Date Kathy Tolliver MD [address] [place] [address] PCP - General Internal Medicine 07/06/20 documented as of this encounter
--- OUTSIDE RECORDS SUMMARY | 2025-05-04 08:03 | XMS_ITS | Encounter Summary ---
Author Organization [facility] Address [address] [place] [address] Care Team Providers Care Healthcare Recruiter Name Role Phone Kathy Tolliver MD Primary Care Provider +1- [phone] Encounter Details Date Type Department Care Team (Late st Contact Info) Description 09/13/1999 Outpatient Historical [facility] Social History Tobacco Use Types Packs/Day Years Used Date Smoking Tobacco: Never Assessed Comments Unknown Sex and Gender Information Value Date Recorded Sex Assigned at Not on file Legal Sex Female 2:46 AM LOADER DEMOLDER Gender Identity Not on file Sexual Orientation Not on file documented as of this encounter Plan of Treatment Not on file documented as of this encounter Visit Diagnoses Not on filedocumented in this encounter Care Teams Healthcare Recruiter Relationship Specialty Start Date End Date Kathy Tolliver MD [address] [place] [address] PCP - General Internal Medicine 07/06/20 documented as of this encounter
--- OUTSIDE RECORDS SUMMARY | 2025-05-04 08:03 | XMS_ITS | Encounter Summary ---
Author Organization [facility] Address [address] [place] [address] Care Team Providers Care Rabbit Dresser Name Role Phone Kathy Tolliver MD Primary Care Provider +1- [phone] Encounter Details Date Type Department Care Team (Late st Contact Info) Description 11/30/2020 Ancillary Orders [facility] [address] [address] Kathy Tolilver MD [address] [place] [address] Screening for breast cancer Social History Tobacco Use Types Packs/Day Years Used Date Smoking Tobacco: Former Cigarettes Q uit: 01/07/2020 Smokeless Tobacco: Never Alcohol Use Standard Drinks/Week Comments No 0 (1 standard drink = 0.6 oz pur e alcohol) Comments No Sex and Gender Information Value Date Recorded Sex Assigned at Not on file Legal Sex Female 2:46 AM FINE GRADE OPERATOR Gender Identity Not on file Sexual Orientation Not on file documented as of this encounter Plan of Treatment Not on file documented as of this encounter Results * MAMMO PRIOR STUDY (12/31/2001 10:50 AM FINE GRADE OPERATOR) Narrative 11/30/2020 10:49 AM FINE GRADE OPERATOR This exam was auto finalized to allow images to be scanned to PACS. us Kathy Tolliver MD DIAGNOSTIC IMAGING ORDERAB LES Final Result * MAMMO PRIOR STUDY (12/26/2001 10:50 AM FINE GRADE OPERATOR) Narrative 11/30/2020 10:48 AM FINE GRADE OPERATOR This exam was auto finalized to allow images to be scanned to PACS. us Kathy Tolliver MD DIAGNOSTIC IMAGING ORDERAB LES Final Result documented in this encounter Visit Diagnoses Diagnosis Screening for breast cancer Breast screening, unspecified Screening for breast cancer Breast screening, unspecified Screening for breast cancer Breast screening, unspecified documented in this encounter Care Teams Rabbit Dresser Relationship Specialty Start Date End Date Kathy Tolliver MD [address] [place] [address] PCP - General Internal Medicine 07/06/20 documented as of this encounter
--- OUTSIDE RECORDS SUMMARY | 2025-05-04 08:03 | XMS_ITS | Encounter Summary ---
Author Organization [facility] Address [address] [place] [address] Care Team Providers Care Horticulture Teacher Name Role Phone Kathy Tolliver MD Primary Care Provider +1- [phone] Encounter Details Date Type Department Care Team (Late st Contact Info) Description 09/18/1999 Outpatient Historical [facility] Social History Tobacco Use Types Packs/Day Years Used Date Smoking Tobacco: Never Assessed Comments Unknown Sex and Gender Information Value Date Recorded Sex Assigned at Not on file Legal Sex Female 2:46 AM BOTTLE CAPPER Gender Identity Not on file Sexual Orientation Not on file documented as of this encounter Plan of Treatment Not on file documented as of this encounter Visit Diagnoses Not on filedocumented in this encounter Care Teams Horticulture Teacher Relationship Specialty Start Date End Date Kathy Tolliver MD [address] [place] [address] PCP - General Internal Medicine 07/06/20 documented as of this encounter
--- OUTSIDE RECORDS SUMMARY | 2025-05-04 08:03 | XMS_ITS | Encounter Summary ---
Author Organization [facility] Address [address] Gupta: [place] [address] Care Team Providers Care Invasive Physician Name Role Phone Kathy Tolliver MD Primary Care Provider +1- [phone] Encounter Details Date Type Department Care Team (Late st Contact Info) Description 12/20/1999 Outpatient Historical Wilder Powell MD NO ADDRESS ON FILE Social History Tobacco Use Types Packs/Day Years Used Date Smoking Tobacco: Never Assessed Comments Unknown Sex and Gender Information Value Date Recorded Sex Assigned at Not on file Legal Sex Female 2:46 AM RENTAL COUNTER CLERK Gender Identity Not on file Sexual Orientation Not on file documented as of this encounter Plan of Treatment Not on file documented as of this encounter Visit Diagnoses Not on filedocumented in this encounter Care Teams Invasive Physician Relationship Specialty Start Date End Date Kathy Tolliver MD [address] [place] [address] PCP - General Internal Medicine 07/06/20 documented as of this encounter
--- OUTSIDE RECORDS SUMMARY | 2025-05-04 08:03 | XMS_ITS | Encounter Summary ---
Author Organization [facility] Address [address] [place] [address] Care Team Providers Care Landscape Management Technician Name Role Phone Kathy Tolliver MD Primary Care Provider +1- [phone] Encounter Details Date Type Department Care Team (Latest Contact Info) Description 05/13/2001 Outpatient Historical [facility] Medicine [address] [address] Ashish Woodruff MD NO ADDRESS ON FILE Enthesopathy of knee, unspecified (Primary Dx); Tenosynovitis of foot and ankle; Other specified disease of white blood cells; Other dyschromia Social History Tobacco Use Types Packs/Day Years Used Date Smoking Tobacco: Never Assessed Comments Unknown Sex and Gender Information Value Date Recorded Sex Assigned at Not on file Legal Sex Female 2:46 AM FLOWER SHOP LABORER/DESIGNER Gender Identity Not on file Sexual Orientation Not on file documented as of this encounter Plan of Treatment Not on file documented as of this encounter Visit Diagnoses Diagnosis Enthesopathy of knee, unspecified- Primary Tenosynovitis of foot and ankle Other specified disease of white blood cells Other dyschromia documented in this encounter Care Teams Landscape Management Technician Relationship Specialty Start Date End Date Kathy Tolliver MD [address] [place] [address] PCP - General Internal Medicine 07/06/20 documented as of this encounter
--- OUTSIDE RECORDS SUMMARY | 2025-05-04 08:03 | XMS_ITS | Encounter Summary ---
Author Organization [facility] Address [address] [place] [address] Care Team Providers Care Cnc Machinist 2Nd Shift Name Role Phone Kathy Tolliver MD Primary Care Provider +1- [phone] Encounter Details Date Type Department Care Team (Latest Contact Info) Description 08/30/2000 Outpatient Historical [facility] Medicine-[facility] [address] [place] [address] Matty Main Jr., DO NO ADDRESS ON FILE Abdominal pain, unspecified site (Primary Dx); Unspecified hypothyroidism Social History Tobacco Use Types Packs/Day Years Used Date Smoking Tobacco: Never Assessed Comments Unknown Sex and Gender Information Value Date Recorded Sex Assigned at Not on file Legal Sex Female 2:46 AM RED MUD 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
--- OUTSIDE RECORDS SUMMARY | 2025-05-04 08:03 | XMS_ITS | Encounter Summary ---
Author Organization [facility] Address [address] [place] [address] Care Team Providers Care Refinisher Name Role Phone Kathy Tolliver MD Primary Care Provider +1- [phone] Encounter Details Date Type Department Care Team (Latest Contact Info) Description 12/23/2001 Outpatient Historical [facility] [address] [place] [address] Krishna Toscano, NO ADDRESS ON FILE OTHER MALAISE AND FATIGUE (Primary Dx); THYROTOX NOS NO CRISIS Social History Tobacco Use Types Packs/Day Years Used Date Smoking Tobacco: Never Assessed Comments Unknown Sex and Gender Information Value Date Recorded Sex Assigned at Not on file Legal Sex Female 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
--- OUTSIDE RECORDS SUMMARY | 2025-05-04 08:03 | XMS_ITS | Encounter Summary ---
Author Organization [facility] Address [address] [place] [address] Care Team Providers Care Foundry Supervisor Name Role Phone Kathy Tolliver MD Primary Care Provider +1- [phone] Encounter Details Date Type Department Care Team (Latest Contact Info) Description 12/05/2000 Outpatient Historical [facility] Medicine [address] [address] Ashish Woodruff MD NO ADDRESS ON FILE Excessive menstruation (Primary Dx); Depressive disorder, not elsewhere classified Social History Tobacco Use Types Packs/Day Years Used Date Smoking Tobacco: Never Assessed Comments Unknown Sex and Gender Information Value Date Recorded Sex Assigned at Not on file Legal Sex Female 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
--- OUTSIDE RECORDS SUMMARY | 2025-05-04 08:03 | XMS_ITS | Encounter Summary ---
Author Organization [facility] Address [address] Gupta: Epic [place] [address] Care Team Providers Care Odd Jobs Day Worker Name Role Phone Kathy Tolliver MD Primary Care Provider +1- [phone] Encounter Details Date Type Department Care Team (Late st Contact Info) Description 11/16/2000 Outpatient Historical Wally Valerio, DO [address] [place] [address] Social History Tobacco Use Types Packs/Day Years Used Date Smoking Tobacco: Never Assessed Comments Unknown Sex and Gender Information Value Date Recorded Sex Assigned at Not on file Legal Sex Female 2:46 AM SINGLE RESOURCE BOSS Gender Identity Not on file Sexual Orientation Not on file documented as of this encounter Plan of Treatment Not on file documented as of this encounter Visit Diagnoses Not on filedocumented in this encounter Care Teams Odd Jobs Day Worker Relationship Specialty Start Date End Date Kathy Tolliver MD [address] [place] [address] PCP - General Internal Medicine 07/06/20 documented as of this encounter
--- OUTSIDE RECORDS SUMMARY | 2025-05-04 08:03 | XMS_ITS | Encounter Summary ---
Author Organization [facility] Address [address] [place] [address] Care Team Providers Care Manager Special Events Name Role Phone Kathy Tolliver MD Primary Care Provider +1- [phone] Encounter Details Date Type Department Care Team (Late st Contact Info) Description 09/14/1999 Outpatient Historical [facility] Social History Tobacco Use Types Packs/Day Years Used Date Smoking Tobacco: Never Assessed Comments Unknown Sex and Gender Information Value Date Recorded Sex Assigned at Not on file Legal Sex Female 2:46 AM CAUSTIC CRESYLATE SHIFT SUPERINTENDENT Gender Identity Not on file Sexual Orientation Not on file documented as of this encounter Plan of Treatment Not on file documented as of this encounter Visit Diagnoses Not on filedocumented in this encounter Care Teams Manager Special Events Relationship Specialty Start Date End Date Kathy Tolliver MD [address] [place] [address] PCP - General Internal Medicine 07/06/20 documented as of this encounter
--- OUTSIDE RECORDS SUMMARY | 2025-05-04 08:03 | XMS_ITS | Encounter Summary ---
Author Organization [facility] Address [address] 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
--- OUTSIDE RECORDS SUMMARY | 2025-05-04 08:03 | XMS_ITS | Encounter Summary ---
Author Organization [facility] Address [address] [place] [address] Care Team Providers Care Airport Operations Duty Manager Name Role Phone Kathy Tolliver MD Primary Care Provider +1- [phone] Encounter Details Date Type Department Care Team (Latest Contact Info) Description 12/16/2000 Outpatient Historical [facility] Medicine [address] [address] Ashish Woodruff MD NO ADDRESS ON FILE Primary localized osteoarthrosis, other specified sites (Primary Dx); Excessive menstruation Social History Tobacco Use Types Packs/Day Years Used Date Smoking Tobacco: Never Assessed Comments Unknown Sex and Gender Information Value Date Recorded Sex Assigned at Not on file Legal Sex Female 2:46 AM 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
--- OUTSIDE RECORDS SUMMARY | 2025-05-04 08:03 | XMS_ITS | Encounter Summary ---
Author Organization [facility] Address [address] [place] [address] Care Team Providers Care Paster Operator Name Role Phone Kathy Tolliver MD Primary Care Provider +1- [phone] Encounter Details Date Type Department Care Team (Late st Contact Info) Description 09/12/1999 Outpatient Historical [facility] Social History Tobacco Use Types Packs/Day Years Used Date Smoking Tobacco: Never Assessed Comments Unknown Sex and Gender Information Value Date Recorded Sex Assigned at Not on file Legal Sex Female 2:46 AM NURSING ASSOC Gender Identity Not on file Sexual Orientation Not on file documented as of this encounter Plan of Treatment Not on file documented as of this encounter Visit Diagnoses Not on filedocumented in this encounter Care Teams Paster Operator Relationship Specialty Start Date End Date Kathy Tolliver MD [address] [place] [address] PCP - General Internal Medicine 07/06/20 documented as of this encounter
--- OUTSIDE RECORDS SUMMARY | 2025-05-04 08:03 | XMS_ITS | Encounter Summary ---
Author Organization [facility] Address [address] [place] [address] Care Team Providers Care Certifier Name Role Phone Kathy Tolliver MD Primary Care Provider +1- [phone] Encounter Details Date Type Department Care Team (Latest Contact Info) Description 12/26/2001 Outpatient [facility] [address] [address] Maegan Huertas MD NO ADDRESS ON FILE SCREENING MAMM-MAILG NEOPL-OTHER (Primary Dx) Social History Tobacco Use Types Packs/Day Years Used Date Smoking Tobacco: Never Assessed Comments Unknown Sex and Gender Information Value Date Recorded Sex Assigned at Not on file Legal Sex Female 2:46 AM ORGANIZATIONAL DEVELOPMENT 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
--- OUTSIDE RECORDS SUMMARY | 2025-05-04 08:03 | XMS_ITS | Encounter Summary ---
Author Organization [facility] Address [address] 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
--- OUTSIDE RECORDS SUMMARY | 2025-05-04 08:03 | XMS_ITS | Encounter Summary ---
Author Organization [facility] Address [address] [place] [address] Care Team Providers Care Recording Artist Name Role Phone Kathy Tolliver MD Primary Care Provider +1- [phone] Encounter Details Date Type Department Care Team (Latest Contact Info) Description 08/01/1998 Outpatient Historical [facility] Orion Francis MD [address] [place] [address] Trigger finger (Primary Dx) Social History Tobacco Use Types Packs/Day Years Used Date Smoking Tobacco: Never Assessed Comments Unknown Sex and Gender Information Value Date Recorded Sex Assigned at Not on file Legal Sex Female 2:46 AM 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
--- OUTSIDE RECORDS SUMMARY | 2025-05-04 08:04 | XMS_ITS | Encounter Summary ---
Author Organization [facility] Address [address] [place] [address] Care Team Providers Care Sales Executive Name Role Phone Kathy Tolliver MD Primary Care Provider +1- [phone] Encounter Details Date Type Department Care Team (Latest Contact Info) Description 06/11/2001 Outpatient Historical [address] [address] Ashish Woodruff MD NO ADDRESS ON FILE Acute upper respiratory infections of unspecified site (Primary Dx); Abdominal pain, left lower quadrant; Acute sinusitis, unspecified Social History Tobacco Use Types Packs/Day Years Used Date Smoking Tobacco: Never Assessed Comments Unknown Sex and Gender Information Value Date Recorded Sex Assigned at Not on file Legal Sex Female 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
--- OUTSIDE RECORDS SUMMARY | 2025-05-04 08:04 | XMS_ITS | Clinical Summary ---
Author Organization [facility] Address [address] [place] [address] Phone Care Team Providers Care Aerial Planting And Cultivation Manager Name Role Phone Kathy Tolliver MD Primary Care Provider +1- [phone] Allergies Active Allergy Reactions Criticality Noted Date Comments Morphine Unknown 07/10/2017 Promethazine Hives High 05/28/2010 Medications LEVOTHYROXINE PO Take 125 mg by mouth daily . Active HYDROcodone-candido taminophen (NORCO) 10-325 mg Tablet Take 1 Tablet by mouth every 6 hours as needed for Pain, Moderate. Active apixaban (ELIQUIS) 5 mg tablet Take 5 mg by mouth 2 times daily. Active pantoprazole (PROTONIX) 40 mg Tablet, Delayed Release (E.C.) Take 1 Tablet (40 mg) by mouth daily. 90 Tablet 3 01/15/2017 Active potassium chloride (K-DUR) 20 mEq Extended Release tablet Take 20 mEq by mouth daily. Active gabapentin (NEURONTIN) 100 mg capsule Take 100 mg by mouth daily at bedtime. Active aspirin (ECOTRIN EC) 81 mg Tablet, Delayed Release (E.C.) Take 1 Tablet (81 mg) by mouth daily. 30 Tablet 10/06/2017 Active calcipotriene (DOVONEX) 0.005 % Cream 02/02/2020 Active famotidine (PEPCID) 40 mg tablet 01/18/2020 Active fluticasone propion-salmete roL (ADVAIR DISKUS,WIXELA INHUB) 250-50 mcg/dose disk inhaler 02/22/2020 Active ondansetron (ZOFRAN ODT) 4 mg Tablet, Rapid Dissolve 02/22/2020 Acti ve polyethylene glycol 3350 (MIRALAX) 17 gram/dose Powder 02/22/2020 Active tiZANidine (ZANAFLEX) 4 mg Tablet 02/22/2020 Active mirtazapine (REMERON) 30 mg tablet Take 30 mg by mouth daily at bedtime. 11/08/2020 Active amitriptyline (ELAVIL) 50 mg tablet Take 50 mg by mouth daily at bedtime. 01/10/2021 Active atorvastatin (Lipitor) 80 mg tablet Take 1 Tablet (80 mg) by mouth daily. 90 Tablet 3 02/08/2021 Active diazePAM (Valium) 5 mg tabletIndicatio ns:H/O TIA (transient ischemic attack) and stroke Take one tab orally 30 minutes prior to MRI scan. 1 Tablet 02/22/2021 Active Active Problems Problem Noted Date Diagnosed Date Idiopathic chronic pancreatitis 10/05/2017 Falls frequently 10/03/2017 Paresis of lower extremity 10/03/2017 Hypoalbuminemia due to protein-calorie malnutrit ion 10/03/2017 Dehydration, severe 07/12/2017 Idiopathic acute pancreatitis with infected necr osis 01/11/2017 Hypomagnesemia 01/11/2017 Idiopathic chronic pancreatitis 01/10/2017 Mass of head of pancreas 01/10/2017 Protein-calorie malnutrition, severe 01/10/2017 History of CVA (cerebrovascular accident) 2016 Hypothyroidism 01/10/2017 Hypokalemia due to inadequate potassium intake 0 01/05/2017 Acute on chronic pancreatitis 01/04/2017 Nausea and vomiting 01/04/2017 Epigastric pain 01/04/2017 Community acquired pneumonia 07/02/2010 Hypovolemic shock Hypotension due to drugs Opioid dependence with opioid-induced disorder Cerebrovascular accident (CVA) Immunizations Immunization Administration Dates Next Due (ADACEL/BOOSTRIX)(10 YR UP) TDAP VACCINE, 0.5ML, IM 07/29/2010 (PNEUMOVAX 23)(50 YRS UP) PN EUMOCOCCAL POLYSACCHARIDE (PPV23) 0.5 ML, IM 07/04/2010 INFLUENZA VACCINE QUADRIVALENT 3 YR UP PF IM 01/2017 Social History Tobacco Use Types Packs/Day Years Used Date Smoking Tobacco: Former Cigarettes Q uit: 01/07/2020 Smokeless Tobacco: Never Tobacco Cessation:Counseling Given: Yes Alcohol Use Standard Drinks/Week Comments No 0 (1 standard drink = 0.6 oz pur e alcohol) Comments No Sex and Gender Information Value Date Recorded Sex Assigned at Not on file Legal Sex Female 2:46 AM 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 Gender Identity Not on file Sexual Orientation Not on file Last Filed Vital Signs Vital Sign Reading Time Taken Comments Blood Pressure 118/50 02/08/2021 2:50 PM CDT Pulse 55 02/08/2021 2:50 PM CDT Temperature 37.1 C (98.7 F) 2020 3:34 PM CDT Respiratory Rate 16 2020 3:56 PM CDT Oxygen Saturation 98% 02/08/2021 2:50 PM CDT Inhaled Oxygen Concentration - - Weight 68 kg (150 lb) 02/08/2021 2:50 PM CDT Height 157.5 cm (5' 2 ) 02/08/2021 2:50 PM CDT Body Mass Index 27.44 02/08/2021 2:50 PM CDT Plan of Treatment Health Maintenance Due Date Last Done Comments BREAST CANCER SCREENING 1998 FIT-DNA Q 3 years 2003 FIT/FOBT Q 1 year 2003 02/20/2001 Flex Sig/CT Colonography Q 5 years 2003 ZOSTER VACCINE (1 of 2) 2008 PNEUMOCOCCAL VACCINE 50+ YEA RS (2 of 2 - PCV) 07/04/2011 07/04/2010 COLORECTAL SCREENING 09/01/2011 09/01/2001 Colorectal Cancer Screening 09/01/2011 RSV VACCINE (60+ or ) (1 - Risk 60-74 years 1-dose series) 2018 OSTEOPOROSIS SCREENING 2023 INFLUENZA VACCINE (#1) 2025 , 08/20/2019, 10/06/2017, Additional history exists DTAP/TDAP/TD VACCINES (3 - T d or Tdap) 05/13/2030 05/13/2020, 07/29/2010 Insurance MEDICAID [facility] DUAL COMPLETE MCR HMO SNP Advance Directives For more information, please contact: [phone] Documents on File Type Date Recorded Patient Senior Data Quality Analyst Expl anation Advance Directive POA 01/08/2017 4:10 PM Ad jacobs Directive POA * Full Code (Latest Code Status on File) Date Activated Date Inactivated Comments 10/03/2017 11:47 PM 10/06/2017 3:46 PM * Full Code Date Activated Date Inactivated Comments 10/03/2017 11:47 PM 10/03/2017 11:47 PM * Full Code Date Activated Date Inactivated Comments 07/10/2017 6:26 PM 07/12/2017 6:17 PM * Full Code Date Activated Date Inactivated Comments 01/10/2017 2:57 PM 01/15/2017 5:41 PM * Full Code Date Activated Date Inactivated Comments 01/04/2017 9:11 PM 01/06/2017 5:51 PM Care Teams Aerial Planting And Cultivation Manager Relationship Specialty Start Date End Date Kathy Tolliver MD [address] [place] [address] PCP - General Internal Medicine 07/06/20
--- OUTSIDE RECORDS SUMMARY | 2025-05-04 08:04 | XMS_ITS | Encounter Summary ---
Author Organization [facility] Address [address] [place] [address] Care Team Providers Care Destination Sign Repairer Name Role Phone Kathy Tolliver MD Primary Care Provider +1- [phone] Encounter Details Date Type Department Care Team (Latest Contact Info) Description 06/10/2001 Outpatient Historical [facility] Medicine-[facility] [address] [place] [address] Krishna Toscano, NO ADDRESS ON FILE Acute upper respiratory infections of unspecified site (Primary Dx); Unspecified symptom associated with female genital organs Social History Tobacco Use Types Packs/Day Years Used Date Smoking Tobacco: Never Assessed Comments Unknown Sex and Gender Information Value Date Recorded Sex Assigned at Not on file Legal Sex Female 2:46 AM CROSS TIE MAKER Gender Identity Not on file Sexual Orientation Not on file documented as of this encounter Plan of Treatment Not on file documented as of this encounter Visit Diagnoses Diagnosis Acute upper respiratory infections of unspecified site- Primary Unspecified symptom associated with female genital organs documented in this encounter Care Teams Destination Sign Repairer Relationship Specialty Start Date End Date Kathy Tolliver MD [address] [place] [address] PCP - General Internal Medicine 07/06/20 documented as of this encounter
--- OUTSIDE RECORDS SUMMARY | 2025-05-04 08:04 | XMS_ITS | Encounter Summary ---
Author Organization [facility] Address [address] 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
--- OUTSIDE RECORDS SUMMARY | 2025-05-04 08:04 | XMS_ITS | Encounter Summary ---
Author Organization [facility] Address [address] [place] [address] Care Team Providers Care Tensioning Machine Operator Name Role Phone Kathy Tolliver MD Primary Care Provider +1- [phone] Encounter Details Date Type Department Care Team (Latest Contact Info) Description 09/23/2001 Outpatient Historical 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
--- OUTSIDE RECORDS SUMMARY | 2025-05-04 08:04 | XMS_ITS | Encounter Summary ---
Author Organization [facility] Address [address] 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
--- OUTSIDE RECORDS SUMMARY | 2025-05-04 08:04 | XMS_ITS | Encounter Summary ---
Author Organization [facility] Address [address] [place] [address] Care Team Providers Care Rheumatologist Name Role Phone Kathy Tolliver MD Primary Care Provider +1- [phone] Encounter Details Date Type Department Care Team (Latest Contact Info) Description 08/27/2001 Outpatient Historical [facility] Medicine [address] [address] Ashish Woodruff MD NO ADDRESS ON FILE Pain in joint, forearm (Primary Dx) Social History Tobacco Use Types Packs/Day Years Used Date Smoking Tobacco: Never Assessed Comments Unknown Sex and Gender Information Value Date Recorded Sex Assigned at Not on file 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
--- OUTSIDE RECORDS SUMMARY | 2025-05-04 08:04 | XMS_ITS | Encounter Summary ---
Author Organization [facility] Address [address] [place] [address] Care Team Providers Care Yardage Caller Name Role Phone Kathy Tolliver MD Primary Care Provider +1- [phone] Encounter Details Date Type Department Care Team (Latest Contact Info) Description 08/04/2001 Outpatient Historical [facility] Medicine [address] [address] Ashish Woodruff MD NO ADDRESS ON FILE Other tenosynovitis of hand and wrist (Primary Dx); Other synovitis and tenosynovitis Social History Tobacco Use Types Packs/Day Years Used Date Smoking Tobacco: Never Assessed Comments Unknown Sex and Gender Information Value Date Recorded Sex Assigned at Not on file 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
--- OUTSIDE RECORDS SUMMARY | 2025-05-04 08:04 | XMS_ITS | Encounter Summary ---
Author Organization [facility] Address [address] [place] [address] Care Team Providers Care Cytotechnologist/Histotechnologist Name Role Phone Kathy Tolliver MD Primary Care Provider +1- [phone] Encounter Details Date Type Department Care Team (Latest Contact Info) Description 06/19/2001 Outpatient Historical [facility] Medicine [address] [address] Ashish Woodruff MD NO ADDRESS ON FILE Abnormal weight gain (Primary Dx); Sprain of neck Social History Tobacco Use Types Packs/Day Years Used Date Smoking Tobacco: Never Assessed Comments Unknown Sex and Gender Information Value Date Recorded Sex Assigned at Not on file 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
--- OUTSIDE RECORDS SUMMARY | 2025-05-04 08:04 | XMS_ITS | Encounter Summary ---
Author Organization [facility] Address [address] [place] [address] Care Team Providers Care Cake Batter Mixer Name Role Phone Kathy Tolliver MD Primary Care Provider +1- [phone] Encounter Details Date Type Department Care Team (Latest Contact Info) Description 09/01/2001 Outpatient Historical [facility] Ruben Rivas MD [address] [facility] [address] [place] [address] FAMILY HX GI MALIGNANCY (Primary Dx) Social History Tobacco Use Types Packs/Day Years Used Date Smoking Tobacco: Never Assessed Comments Unknown Sex and Gender Information Value Date Recorded Sex Assigned at Not on file 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
--- OUTSIDE RECORDS SUMMARY | 2025-05-04 08:04 | XMS_ITS | Encounter Summary ---
Author Organization [facility] Address [address] [place] [address] Care Team Providers Care Water Purification Chemist Name Role Phone Kathy Tolliver MD Primary Care Provider +1- [phone] Encounter Details Date Type Department Care Team (Late st Contact Info) Description 08/05/2001 Outpatient Historical [facility] Imaging Services[facility] [address] [place] [id number] Social History Tobacco Use Types Packs/Day Years Used Date Smoking Tobacco: Never Assessed Comments Unknown Sex and Gender Information Value Date Recorded Sex Assigned at Not on file 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
--- OUTSIDE RECORDS SUMMARY | 2025-05-04 08:04 | XMS_ITS | Encounter Summary ---
Author Organization [facility] Address [address] [place] [address] Care Team Providers Care Gear Repair Supervisor Name Role Phone Kathy Tolliver MD Primary Care Provider +1- [phone] Encounter Details Date Type Department Care Team (Latest Contact Info) Description 07/25/[address] 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
--- OUTSIDE RECORDS SUMMARY | 2025-05-04 08:05 | XMS_ITS | Patient Health Record ---
Author Organization [facility] Address [address] [place] [address] Care Team Providers Care Hydrostatic Tubing Tester Name Role Phone Gisele SALAMANCA, Jun Primary Care Provider Unavailab kapadia NegritascottlaurenCarmenLiane Francis Unavailable [phone] Allergies Allergen (clinical drug ingredient) Drug/Non Drug Allergy documented on EMR Reaction Allergy Type Onset Date Status promethazine Phenergan Unknown Drug Allergy Acti ve morphine Morphine Unknown Drug Allergy Active Reason For Referral No Information Medications Medication SIG (Take, Route, Frequency, Duration) Notes Start Date End Date Status Eliquis bid Active Amitriptyline HCl Ac tive Atorvastatin Calcium Active Gabapentin 600 MG 1 tablet Orally twic e a day for 30 days 11/17/2024 Active Acetaminophen Active Potassium Active tiZANidine HCl 4 MG as directed Orally t hree times a day Active Gabapentin 300 MG 1 capsule Orally thr ee times a day twice a day Active Levothyroxine Sodium Active Problems Problem Type SNOMED Code ICD Code Onset Dates Problem Status W/U Status Risk Notes Problem Chronic pain syndrome (524042364) Chronic pain syndrome (G89.4) Active confirmed Problem 509646895 Other spondylosis, lumbosacral region (M47.897) Active confirmed Problem 30838824 Myalgia (M79.10) Active confirmed Problem 1929147 Lumbosacral radiculopathy (M54.17) Active confirmed Problem Lumbosacral spondylosis (870525280) Lumbosacral spondylosis (M47.817) Active confirmed Vital Signs Height-cm 157.48 cm 11/17/2024 Weight-kg 58.97 kg 11/17/2024 Height 62 in 11/17/2024 Weight 130 lbs 11/17/2024 BMI 23.77 kg/m2 11/17/2024 Encounters Encounter Location Date Provider Diagnosis [facility] [place] [address] [place] [phone] 11/17/2024 [facility] Chronic pain syndrome G89.4 ; Lumbosacral radiculopathy M54.17 ; Lumbosacral spondylosis M47.817 and Myalgia M79.10 Assessments Encounter Date Diagnosis (ICD Code) Assessment Notes Treatment Notes Treatment Clinical Notes Section Notes 11/17/2024 Chronic pain syndrome (ICD-10 - G89.4) 11/17/2024 Lumbosacral radiculopathy (ICD-10 - M54.17) 11/17/2024 Lumbosacral spondylosis (ICD-10 - M47.817) 11/17/2024 Myalgia (ICD-10 - M79.10) 11/17/2024 Other I mailed a release of information form to this patient and self addressed envelope for her to mail to the [facility] in [place] to get her MRI records. Plan Of Treatment No Information Insurance Providers Payer Name Payer Address Payer Phone Subscriber Number Group Number Insured Name Patient Relationship to Insured Coverage Start Date Coverage End Date [employer] Medicare Replacement [address] [address] [place] [address] [id number] Mandeep zJudy Self - patient is the insured [place] Medicaid [address] [place] [address] [id number] Mandeep zJudy Self - patient is the insured Medical (General) History Medical History History ICD Code pulmonary embolism (10 years ago) Hypothyroidism COPD IA stomach ulcers migraine headaches stroke Depression Surgical History Surgery Date(Month/Year) 4 back surgeries knee replacements bilateral Hospitalization History Reason Date(Month/Year) above
--- NOTE | 2025-05-04 08:11 | W.ED.DIZZY ---
HPI - Dizziness General: Chief Complaint: Dizziness Stated Complaint: dizzy/falls/dropping things Time Seen by Provider: 05/04/25 07:56 History of Present Illness: HPI Narrative: 65-year-old female with complaints of intermittent right-sided weakness dizziness falls feels like she drops things. She has had the symptoms for at least the last 3 days her last known well would be put at greater than 96-120 hours ago. She is on aspirin she is not on clopidogrel she is also on high-dose statin. Reports having had strokes previously. Associated symptoms: Denies chest pain or chills Related Data Home Medications ?Medication ?Instructions ?Recorded ?Confirmed gabapentin 600 mg tablet 600 mg PO BID 11/26/24 05/04/25 ropinirole 2 mg tablet 2 mg PO BEDTIME PRN restless legs 05/04/25 05/04/25 Previous Rx's ?Medication ?Instructions ?Recorded scopolamine base 1 mg over 3 days 1 patch transdermal Q3D PRN nausea 06/25/24 transdermal patch and vomiting #24 ea apixaban 5 mg tablet (Eliquis) 5 mg PO BID #180 tabs 10/14/24 aripiprazole 10 mg tablet (Abilify) 10 mg PO DAILY #90 tabs 10/14/24 atorvastatin 80 mg tablet 80 mg PO DAILY #90 tabs 10/14/24 bupropion HCl 300 mg 24 hr tablet, 300 mg PO QAM #90 tabs 10/14/24 extended release (Wellbutrin XL) fenofibrate nanocrystallized 48 mg 48 mg PO DAILY #90 tabs 10/14/24 tablet hydroxyzine HCl 25 mg tablet 25 mg PO TID PRN itching #180 tabs 10/14/24 levothyroxine 200 mcg tablet 200 mcg PO DAILY #90 tabs 10/14/24 pyxcqm-fnuqoplw-jilbtta 1 cap PO TID #90 caps 10/14/24 24,000-76,000-120,000 unit capsule,delayed rel (Creon) pantoprazole 40 mg tablet,delayed 40 mg PO DAILY #90 tabs 10/14/24 release (Protonix) potassium chloride 20 mEq 20 meq PO DAILY #90 tabs 10/14/24 tablet,extended release tizanidine 4 mg tablet 4 mg PO Q8H PRN muscle spasticity 10/14/24 #180 tabs ondansetron 4 mg disintegrating 4 mg PO Q6H PRN nausea and 10/19/24 tablet vomiting #14 tabs sumatriptan succinate 50 mg tablet See Rx Instructions PO .COMPLEX 02/01/25 #10 tabs ropinirole 0.5 mg tablet 0.5 mg PO .qnightly #30 tabs 04/08/25 clopidogrel 75 mg tablet 75 mg PO DAILY #30 tabs 05/04/25 meclizine 25 mg tablet 25 mg PO QID PRN dizziness #20 tabs 05/04/25 Allergies Allergy/AdvReac Type Severity Reaction Status Date / Time morphine Allergy ADR-Halluci Verified 11/23/24 15:19 nating promethazine (From Phenergan) Allergy ADR-Itching Verified 11/23/24 15:19 chantex Allergy ADR-Confusi Uncoded 11/23/24 15:19 on Review of Systems Const: Denies: fever(s) or chills Card: Denies: chest pain Resp: Denies: dyspnea GI: Denies: abdominal pain : Denies: dysuria, urinary frequency or urinary urgency Musc: Denies: neck pain or back pain Skin/Breast: Denies: rash PFSH ED PFSH: Medical History Hx of non-ST elevation myocardial infarction (NSTEMI) Restless leg syndrome Left breast mass Tobacco use disorder, moderate, dependence Pulmonary embolism COPD (chronic obstructive pulmonary disease) History of TIAs Hypokalemia Nausea Chronic pain Severe major depression Insomnia Chronic pancreatitis Hyperlipidemia Hypothyroidism Surgical History History of knee replacement History of back surgery Social History Smoking and tobacco/nicotine status: former use of tobacco/nicotine Alcohol intake: former Substance/Drug Use: former Physical Exam Const: COMMON NORMALS: no acute distress GENERAL APPEARANCE: cooperative and comfortable ORIENTATION/CONSCIOUSNESS: Yes awake, Yes oriented to person, Yes oriented to place and Yes oriented to time HENMT: COMMON NORMALS: normocephalic, atraumatic and hearing grossly normal bilaterally HEAD & SCALP: normocephalic and atraumatic Resp: COMMON NORMALS: normal respiratory effort, No retractions, No use of accessory muscles and clear to auscultation bilaterally AUSCULTATION: clear to auscultation bilaterally Cardio: COMMON NORMALS: regular rate, regular rhythm and No murmurs present (Cardio) RATE: regular rate RHYTHM: regular rhythm GI: COMMON NORMALS: Soft to palpation and No hepatosplenomegaly present AUSCULTATION: Yes normoactive bowel sounds PALPATION: Yes Soft to palpation, No Tenderness to palpation present (GI), No Guarding due to palpation present (GI) and Yes No hepatosplenomegaly present Extremity: COMMON NORMALS: normal to inspection, capillary refill normal, no clubbing, cyanosis or edema, no calf tenderness and no pedal edema Neuro: SENSORIUM/ORIENTATION: Yes oriented to person, Yes oriented to place and Yes oriented to time Skin: COMMON NORMALS: no rashes or lesions noted GENERAL SKIN EXAM: no rashes or lesions noted Course Vital Signs: Vital signs: Vital Signs Temperature 98.0 F 05/04/25 07:57 Pulse Rate 65 05/04/25 11:02 Respiratory Rate 18 05/04/25 07:57 Blood Pressure 145/97 05/04/25 11:02 Pulse Oximetry 99 05/04/25 11:02 Oxygen Delivery Me thod Room Air 05/04/25 07:57 MDM - Dizziness Medical Decision Making Patient ambulated without difficulty and think her dizziness is more peripheral. There is no signs that she has an acute neurologic event she may have had some TIA she is already on apixaban. Will add clopidogrel she is currently on atorvastatin. She is not on aspirin. Contact the patient that since she is on apixaban she should only take apixaban or clopidogrel should not be taking aspirin follow-up with her primary care doctor and neurology Lab Data 05/04/25 08:36 05/04/25 08:[address] 05/04/25 07:56 IMPRESSION: No acute intracranial abnormality. Laboratory Results WBC 9.28 10^3/uL (3.29-11.43) 05/04/25 08:36 RBC 3.78 10^6/uL (3.85-5.65) L 05/04/25 08:36 Hgb 12.10 g/dL (11.27-16.99) 05/04/25 08:36 Hct 36.6 % (36-47) 05/04/25 08:36 MCV 96.8 fl (85-98) 05/04/25 08:36 MCH 32.0 pg (27-33) 05/04/25 08:36 MCHC 33.1 g/dL (30-55) 05/04/25 08:36 RDW 14.0 % (12.1-15.1) 05/04/25 08:36 Plt Count 201 10^3/cmm (157-399) 05/04/25 08:36 MPV 12.4 fL (7.4-10.4) H 05/04/25 08:36 Neut % (Auto) 49.8 % 05/04/25 08:36 Lymph % (Auto) 38.8 % 05/04/25 08:36 [place] % (Auto) 7.8 % 05/04/25 08:36 Eos % (Auto) 2.2 % 05/04/25 08:36 Baso % (Auto) 1.0 % 05/04/25 08:36 Neut # (Auto) 4.63 10^3/uL (1.8-7.7) 05/04/25 08:36 Lymph # (Auto) 3.6 10^3/uL (0.8-4.8) 05/04/25 08:36 [place] # (Auto) 0.7 10^3/uL (0.2-0.9) 05/04/25 08:36 Eos # (Auto) 0.2 10^3/uL (0.0-0.8) 05/04/25 08:36 Baso # (Auto) 0.1 10^3/uL (0.0-0.1) 05/04/25 08:36 Nucleated RBC % (auto) 0 % 05/04/25 08:36 Nucleated RBCs # 0.0 /100WBC 05/04/25 08:36 Sodium 138 mmol/L (136-145) 05/04/25 08:36 Potassium 3.6 mmol/L (3.5-5.1) 05/04/25 08:36 Chloride 103 mmol/L (98-107) 05/04/25 08:36 Carbon Dioxide 22 mmol/L (22-29) 05/04/25 08:36 Anion Gap 16.6 (5-19) 05/04/25 08:36 BUN 19 mg/dL (8-23) 05/04/25 08:36 Creatinine 1.0 mg/dL (0.5-0.9) H 05/04/25 08:36 GFR Calculation 55.3 mL/min (90-130) L 05/04/25 08:36 Glucose 96 mg/dL (65-115) 05/04/25 08:36 Calculated Osmolality 288 mOsm/kg (285-295) 05/04/25 08:36 Calcium 9.1 mg/dL (8.5-10.5) 05/04/25 08:36 Total Bilirubin 0.4 mg/dL (0.15-1.2) 05/04/25 08:36 AST 21 U/L (0-32) 05/04/25 08:36 ALT 11 U/L (0-33) 05/04/25 08:36 Alkaline Phosphatase 144 U/L (35-105) H 05/04/25 08:36 Total Protein 7.0 g/dL (6.6-8.7) 05/04/25 08:36 Albumin 3.7 g/dL (3.5-5.2) 05/04/25 08:36 Globulin 3.3 g/dL (1.3-4.6) 05/04/25 08:36 All radiology interpretation(s) finalized by discharge Discharge Plan Discharge Patient Disposition: Home Clinical Impression: Dizziness, History of TIA (transient ischemic attack) Condition: Stable Prescriptions: New clopidogrel 75 mg tablet 75 mg PO DAILY Qty: 30 0RF meclizine 25 mg tablet 25 mg PO QID PRN (Reason: dizziness) Qty: 20 0RF No Action Creon 24,000-76,000 -120,000 unit capsule,delayed release(DR/EC) 1 cap PO TID Qty: 90 6RF Rx Instructions: administer with meals and/or snacks potassium chloride 20 mEq tablet extended release 20 meq PO DAILY Qty: 90 3RF levothyroxine 200 mcg tablet 200 mcg PO DAILY Qty: 90 3RF Eliquis 5 mg tablet 5 mg PO BID Qty: 180 3RF aripiprazole [Abilify] 10 mg tablet 10 mg PO DAILY Qty: 90 3RF atorvastatin 80 mg tablet 80 mg PO DAILY Qty: 90 3RF bupropion HCl [Wellbutrin XL] 300 mg tablet extended release 24 hr 300 mg PO QAM Qty: 90 3RF fenofibrate nanocrystallized 48 mg tablet 48 mg PO DAILY Qty: 90 3RF hydroxyzine HCl 25 mg tablet 25 mg PO TID PRN (Reason: itching) Qty: 180 3RF Protonix 40 mg tablet,delayed release (DR/EC) 40 mg PO DAILY Qty: 90 3RF tizanidine 4 mg tablet 4 mg PO Q8H PRN (Reason: muscle spasticity) Qty: 180 3RF scopolamine base 1 mg over 3 days patch 3 day 1 patch transdermal Q3D PRN (Reason: nausea and vomiting) Qty: 24 0RF sumatriptan succinate 50 mg tablet See Rx Instructions PO .COMPLEX Qty: 10 4RF Rx Instructions: Take 1 tablet at onset of headache; if no relief may repeat 1 tablet after at least 2 hrs; max = 4 tabs/24 hrs. ropinirole 0.5 mg tablet 0.5 mg PO .qnightly Qty: 30 0RF gabapentin 600 mg tablet 600 mg PO BID ropinirole 2 mg tablet 2 mg PO BEDTIME PRN (Reason: restless legs) ondansetron 4 mg tablet,disintegrating 4 mg PO Q6H PRN (Reason: nausea and vomiting) Qty: 14 0RF Discharge Orders: Discharge ED (Routine); Ordered 05/04/25 Ordered By: Wilder Claudio Patient Instructions: Opioid Safety, Pain Management, Patient Portal & Daniel Instructions Activity Restrictions/Additional Instructions: Thank you for choosing [facility] for your healthcare needs today. It is very important that you follow up as instructed or that you return to the Emergency Department should you have concerns or if your condition changes or worsens in any way. You were seen in the emergency room with complaints of dizziness has been going on for [address] of your head is negative neurologic exam was also negative. Some of the symptoms may be TIA. Recommend you add clopidogrel to your aspirin and atorvastatin regimen. Also give him meclizine to use as needed for the dizziness. Case management will set you up for an outpatient MRI and follow-up with neurology Print Language: Nepali Coding Level of Care Code ED Senior Architect/Design Manager for Bunny Alfredo NIH stroke score NIHSS Level Of Consciousness - 1a: 0 Level Of Consciousness Questions - 1b: Both Correct Level Of Consciousness Commands - 1c: Both Correct Best Gaze - 2: Normal Visual Resendiz - 3: No Visual Loss Facial Palsy - 4: Normal Motor Arm Right - 5: No Drift Motor Arm Left - 5: No Drift Motor Leg Right - 6: No Drift Motor Leg Left - 6: No Drift Limb Ataxia - 7: Absent Sensory - 8: Normal Best Language - 9: No Aphasia Dysarthia - 10: Normal Extinction And Inattention - 11: 0 Score Total Score: 0
[2025-05-04 08:42] LABS: Hematocrit 36.6 % (36-47); Hemoglobin 12.10 g/dL (11.27-16.99); Mean Corpuscular HGB Conc 33.1 g/dL (30-55); Mean Corpuscular Hemoglobin 32.0 pg (27-33); Mean Corpuscular Volume 96.8 fl (85-98); Nucleated Red Blood Cells % 0 %; Platelet Count 201 10^3/cmm (157-399); Red Blood Count 3.78 10^6/uL (3.85-5.65); White Blood Count 9.28 10^3/uL (3.29-11.43)
[2025-05-04 09:02] LABS: Alanine Aminotransferase 11 U/L (0-33); Albumin Level 3.7 g/dL (3.5-5.2); Alkaline Phosphatase 144 U/L (35-105); Anion Gap 16.6 (5-19); Aspartate Amino Transferase 21 U/L (0-32); Blood Urea Nitrogen 19 mg/dL (8-23); Calcium 9.1 mg/dL (8.5-10.5); Carbon Dioxide 22 mmol/L (22-29); Chloride 103 mmol/L (98-107); Creatinine Clr Calc Pharmacy 48.5786; Globulin 3.3 g/dL (1.3-4.6); Glucose 96 mg/dL (65-115); Osmolality Calculated 288 mOsm/kg (285-295); Potassium 3.6 mmol/L (3.5-5.1); Sodium 138 mmol/L (136-145); Total Protein 7.0 g/dL (6.6-8.7)
--- NOTE | 2025-05-04 09:56 | PC.PHAR ---
Pt has several medications she should be out of but states she still takes them. Creon, Eliquis 5mg, Fenofibrate 48mg, Gabapentin 600mg, Levothyroxine 200mcg, Potassium chl 20meq, and Protonix 40mg.
[2025-05-04 10:59] VITALS: BP 145/97; PULSE 64; O2SAT 99
[2025-05-04 11:02] VITALS: BP 145/97; PULSE 65; O2SAT 99
== END 2025-05-04 11:04 | disposition home or self-care (01) ==
PROVIDERS: Emergency Provider Family Medicine
DX: R42 Dizziness and giddiness (principal); Z86.73 Personal history of transient ischemic attack (TIA), and cerebral infarction without residual deficits; Z79.01 Long term (current) use of anticoagulants; Z87.891 Personal history of nicotine dependence; J44.9 Chronic obstructive pulmonary disease, unspecified; E78.5 Hyperlipidemia, unspecified
CPT/HCPCS: 36415; 70450; 80053; 85025; 93005; 99284

== ENCOUNTER 2025-05-04 20:01 | Emergency (ER) | payer OTHER, MEDICAID, SELFPAY ==
--- OUTSIDE RECORDS SUMMARY | 2024-04-13 06:46 | XMS_ITS | Continuity of Care Document ---
Author Organization [facility] Address [id number] [address] Phone Care Team Providers Care Acid Tender Name Role Phone Nurse Specialist, Team Unavailable Unavailab le Allergies, Adverse Reactions, Alerts Substance Reaction Status Criticality morphine aggressive behavior Active No Infor mation PROMETHAZINE HCL Active No Informat ion PROMETHAZINE HCL Uticaria Active No Informat ion Medications Medication Instructions Dosage Effective Dates (start - stop) Status Comments Neurontin 300 mg capsule TAKE 1 CAPSULE(300 MG) BY MOUTH TWICE DAILY - Active TIZANIDINE 4MG TAKE 1 TABLET BY MOUTH 3 TIMES A DAY NEEDED FOR MUSCLE SPASMS - Active ondansetron 4 mg disintegrating tablet take 1 tablet by oral route every [address] on top of the tongue where they will dissolve, then swallow. APPOINTMENT NEEDED FOR REFILLS - Active hydroxyzine HCl 25 mg tablet take 1 tablet by ORAL route 3 times every day as needed for nausea - Active new med; pharm note please call pt when ready FENOFIBRATE 48MG TAKE ONE TABLET BY MOUTH EVERY NIGHT AT BEDTIME - Active LEVOTHYROXIN 150MCG TAKE ONE TABLET BY MOUTH DAILY - Active doxycycline hyclate 100 mg tablet take 1 tablet by oral route 2 times every day 100 MG - Active BUPROPION 150MG SR TAKE ONE TABLET BY MOUTH TWICE DAILY FOR SMOKING CESSATION - Active *AMITRIPTYLIN 50MG TAKE ONE TABLET BY MOUTH EVERY NIGHT AT BEDTIME - Active ELIQUIS 5MG TAKE ONE TABLET BY MOUTH TWICE DAILY - Active atorvastatin 80 mg tablet take 1 tablet by oral route every day; note higher dose - Active pharm note please call pt ready potassium chloride 20 mEq/15 mL oral liquid take 15 milliliter by oral route every day diluted in one-half glass (120 ml) of cold water or juice; to replace tablet form d/t trouble swallowing larger pill - Active pharm note please call pt when ready and need appt in 2-4 wks *ARIPIPRAZOLE 10MG TAKE ONE TABLET BY MOUTH EVERY DAY NEEDED FOR MOOD STABILIZATION - Active MIRTAZAPINE 30MG TAKE ONE TABLET BY MOUTH BEFORE BEDTIME FOR 2 WEEKS THEN DECREASE TO 1/2 TABLET EVERY NIGHT AT BEDTIME - Active DME MISCELL rollator walker, use as needed for ambulatory assist and stability for post CVA/ and h/o R foot drop - Active gabapentin 100 mg capsule take 1 Capsule by oral route every bedtime 100 MG - Active Patient given 90 day supply with 3 refills FLUTICASONE SPR 50MCG USE 1 TO 2 SPRAYS IN EACH NOSTRIL ONCE DAILY NEEDED - Active famotidine 40 mg tablet TAKE 1 TABLET BY MOUTH EVERY DAY AT BEDTIME NEEDED - Active hydrocodone 10 mg-acetaminophen 325 mg tablet take 1 tablet by oral route every 4 - 6 hours as needed for pain 1 tablet - Active Miralax 17 gram/dose oral powder take (17G) by oral route every day mixed with 8 oz. water, juice, soda, coffee or tea - Active Vitamin D3 50 mcg (2,000 unit) capsule Take 1 capsule by mouth every day - Active Aspir-81 81 mg tablet,delayed release take 1 tablet by oral route every day for CVA - Active nitroglycerin 0.[address] 1 tablet by sublingual route at 1st sign of attack; may repeat every 5 minutes up to 3 tabs; if norelief seek medical help 0.4 MG - Active Lubriderm Sensitive Skin lotion apply topically to dry skin. for dry skin - Active Procedures Procedure Date SBIRT - AUDIT/DAST, 15-30 MIN 3 OFFICE/OUTPATIENT VISIT EST URINALYSIS AUTO W/O SCOPE SBIRT - AUDIT/DAST, 15-30 MIN 3 X-RAY EXAM CHEST 2 VIEWS OFFICE/OUTPATIENT VISIT EST SBIRT - AUDIT/DAST, 15-30 MIN 3 Total T3 ASSAY THYROID STIM HORMONE ASSAY OF FREE THYROXINE LIPID PANEL ROUTINE VENIPUNCTURE OFFICE/OUTPATIENT VISIT EST Nurse Steam Table AttendantGrocery Buyer Face To Fac e SBIRT - AUDIT/DAST, 15-30 MIN 3 OFFICE/OUTPATIENT VISIT, EST COMPLETE CBC W/AUTO DIFF WBC COMPREHEN METABOLIC PANEL GLYCOSYLATED HEMOGLOBIN TEST HG A1C LEVEL LT 7.0% LIPID PANEL ASSAY THYROID STIM HORMONE Total T3 ASSAY OF FREE THYROXINE ROUTINE VENIPUNCTURE X-ray Shoulder - Internal and External R otation, Min 2 Views OFFICE/OUTPATIENT VISIT EST X-ray Lumbar Spine, Routine - AP, Latera l, Spot, 3 Views URINALYSIS AUTO W/O SCOPE COMPLETE CBC W/AUTO DIFF WBC COMPREHEN METABOLIC PANEL LIPID PANEL Vitamin D 25-OH ASSAY THYROID STIM HORMONE ROUTINE VENIPUNCTURE OFFICE/OUTPATIENT VISIT EST OFFICE/OUTPATIENT VISIT EST Infectious Agent Antigen Immunoassay CELIA S CoV 2 Infectious Agent DNA Or RNA OFFICE/OUTPATIENT VISIT EST Infectious Agent Antigen Immunoassay CELIA S CoV 2 OFFICE/OUTPATIENT VISIT EST IMMUNIZATION ADMIN FLU VAC NO PRSV 4 ARANZA 6 Months+ 021 OFFICE/OUTPATIENT VISIT, EST OFFICE/OUTPATIENT VISIT EST OFFICE/OUTPATIENT VISIT EST LIPID PANEL COMPLETE CBC W/AUTO DIFF WBC ASSAY THYROID STIM HORMONE ASSAY OF FREE THYROXINE ROUTINE VENIPUNCTURE Finalize Template Workaround No Charge OFFICE/OUTPATIENT VISIT EST Finalize Template Workaround No Charge IMMUNIZATION ADMIN FLU VAC NO PRSV 4 ARANZA 6 Months+ 020 OFFICE/OUTPATIENT VISIT EST OFFICE/OUTPATIENT VISIT EST CA screen;pelvic/breast exam PREV VISIT, EST, AGE 40-64 THINPREP TIS PAP AND HPV mRNA E6/E7 REFL EX HPV 16,18/45 IMMUNIZATION ADMIN TDAP VACCINE >7 IM COMPLETE CBC W/AUTO DIFF WBC COMPREHEN METABOLIC PANEL LIPID PANEL ASSAY THYROID STIM HORMONE Vitamin D 25-OH ROUTINE VENIPUNCTURE MICROALBUMIN SEMIQUANT ASSAY OF URINE CREATININE OFFICE/OUTPATIENT VISIT EST OFFICE/OUTPATIENT VISIT EST Admin Medicare nfluenza virus vac FLU VAC NO PRSV 4 ARANZA 6 Months+ 019 OFFICE/OUTPATIENT VISIT, EST Finalize Template Workaround BEHAV CHNG SMOKING > 10 MIN OFFICE/OUTPATIENT VISIT EST LIPID PANEL ASSAY THYROID STIM HORMONE COMPREHEN METABOLIC PANEL ROUTINE VENIPUNCTURE METABOLIC PANEL TOTAL CA ASSAY THYROID STIM HORMONE LIPID PANEL ROUTINE VENIPUNCTURE OFFICE/OUTPATIENT VISIT, EST URINALYSIS AUTO W/SCOPE OFFICE/OUTPATIENT VISIT, EST Kidney, Bilateral Kidney, Bilateral Nurse Care Manger Education Face To Face OFFICE/OUTPATIENT VISIT, EST OFFICE/OUTPATIENT VISIT EST METABOLIC PANEL TOTAL CA ASSAY THYROID STIM HORMONE ROUTINE VENIPUNCTURE Admin Medicare nfluenza virus vac FLU VAC NO PRSV 4 ARANZA 3 YRS+ OFFICE/OUTPATIENT VISIT EST ASSAY THYROID STIM HORMONE ASSAY OF FREE THYROXINE METABOLIC PANEL TOTAL CA ROUTINE VENIPUNCTURE OFFICE/OUTPATIENT VISIT, EST COMPLETE CBC W/AUTO DIFF WBC COMPREHEN METABOLIC PANEL ASSAY THYROID STIM HORMONE ROUTINE VENIPUNCTURE URINALYSIS AUTO W/O SCOPE OFFICE/OUTPATIENT VISIT EST PSYTX PT&/FAMILY 30 MINUTES Vitamin D 25-OH ASSAY THYROID STIM HORMONE ROUTINE VENIPUNCTURE OFFICE/OUTPATIENT VISIT EST Community Health Worker Patient Telephon e Community Health Worker Patient Face To Face Community Health Worker Patient Telephon e Community Health Worker Patient Telephon e Community Health Worker Patient Face To Face Community Health Worker Patient Telephon e C-REACTIVE PROTEIN RBC SED RATE AUTOMATED HIV ANTIGEN W/HIV ANTIBODIES ACUTE HEPATITIS PANEL ASSAY THYROID STIM HORMONE Total T3 ASSAY OF FREE THYROXINE Vitamin D 25-OH ROUTINE VENIPUNCTURE COMPLETE CBC W/AUTO DIFF WBC COMPREHEN METABOLIC PANEL ASSAY THYROID STIM HORMONE OFFICE/OUTPATIENT VISIT EST OFFICE/OUTPATIENT VISIT EST Vitamin D 25-OH ASSAY THYROID STIM HORMONE ASSAY OF FREE THYROXINE Total T3 LIPID PANEL ROUTINE VENIPUNCTURE Nurse Care Manger Education Face To Face Community Health Worker Patient Telephon e Community Health Worker Patient Telephon e Nurse Care Manger Patient Education Phon e OFFICE/OUTPATIENT VISIT EST Nurse Care Manger Education Face To Face MED NUTRITION, INDIV, SUBSEQ OFFICE/OUTPATIENT VISIT EST Anaerobic And Aerobic Culture 7 MEDICAL NUTRITION, INDIV, IN NO CHARGE Nurse Care Manger Patient Education Phon e Nurse Care Manger Education Face To Face OFFICE/OUTPATIENT VISIT EST OFFICE/OUTPATIENT VISIT EST COMPREHEN METABOLIC PANEL ASSAY OF FREE THYROXINE Total T3 ASSAY THYROID STIM HORMONE B-TYPE NATRIURETIC PEPTIDE ROUTINE VENIPUNCTURE X-ray Chest- 2 views - PA/AP and Left La t[place] Community Health Worker Patient Telephon e URINALYSIS AUTO W/O SCOPE ELECTROCARDIOGRAM, TRACING X-ray Chest- 2 views - PA/AP and Left [place] t[place] OFFICE/OUTPATIENT VISIT EST COMPREHEN METABOLIC PANEL COMPLETE CBC W/AUTO DIFF WBC ROUTINE VENIPUNCTURE Community Health Worker Patient Telephon e OFFICE/OUTPATIENT VISIT, EST Community Health Worker Patient Face To Face COMPREHEN METABOLIC PANEL MAGNESIUM ROUTINE VENIPUNCTURE OFFICE/OUTPATIENT VISIT, EST X-RAY EXAM OF KNEES, 3 VIEWS Nurse Care Manger Patient Education Phon e X-RAY EXAM OF KNEES, 3 VIEWS NO CHARGE Nurse Care Manger Education Face To Face COMPREHEN METABOLIC PANEL ASSAY THYROID STIM HORMONE VITAMIN D, 25-HYRDOXY ROUTINE VENIPUNCTURE BL SMEAR W/DIFF WBC COUNT COMPLETE CBC AUTOMATED OFFICE/OUTPATIENT VISIT EST X-RAY EXAM OF NECK SPINE, 2-3 views OFFICE/OUTPATIENT VISIT, EST OFFICE/OUTPATIENT VISIT EST X-RAY EXAM OF NECK SPINE, 2-3 views Community Health Worker Patient Face To Face OFFICE/OUTPATIENT VISIT, EST OFFICE/OUTPATIENT VISIT, EST Nurse Care Manger Education Face To Face OFFICE/OUTPATIENT VISIT EST Nurse Care Manger Education Face To Face OFFICE/OUTPATIENT VISIT, EST OFFICE/OUTPATIENT VISIT, EST VITAMIN D, 25-HYRDOXY ASSAY OF FREE THYROXINE T3 TOTAL ASSAY THYROID STIM HORMONE ROUTINE VENIPUNCTURE OFFICE/OUTPATIENT VISIT, EST Nurse Care Manger Patient Education Phon e Nurse Care Manger Patient Education Phon e OFFICE/OUTPATIENT VISIT, EST Nurse Care Manger Education Face To Face BEHAV CHNG SMOKING > 10 MIN Nurse Care Manger Patient Education Phon e Nurse Care Manger Patient Education Phon e Nurse Care Manger Education Face To Face COMPREHEN METABOLIC PANEL LIPID PANEL GLYCOSYLATED HEMOGLOBIN TEST ASSAY THYROID STIM HORMONE ASSAY OF FREE THYROXINE ROUTINE VENIPUNCTURE T3 TOTAL VITAMIN D, 25-HYRDOXY OFFICE/OUTPATIENT VISIT EST OFFICE/OUTPATIENT VISIT EST Nurse Care Manger Education Face To Face ASSAY OF FREE THYROXINE T3 TOTAL ASSAY THYROID STIM HORMONE ROUTINE VENIPUNCTURE OFFICE/OUTPATIENT VISIT EST BEHAV CHNG SMOKING > 10 MIN OFFICE/OUTPATIENT VISIT EST Nurse Care Manger Patient Education Phon e OFFICE/OUTPATIENT VISIT EST Pap Test & HPV CPT 73713/93346 16 OFFICE/OUTPATIENT VISIT EST ASSAY THYROID STIM HORMONE T3 TOTAL ASSAY OF FREE THYROXINE ROUTINE VENIPUNCTURE (PP $3.50) 016 OFFICE/OUTPATIENT VISIT, EST OFFICE/OUTPATIENT VISIT EST ASSAY THYROID STIM HORMONE ASSAY OF FREE THYROXINE T3 TOTAL ROUTINE VENIPUNCTURE (PP $3.50) 016 OFFICE/OUTPATIENT VISIT EST COMPREHEN METABOLIC PANEL LIPID PANEL ASSAY THYROID STIM HORMONE ROUTINE VENIPUNCTURE (PP $3.50) 015 COMPLETE CBC W/AUTO DIFF WBC (PP $13.25) COMPREHEN METABOLIC PANEL (PP $18) ASSAY THYROID STIM HORMONE (PP $28.50) A VALPROIC ACID (DEPAKOTE), S ROUTINE VENIPUNCTURE (PP $3.50) 015 OFFICE/OUTPATIENT VISIT EST URINALYSIS AUTO W/SCOPE Nurse Care Manger Education Face To Face COMPREHEN METABOLIC PANEL (PP $18) ASSAY THYROID STIM HORMONE (PP $28.50) M ASSAY, DIPROPYLACETIC ACID (PP $23) ROUTINE VENIPUNCTURE (PP $3.50) 015 COMPLETE CBC W/AUTO DIFF WBC (PP $13.25) BL SMEAR W/DIFF WBC COUNT URINALYSIS AUTO W/O SCOPE (PP $3.50) March OFFICE/OUTPATIENT VISIT EST X-ray Chest- 2 views - PA/AP and Left La teral X-ray Chest- 2 views - PA/AP and Left [place] ELECTROCARDIOGRAM, TRACING EKG for initial prevent exam OFFICE/OUTPATIENT VISIT EST LIPID PANEL (PP $22.75) COMPREHEN METABOLIC PANEL (PP $18) ASSAY, DIPROPYLACETIC ACID (PP $23) ROUTINE VENIPUNCTURE (PP $3.50) 015 URINALYSIS AUTO W/O SCOPE (PP $3.50) Feb OFFICE/OUTPATIENT VISIT EST COMPLETE CBC W/AUTO DIFF WBC (PP $13.25) COMPREHEN METABOLIC PANEL (PP $18) ASSAY THYROID STIM HORMONE (PP $28.50) A ROUTINE VENIPUNCTURE (PP $3.50) 015 X-ray Abdominal Series - Upright and Fla t, Minimum 2 views ASSAY THYROID STIM HORMONE (PP $28.50) J ASSAY OF FREE THYROXINE (PP $15.25) COMPREHEN METABOLIC PANEL (PP $18) ROUTINE VENIPUNCTURE (PP $3.50) 015 X-ray Abdominal Series - Upright and Fla t, Minimum 2 views OFFICE/OUTPATIENT VISIT EST OFFICE/OUTPATIENT VISIT, EST LIPID PANEL (PP $22.75) ASSAY OF FREE THYROXINE (PP $15.25) ASSAY THYROID STIM HORMONE (PP $28.50) ROUTINE VENIPUNCTURE (PP $3.50) 014 OFFICE/OUTPATIENT VISIT, EST ASSAY THYROID STIM HORMONE (PP $28.50) O COMPREHEN METABOLIC PANEL (PP $18) ASSAY OF FREE THYROXINE (PP $15.25) ROUTINE VENIPUNCTURE (PP $3.50) 013 Nurse Care Manger Patient Education Phon e OFFICE/OUTPATIENT VISIT, EST LIPID PANEL (PP $22.75) ASSAY THYROID STIM HORMONE (PP $28.50) M ASSAY OF FREE THYROXINE (PP $15.25) ROUTINE VENIPUNCTURE (PP $3.50) 013 OFFICE/OUTPATIENT VISIT, EST ASSAY OF FREE THYROXINE ASSAY THYROID STIM HORMONE URINALYSIS AUTO W/O SCOPE ROUTINE VENIPUNCTURE OFFICE/OUTPATIENT VISIT, EST COMPREHEN METABOLIC PANEL (PP $15) LIPID PANEL (PP $20) COMPLETE CBC W/AUTO DIFF WBC (PP $10) ASSAY OF FREE THYROXINE (PP $15) 2011 ASSAY THYROID STIM HORMONE (PP $15) ROUTINE VENIPUNCTURE OFFICE/OUTPATIENT VISIT, EST ASSAY, DIPROPYLACETIC ACID (PP $20) OFFICE/OUTPATIENT VISIT, EST ASSAY OF FREE THYROXINE (PP $15) 2011 COMPREHEN METABOLIC PANEL (PP $15) ROUTINE VENIPUNCTURE ASSAY THYROID STIM HORMONE (PP $15) COMPLETE CBC W/AUTO DIFF WBC (PP $10) Vt LIPID PANEL (PP $20) OFFICE/OUTPATIENT VISIT, EST OFFICE/OUTPATIENT VISIT, EST OFFICE/OUTPATIENT VISIT, EST OFFICE/OUTPATIENT VISIT, EST ASSAY, DIPROPYLACETIC ACID (PP $20) BMP Panel (PP $10) OFFICE/OUTPATIENT VISIT, EST OFFICE/OUTPATIENT VISIT, EST OFFICE/OUTPATIENT VISIT, EST OFFICE/OUTPATIENT VISIT, EST ASSAY THYROID STIM HORMONE (PP $15) ASSAY OF FREE THYROXINE (PP $15) 2010 OFFICE/OUTPATIENT VISIT, EST OFFICE/OUTPATIENT VISIT, EST X-ray Lumbar Spine, Routine - AP, Latera l, Spot, 3 Views OFFICE/OUTPATIENT VISIT, EST OFFICE/OUTPATIENT VISIT, EST OFFICE/OUTPATIENT VISIT, EST FLU VACCINE, 3 YRS & >, IM OFFICE/OUTPATIENT VISIT, EST GLYCOSYLATED HEMOGLOBIN TEST OFFICE/OUTPATIENT VISIT, EST OFFICE/OUTPATIENT VISIT, EST OFFICE/OUTPATIENT VISIT, EST OFFICE/OUTPATIENT VISIT, EST COMPREHEN METABOLIC PANEL $15 (260810) M TSH+Free T4 $20 (805045) Office/Outpatient Visit, Est X-RAY SPINE - LUMBAR-2 OR 3 VIEWS [facility] Outpatient Expanded H&P - Low Comp lexity Decisions INJ KETOROLAC TROMETHAMINE 30 MG 2009 TSH+Free T4 $20 (104842) Office/Outpatient Visit, Est Office/Outpatient Visit, Est TSH+Free T4 $20 (211190) Office/Outpatient Visit, Est PROTIME $5 in-house Office/Outpatient Visit, Est COMPLETE CBC W/AUTO DIFF WBC $10 (905318 ) TSH+Free T4 $20 (599492) LIPID PANEL $20 (919716) Hemoglobin Glycosated (A1C) $15 (in-hous e) URINALYSIS MACROSCOPIC $5 (in-house) Jan COMPREHEN METABOLIC PANEL $15 (429540) M Office/Outpatient Visit, Est COMPLETE CBC W/AUTO DIFF WBC LIPID PANEL [facility] TSH FREE T4 Office/Outpatient Visit, New GLYCATED HEMOGLOBIN TEST URINALYSIS NONAUTO W/O SCOPE COMPREHEN METABOLIC PANEL Advance Directives Directive Yes / No Effective Date File Name No Information Encounters Encounter Description Practice Location Reason(s) For Visit Diagnoses Date Provider Providers Copied on Encounter [facility], [id number]- [place], [address], [place] tel:[phone] Family Medicine F1 No Information 0 4 Nurse Specialist Team. [address], [place], [address], [place]. tel:[phone] [facility], [id number], [address], [place] tel:[phone] Family Medicine F1 No Information 3 No Information [facility], [id number], [address], [place] tel:[phone] Family [facility] F1 No Information 3 Anders Handy. [address], [place], [address], [place]. tel:[phone] [facility], [id number] [place], [address], [place] tel:[phone] Family Medicine F1 No Information 3 Anders Handy. [address], [place], [address], [place]. tel:[phone] OFFICE/OUTPA TIENT VISIT EST [facility], [id number] [place], [address], [place] tel:[phone] Family Medicine F1 Hospital f/u (chief complaint) Lower abdominal painLeft flank painEpigastr ic abdominal painMicrosco pic hematuriaHos pital discharge follow-upChr onic pancreatitis , unspecified pancreatitis type 3 Anders Handy. [address], [place], [address], [place]. tel:[phone] Referring Provider: Ole Stacy, [address] [place], [address] . tel:[phone] [facility], [id number] 0394677EC- [place], [address], [place] tel:[phone] [place] [address] No Information 3 Anders Handy. [address], [place], [address], [place]. tel:[phone] [facility], [id number] 2630535QB- [place], [address], [place] tel:[phone] [place] [address] No Information 3 Anders Handy. [address], [place], [address], [place]. tel:[phone] OFFICE/OUTPA TIENT VISIT EST [facility], [id number] [address]505[place], [address], [place] tel:[phone] [facility] Eval cough, headache (chief complaint) Acute coughRhinorr heaScattered rhonchi of right lung 3 Jovanny Gray. [address], [place], [address], [place]. tel:[phone] Referring Provider: Isaac Petty, [address] [place], [address] . tel:[phone] [facility], [id number] 3511385JN- [place], [address], [place] tel:[phone] Family Medicine F1 No Information 3 Anders Ole. [address], [place], [address], [place]. tel:[phone] OFFICE/OUTPA TIENT VISIT EST [facility], [id number] 8071330PA- [place], [address], [place] tel:[phone] Family Medicine F1 Pain follow up (chief complaint) Chronic left shoulder painEssentia l hypertension Hypothyroidi sm (acquired)Hu meral head fracture, left, sequelaLumba r spondylosisH yperlipidemi a, unspecified Jan- 3 Anders Ole. [address], [place], [address], [place]. tel:[phone] Referring Provider: Ole Stacy, [address] [place], [address] . tel:[phone] [facility], [id number] 8704693SP- [place], [address], [place] tel:[phone] Family Medicine F1 No Information 3 Anders Ole. [address], [place], [address], [place]. tel:[phone] [facility], [id number] 4863137RA- [place], [address], [place] tel:[phone] Family [facility] F1 Closed fracture of proximal end of left humerus, unspecified fracture morphology, sequelaChron ic left shoulder pain 3 Anders Handy. [address], [place], [address], [place]. tel:[phone] [facility], [id number] 1306165NT- [place], [address], [place] tel:[phone] [facility] No Information 3 Anders Handy. [address], [place], [address], [place]. tel:[phone] [facility], [id number] 6800004ED[place], [place], [address], [place] tel:[phone] [place] [address] No Information 3 Steam Table Attendant. [address], [place], [address], [place]. tel:[phone] Referring Provider: Technical Adjuster, [address] [place], [address] . tel:[phone] OFFICE/OUTPA TIENT VISIT, [facility], [id number] [place]0820[place], [address], [place] tel:[phone] Family Medicine Hospital f/u (chief complaint)gary k pain (chief complaint)thy roid f/u (chief complaint) Cigarette nicotine dependence without complication COPD with chronic bronchitisEs sential hypertension Hypothyroidi sm (acquired)In jury of left shoulder, subsequent encounterOth er chronic pancreatitis Chronic low back pain without sciatica, unspecified back pain lateralityOt her chronic painOther terminal system operator (current) drug therapyChron ic left shoulder pain 3 Anders Handy. [address], [place], [address], [place]. tel:[phone] Referring Provider: Ole Stacy, [address] [place], [address] . tel:[phone] [facility], [id number] 8927121RA- [place], [address], [place] tel:[phone] [place] [address] No Information 2 Anders Handy. [address], [place], [address], [place]. tel:[phone] OFFICE/OUTPA TIENT VISIT [facility], [id number] 5115080NN- [place], [address], [place] tel:[phone] Family [facility] Hospital follow up (chief complaint)Daniel quent falls (chief complaint) COPD with chronic bronchitisCi garette nicotine dependence without complication H/O: strokeHeart murmurLong term (current) use of anticoagulan tsUnsteady gait 2 Anders Handy. [address], [place], [address], [place]. tel:[phone] Referring Provider: Ole Stacy, [address] [place], [address] . tel:[phone] [facility], [id number] 3420[place], [address], [place] tel:[phone] [place] [address] No Information 2 Steam Table Attendant. [address], [place], [address], [place]. tel:[phone] OFFICE/OUTPA TIENT VISIT [facility], [id number] 2284867VJ[place], [place], [address], [place] tel:[phone] [place] [address] falls (chief complaint) Unsteady gaitLow back pain, unspecifiedI njury of left shoulder, subsequent encounterEss ential (primary) hypertension Vitamin D deficiency, unspecifiedH ypothyroidis m, unspecified 2 Anders Handy. [address], [place], [address], [place]. tel:[phone] Referring Provider: Ole Stacy, [address] [place], [address] . tel:[phone] OFFICE/OUTPA TIENT VISIT [facility], [id number] 1849206[place], [place], [address], [place] tel:[phone] [facility] Eval. PAULA, sore throat, fatigue, cough x 2-3 days (chief complaint) Fatigue, unspecified typeAcute coughAcute pharyngitis, unspecifiedO ther headache syndromeExpo sure to COVID-19 virus 2 Jovanny Gray. [address], [place], [address], [place]. tel:[phone] Referring Provider: Isaac Petty, [address] [place], [address] . tel:[phone] [facility], [id number] 7950877GKT[place], [place], [address], [place] tel:[phone] [facility] No Information 2 Arsalan Walters. [address] [place], [address], [place]. tel:[phone] OFFICE/OUTPA TIENT VISIT EST [facility], [id number] 6969[place]TTT[place], [place], [address], [place] tel:[phone] Family Medicine F1 Est Care (chief complaint) Chronic nauseaTIA (transient ischemic attack)Prima ry insomniaRepe ated fallsRight carotid artery occlusionPer samson hx of PEOther chronic pancreatitis Tobacco abuse 2 Anders Handy. [address], [place], [address], [place]. tel:[phone] Referring Provider: Ole Stacy, [address] [place], [address] . tel:[phone] [facility], [id number] 5100104JH- [place], [address], [place] tel:[phone] [facility] No Information 2 No Information [facility], [id number] 0991000YA- [place], [address], [place] tel:[phone] [facility] No Information 2 No Information [facility], [id number]- [facility], [place], [place], [address], [place] tel:[phone] Family Medicine F1 Contact w and exposure to oth viral communicable diseases 2 No Information OFFICE/OUTPA TIENT VISIT [facility], [id number] [place], [place], [address], [place] tel:[phone] [facility] Follow up (chief complaint) History of shinglesRigh t foot dropCough, persistentCO PD with chronic bronchitisCh soledad GERDEncsudheere r for immunization 1 No Information [facility], [id number] 8086521RJQu[facility], [place], [place], [address], [place] tel:[phone] [facility] No Information 1 No Information OFFICE/OUTPA TIENT VISIT, [facility], [id number] 5670812SRQuin[facility], [place], [place], [address], [place] tel:[phone] [facility] rash worse, burning, painful (chief complaint) Herpes zoster without complication 1 Carolann Quinteros. [address], [place], [address], [place]. tel:[phone] Referring Provider: Neli Vuong, [address] [place], [address] . tel:[phone] OFFICE/OUTPA TIENT VISIT [facility], [address] 9769[place]XY[place], [place], [address], [place] tel:[phone] [facility] rash (chief complaint) Dermatitis 1 Karishma Howell. [address] [place], [address], [place]. tel:[phone] Referring Provider: Lynda Schwarz, [address] [place], [address]. tel:[phone] OFFICE/OUTPA TIENT VISIT EST [facility], [address] [id number] 6689712CC- [place], [address], [place] tel:[phone] [place] [address] follow up (chief complaint) COPD with chronic bronchitisEs sential hypertension TIA (transient ischemic attack)Right carotid artery occlusionHyp othyroidism (acquired)Ch ronic nauseaMajor depress, part remisEncount er for screening mammogram for malignant neoplasm of breastScreen ing for colon cancerScreen ing for cervical cancer 1 No Information [facility], [address] Gbrsr643D1 0212540OVFortun[place], [place], [address], [place] tel:[phone] [facility] HTN Follow-up (chief complaint) Essential hypertension 1 Avelino Ulloa. [address] [place], [place], [address], [place]. tel:[phone] Referring Provider: Laila You, [address] [place], [address] . tel:[phone] OFFICE/OUTPA TIENT VISIT [facility], [address] Kewjz715R6 7145485TBFortuna, [place], [address], [place] tel:[phone] Family [place] [address] Hospital followup (chief complaint) Essential hypertension DizzinessLef t lower quadrant abdominal painTobacco abuseOther chronic pancreatitis Pharyngoesop hageal dysphagiaTIA (transient ischemic attack)Right carotid artery occlusion 1 No Information [facility], [address] Parbr615G8 9284327AIFortuna, [place], [address], [place] tel:[phone] Patient (chief complaint)HTN Initial (chief complaint) Essential hypertension 0 Avelino Ulloa. [address] [place], [place], [address], [place]. tel:[phone] Referring Provider: Laila You, [address] [place], [address] . tel:[phone] OFFICE/OUTPA TIENT VISIT EST [facility], [address] Nxdua969I8 5154399DOFortuna, [place], [address], [place] tel:[phone] Family Medicine F1 Followup (chief complaint)hyp ertension (chief complaint) Essential hypertension Migraine without aura and without status migrainosus, not intractableP ain in right axillaRight carotid bruit 0 No Information OFFICE/OUTPA TIENT VISIT EST [facility], [address] Jceal033L6 8030157PITaft, [place], [address], [place] tel:[phone] Family Medicine F1 C/O migraines ~2 months (chief complaint)Dis cuss brace for RT foot (chief complaint)CHr onic Pancreatitis Pain (chief complaint)'Va ginal Cramps' (chief complaint) Right foot dropElevated BP without diagnosis of hypertension Migraine without aura and without status migrainosus, not intractable 0 No Information PREV VISIT, EST, AGE 40-64 [facility], [address] Ublly621Y9 1037769ROTaft, [place], [address], [place] tel:[phone] Family Medicine F2 Well Woman Exam (chief complaint) Encounter for gynecologica l examination (general) (routine) without abnormal findingsEnco unter for screening mammogram for malignant neoplasm of breastScreen ing for cervical cancer 0 No Information OFFICE/OUTPA TIENT VISIT EST [facility], [address] Crkth279S2 4118486OSTaft, [place], [address], [place] tel:[phone] Family Medicine F2 Chronic Pancreatitis (chief complaint)Nithin costello (chief complaint) Encounter for immunization Other chronic pancreatitis Hypothyroidi sm (acquired)CO PD with chronic bronchitisPr imary insomniaVita min D deficiencySc reening for breast cancerScreen ing for cervical cancerScreen ing for colon cancer 0 No Information [facility], [address] Pbecx770M2 6781769MI- [place], [address], [place] tel:[phone] Family Medicine F1 No Information 0 [employer]. [address] [place], [place], [address], [place]. tel:[phone] OFFICE/OUTPA TIENT VISIT [facility], [address] Uucuk896L6 7388272XQTaft, [place], [address], [place] tel:[phone] [facility] follow up (chief complaint) [place] of footOther chronic pancreatitis Tobacco use 0 No Information OFFICE/OUTPA TIENT VISIT, [facility], [address] Qgtqt974I9 9611890FQTaft, [place], [address], [place] tel:[phone] Family Medicine F1 Follow Up of [facility] (chief complaint)smo trang cessation (chief complaint) Other chronic pancreatitis Encounter for immunization Tobacco abuseChronic obstructive pulmonary disease, unspecified 9 No Information BEHAV CHNG SMOKING > 10 MIN [facility], [address] Qxusl391O1 5752484OUTaft, [place], [address], [place] tel:[phone] [facility] Tobacco use disorder, moderate Sep-2 9 Kaylie Brambila. [address] [place] [address], [place], [address], [place]. tel:[phone] Referring Provider: Patty Lott, [address] [place], [address] . tel:[phone] OFFICE/OUTPA TIENT VISIT [facility], [address] Kriol541L6 8033787GLTaft, [place], [address], [place] tel:[phone] Family Medicine F1 blood work (chief complaint)med ication refills (chief complaint)smo trang cessation (chief complaint) Nausea with vomiting, unspecifiedH ypokalemiaHy pothyroidism Tobacco useHyperlipi demia, unspecified Sep-2 9 No Information OFFICE/OUTPA TIENT VISIT, [facility], [address] Tdolp696U4 0446411IC- [facility], [place], [place], [address], [place] tel:[phone] Family Medicine F1 3 mo f/u (chief complaint) Hypothyroidi smOther chronic pancreatitis HypokalemiaS creening mammogram, encounter for Aron 9 No Information OFFICE/OUTPA TIENT VISIT, [facility], [address] Nmxlt351E4 9100893TG- [place], [place], [address], [place] tel:[phone] Family Medicine F1 Follow Up of ER (chief complaint) Gross hematuriaIdi opathic chronic pancreatitis March- 9 No Information [facility], [address] Qqbdy362J7 9060190QSTaft, [place], [address], [place] tel:[phone] Family Medicine F1 Other chronic pancreatitis Apr-3 9 Roselia Coppola. [address] [place], [place], [address], [place]. tel:[phone] Referring Provider: Abdon Veloz, [address] [place], [address] . tel:[phone] [facility], [address] Dkfom565F4 6373504UC- [place], [place], [address], [place] tel:[phone] [facility] F1 Other chronic pancreatitis Feb-2 9 No Information [facility], [address] Ugxja820M9 0721297PNTaft, [place], [address], [place] tel:[phone] Family Medicine F1 Chronic obstructive pulmonary disease, unspecified Feb- 9 [employer]. [address] [place], [place], [address], [place]. tel:[phone] OFFICE/OUTPA TIENT VISIT, [facility], [address] Eqqzr447D4 0701780NX- [facility], [facility] [place], [address], [place] tel:[phone] Family [facility] Hospital f/u for Hematuria (chief complaint) Gross hematuriaOth er chronic pancreatitis 9 No Information OFFICE/OUTPA TIENT VISIT [facility], [address] Lfkse419S6 6668949MXGreenwood [facility], [facility] [place]ande[place], [address], [place] tel:[phone] Family Medicine Follow Up of Hypothyroidis m (chief complaint)Fol low Up of Hyperlipidemi a (chief complaint)Fol low Up of Hypokalemia (chief complaint)Ramirez creatitis (chief complaint) HypokalemiaH ypothyroidis mNausea with vomiting, unspecifiedI diopathic chronic pancreatitis 9 No Information OFFICE/OUTPA TIENT VISIT [facility], [address] Ujbqr405U7 6356606CB- [facility], [place], [place], [address], [place] tel:[phone] Family Medicine history of Pancreatitis (chief complaint)Hyp erlipidemia (chief complaint)Hyp othyroidism (chief complaint)Chon n Management (chief complaint) Hyperlipidem iaHypothyroi dismHypokale miaInsomniaE ncounter for immunization Tobacco use 8 No Information [facility], [address] Bvnnx609E3 5420900HKGreenwood County [facility], [facility] amandeep [place], [address], [place] tel:[phone] Family Medicine No Information 8 No Information OFFICE/OUTPA TIENT VISIT, [facility], [address] Lrvnq096G9 6806327MEK[facility] [place], [address], [place] tel:[phone] Family Medicine F1 Follow Up of anxiety (chief complaint)Fol low Up of depression (chief complaint) Anxiety disorder, unspecifiedM ajor depressive disorder, single episode, unspecified 8 No Information OFFICE/OUTPA TIENT VISIT EST [facility], [address] Ypuhb620V9 8545117WD- [facility], [place], [place], [address], [place] tel:[phone] Family Medicine F1 Hypothyroid (chief complaint)N/V (chief complaint)Ins omnia (chief complaint) Nausea with vomiting, unspecifiedH ypothyroidis m, unspecifiedI nsomnia, unspecified 8 No Information PSYTX PT&/FAMILY 30 MINUTES [facility], [address] Solbn522X8 8475796AZ- [facility], [place], [place], [address], [place] tel:[phone] [facility] Depressive disorder due to another medical condition, with major depressive-l neelima episode 8 No Information [facility], [address] Tajvr708Y7 8848699RIQuinlan [facility], [place], [place], [address], [place] tel:[phone] Family Medicine F1 Hypothyroidi sm, unspecifiedV itamin D deficiency, unspecified 8 No Information OFFICE/OUTPA TIENT VISIT EST [facility], [address] Oilje678U1 8944425KW- [facility], [place], [place], [address], [place] tel:[phone] Family Medicine F1 Hypothyroidis m (chief complaint)hyp erlipidemia (chief complaint)dep ression (chief complaint)Vit D Deficiency (chief complaint) Hypothyroidi sm, unspecifiedV itamin D deficiency, unspecifiedD ry skin dermatitis 8 No Information [facility], [address] Dgsqg073Q7 6982923LKQuinlan Eye [facility], [place], [place], [address], [place] tel:[phone] Family Medicine F1 No Information [facility]. [address] [place], [place], [address], [place]. tel:[phone] [facility], [address] Rywyz278Y4 5466483TT- [facility], [facility] [place], [address], [place] tel:[phone] Family Medicine F1 No Information [facility]. [address] [place], [place], [address], [place]. tel:[phone] [facility], [address] Oabja415X0 6600372MU- [place], [address], [place] tel:[phone] Family Medicine F1 No Information [facility]. [address] [place], [place], [address], [place]. tel:[phone] [facility], [address] Lbrhs817S3 5568283DO- [place], [place], [address], [place] tel:[phone] Family Medicine F1 No Information 8 Health [facility]. [address] [place] [address], [place], [address], [place]. tel:[phone] [facility], [address] Rauuf852K9 3609229CA- [place], [place], [address], [place] tel:[phone] Family Medicine F1 Abnormal weight lossHypothyr oidism, unspecifiedV itamin D deficiency, unspecified 8 Anders Handy. [address] [place] [address], [place], [address], [place]. tel:[phone] Referring Provider: Ole Stacy, [address] [place], [address] . tel:[phone] OFFICE/OUTPA TIENT VISIT EST [facility], [address] Rchly051Y8 9468669USFortuna, [place], [address], [place] tel:[phone] Family Medicine F1 Weight Loss (chief complaint) Vitamin D deficiency, unspecifiedN icotine dependence, unspecified, uncomplicate dHypothyroid ism, unspecifiedO ther chronic pancreatitis Abnormal weight loss 8 Anders Handy. [address], [place], [address], [place]. tel:[phone] Referring Provider: Ole Stacy, [address] [facility], [place], [address] . tel:[phone] OFFICE/OUTPA TIENT VISIT EST [facility], [address] Pgpuj259I6 7770695IS- [facility], [place], [place], [address], [place] tel:[phone] Family Medicine F1 [facility] f/u (chief complaint)R foot pain (chief complaint)dep ression (chief complaint) HeadacheVita min D deficiency, unspecifiedH ypothyroidis m, unspecifiedH yperlipidemi a, unspecifiedM ajor depressive disorder, single episode, unspecifiedD isorder of the skinInsomnia , unspecified 7 No Information [facility], [address] Rouds987Q0 8523824OT- [place], [address], [place] tel:[phone] Family Medicine F1 Hyperlipidem ia, unspecifiedH ypothyroidis m, unspecifiedV itamin D deficiency, unspecifiedH eadache 7 No Information [facility], [address] Twzff400V5 8842545YD- [facility], [place], [place], [address], [place] tel:[phone] Family Medicine F1 Major depressive disorder, single episode, unspecifiedN icotine dependence, unspecified, uncomplicate dChronic obstructive pulmonary disease, unspecified 7 [employer]. [address] [place] [address], [place], [address], [place]. tel:[phone] [facility], [address] Hwerl691W0 3300714AH- [place], [address], [place] tel:[phone] Family Medicine F1 No Information [facility]. [address] [place] [address], [place], [address], [place]. tel:[phone] [facility], [address] Nrnnc973D1 9314954YA- [facility], [place], [place], [address], [place] tel:[phone] Family Medicine F1 No Information 7 No Information [facility], [address] Xkhmz295P3 2065609DEGreenwood [facility], [place], [place], [address], [place] tel:[phone] Family Medicine F1 No Information [employer]. [address] [place] [address], [place], [address], [place]. tel:[phone] OFFICE/OUTPA TIENT VISIT [facility], [address] Eikvg290H3 5580833YQFortuna, [place], [address], [place] tel:[phone] Family Medicine F1 foot sore/swelling (chief complaint) Disorder of the skinAcute pancreatitis with infected necrosis, unspecified No Information [facility], [address] Wtlrm358X2 1569194WZFortuna, [place], [address], [place] tel:[phone] Family Medicine F1 Major depressive disorder, single episode, unspecifiedN icotine dependence, unspecified, uncomplicate dChronic obstructive pulmonary disease, unspecified [employer]. [address] [place] [address], [place], [address], [place]. tel:[phone] [facility], [address] Bejaw132I3 4273736EZTaft, [place], [address], [place] tel:[phone] Family Medicine F1 Abnormal weight lossOther chronic pancreatitis 7 Kisha Babcock. [address] [place], [place], [address], [place]. tel:[phone] Referring Provider: Yoko Beard, [address] [place], [address] . tel:[phone] OFFICE/OUTPA TIENT VISIT EST [facility], [address] Bujey073N4 0613118GX- [place], [address], [place] tel:[phone] Family Medicine F1 blister to right foot (chief complaint) Local infection of the skin and subcutaneous tissue, unspecified Hernan Bethea. [address], [place], [address], [place]. tel:[phone] Referring Provider: Lake Becerra, [address] [place], [address] . tel:[phone] [facility], [address] Tqcpk824H3 0524291MM- [place], [address], [place] tel:[phone] Family Medicine F1 Local infection of the skin and subcutaneous tissue, unsp Hernan Bethea. [address], [place], [address], [place]. tel:[phone] Referring Provider: Lake Becerra, [address] [place], [address] . tel:[phone] [facility], [address] Nigct110C1 7628081FO- [place], [address], [place] tel:[phone] Family Medicine F1 No Information Kisha Babcock. [address] [place], [place], [address], [place]. tel:[phone] Referring Provider: Yoko Beard, [address] [place], [address] . tel:[phone] [facility], [address] Emyet975J3 2243612ZB- [place], [address], [place] tel:[phone] Family Medicine F1 No Information 7 [employer]. [address], [place], [address], [place]. tel:[phone] [facility], [address] Dovbc305N9 9513028UJ- [facility], [place], [place], [address], [place] tel:[phone] Family Medicine F1 Hyperlipidem ia, unspecifiedN icotine dependence, unspecified, uncomplicate dChronic obstructive pulmonary disease, unspecifiedM ajor depressive disorder, single episode, unspecified 7 [employer]. [address], [place], [address], [place]. tel:[phone] OFFICE/OUTPA TIENT VISIT EST [facility], [address] Aduug257C0 1783039IXGreenwood County Hospital, [place], [place], [address], [place] tel:[phone] Family Medicine F1 rash on legs (chief complaint)f/u on pancreas (chief complaint)sharad lucinating (chief complaint) HypokalemiaH ypothyroidis m, unspecifiedC hronic pancreatitis Stenosis of cerebral arteryRepeat ed falls 7 No Information OFFICE/OUTPA TIENT VISIT EST [facility], [address] Sguse353Y1 9892304KN- [facility], [place], [place], [address], [place] tel:[phone] Family Medicine F1 F/U swollen feet (chief complaint)kathia ght loss (chief complaint)Ramirez creatitis (chief complaint)TSH (chief complaint) Hypothyroidi sm, unspecifiedH ypokalemiaEd jenn, unspecifiedO ther chronic pancreatitis Abnormal wt loss No Information [facility], [address] Vemnr748H2 [id number] County Hospital, [place], [place], [address], [place] tel:[phone] Family Medicine F1 Other chronic pancreatitis HypokalemiaE reshma, unspecifiedH ypothyroidis m, unspecified 7 No Information [facility], [address] Umiud402S5 0131691JXGreenwood County Hospital, [place], [place], [address], [place] tel:[phone] Family Medicine F1 Other chronic pancreatitis HypokalemiaE reshma, unspecifiedH ypothyroidis m, unspecified Sep-1 5 7 No Information [facility], [address] Ncsko458G2 4387067WH- [facility], [place], [place], [address], [place] tel:[phone] Family Medicine F1 Localized swelling, mass and lump, unspecified lower limb Sep-1 7 Roselia Coppola. [address], [place], [address], [place]. tel:[phone] [facility], [address] Xkter775X1 0818659SI- [place], [address], [place] tel:[phone] Family Medicine F1 No Information Sep-1 7 Health [facility]. [address], [place], [address], [place]. [phone] [facility], [address] Dycxx323D5 4156482KB- [place], [address], [place] tel:[phone] Family Medicine F1 Localized swelling, mass and lump, unspecified lower limb Sep-1 7 Hernan Bethea. [address], [place], [address], [place]. tel:[phone] Referring Provider: Lake Becerra, [address] [place], [address] . tel:[phone] [facility], [address] Supdw772F1 2986182YC- [place], [address], [place] tel:[phone] Family Medicine F1 Localized swelling, mass and lump, unspecified lower limb Sep-1 7 Hernan Bethea. [address], [place], [address], [place]. tel:[phone] Referring Provider: Lake Becerra, [address] [place], [address] . tel:[phone] OFFICE/OUTPA TIENT VISIT [facility], [address] Wgeqv626W4 9007273IQ- [place], [address], [place] tel:[phone] Family Medicine F1 bilateral foot swelling (chief complaint) Localized swelling of leg w/ lump 7 Hernan Bethea. [address], [place], [address], [place]. tel:[phone] Referring Provider: Lake Becerra, [address] [place], [address] . tel:[phone] [facility], [address] Tbmcf965J5 3498077NBTaft, [place], [address], [place] tel:[phone] Family Medicine F1 No Information [facility]. [address], [place], [address], [place]. tel:[phone] OFFICE/OUTPA TIENT VISIT, [facility], [address] Uygvw060H0 8060844DXFortuna, [place], [address], [place] tel:[phone] Family Medicine F1 Pancreatitis (chief complaint)TIA (chief complaint) Prsnl hx of TIA (TIA), and cereb infrc w/o resid deficits 7 Anders Handy. [address], [place], [address], [place]. tel:[phone] Referring Provider: Ole Stacy, [address] [place], [address] . tel:[phone] [facility], [address] Hvqak585Y6 1198566NUTaft, [place], [address], [place] tel:[phone] Family Medicine F1 No Information 7 [facility]. [address], [place], [address], [place]. tel:[phone] [facility], [address] Rpamf418V8 0256653ZT- [facility], [place], [place], [address], [place] tel:[phone] Family Medicine F1 Hypokalemia Aron-1 2- 7 No Information OFFICE/OUTPA TIENT VISIT, EST [facility], [address] Ykhss550L3 6208885SUGreenwood County Hospital, [place], [place], [address], [place] tel:[phone] Family Medicine F1 ER f/u (chief complaint) Hypokalemia Aron-1 2 7 No Information [facility], [address] Ijtvx530U0 0369244TBGreenwood County Hospital, [place], [place], [address], [place] tel:[phone] Family Medicine F1 Repeated falls Aron-0 7 Roselia Coppola. [address], [place], [address], [place]. tel:[phone] [facility], [address] Bnayo962O6 6819779SCQuinlan [facility], [place], [place], [address], [place] tel:[phone] Family Medicine F1 No Information Aron-0 7 [employer]. [address], [place], [address], [place]. tel:[phone] [facility], [address] Haefw018Y7 4488898VHGreenwood County Hospital, [place], [place], [address], [place] tel:[phone] Family Medicine F1 Repeated falls Aron-0 2 7 No Information [facility], [address] Zpceo284B5 5664046HOGreenwood County Hospital, [place], [place], [address], [place] tel:[phone] Family Medicine F1 No Information Aron-0 7 No Information [facility], [address] Fvxvk097P7 9048430GNQuinlan Eye [facility] & [facility], [place], [place], [address], [place] tel:[phone] Family Medicine F1 Nicotine dependence, unspecified, uncomplicate d 7 [employer]. [address], [place], [address], [place]. tel:[phone] [facility], [address] Gaqtz493F2 5547283BD- [place], [address], [place] tel:[phone] Family Medicine F1 Acute pancreatitis with infected necrosis, unspecifiedA bnormal weight loss March-3 0- 7 No Information OFFICE/OUTPA TIENT VISIT [facility], [address] Jdluz254V9 8246934DEFortuna, [place], [address], [place] tel:[phone] Family Medicine F1 Falling (chief complaint)Fol low Up of Pancreatitis (chief complaint)Col onoscopy (chief complaint) Abnormal wt lossPain in right kneeEncounte r for screening colonoscopy NOSRepeated falls 3 0 7 No Information [facility], [address] Pkcqs206Y9 9548776KN- [place], [address], [place] tel:[phone] Family Medicine F1 Cervicalgia March-0 3 7 Roselia Coppola. [address], [place], [address], [place]. tel:[phone] OFFICE/OUTPA TIENT VISIT, [facility], [address] Tptup190I6 9800400RHFortuna, [place], [address], [place] tel:[phone] Family Medicine F1 Neck pain (chief complaint)Blo od thinner (chief complaint)Ramirez creatitis (chief complaint) CervicalgiaP ersonal hx of PEAcute pancreatitis with infected necrosis, unspecified March-0 7 No Information OFFICE/OUTPA TIENT VISIT [facility], [address] Furox282W5 2848897VATaft, [place], [address], [place] tel:[phone] Family Medicine F1 f/u on pancreas (chief complaint)Nec k pain (chief complaint)Dep ression (chief complaint) CervicalgiaD epressionAcu te pancreatitis with infected necrosis, unspecified May-0 1-201 7 No Information [facility], [address] Lekvp812D1 8683082VVGreenwood County Hospital, [place], [place], [address], [place] tel:[phone] Family Medicine F1 No Information [facility]. [address], [place], [address], [place]. tel:[phone] OFFICE/OUTPA TIENT VISIT, [facility], [address] Xctos915U7 7577826ARQuinlan Eye [facility], [place], [place], [address], [place] tel:[phone] Family Medicine F1 Follow Up of [facility] Inpatient - Pancreatitis (chief complaint) Acute pancreatitis with infected necrosis, unspecified No Information OFFICE/OUTPA TIENT VISIT, [facility], [address] Iahum341V9 4890703PPGreenwood County Hospital, [place], [place], [address], [place] tel:[phone] Family Medicine F1 Hopital Follow-up (chief complaint) Idiopathic acute pancreatitis without necrosis or infection No Information [facility], [address] Jtzte664Q3 3451280BOTaft, [place], [address], [place] tel:[phone] Family Medicine F1 Nicotine dependence, unspecified, uncomplicate d [employer]. [address], [place], [address], [place]. tel:[phone] OFFICE/OUTPA TIENT VISIT [facility], [address] Wqyey518R7 2438515GHQuinlan Eye [facility], [place], [place], [address], [place] tel:[phone] Family Medicine F1 Follow Up of [facility] ER (chief complaint) Constipation , unspecifiedA cute pancreatitis with infected necrosis, unspecifiedP ersonal hx of PE No Information [facility], [address] Kppoo193A9 2248126HMQuinlan [facility], [place], [place], [address], [place] tel:[phone] Family Medicine F1 Nicotine dependence, unspecified, uncomplicate d [employer]. [address], [place], [address], [place]. tel:[phone] OFFICE/OUTPA TIENT VISIT, [facility], [address] Sbxrx223O2 1332039NIFortuna, [place], [address], [place] [phone] Family Medicine F1 Follow Up of [place] Inpatient (chief complaint)Fol low Up of Pancreatitis (chief complaint) Vitamin D deficiency, unspecifiedN icotine dependence, unspecified, uncomplicate dHypothyroid ism, unspecified 7 No Information OFFICE/OUTPA TIENT VISIT, [facility], [address] Thaet723T5 9558485ITFortun[place], [place], [address], [place] tel:[phone] Family Medicine F1 Eval abdominal pain, nauswa, vomitting (chief complaint) Generalized abdominal painNausea with vomiting, unspecified 7 No Information Referring Provider: Kaushal Siegel, [address] [place], [address] . tel:[phone] [facility], [address] Botpf513D5 4738410JSFortuna, [place], [address], [place] tel:[phone] Family Medicine F1 Vitamin D deficiency, unspecifiedH ypothyroidis m, unspecified 7 No Information OFFICE/OUTPA TIENT VISIT, [facility], [address] Xllyb192I4 3524683QVFortuna, [place], [address], [place] tel:[phone] Family Medicine F1 Fasting labs (chief complaint)Hea dache (chief complaint)sle ep walking (chief complaint) Hypothyroidi sm, unspecifiedV itamin D deficiency, unspecifiedA cute sinusitis, unspecifiedH eadache 7 No Information [facility], [address] Cusgx280I3 2793690ZNGreenwood County Hospital, [place], [place], [address], [place] tel:[phone] Family Medicine F1 No Information Oct-3 1- 6 [employer]. [address], [place], [address], [place]. tel:[phone] [facility], [address] Ojhem201A4 3017541JPQuin[facility], [place], [place], [address], [place] tel:[phone] Family Medicine F1 No Information Oct-1 8 6 [employer]. [address], [place], [address], [place]. tel:[phone] OFFICE/OUTPA TIENT VISIT, EST [facility], [address] Izbjp849S8 0203351AGGreenwood County [facility], [place], [place], [address], [place] tel:[phone] Family Medicine F1 Eval increases sleep walking (chief complaint)fal l (chief complaint) Sleepwalking [somnambulis m]Nicotine dependence Oct-1 0-201 6 No Information [facility], [address] Mbejw962Z0 0547974KHTaft, [place], [address], [place] tel:[phone] Family Medicine F1 No Information Oct-1 0- 6 [employer]. [address], [place], [address], [place]. tel:[phone] BEHAV CHNG SMOKING > 10 MIN [facility], [address] Dcjix208Y0 0781690CKTaft, [place], [address], [place] tel:[phone] [facility] Nicotine dependence, unspecified, uncomplicate d Oct-1 0-201 6 No Information [facility], [address] Byrhc831B4 0944915FPTaft, [place], [address], [place] tel:[phone] Family Medicine F1 No Information Oct-0 7-201 6 [employer]. [address], [place], [address], [place]. tel:[phone] [facility], [address] Texkr790K5 4113063PE- [place], [address], [place] tel:[phone] Family Medicine F1 No Information 6 [employer] Att[employer]. [address], [place], [address], [place]. tel:[phone] [facility], [address] Jnruv430K9 8142339JSFortuna, [place], [address], [place] tel:[phone] Family Medicine F1 Chronic obstructive pulmonary disease, unspecified Jul- 6 [employer]. [address], [place], [address], [place]. tel:[phone] [facility], [address] Hkobw437P2 3972321GJT[place], [place], [address], [place] tel:[phone] Family Medicine F1 Encounter for screening for lipoid disordersNic otine dependence, unspecified, uncomplicate dHypothyroid ism, unspecified Jul- 6 No Information OFFICE/OUTPA TIENT VISIT EST [facility], [address] Lkoss484T5 9135892GBFortuna, [place], [address], [place] tel:[phone] Family Medicine F1 Thyroid problems (chief complaint)Meseret l Feet swelling (chief complaint)ER Visit (chief complaint)smo trang (chief complaint) Hypothyroidi smNicotine dependenceEn counter for screening for lipoid disorders Sep-2 6 No Information OFFICE/OUTPA TIENT VISIT EST [facility], [address] Xholt961U8 5146572ZCTaft, [place], [address], [place] tel:[phone] Family Medicine F1 Thyroid Check (chief complaint)Meseret l bumps on back, arms (chief complaint)Velásquez dicapp plaquard (chief complaint) HeadacheHist ory of fallingHypot hyroidismWhe ezingNicotin e dependence, unspecified, uncomplicate d No Information [facility], [address] Ejosv489Z0 2856977LTQuinlan [facility], [place], [place], [address], [place] tel:[phone] Family Medicine F1 Hyperlipidem ia [employer]. [address], [place], [address], [place]. [phone] [facility], [address] Ajfrv427K1 4691091AMSilver [place], [place], [address], [place] tel:[phone] Family Medicine F1 Repeated fallsOther amnesiaHypot hyroidism, unspecifiedN icotine dependence, unspecified, uncomplicate d No Information OFFICE/OUTPA TIENT VISIT [facility], [address] Gaoah194V6 3885243PMSilver [place], [address], [place] tel:[phone] Family Medicine F1 MRI results (chief complaint)Thy roid check (chief complaint) Hypothyroidi smNicotine dependence, unspecified, uncomplicate dOther amnesiaRepea kathy falls No Information BEHAV CHNG SMOKING > 10 MIN [facility], [address] Azdjc735X6 8557829SOTaft, [place], [address], [place] tel:[phone] [facility] Nicotine dependence, unspecified, uncomplicate d No Information OFFICE/OUTPA TIENT VISIT EST [facility], [address] Ojsnr978O2 8214131MZT[place], [place], [address], [place] tel:[phone] Family Medicine F1 Discuss increased falls (chief complaint)Smo trang cessations (chief complaint)Hea dache (chief complaint) HeadacheRepe ated fallsNicotin e dependence, unspecified, uncomplicate d 6 No Information [facility], [address] Slosc728L9 5023340YMNortheast Kansas Center for Health and Wellnessel d[place], [address], [place] tel:[phone] Family Medicine F1 Chronic obstructive pulmonary disease, unspecified [employer]. [address] [place], [place], [address], [place]. tel:[phone] OFFICE/OUTPA TIENT VISIT [facility], [address] Dexbl629O5 5147092QVQuinlan Eye [facility] & [facility], [place], [place], [address], [place] tel:[phone] Family Medicine F1 WWE (chief complaint) Encntr for knitter hand exam (general) (routine) w/o abn findingsEnco unter for screening for malignant neoplasm of cervixEncoun ter for oth screening for malignant neoplasm of breast 6 No Information [facility], [address] Ouvcx310A3 9980260VSSilver [place], [place], [address], [place] tel:[phone] Family Medicine F1 Encounter for screening for malignant neoplasm of cervix No Information [facility], [address] Woran210J4 9614329RMSilver [place], [place], [address], [place] tel:[phone] Family Medicine F1 Hypothyroidi sm, unspecified No Information OFFICE/OUTPA TIENT VISIT [facility], [address] Qiiik978C6 5438389MOSilver [place], [place], [address], [place] tel:[phone] Family Medicine F1 Follow Up of Thyroid (chief complaint)Dis cuss Smoking Cessation (chief complaint)Sor e throat (chief complaint) Hypothyroidi smNicotine dependenceAc ivette pharyngitis, unspecified 6 No Information OFFICE/OUTPA TIENT VISIT, [facility], [address] Jmrae907I3 1669825HJQuinlan Eye [facility], [place], [place], [address], [place] tel:[phone] Family Medicine F1 Rash (chief complaint) Rash 6 No Information OFFICE/OUTPA TIENT VISIT [facility], [address] Jywwc725S5 7949139BL- [place], [place], [address], [place] tel:[phone] Family Medicine F1 Discuss Back & Knee Braces (chief complaint)Thy roid problems (chief complaint)Raj h (chief complaint) RashHypothyr oidismLow back pain Dec- 6 No Information OFFICE/OUTPA TIENT VISIT [facility], [address] Bxuvj913L9 1303980KWTaft, [place], [address], [place] tel:[phone] Family Medicine F1 Estab Care (chief complaint)hyp othyroidism (chief complaint)hea dache (chief complaint)hyp erlipidemia (chief complaint)dep ression (chief complaint) Hyperlipidem iaHypothyroi dismHeadache Depression Oct- 5 No Information [facility], [address] Azbfs920B8 3697625PKTaft, [place], [address], [place] tel:[phone] Family Medicine F1 No Information 5 Johnathon Brambila. [address], [place], [address], [place]. tel:[phone] Referring Provider: Patty Zavaleta, [address] [place], [address] . tel:[phone] OFFICE/OUTPA TIENT VISIT [facility], [address] Dvcsr589B5 7652779CKTaft, [place], [address], [place] tel:[phone] Family Medicine F1 Follow Up of Thyroid problems (chief complaint)mem ory concerns (chief complaint) No Information 5 Johnathon Brambila. [address], [place], [address], [place]. tel:[phone] Referring Provider: Patty Zavaleta, [address] [place], [address] . tel:[phone] [facility], [address] Yqxzm170J8 6266091KS- [place], [address], [place] tel:[phone] Family Medicine F1 No Information 5 Johnathon Brambila. [address], [place], [address], [place]. tel:[phone] Referring Provider: Patty Zavaleta, [address] [place], [address] . tel:[phone] [facility], [address] Ifloa262Z3 5024994YF- [place], [address], [place] tel:[phone] Family Medicine F1 No Information 5 Steam Table Attendant. [address], [place], [address], [place]. tel:[phone] [facility], [address] Zbmht404H2 4564249JM- [place], [address], [place] tel:[phone] Family Medicine F1 No Information 5 Johnathon Brambila. [address], [place], [address], [place]. tel:[phone] Referring Provider: Patty Zavaleta, [address] [place], [address] . tel:[phone] [facility], [address] Zmcqo600W7 6522789SJ- [place], [address], [place] tel:[phone] Family Medicine F1 No Information 5 Johnathon Brambila. [address], [place], [address], [place]. tel:[phone] Referring Provider: Patty Zavaleta, [address] [place], [address] . tel:[phone] OFFICE/OUTPA TIENT VISIT EST [facility], [address] Ubsgg302A9 0315512IMFortuna, [place], [address], [place] tel:[phone] Family Medicine F1 Meds (chief complaint)Mem ory loss (FP) (chief complaint)Fol low Up of Swollen Feet (chief complaint) No Information 5 Johnathon Brambila. [address], [place], [address], [place]. tel:[phone] Referring Provider: Patty Zavaleta, [address] [place], [address] . tel:[phone] [facility], [address] Aowgh418U0 9704838YZTaft, [place], [address], [place] tel:[phone] Family Medicine F1 No Information 5 Roselia Coppola. [address], [place], [address], [place]. tel:[phone] OFFICE/OUTPA TIENT VISIT EST [facility], [address] Rednv926Q8 6378451XDTaft, [place], [address], [place] tel:[phone] Family Medicine F1 Follow Up of Pain Clinic (chief complaint)Hea daches (chief complaint)dys phagia (chief complaint)jeremiah st pain (chief complaint) No Information Johnathon Brambila. [address], [place], [address], [place]. tel:[phone] Referring Provider: Patty Zavaleta, [address] [place], [address] . tel:[phone] [facility], [address] Uglwe252U6 8579611BSTaft, [place], [address], [place] tel:[phone] Family Medicine F1 No Information 5 Johnathon Brambila. [address], [place], [address], [place]. tel:[phone] Referring Provider: Patty Zavaleta, [address] [place], [address] . tel:[phone] [facility], [address] Kfsug702V2 0373470BF- [place], [address], [place] tel:[phone] Family Medicine F1 No Information Apr-0 1 5 Johnathon Brambila. [address], [place], [address], [place]. tel:[phone] Referring Provider: Patty Zavaleta, [address] [place], [address] . tel:[phone] OFFICE/OUTPA TIENT VISIT EST [facility], [address] Xktiy560C2 0782152FF- [place], [place], [address], [place] tel:[phone] Family Medicine F1 Follow Up of Thyroid problems (FP) (chief complaint)Fol low Up of Headache (FP) (chief complaint)hea rt burn (chief complaint) No Information Apr-0 1 5 Johnathon Brambila. [address], [place], [address], [place]. tel:[phone] Referring Provider: Patty Zavaleta, [address] [place], [address] . tel:[phone] [facility], [address] Brnqe680N9 6866929HB- [place], [address], [place] tel:[phone] Family Medicine F1 No Information Apr-0 1 5 Johnathon Brambila. [address], [place], [address], [place]. tel:[phone] Referring Provider: Patty Zavaleta, [address] [place], [address] . [phone] [facility], [address] Wynae421B0 7067686VH- [place], [address], [place] tel:[phone] Family Medicine F1 No Information 5 Roselia Coppola. [address], [place], [address], [place]. tel:[phone] [facility], [address] Gveie451T7 8219387PAFortuna, [place], [address], [place] tel:[phone] Family Medicine F1 No Information 5 Jovanny Gray. [address], [place], [address], [place]. tel:[phone] Referring Provider: Isaac Petty, [address] [place], [address] . 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 [address], [place], [address], [place]. tel:[phone] Referring Provider: Isaac Petty, [address] [place], [address] . 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 [address], [place], [address], [place]. tel:[phone] Referring Provider: Isaac Petty, [address] [place], [address] . tel:[phone] [facility], [address] Pspxg094F2 2880807UM- [place], [address], [place] tel:[phone] Family Medicine F1 No Information 4 Petty Isaac. [address], [place], [address], [place]. tel:[phone] Referring Provider: Isaac Petty, [address] [place], [address] . tel:[phone] [facility], [address] Bsjbl569I7 7342451LIFortuna, [place], [address], [place] tel:[phone] Family Medicine F1 No Information 3 No Information OFFICE/OUTPA TIENT VISIT, [facility], [address] Oukin496O2 4863009NQFortuna, [place], [address], [place] tel:[phone] Family Medicine F1 thyroid problems (chief complaint)hyp erlipidemia (chief complaint)dep ression (chief complaint) No Information 3 No Information [facility], [address] Idnjk657L3 9927488PAFortuna, [place], [address], [place] tel:[phone] Family Medicine F1 No Information 3 Steam Table Attendant. [address], [place], [address], [place]. tel:[phone] OFFICE/OUTPA TIENT VISIT, [facility], [address] Mndkx842P9 0171848MZFortuna, [place], [address], [place] tel:[phone] Family Medicine F1 total knee replacement f/u (chief complaint) No Information 3 No Information [facility], [address] Brdde239I1 9086904QEFortuna, [place], [address], [place] tel:[phone] Family Medicine F1 No Information 3 No Information OFFICE/OUTPA TIENT VISIT, [facility], [address] Kkths705N8 1937477EUGreenwood County Hospital, [place], [place], [address], [place] tel:[phone] Family Medicine F1 abdominal pain (chief complaint)UA (chief complaint) No Information 2 No Information [facility], [address] Haslh545U3 3798031ZXGreenwood [facility], [place], [place], [address], [place] tel:[phone] Family Medicine F1 No Information 2 No Information OFFICE/OUTPA TIENT VISIT, [facility], [address] Ehbiw719L5 0173156YUGreenwood County Hospital, [place], [place], [address], [place] tel:[phone] Family Medicine F1 hospital f/u (chief complaint)hyp erlipidemia (chief complaint)hyp othyroidism (chief complaint) No Information 2 No Information [facility], [address] Uuedh429E1 1320026MIQuinlan [facility], [place], [place], [address], [place] tel:[phone] Family Medicine F1 No Information 2 No Information OFFICE/OUTPA TIENT VISIT, [facility], [address] Ktmmb138N2 5798369EHGreenwood County Hospital, [place], [place], [address], [place] tel:[phone] Family Medicine F1 dizziness (chief complaint)hyp erthyroidism (chief complaint)con stipation (chief complaint) No Information 2 No Information OFFICE/OUTPA TIENT VISIT, [facility], [address] Pqdwc384O6 2286908JAGreenwood County Hospital, [place], [place], [address], [place] tel:[phone] Family Medicine F1 foot swelling/pain (chief complaint) No Information 2 No Information OFFICE/OUTPA TIENT VISIT, [facility], [address] Tvbgj733Z7 7805828JPQuinlan [facility], [place], [place], [address], [place] tel:[phone] Family Medicine F1 pain (chief complaint)med s (chief complaint) No Information 2 No Information OFFICE/OUTPA TIENT VISIT, [facility], [address] Bxvim118V7 3263623AASaint Johns [facility], [place], [place], [address], [place] tel:[phone] Family Medicine F1 back pain (chief complaint)cou gh (chief complaint) No Information 1 No Information OFFICE/OUTPA TIENT VISIT, [facility], [address] Tlivp764J1 9255862KOSaint Johns [facility]ude [facility], [place], [place], [address], [place] tel:[phone] Family Medicine F1 scooter eval (chief complaint)hea rtburn (chief complaint)hea dache (chief complaint) No Information 1 No Information OFFICE/OUTPA TIENT VISIT, [facility], [address] Xwadb323M3 9945365HYSaint Johns [facility], [place], [place], [address], [place] tel:[phone] Family Medicine F1 multiple falls (chief complaint)dep ression (chief complaint) No Information 1 No Information OFFICE/OUTPA TIENT VISIT, [facility], [address] Aoidh811D0 3186001RQSaint Johns [facility], [place], [place], [address], [place] tel:[phone] Family Medicine F1 Potassium levels (chief complaint)hea rtburn (chief complaint)moo ds (chief complaint)rx refills (chief complaint) No Information 1 No Information OFFICE/OUTPA TIENT VISIT, [facility], [address] Rzkpe242A2 8125274FCSaint Johns Maude [facility], [place], [place], [address], [place] tel:[phone] Family Medicine F1 hypokalemia (chief complaint) No Information 1 No Information OFFICE/OUTPA TIENT VISIT, [facility], [address] Zcnvg883V5 7310280RAGreenwood County Hospital, [place], [place], [address], [place] tel:[phone] Family Medicine F1 pain (chief complaint) No Information 1 No Information OFFICE/OUTPA TIENT VISIT, [facility], [address] Zuqum435G3 0202626QQQuinlan Eye [facility] & [facility], [place], [place], [address], [place] tel:[phone] Family Medicine F1 swelling (chief complaint)hyp othyroidism (chief complaint) No Information 1 No Information OFFICE/OUTPA TIENT VISIT, [facility], [address] Llnki018A0 6340539HBQuinlan [facility], [place], [place], [address], [place] tel:[phone] Family Medicine F1 swelling (chief complaint) No Information 1 No Information OFFICE/OUTPA TIENT VISIT, [facility], [address] Wemjq810E4 6395371UQSaint Johns Maude [facility], [place], [place], [address], [place] tel:[phone] Family Medicine F1 MRI results (chief complaint)nee ds refill on Albuterol (chief complaint) No Information 0 No Information OFFICE/OUTPA TIENT VISIT, [facility], [address] Eflcy186Z5 1588232HHSaint Johns Maude [facility], [place], [place], [address], [place] tel:[phone] Family Medicine F1 follow up on lab / diagnostic test (chief complaint)chon n (chief complaint) No Information 0 No Information OFFICE/OUTPA TIENT VISIT, [facility], [address] Xcdpv670L7 4738252ZWQuinlan Eye Surgery & Laser Center, [place], [place], [address], [place] tel:[phone] Family Medicine F1 chest pain (chief complaint)hea dache (chief complaint) No Information 0 No Information OFFICE/OUTPA TIENT VISIT, [facility], [address] Hdliu115S2 3342734DHGreenwood County Hospital, [place], [place], [address], [place] tel:[phone] Family Medicine F1 F/U hosp visit for pneumonia (chief complaint) No Information Jul-2 7 0 No Information OFFICE/OUTPA TIENT VISIT, [facility], [address] Evbow975Z0 5425499UHGreenwood County Hospital, [place], [place], [address], [place] tel:[phone] Family Medicine F1 Pneumonia (chief complaint) No Information Sep-0 2- 0 No Information OFFICE/OUTPA TIENT VISIT, [facility], [address] Akxrp231Q8 8963787YTQuinlan Eye Surgery & Laser Center, [place], [place], [address], [place] tel:[phone] Family Medicine F1 headache (chief complaint)dep ression (chief complaint) No Information Jun- 0 No Information OFFICE/OUTPA TIENT VISIT, [facility], [address] Krtsq385Q3 4694443QVQuinlan Eye Surgery & Laser Center, [place], [place], [address], [place] tel:[phone] Family Medicine F1 remove wart to left thumb (chief complaint)ski n peeling on right hand (chief complaint) No Information 0- 0 No Information OFFICE/OUTPA TIENT VISIT, [facility], [address] Biijx434O1 9966519AHQuinlan Eye Surgery & Laser [facility], [place], [place], [address], [place] tel:[phone] Family Medicine F1 headache (chief complaint) No Information 4 0 No Information OFFICE/OUTPA TIENT VISIT, [facility], [address] Eupuf509V9 1846017KYTaft, [place], [address]67, [place] tel:[phone] Family Medicine F1 pain (chief complaint) No Information 0- 0 No Information Office/Outpa tient Visit, [facility], [address] Hlejl288H2 3093479QXQuinlan Eye Surgery & Laser Center, [place], [place], [address], [place] tel:[phone] Family Medicine F1 No Information 8- 0 No Information Estab Outpatient Expanded H&P - Low Complexity Decisions [facility], [address] Cnski573X6 8381576GLGreenwood County Hospital, [place], [place], [address], [place] tel:[phone] Family Medicine F1 No Information Feb-2 6 0 No Information Office/Outpa tient Visit, [facility], [address] Khzoa561P0 2306418GZGreenwood County Hospital, [place], [place], [address], [place] tel:[phone] Family Medicine F1 No Information 2 0- 0 No Information Office/Outpa tient Visit, [facility], [address] Ulmjm988S7 1482264OBGreenwood County Hospital, [place], [place], [address], [place] tel:[phone] Family Medicine F1 No Information Jan-3 1- 0 No Information Office/Outpa tient Visit, [facility], [address] Hfcnf754X7 8834351RHQuinlan Eye Surgery & [facility], [place], [place], [address], [place] tel:[phone] Family Medicine F1 No Information Jan-2 4- 0 No Information Office/Outpa tient Visit, [facility], [address] Oprwn192C2 8820930MAGreenwood County Hospital, [place], [place], [address], [place] tel:[phone] Family Medicine F1 No Information Jan-0 8- 0 No Information Office/Outpa tient Visit, [facility], [address] Fzlyd624J2 4866130QLTaft, [place], [address], [place] tel:[phone] Family Medicine F1 No Information Apr- 0-200 9 No Information Office/Outpa tient Visit, [facility], [address] Cqfxw819J0 1867794AFGreenwood County Hospital, [place], [place], [address], tel:[phone] Family Medicine F1 No Information 9 No Information Family History Family Member Type Diagnosis Age At Onset Children Problem (finding) coronary arterioscleros is Brother Problem (finding) stroke Grandparents Problem (finding) stroke Mother Problem (finding) migraine Sister Problem (finding) stroke Father Problem (finding) depression Mother Problem (finding) raised blood lipids Father Problem (finding) Cancer Brother Problem (finding) migraine Mother Problem (finding) coronary arterioscleros is Grandparents Problem (finding) coronary arterioscleros is Children Problem (finding) Allergies Immunizations Vaccine Date Status Comments Flu Vaccine 6 Months and older administer ed Note: Pt tolerated well while in clinic, no adverse reactions. 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 SC VIS:06/10/15 ; Source: New Immunization Record InfluenzaQuad Inj P 6+MOS administered So urce: Other Registry Flu (split) (3 yrs or older) administered Note: [facility]#[id number] ; Source: New Immunization Record Tdap, Adsorbed administered Source: Other Registry Flu (split) (3 yrs or older) cancelled Source: New Immunization Record Payers Payer name Insurance type Covered democrat ID Authoriza tion(s) M [facility] [id number] [facility] Dual Com plete Medica [id number] M [place] [facility] MC [id number] [facility] Dual Com plete Medica CI [id number] M [place] [facility] MC [id number] M [facility] BL [id number] [place] [facility] MC [id number] [facility] [id number] [facility] [place] [facility] MC [id number] [facility] [id number] [place] [facility] MC [id number] Social History Type Description Quantity Date Captured Comments Alcohol Use Details Unknown Caffeine Use Details Unknown Tobacco Use Status No Information Smoking Status No Information Sex Female Sexual Orientation Decline To Specify Gender Identity Female Chief Complaint And Reason For Visit No Information Reason For Referral Reason For Referral No Information Plan Of Treatment Date Type Action Status Goal Lipid panel. Due on due Goal Dental exam. Due on due Goal Mammogram. Due on due Goal Eye exam. Due on due Goal Eye exam. Due on due Goal Lipid panel. Due on due Goal Dental exam. Due on due Goal Mammogram. Due on due Goal Lipid panel. Due on due Goal Dental exam. Due on 023 due Goal Eye exam. Due on due Goal Mammogram. Due on due Goal Dental exam. Due on 023 due Goal Lipid panel. Due on due Goal Eye exam. Due on due Goal Mammogram. Due on due Goal Mammogram. Due on due Goal Lipid panel. Due on due Goal Eye exam. Due on due Goal Dental exam. Due on due Goal Eye exam. Due on due Goal Lipid panel. Due on due Goal Dental exam. Due on due Goal Mammogram. Due on due Goal Lipid panel. Due on due Goal Eye exam. Due on due Goal Dental exam. Due on due Goal Mammogram. Due on due Goal Lipid panel. Due on due Goal Dental exam. Due on due Goal Mammogram. Due on due Goal Eye exam. Due on due Goal Lipid panel. Due on due Goal Mammogram. Due on due Goal Dental exam. Due on due Goal Eye exam. Due on due Goal Dental exam. Due on due Goal Eye exam. Due on due Goal Mammogram. Due on due Goal Lipid panel. Due on due Goal Lipid panel. Due on due Goal Eye exam. Due on due Goal Mammogram. Due on due Goal Dental exam. Due on due Goal Lipid panel. Due on due Goal Mammogram. Due on due Goal Eye exam. Due on due Goal Dental exam. Due on due Goal Lipid panel. Due on due Goal Mammogram. Due on due Goal Dental exam. Due on due Goal Eye exam. Due on due Goal Mammogram. Due on due Goal Eye exam. Due on due Goal Lipid panel. Due on due Goal Dental exam. Due on due Goal Lipid panel. Due on due Goal Eye exam. Due on due Goal Dental exam. Due on due Goal Mammogram. Due on due Goal Eye exam. Due on due Goal Lipid panel. Due on due Goal Dental exam. Due on due Goal Mammogram. Due on due Goal Mammogram. Due on due Goal Lipid panel. Due on due Goal Eye exam. Due on due Goal Dental exam. Due on due Goal Dietary manageme nt education, guidance, and counseling completed Goal Mammogram. Due on due Goal Eye exam. Due on due Goal Dental exam. Due on due Goal Lipid panel. Due on due Goal Dental exam. Due on due Goal Lipid panel. Due on due Goal Mammogram. Due on due Goal Eye exam. Due on due Goal Dental exam. Due on due Goal Mammogram. Due on due Goal Lipid panel. Due on due Goal Eye exam. Due on due Goal Tobacco cessation counseling completed Goal Dietary manageme nt education, guidance, and counseling completed Goal Dietary manageme nt education, guidance, and counseling completed Goal Eye exam. Due on due Goal Mammogram. Due on due Goal Dental exam. Due on due Goal Lipid panel. Due on due Goal Dental exam. Due on due Goal Mammogram. Due on due Goal Lipid panel. Due on due Goal Eye exam. Due on due Goal Dietary manageme nt education, guidance, and counseling completed Goal Dental exam. Due on due Goal Lipid panel. Due on due Goal Eye exam. Due on due Goal Mammogram. Due on due Goal Dental exam. Due on due Goal Mammogram. Due on due Goal Eye exam. Due on due Goal Lipid panel. Due on due Goal Eye exam. Due on due Goal Mammogram. Due on due Goal Lipid panel. Due on due Goal Dental exam. Due on due Goal Dental exam. Due on due Goal Eye exam. Due on due Goal Mammogram. Due on due Goal Lipid panel. Due on due Goal Dental exam. Due on due Goal Mammogram. Due on due Goal Eye exam. Due on due Goal Lipid panel. Due on due Goal Tobacco cessation counseling completed Goal Dental exam. Due on due Goal Lipid panel. Due on due Goal Mammogram. Due on due Goal Eye exam. Due on due Goal Tobacco cessation counseling completed Goal Lipid panel. Due on due Goal Dental exam. Due on due Goal Eye exam. Due on due Goal Mammogram. Due on due Goal Lipid panel. Due on due Goal Dental exam. Due on due Goal Mammogram. Due on due Goal Eye exam. Due on due Goal Tobacco cessation counseling completed Goal Lipid panel. Due on due Goal Mammogram. Due on due Goal Eye exam. Due on due Goal Dental exam. Due on due Goal Lipid panel. Due on due Goal Mammogram. Due on due Goal Eye exam. Due on due Goal Dental exam. Due on due Goal Lipid panel. Due on due Goal Mammogram. Due on due Goal Eye exam. Due on due Goal Dental exam. Due on due Goal Lipid panel. Due on due Goal Dental exam. Due on due Goal Mammogram. Due on due Goal Eye exam. Due on due Goal Eye exam. Due on due Goal Mammogram. Due on due Goal Dental exam. Due on due Goal Lipid panel. Due on due Goal Dental exam. Due on due Goal Eye exam. Due on due Goal Lipid panel. Due on due Goal Mammogram. Due on due Goal Lipid panel. Due on due Goal Mammogram. Due on due Goal Dental exam. Due on due Goal Eye exam. Due on due Goal Mammogram. Due on due Goal Dental exam. Due on due Goal Lipid panel. Due on due Goal Eye exam. Due on due Goal Dental exam. Due on due Goal Mammogram. Due on due Goal Eye exam. Due on due Goal Lipid panel. Due on due Goal Dental exam. Due on due Goal Lipid panel. Due on due Goal Mammogram. Due on due Goal Eye exam. Due on due Goal Eye exam. Due on due Goal Mammogram. Due on due Goal Dental exam. Due on due Goal Lipid panel. Due on due Goal Eye exam. Due on due Goal Dental exam. Due on due Goal Mammogram. Due on due Goal Lipid panel. Due on due Goal Lipid panel. Due on due Goal Dental exam. Due on due Goal Mammogram. Due on due Goal Eye exam. Due on due Goal Lipid panel. Due on due Goal Mammogram. Due on due Goal Eye exam. Due on due Goal Dental exam. Due on due Goal Dental exam. Due on due Goal Eye exam. Due on due Goal Mammogram. Due on due Goal Lipid panel. Due on due Goal Dental exam. Due on due Goal Mammogram. Due on due Goal Lipid panel. Due on due Goal Eye exam. Due on due Goal Dental exam. Due on due Goal Eye exam. Due on due Goal Mammogram. Due on due Goal Lipid panel. Due on due Goal Eye exam. Due on due Goal Lipid panel. Due on due Goal Dental exam. Due on due Goal Mammogram. Due on due Goal Tobacco cessation counseling completed Goal Mammogram. Due on due Goal Eye exam. Due on due Goal Dental exam. Due on due Goal Lipid panel. Due on due Goal Lipid panel. Due on due Goal Dental exam. Due on due Goal Eye exam. Due on due Goal Mammogram. Due on due Goal Mammogram. Due on due Goal Eye exam. Due on due Goal Lipid panel. Due on due Goal Dental exam. Due on due Goal Dental exam. Due on due Goal Eye exam. Due on due Goal Mammogram. Due on due Goal Lipid panel. Due on due Goal Tobacco cessation counseling completed Goal Dental exam. Due on due Goal Mammogram. Due on due Goal Lipid panel. Due on due Goal Eye exam. Due on due Goal Dental exam. Due on due Goal Mammogram. Due on due Goal Eye exam. Due on due Goal Lipid panel. Due on due Goal Mammogram. Due on due Goal Eye exam. Due on due Goal Dental exam. Due on due Goal Lipid panel. Due on due Goal Eye exam. Due on due Goal Dental exam. Due on due Goal Mammogram. Due on due Goal Lipid panel. Due on due Goal Tobacco cessation counseling completed Goal Eye exam. Due on due Goal Dental exam. Due on due Goal Mammogram. Due on due Goal Eye exam. Due on due Goal Dental exam. Due on due Goal Mammogram. Due on due Goal Eye exam. Due on due Goal Mammogram. Due on due Goal Dental exam. Due on due Goal Dental exam. Due on 017 due Goal Eye exam. Due on due Goal Mammogram. Due on due Goal Eye exam. Due on due Goal Dental exam. Due on 017 due Goal Mammogram. Due on due Goal Mammogram. Due on due Goal Dental exam. Due on due Goal Eye exam. Due on due Goal Dental exam. Due on due Goal Mammogram. Due on due Goal Eye exam. Due on due Goal Eye exam. Due on due Goal Dental exam. Due on due Goal Lipid panel. Due on 017 due Goal Mammogram. Due on due Goal Dental exam. Due on 017 due Goal Eye exam. Due on due Goal Mammogram. Due on due Goal Eye exam. Due on due Goal Dental exam. Due on 017 due Goal Mammogram. Due on due Goal Eye exam. Due on due Goal Dental exam. Due on 017 due Goal Mammogram. Due on due Goal Tobacco cessation counseling completed Goal Eye exam. Due on due Goal Dental exam. Due on due Goal Mammogram. Due on due Goal Influenza Vaccin e. Due on due Goal Diabetes screeni ng. Due on due Goal Eye exam. Due on due Goal Colonoscopy. Due on due Goal Dental exam. Due on due Goal Breast exam. Due on due Goal Mammogram. Due on due Goal Diabetes screeni ng. Due on due Goal Eye exam. Due on due Goal Mammogram. Due on due Goal Influenza Vaccin e. Due on due Goal Colonoscopy. Due on due Goal Pap/HPV testing. Due on due Goal Breast exam. Due on due Goal Dental exam. Due on due Goal Eye exam. Due on due Goal Diabetes screeni ng. Due on due Goal Influenza Vaccin e. Due on due Goal Dental exam. Due on due Goal Pap/HPV testing. Due on due Goal Breast exam. Due on due Goal Mammogram. Due on due Goal Colonoscopy. Due on due Goal H&P. Due on due Goal Hep B Screening. Due on due Goal Eye exam. Due on due Goal Pap/HPV testing. Due on due Goal Colonoscopy. Due on due Goal TD Vaccine. Due on due Goal Mammogram. Due on due Goal Dental exam. Due on due Goal Sigmoidoscopy. Due on due Goal HIV screen. Due on due Goal FOBT. Due on due Goal Diabetes screeni ng. Due on due Goal Breast exam. Due on due Goal Influenza Vaccin e. Due on due Goal Mammogram. Due on due Goal Diabetes screeni ng. Due on due Goal Influenza Vaccin e. Due on due Goal Eye exam. Due on due Goal Pap/HPV testing. Due on due Goal Colonoscopy. Due on due Goal Dental exam. Due on due Goal Breast exam. Due on due Goal Mammogram. Due on due Goal Pap/HPV testing. Due on due Goal Eye exam. Due on due Goal Hep B Screening. Due on due Goal Sigmoidoscopy. Due on due Goal HIV screen. Due on due Goal Dental exam. Due on due Goal Diabetes screeni ng. Due on due Goal Breast exam. Due on due Goal H&P. Due on due Goal TD Vaccine. Due on due Goal Influenza Vaccin e. Due on due Goal FOBT. Due on due Goal Colonoscopy. Due on due Goal HIV screen. Due on due Goal Diabetes screeni ng. Due on due Goal Breast exam. Due on due Goal TD Vaccine. Due on due Goal Hep B Screening. Due on due Goal Mammogram. Due on due Goal Influenza Vaccin e. Due on due Goal FOBT. Due on due Goal Eye exam. Due on due Goal Sigmoidoscopy. Due on due Goal Dental exam. Due on due Goal Pap/HPV testing. Due on due Goal H&P. Due on due Goal Colonoscopy. Due on due Goal Influenza Vaccin e. Due on due Goal Hep B Screening. Due on due Goal TD Vaccine. Due on due Goal Breast exam. Due on due Goal Mammogram. Due on due Goal Sigmoidoscopy. Due on due Goal HIV screen. Due on 17 due Goal FOBT. Due on due Goal Colonoscopy. Due on due Goal Dental exam. Due on due Goal Eye exam. Due on due Goal H&P. Due on due Goal Pap/HPV testing. Due on due Goal Diabetes screeni ng. Due on due Goal TD Vaccine. Due on 17 due Goal Hep B Screening. Due on due Goal Dental exam. Due on due Goal Sigmoidoscopy. Due on due Goal Diabetes screeni ng. Due on due Goal Mammogram. Due on 2 due Goal HIV screen. Due on 17 due Goal FOBT. Due on due Goal Pap/HPV testing. Due on due Goal H&P. Due on due Goal Eye exam. Due on due Goal Breast exam. Due on due Goal Colonoscopy. Due on due Goal Influenza Vaccin e. Due on due Goal HIV screen. Due on 17 due Goal Sigmoidoscopy. Due on due Goal Pap/HPV testing. Due on due Goal TD Vaccine. Due on 17 due Goal H&P. Due on due Goal Hep B Screening. Due on due Goal Mammogram. Due on due Goal Dental exam. Due on due Goal Breast exam. Due on due Goal Colonoscopy. Due on due Goal Diabetes screeni ng. Due on due Goal Influenza Vaccin e. Due on due Goal FOBT. Due on due Goal Eye exam. Due on due Goal Pap/HPV testing. Due on due Goal PAP. Due on due Goal Colonoscopy. Due on due Goal H&P. Due on due Goal Tdap. Due on due Goal Eye exam. Due on due Goal Sigmoidoscopy. Due on due Goal Influenza Vaccin e. Due on due Goal Breast exam. Due on due Goal Mammogram. Due on due Goal TD Vaccine. Due on 16 due Goal FOBT. Due on due Goal Diabetes screeni ng. Due on due Goal Sigmoidoscopy. Due on due Goal FOBT. Due on due Goal Breast exam. Due on due Goal PAP. Due on due Goal H&P. Due on due Goal TD Vaccine. Due on due Goal Tdap. Due on due Goal Mammogram. Due on due Goal Colonoscopy. Due on due Goal Influenza Vaccin e. Due on due Goal Pap/HPV testing. Due on due Goal Diabetes screeni ng. Due on due Goal Eye exam. Due on due Goal Tdap. Due on due Goal H&P. Due on due Goal Pap/HPV testing. Due on due Goal Sigmoidoscopy. Due on due Goal Influenza Vaccin e. Due on due Goal Mammogram. Due on due Goal Breast exam. Due on due Goal Eye exam. Due on due Goal Diabetes screeni ng. Due on due Goal FOBT. Due on due Goal PAP. Due on due Goal TD Vaccine. Due on due Goal Colonoscopy. Due on due Goal Influenza Vaccin e. Due on due Goal TD Vaccine. Due on 16 due Goal Tdap. Due on due Goal Colonoscopy. Due on due Goal Mammogram. Due on due Goal PAP. Due on due Goal FOBT. Due on due Goal Breast exam. Due on due Goal Eye exam. Due on due Goal Pap/HPV testing. Due on due Goal H&P. Due on due Goal Sigmoidoscopy. Due on due Goal Diabetes screeni ng. Due on due Goal Eye exam. Due on due Goal TD Vaccine. Due on 16 due Goal Mammogram. Due on 2 due Goal Diabetes screeni ng. Due on due Goal Colonoscopy. Due on due Goal Influenza Vaccin e. Due on due Goal Depression scree alan. Due on due Goal H&P. Due on due Goal Tdap. Due on due Goal Sigmoidoscopy. Due on due Goal Pap/HPV testing. Due on due Goal Lipid Panel. Due on 021 due Goal DETECTIVE HOMICIDE SQUAD exam. Due on due Goal PAP. Due on due Goal Breast exam. Due on due Goal FOBT. Due on due Goal Breast exam. Due on 016 due Goal PAP. Due on due Goal FOBT. Due on due Goal Eye exam. Due on due Goal Sigmoidoscopy. Due on due Goal H&P. Due on due Goal Influenza Vaccin e. Due on due Goal Tdap. Due on due Goal Mammogram. Due on 2 due Goal Colonoscopy. Due on due Goal TD Vaccine. Due on 16 due Goal Pap/HPV testing. Due on due Goal Diabetes screeni ng. Due on due Goal Influenza Vaccin e. Due on due Goal TD Vaccine. Due on 16 due Goal Colonoscopy. Due on due Goal Breast exam. Due on due Goal FOBT. Due on due Goal Tdap. Due on due Goal PAP. Due on due Goal H&P. Due on due Goal Mammogram. Due on 2 due Goal Sigmoidoscopy. Due on due Goal Pap/HPV testing. Due on due Goal Diabetes screeni ng. Due on due Goal Eye exam. Due on due Goal TD Vaccine. Due on 16 due Goal Breast exam. Due on 016 due Goal Mammogram. Due on 2 due Goal Sigmoidoscopy. Due on due Goal FOBT. Due on due Goal Colonoscopy. Due on 016 due Goal DETECTIVE HOMICIDE SQUAD exam. Due on due Goal H&P. Due on due Goal Influenza Vaccin e. Due on due Goal PAP. Due on due Goal Mammogram. Due on due Goal H&P. Due on due Goal FOBT. Due on due Goal Sigmoidoscopy. Due on due Goal Breast exam. Due on due Goal DETECTIVE HOMICIDE SQUAD exam. Due on due Goal TD Vaccine. Due on 16 due Goal PAP. Due on due Goal Colonoscopy. Due on due Goal Influenza Vaccin e. Due on due Goal Tobacco cessation counseling completed Goal Breast exam. Due on due Goal PAP. Due on due Goal Sigmoidoscopy. Due on due Goal DETECTIVE HOMICIDE SQUAD exam. Due on due Goal Mammogram. Due on 2 due Goal Influenza Vaccin e. Due on due Goal TD Vaccine. Due on 16 due Goal Colonoscopy. Due on due Goal H&P. Due on due Goal FOBT. Due on due Goal Tobacco cessation counseling completed Goal TD Vaccine. Due on 16 due Goal PAP. Due on due Goal DETECTIVE HOMICIDE SQUAD exam. Due on due Goal Sigmoidoscopy. Due on due Goal Colonoscopy. Due on 016 due Goal Mammogram. Due on 2 due Goal Breast exam. Due on due Goal H&P. Due on due Goal FOBT. Due on due Goal Influenza Vaccin e. Due on due Goal Mammogram. Due on 2 due Goal H&P. Due on due Goal DETECTIVE HOMICIDE SQUAD exam. Due on due Goal Sigmoidoscopy. Due on due Goal Colonoscopy. Due on 016 due Goal PAP. Due on due Goal TD Vaccine. Due on 16 due Goal FOBT. Due on due Goal Influenza Vaccin e. Due on due Goal Breast exam. Due on due Goal FOBT. Due on due Goal DETECTIVE HOMICIDE SQUAD exam. Due on due Goal Colonoscopy. Due on due Goal Influenza Vaccin e. Due on due Goal H&P. Due on due Goal Breast exam. Due on 016 due Goal Mammogram. Due on 2 due Goal Sigmoidoscopy. Due on due Goal TD Vaccine. Due on 16 due Goal PAP. Due on due Goal PAP. Due on due Goal DETECTIVE HOMICIDE SQUAD exam. Due on due Goal TD Vaccine. Due on 16 due Goal FOBT. Due on due Goal Influenza Vaccin e. Due on due Goal Sigmoidoscopy. Due on due Goal Colonoscopy. Due on due Goal Mammogram. Due on 2 due Goal Breast exam. Due on due Goal H&P. Due on due Goal Tobacco cessation counseling completed Goal Mammogram. Due on due Goal Sigmoidoscopy. Due on due Goal Breast exam. Due on due Goal PAP. Due on due Goal TD Vaccine. Due on 16 due Goal Influenza Vaccin e. Due on due Goal DETECTIVE HOMICIDE SQUAD exam. Due on due Goal H&P. Due on due Goal FOBT. Due on due Goal Colonoscopy. Due on due Goal DETECTIVE HOMICIDE SQUAD exam. Due on due Goal Sigmoidoscopy. Due on due Goal H&P. Due on due Goal FOBT. Due on due Goal PAP. Due on due Goal Influenza Vaccin e. Due on due Goal Mammogram. Due on 2 due Goal TD Vaccine. Due on 16 due Goal Colonoscopy. Due on due Goal Breast exam. Due on due Goal Tobacco cessation counseling completed Goal H&P. Due on due Goal TD Vaccine. Due on 16 due Goal Sigmoidoscopy. Due on due Goal Breast exam. Due on due Goal FOBT. Due on due Goal DETECTIVE HOMICIDE SQUAD exam. Due on due Goal Mammogram. Due on due Goal Colonoscopy. Due on due Goal Influenza Vaccin e. Due on due Goal PAP. Due on due Goal Colonoscopy. Due on due Goal Breast exam. Due on due Goal TD Vaccine. Due on due Goal Mammogram. Due on due Goal Sigmoidoscopy. Due on due Goal DETECTIVE HOMICIDE SQUAD exam. Due on due Goal PAP. Due on due Goal H&P. Due on due Goal FOBT. Due on due Goal Influenza Vaccin e. Due on due Goal DETECTIVE HOMICIDE SQUAD exam. Due on due Goal TD Vaccine. Due on 16 due Goal Mammogram. Due on due Goal Colonoscopy. Due on due Goal FOBT. Due on due Goal Sigmoidoscopy. Due on due Goal H&P. Due on due Goal Influenza Vaccin e. Due on due Goal PAP. Due on due Goal Breast exam. Due on due Goal Influenza Vaccin e. Due on due Goal Breast exam. Due on due Goal FOBT. Due on due Goal PAP. Due on due Goal Colonoscopy. Due on due Goal H&P. Due on due Goal Sigmoidoscopy. Due on due Goal DETECTIVE HOMICIDE SQUAD exam. Due on due Goal Mammogram. Due on due Goal TD Vaccine. Due on due Goal FOBT. Due on due Goal PAP. Due on due Goal TD Vaccine. Due on due Goal Breast exam. Due on due Goal Sigmoidoscopy. Due on due Goal H&P. Due on due Goal Mammogram. Due on due Goal Influenza Vaccin e. Due on due Goal Colonoscopy. Due on due Goal DETECTIVE HOMICIDE SQUAD exam. Due on due Goal PAP. Due on due Goal TD Vaccine. Due on due Goal Influenza Vaccin e. Due on due Goal Breast exam. Due on due Goal Sigmoidoscopy. Due on due Goal Colonoscopy. Due on due Goal FOBT. Due on due Goal Mammogram. Due on due Goal DETECTIVE HOMICIDE SQUAD exam. Due on due Goal H&P. Due on due Goal Mammogram. Due on due Goal TD Vaccine. Due on due Goal FOBT. Due on due Goal PAP. Due on due Goal Colonoscopy. Due on due Goal DETECTIVE HOMICIDE SQUAD exam. Due on due Goal H&P. Due on due Goal Breast exam. Due on due Goal Influenza Vaccin e. Due on due Goal Sigmoidoscopy. Due on due Goal Tobacco cessation counseling completed Goal Breast exam. Due on due Goal Colonoscopy. Due on due Goal H&P. Due on due Goal Mammogram. Due on due Goal Influenza Vaccin e. Due on due Goal Sigmoidoscopy. Due on due Goal DETECTIVE HOMICIDE SQUAD exam. Due on due Goal PAP. Due on due Goal TD Vaccine. Due on due Goal FOBT. Due on due Goal Tobacco cessation counseling completed Goal Colonoscopy. Due on due Goal DETECTIVE HOMICIDE SQUAD exam. Due on due Goal Sigmoidoscopy. Due on due Goal Mammogram. Due on due Goal H&P. Due on due Goal FOBT. Due on due Goal Breast exam. Due on due Goal PAP. Due on due Goal TD Vaccine. Due on 15 due Goal Influenza Vaccin e. Due on due Goal Tobacco cessation counseling completed Goal TD Vaccine. Due on 15 due Goal PAP. Due on due Goal Sigmoidoscopy. Due on due Goal FOBT. Due on due Goal Influenza Vaccin e. Due on due Goal Mammogram. Due on due Goal H&P. Due on due Goal Breast exam. Due on 015 due Goal Colonoscopy. Due on 015 due Goal DETECTIVE HOMICIDE SQUAD exam. Due on due Goal PAP. Due on due Goal Influenza Vaccin e. Due on due Goal DETECTIVE HOMICIDE SQUAD exam. Due on due Goal Breast exam. Due on 014 due Goal H&P. Due on due Goal Sigmoidoscopy. Due on due Goal Mammogram. Due on 2 due Goal Colonoscopy. Due on 014 due Goal TD Vaccine. Due on 14 due Goal FOBT. Due on due Goal Tobacco cessation counseling completed Goal Tobacco cessation counseling completed Goal Tobacco cessation counseling completed Referral Ordered: Referrals: Orthopedic Surgery. Evaluate and treat ordered Referral Ordered: Referrals: Neurosurgery. Evaluate and treat ordered Referral Ordered: Referrals: MRI L shoulder and L humerus without contrast. Diagnostic testing ordered Referral Ordered: Referrals: MRI LS spine without contrast. Diagnostic testing ordered Referral Ordered: Referrals: Neurology. Evaluate and treat ordered Referral Ordered: Referrals: echocardiogram. Diagnostic testing ordered Referral Ordered: Referrals: home health assess and treat for PT/OT/h/o falls ordered Referral Ordered: Referrals: Neurology. Location: [facility]. Evaluate and treat ordered Referral Ordered: Referrals: Neurology. Location: [facility] ordered Referral Ordered: Referrals: Screening Mammogram. Location: [facility] ordered Referral Ordered: Referrals: [facility] Interventional Pain Management. Location: [facility]. Consult ordered Referral Ordered: Referrals: Bilateral Screening Mammogram of the Breast. Location: [facility] ordered Referral Ordered: Referrals: Gastroenterology. Location: [facility]. Evaluate and treat ordered Referral Ordered: Referrals: CTA of head and neck Appointment date/timeframe: 09/02/2017 ordered Referral Ordered: Referrals: Colonoscopy Appointment date/timeframe: 06/11/2017 ordered Referral Ordered: Referrals: Neurology ordered Referral Ordered: Referrals: ct w/iv contrast of abd Appointment date/timeframe: 11/22/2016 ordered Referral Ordered: Referrals: sleep study Appointment date/timeframe: 09/06/2016 ordered Referral Ordered: Referrals: mri w/contrast Appointment date/timeframe: 04/18/2016 ordered Referral Ordered: Referrals: CT of head with IV contrast ordered Referral Ordered: Referrals: Mammogram routine screening for breast CA Consult ordered Referral Ordered: Referrals: radiology. Diagnostic testing Appointment date/timeframe: 03/08/2015 ordered Referral Ordered: Referrals: Cardiology. Diagnostic testing Appointment date/timeframe: 03/08/2015 ordered Referral Ordered: Diagnostic Radiology (related to Abdominal pain, right upper quadrant) ordered Referral Ordered: Referral: Diagnostic Radiology. Diagnostic testing. ordered Referral Ordered: Referral: Pain Management. Evaluate and treat. Appointment date/timeframe: 11/29/2011 ordered Referral Ordered: has had 2 lumbar surgeries---last one 2001; went to [facility] pain clinic around that time for epidurals; would like to see if she can have these again. thanks-- (related to Lumbago) ordered Referral Ordered: Roentgenology,Radiology, DO. Appointment date/timeframe: 09/26/2010 ordered Referral Ordered: Interventional Radiology. ordered Referral Ordered: Cardiology. Appointment date/timeframe: 05/18/2010 ordered Future Order: Radiology Order Ca rotid Artery Bilateral ([id number]), Ordered on: Ordered Future Order: Radiology Order Re nal - Bilateral ([id number]), Sent on: Sent Future Order: Lab Order T4 Free ([id number]), Scheduled for: , Scheduled for: Sent Future Order: Lab Order TSH-InHo use ([id number]), Scheduled for: , Scheduled for: Sent Future Order: Lab Order CMP ([id number]), Sen t on: Sent Future Order: Lab Order Lipid Pr ofile ([id number]), Sent on: Sent Future Order: Lab Order Vitamin D 25-OH ([id number]), Sent on: Sent Future Order: Lab Order Ammonia, Plasma ([id number]), Sent on: Sent Future Order: Radiology Order Ch est X-ray- PA/AP and Left Lateral, 2 Views ([id number]), Ordered on: Ordered Future Order: Radiology Order Ab dominal Series X-ray - Upright and Flat, Minimum 2 views ([id number]), Ordered on: Ordered History Of Present Illness Encounter Date Complaint History Of Prese nt Illness Hospital f/u Pt was admitted to [facility] from 06/25/23-06/27/23 for pancreatitis and UTI (must have had tx in hospital only; pt denies getting oral abx upon discharge). Still having some abdominal pain an nausea and some vomiting. Taking generic zofran prn. UA showed HU; no known kidney stones. CT abd/pelvis on 06/25/23 showed diffuse pancreatic atrophy with dilation and cystic lesion stable from before, no stranding to indicate pancreatitis; also showed prominent peripancreatic lymph nodes, hepatic steatosis and thickening of the antrium of the stomach. Sees Dr. Wallace, GI. Sep 16 at 11am is next appt. Repeat CT scan abd prior to their visit. Eval cough, headache The symptom s began 1 month ago. The symptoms are reported as being moderate. The client states the symptoms are acute and are of new onset. Patient states she has had a bad cough for about a month now and is getting headaches. Patient states her chest hurts from coughing. FEVER- no fever or chills. COUGH-coughing up yellow/green mucus. SOB- said has to catch her breath with coughing. Some wheezing. ENT-runny nose, no congestion. PAULA-sides of head, throbbing and pressure, Constant since yesterday. SORE THROAT-no GI- diarrhea and vomiting, has pancreatitis so has it a lot. FATIGUE-mildMEDICATIONS TRIED-- allergy meds, cold meds and sore throat meds in the beginning. EXPOSED TO ILLNESS- no Pain follow up L shoulder and l ow back--had xrays done with some pathology and been doing supportive therapy. MRI was ordered but not scheduled yet but pt would like to get them in order to either see specialist or [facility] PM.Saw neuro at [facility] Dr. Figueroa, to get NELLIE and event monitor x 14 days via specialist; wearing it right now. Pt has not had opiate medication since Nov 2022. Hospital f/u [facility] for pa ncreatitis and covid infection x 5 days. Pt finished with abx/steroids and eating bland food. back pain Additional infor curt: Was [facility] but they are closing ans she would like referral to [facility]. No imaging in the past 18 months. Low back and L shoulder pain. Getting hydrocodone from current PM provider. Taking as prescribed. thyroid f/u Reports being co mpliant on medication currently. Last labs abnormal. Frequent falls pt reports she h as been falling frequently, pt denies dizziness but states she just loses her balance and falls down, pt reports she has injured her shoulder and her knee recently when falling. [facility] follow up Pt was seen a cristobal Benavides approx three weeks ago. pt was evaluated for TIA, pt denies any change to medications resulting from hospital visit. Records scanned to chart ESPt presented with slurred speech; pt was there for 3 days. Pt has no residual issues but has had balance issues x 3-4 months. Did not seek tx then. R foot drop x 20 yrs. Pt smokes 5cigs/day. Pt interested med for smoking cessation; no h/o epilepsy. falls pt reports that she has been falling more frequently in the last 2 months. Pt reports she fractured her left shoulder during a fall on April 19. Py is waking with a walker at all times for stability. Pt reports she has no warning before her legs give out, she reports that she starts to wobble and then she falls down. Pt states she her right foot has started to turn in as she is waking forcing her to walk on the outside edge of her foot. Benny is a 62 year old woman with a past medical history of lumbar compression fracture with radiculopathy down right leg, COPD, B/L knee replacements, multiple TIAs, and migraines who presents for unsteadiness and difficulty walking.Falls:- Onset 2-3 months ago. Not associated with a known inciting event. - Back surgery with radiculopathy down right leg. Pain has not gotten worse.- COPD: no lightheadedness, shortness of breath- Knee replacements done more than 15 years ago.- Previous TIAs with no known lasting deficits. - Denies dizzyness, head injury Eval. PAULA, sore throa t, fatigue, cough x 2-3 days The symptoms began 2 days ago. The symptoms are reported as being moderate. The client states the symptoms are acute and are of new onset. Fever-body aches but has chronic pain. Cough-dry cough. SOB- hard to catch her breath. ENT- no runny nose, congestion or sneezing. PAULA- front, throbbing and pressure. Sore throat-yes, increase pain with swallowing. No pain or swelling under the jaw. No hx of strep GI-has pancreatitis, nausea, vomiting and diarrhea normally.Fatigue-severe Change in taste/smell-noMedication tried-ibuprofen and allergy meds. Exposed to COVID or illness- exp to COVID, daughter last week. Vaccine or COVID-vaccine and booster, no hx of COVID. Est Care Pt here today to est care with Dr Mcnamara former [facility] pt. Pt states she is stable on her medication, does need refills on her eliquis, pt states she has been out for 1 month. She also needs her zofran refilled. Pt states she is wondering she has had mini stroke, hx of TIA. Her balance has been diminished for the past 2 months she is currently using a walker. Pt states she has fallen 3-4 times a week since this started. [facility]: Chronic pancreatitis, high cholesterol. Previously saw vascular surgery that said R carotid completely blocked. Patient states she has a heart murmur. Confirmed other conditions on PMH list below.FH: Strokes (sister, brother), cancer (lung, prostate), HTN, hypotension, high cholesterol.SH: Lives by herself but close to family. Tobacco use, a few cigarettes per week when her sister comes over. Contemplative phase.Allergies: no newMeds: See list, + tizanidine, - ranitidine. Sees pain management clinic. Needs Eliquis and omeprazole refill.Patient concerned about TIA (balance much worse 2 months ago when she ran out of Eliquis and temporary right foot/leg weakness two weeks ago).Balance has been off a long time and now needs walker constantly, having right foot weakness - picking foot up issues. This happened about two weeks ago. Chronically has dropfoot and sciatica with chronic numbness and tingling so sensory symptoms may or may not have been present.Patient also has headaches 2-3 times per week that are constant and feel like the top of her head is about to come off and associated with photophobia. She used to be on migraine medications and is interested in possible alternatives. Follow up med refill, [facility]on [facility] check up and patient states she has had the flu on September 26 and is experiencing lingering cold symptoms and is unable to get it to go away. Marty had a cold, cough, vomiting, cough/cold around Halloween.Cough persists, is worse at nighttime. Cough is worse at nighttime - coughs up clear mucus. Does have nasal discharge. Has been throwing up daily, still nauseous, Has a pancreatic Cyst seen on MRI Abdomen and is scheduled for another MRI Abdomen next week Has been falling a lot and has a cane. Relates this to worsening in her chronic right foot drop. Current right foot brace causes significant chafing. rash worse, burning, painful Has been taking oral prednisone. rash The client prese nts for rash originally diagnosed in 2016. This episode began 3 days ago. The symptom(s) are described as incapacitating. The patient describes the affected area(s) as burning, itchy, red and stinging. Associated symptoms include erythema (skin) and pruritus. Additional information: Rash on chest not other s/s. Has tried otc meds without relief. follow up Pt states she is needing refills on Abilify and Zofran. MADISONHas been more nauseous recently but no abdominal pain. Having back pain today.Fatigue, weight gain, nausea have been present Compliant with all medicationsHas had allergies - runny nose, sneezing, watering eyes. Has used Benadryl. No new pets, no environmental triggers HTN Follow-up The client state s the symptoms are chronic and are well controlled. CURRENT MEDS: none NOTE: Lisinopril 10 mg daily was stopped yesterday by Dr. Waldrop in clinic: 110/58 mmHg tpq716/64 mmHg S/Sx of hypertension: Patient gets dizzy and lightheaded when her BP is low. Patient gets a headache when her BP is high.LABS: (05/13/20) K 4.7, Na 142, SCr 0.6, eGFR >59, UACR < 30DIET: No changes since last visit. States she doesn't salt her food. Drink: 1 can of soda a day (Pepsi or caffeine free Root Beer),also drinks Cool-Aid EXERCISE: Walks 2 miles a dayNote: check her BP at home twice a day. Home BP today 117/80 something. Home BP from yesterday was 80something/64. Hospital followup Patient pierre jain to clinic for a hospital followup- she was admitted to [facility] for TIA.Reviewed hospital records for admission from 11/15/20 to 11/16/20 - Admitted for dizziness, slurred speech and headache and found to have a TIA. No medications were changed. In hospital diastolic BP was 50s/60s and systolic < 140Has have left lower abdominal pain x 1 month. No problems with BMs - diarrhea. No blood in stool. Last colonoscopy < 1 year ago and was reportedly normal. EGD 2019 showed duodenal bulb edemaShe also has problems swallowing and plans to schedule an EGD with GI Quit smoking ~4 months ago Is on ASA and Eliquis, not changed during hospitalization She has Chronic Right ICA Stenosis seen by Dr. Wing in 2017 but no surgical treatment recommended at the time. She has had a prior Left cerebellar chronic infarct with persistent symptoms of intermittent dizziness - has not seen a neurologist and is not on a statin. Denies intolerance to statinShe is still feeling dizzy - long standing symptoms that got worse recently. MTS Patient Patient's name: Judy Malloy [address] : 1960Date of prescription order: 10/26/2020 Clinical indication: HTN Authorizing physician: Kathy Tolliver Physician's address: [address] [place] [address]. HTN Initial The client state s the symptoms are chronic and are fairly controlled. CURRENT MEDS: Lisinopril 5mg daily NOTE: Pt started medication on 09/15/2020 and has missed no doses BP in clinic: 142/82 mmHg, 144/76 mmHg BP at home: 168/104 mmHg (before meds), 144/96 mmHg. Pt tests twice daily. S/Sx of hypertension: Pt reports daily HALABS: (05/13/2020) K+ 4.7, Na+ 142, SCr 0.6, eGFR >59, UACR <30DIET: Pt eats 1 meal per day and snacks. Pt reports not adding salts to food. Breakfast: Does not eat Lunch: Does not eat Dinner: potato soup, chili, baked chicken breast, veggies Snacks: fruit, cookies (oreo), popcorn Drink: pepsi (2 can/day), water (8 cups/day)EXERCISE: walks 2 miles/day, leg exercises. Pt has back and knee pain that she sees pain management for. SH: quit smoking 6 months ago. Uses cinnamon candies to curb cravings. No alcohol use. Followup Patient presents to clinic for a followup of HTN- she c/o BP being elevated- she took it at home this morning and it was 152/98. She also has a sore spot under her RT armpit.Patient woke up about a week ago and noticed right armpit pain. The pain is getting slightly better. Patient tried Voltaren gel, heat, and Aleve which did not help. She says the pain is 6/10 and sharp. The pain radiates down her arm when she moves it. She denies numbness or tingling. Patient takes her bp twice a day and states it is running around 145 systolic and 77-87 diastolic. She reports headaches every day that feel like migraines. She describes them as bilateral, throbbing, and worse with light. hypertension Risk factors inc lude family history HTN and gout or CAD. The hypertension is exacerbated by anxiety and stress. Associated symptoms include confusion, dyspnea, fatigue, headache, irregular heartbeat/palpitations, nausea and vomiting. Pertinent negatives include chest pain, transient weakness, tremor and visual disturbances. Additional information: She has not noticed a difference in her headaches with the increase in Amitriptyline to 50mg C/O migraines ~2 months Having h eadache 2-3 times a week - takes Excedrin Migraine which is not helpingNo recent changes in medication, caffeine intake Gets lightheaded with headaches She is gaining weight and eating Last Pancreatitis flare was several months ago Discuss brace for RT foot Has ri ght foot drop from a previous stroke and needs a new right foot brace CHronic Pancreatitis Pain BP at Pain clinic was 185/80 Has been gaining weight with eating more and pancreatitis flares have not occured recently FH of elevated bp in mother, sister She has never had a diagnosis of high BP 'Vaginal Cramps' Feels like she is having 'contractions' in the vagina These are painful Started 3 weeks ago No dysuria, frequency Well Woman Exam Presents for [facility] woman exam. Breast Lumps/Masses - None Breast Pain - NoneAbnormal Mammogram - NoneVaginal DischargeLMP - 12 years ago Irregular Periods - N/A Previous PAP Smear ~ 2 years agoAbnormal PAP Smear - NonePregnancies - 2 pregnancies. 1st nausea/vomiting, 2nd - bed rest for 6 months x placenta previous Exercise - Yes - walks Smoking- No Chronic Pancreatitis (comments) COPD - Compliant with inhalersChr Pancr - Going to [place] for evaluation of her GI condition. Was going to have injinto pancreas but pain management doctor suggested she be seen in [place] or for this. Still has chronic abdominal pain requiring occasional ER visit for pain medication. Overall symptoms are better managedSmoking - Has quit smoking Mammogram - Long time ago PAP Smear - NeverColonoscopy - Recently Immunization - tdap - long time ago, shingles - never, pneumovax - had in the hospitl, flu shot - yearly Smoking Chronic Pancreatitis follow up Ms. Malloy is a 59 y.o. female presenting with follow-up for chronic pancreatitis. She reports being diagnosed 3-4 years ago and her pain is usually an 8/10 that gets worse upon eating. She reports that her stomach hurts every day and she can barely eat/drink. She is unable to take her anti-emetic pill without throwing up. She is also concerned about a bump on her right foot that causes her pain upon standing. She sees her monogram maker soon .PMH= hypothyroid, chronic pancreatitis, depression Social= 30 pk/year, no current alcohol use. Smokes 3 cigarettes/dayROS: General= denies fatigueNeuro= positive for Headache CV= denies chest painPulm= denies SOBGI= positive for constipation and abdominal pain, denies diarrheaGu= denies dysuriaMSK= denies joint pain smoking cessation has not smoked in 4 days and is motivated to stay off cigarettes as her abdominal pain is betterdoesn't have nicotine patch on today [facility] due to vomiting and abdominal pain x 4 days. Labs, CT Abdomen and Pelvis were consistent with Chronic Pancreatitis. Patient's symptoms improved with medication and she was discharged homeSince discharge home, nausea and vomiting persist but she is able to keep down water and jello Abdominal pain has improvedShe has lost 10 lbs this summer She saw GI in March and had an egd and MRCP - She has a follow up visit in September, but no new intervention was planned. She continues on Creon smoking cessation Willing to see [facility], wonders about nicotine patches, down to 2-3 cigarettes per day medication refills Needs refills on eloquis and potassium blood work time to recheck TSH, K and cholesterol per pt 3 mo f/u She was admitted to [facility] on 04/09/18-04/12/19 for recurrent Acute on chronic pancreatitis. On 03/27 she had an EGD, dilation and biopsy and on 04/03 she had MRI of Abdomen through Dr. Faustino Cristina her GI. In the hospital, she was treated with fluids, parenteral restriction and discharged home. Since discharge she was able to keep fluids down at home. She has not lost weight. Pain continues but is controlled on Percocet. She is still taking Creon. She was seen by a surgeon who reportedly suggested a small bowel feeding tube but patient declined Follow Up of ER Went to the [facility] ED on 03/03/19. she was discharged on Percocet and ZofranMay 24 GI Appointment. Currently able to eat oatmeal and popsicles. No alcohol use. No new OTC medications or Prescription meds. Hospital f/u for Hematuria Has b een having lower right quadrant abdominal x few weeks, but no dysuria, has chronic epigastric abdominal pain, nausea and vomiting from Chronic relapsing pancreatitis. Saturday had 3-4 episodes of blood in urine, this occurred again once on Saturday. Blood was bright red both days. She reports peeing blood that then became more dilute as the stream went on. Denies fevers, but has been having chills+. Personal h/o PE on Rene Went to the ED Saturday and an US was done and urine tests and bloodwork was done. She was told it was not a UTI or Ovarian issue. Pancreatitis Additional infor curt: She was in the hospital 3 weeks ago for a flare of Pancreatitis She was discharged 2 days laterFor the past 2 days she reports abdominal pain, fever, nausea and chills. She has been using ice chip. Follow Up of Hypokalemia This paula d resolved on prior blood work but new nausea and vomiting now Follow Up of Hyperlipidemia Risk factors include age over 50. Additional information: Stable on Fenofibrate. Follow Up of Hypothyroidism Comp liant with 150mcg daily Pancreatitis (comments) and pops icles She is beginning to feel betterShe reports that similar symptoms happened last week as Lj stopped taking her Creon a few days ago as she ran out Hyperlipidemia Risk factors inc lude age over 50. Associated symptoms include joint pain. Pertinent negatives include chest pain and dyspnea. Additional information: Is on Fenofibrate. Pain Management For DJD - seegabriel Huertas at [facility] Hypothyroidism TSH has been jimmy vated on last few checks Denies hypothyroid symptoms history of Pancreatitis History of Pancreatitis after which patient lost significant weight She is now regaining weight and is at ~145lbsDenies any symptoms of Nausea, vomiting or abdominal pain denies alcohol use history Follow Up of depression The symp toms are reported as being moderate. She states the symptoms are chronic and are well controlled. Follow Up of anxiety This is a f ollow up visit. Related symptoms are well controlled. There is improvement of initial symptoms. The patient reports functioning as not difficult at all. Additional information: Request refills. No s/e's. Insomnia The patient pres ents with sleep problems. The symptoms are improving. Relevant history: a BMI of 24.03. The patient does not have: use of alcohol. The patient is experiencing difficulty concentrating, difficulty initiating sleep, difficulty maintaining sleep and weight gain. Hypothyroid Here for thyroid recheck. States she is feeling low energy. Has gained weight. Last check 02/2018 at 38.300. She has ran out of meds. N/V The symptoms beg an 3 weeks ago. She states the symptoms are chronic and are poorly controlled. States no matter what she eats. She is having nausea and vomiting. States she hasnt tried anything OTC for this. depression Additional infor curt: PHQ 16 today. will increase abilify from 10 to 20 mg. hyperlipidemia Risk factors inc lude age over 50. Additional information: Patient presents for follow-up and is fasting for labs. jrk. Hypothyroidism Patient presents today for follow-up and labs. Hair falling out will check thyroid to be sure it is level or at least improving. Hasn't seen Gastro for pancreas will f/u on that. Need cardiology to f/u on chest pain and palpations even at rest. tingling down right arm stops with nitroglycerine. last stress test? Raj or [facility] with nuclear med no treadmill. She is gaining weight. Vit D Deficiency Weight Loss Associated sympt oms include cold intolerance and hair loss. Pertinent negatives include constipation, diarrhea, heat intolerance and irregular heartbeat/palpitations. Additional information: Patient c/o weight loss of 91lbs in year. Patient states she has pancreatitis and is unable to keep food down after eating. Patient has seen a GI specialist last year. Patient states she has been hospitalized 5 times in the last year. Patient gallbladder has been shown as dilated in imaging. Weight Loss (comments) Additiona l work-up done showed a normal/acceptable ejection fraction. Patient states she has not vomited in 4 days now. Patient denies any concerns with eating disorders. raj ED f/u Was dx'd with a CVA. Does have GI f/u. Will continue to use enzymes with food although pt states she isnt having any abd pain. Is now down to to 106 LBS. Pt given more ensure. Pt states she was taken off of Ranitidine and the Methadone. Will be seeing her pain managment doctor next week. Will resend the ASA as she lost her script from ED. We will recheck her tsh, lipids and Vit D now as she is out of thyroid medication. R foot pain Right foot with quater size ulcer on the right heal. Will send to wound care. No drainage, edema, erythema, fever or steaking appreciated. depression This is a follow up visit. Related symptoms are poorly controlled. There is worsening of previously reported symptoms. The patient reports functioning as extremely difficult. The patient presents with anxious/fearful thoughts and fatigue. The patient denies any weight gain. depression (comments) Reports wo rsening depression due to her detoriating health. Discuss f/u with collaborating physcian. Declined initially stating she is a very difficult and complex pt most doctors state so isnt sure how muc h it will help but relocantingly agreed. foot sore/swelling pt has foot s welling and a sore on her R sole. blister to right foot The sympto ms began 1 week ago. The location is right heel. Aggravating factors include walking. Relieving factors include rest. 57 y/o female pt c/o half dollar sized blister to right heel that has busted with clear drainage. pt also c/o swelling to bilateral ankles. symptoms for one week. Seen at ER for it 1 week ago. States was treated with antibiotic, can't remember which one. States took all meds and states is not much better Had appt with PCP today but was no show, now at for evaluation. f/u on pancreas The symptoms are reported as being moderate. She states the symptoms are chronic and are poorly controlled. Report that she is still unable to tolerate much food although she has been drinking the ensure, but cant afford much of it. So we will send script for creon since she is unsure of the name of the previous med the GI dcotor prescribed that she couldnt afford. rash on legs Has resolved. hallucinating She states the s ymptoms are chronic and are of new onset. Last week started hallucinating and also continues to have falls. Worsening short term memory loss. Thinks she may be developing Alzthemiers disease and would like to be evaluated. She has had multiple images of head, last MRI of brain without IV contrast from 05/02/17 at [facility] discussed loss of the normal flow void involving the right internal carotid artery, stable since comparision MRI. Previous CTA from 2015 showed robust enhancement of the riht internal carotoid artery. Recommended repeat CTA of the head and neck for eval of steno-occlusive disease. Background of mild chronic microvascular ischemic disease. weight loss The patient has lost 50lbs (22.73kgs). The patient is losing weight. The context of the weight loss includes chronic illness and exacerbation of GI disease. Additional information: Weight has been lost due to chronic pancreatitis. F/U swollen feet Reports that he r feet have been swelling and were evaluated in ED although she states they didnt say why. TSH Will get labs to day. Also check potassium as she went to ED and it was 2.9 on 07/18/17. Pancreatitis It occurs daily. The problem is worse. Location is diffuse. The patient describes it as aching. bilateral foot swelling Onset: 4 days ago. Severity level is moderate. It occurs constantly and has worsened. Location: bilateral foot. There are no aggravating factors. There are no relieving factors. Pertinent negatives include numbness and weakness. Additional information: States woke up one day with leg swelling and now has progressed, states was in hospital for 2 days last week for syncope and swelling started after being discharged from [facility]. Swelling up to b/l knees now. TIA Additional infor mation: Patient states she was in [facility] for TIA on 05-03-17. 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 Had 2 incident like that in past about 10 yrs ago also. Lasted less than a day on all incidences. Told pt to take ASA daily and also on eliquis for h/o blood clot. The patient is a former user of tobacco. Pancreatitis Additional infor mation: Patient presents today for follow-up and labs. Per pt admitted for pancreatitis and TIA; sxs resoved. Had u/s of carotid showed it completely blocked and no surgery recommended. ER f/u Low potassium, m agnesium and calcium. Reviewed ED records. Patient states she is aware that she needs to avoid taking Bentyl while taking K. Reports she was given a script but has plenty of this from previous scripts as she took this medication on a regular basis before stopping. Will also see Dr. Wallace again this week as recent imagning shows cyst is getting bigger. per pt. Reports Raj provider spoke about possible pacreatic bypass. Pt states she is still falling as she still isn't using her roolator because, im embarassed because it makes me look old. Patient is accompanied by her friend and ride today. Falling Pt states that s he is falling while she is walking and unsure why. Denies dizziness, leg trouble, or passing out. Has had MRI. Will refer to neurology states. Patient has a large golf ball sized hematoma on the right forhead. As well as had a large black eye over right eye. Follow Up of Pancreatitis Additi onal information: Patient is only drinking liquids primarily as she isn't able to hold down much food. Colonoscopy Reports her dad of colon cancer. Patient has not had a colonoscopy and pt is experiencing rapid weight loss which she attributes to lack of appetite as well as pancreatitis Blood thinner Hasnt been able to get blood thinner. Will look into that today for patient. Pancreatitis Additional infor matchinyere: Hasn't been able to get medication enzyme that was recommended by GI states he told her to f/u w/us. Neck pain The severity of the problem is moderate. The problem has worsened. The frequency of pain is constant. Additional information: Pt is a pt of Dr. Huertas feels pain has been worse after fall. f/u on pancreas Reports that she is still only able to eat a few bites at a time. Down to 137 lbs at this time. Neck pain The severity of the problem is moderate. The problem has not changed. The frequency of pain is constant. Additional information: Fell about a month ago and still having neck pain. Taking Tizanidine not helping. Depression This is a follow up visit. Related symptoms are poorly controlled. There is continuation of initial symptoms and worsening of previously reported symptoms. The patient reports functioning as very difficult. Depression (comments) Is taking Risperidal and Zoloft but feels with her worsening health issues her pain has worsenend. Follow Up of [facility] I npatient - Pancreatitis Pt presents to clinic to discuss recent [facility] admission for pancreatitis. Pt had endoscopic ultrasound, no h pylori or cancer. Chronic inflammation noted so patient should take PPI and take abx, states she hasnt recieved them so she will call them about it. Pt also has been able to get pancreatic enzyme replacement therapy from insurance. Would like a refill of bentyl. Discussed her diet and she has been adhering to this she has lost more weight since last visit, has a scar on her chin from recent fall as she feels weak at times. Advised her to use her rollator. She is agreeable to this as this happend while stading talking ot her friend Anita. States she has only had 2 ciggs in the past 5 months and that was 2 days ago. Hopital Follow-up Patient presen ts by herself for hopital follow-up. Patient was admitted to [facility] with pancreatitis. Patient was RX'd medications while in the hospital that were denied or need prior authorization. These medications are Eliquis 5 mg, and Pancreaze. Patient presents to the clinic today with LUQ abdominal pain, + nausea with no vomiting, patient is awaiting lower GI series to be completed on February 11. Patients father had lung, colon, & prostate cancer dx when he was in his 70's. Patient reports needing routine mammogram as well Follow Up of [facility] ER Robin jain reports she was an inpatient at [facility] for pancreatitis at which time they did a CT scan of her pancreas, the CT of her pancreas also revealed a PE. Patient had already been discharged from the hospital when the CT result was returned and patient reports she was contacted by telephone and instructed to go to the ER to begin treatment for the PE. Patient still reports mild shortness of breath and fatigue. Isn't scheduled for another CT until April and is still awaiting results. Reports has only had one BM since 11/27/16 which was hard. Will try mag citrate and stool softners 100 mg po bid. Will call me on if no improvement. Follow Up of Pancreatitis There is no radiation. The patient describes it as aching. Symptom is aggravated by food. Additional information: Explained in great detail what could cause pancreatitis. Patient brought in records form [facility]. Follow Up of [facility] Patient is a 6 year old female presents today for [facility] inpatient f/u and was Dx with pancreatitisReports was released form [facility] 11/27/16 Reports seeing surgeon 12/10/16 Dr Wallace. Eval abdominal pain, nauswa, vomitting The symptoms began 1 day ago. The symptoms are reported as being severe. The symptoms occur constantly. Patient is a 56 year old female presents today for stomach pain.Patient is here with female friend today. Reports falling more Fasting labs Patient is a 56 year old female presents today for fastig labs increased headaches. Reports smoking cessation. sleep walking Reports the othe r night in the middle of the night got out of bed and took all clothes out of closet and put on bed and does not knowing did this until waking Headache The severity of the problem is moderate. Pain scale: 8/10. The problem has worsened. The symptoms are recurring. Headache timing includes no pattern. Denies relieving factors. Eval increases sleep walking The symptoms began month ago and generally lasts varies. The symptoms are reported as being severe. The symptoms occur daily. Aggravating factors include unknown. Relieving factors include unknown. Reports that Dr Huertas knows that medications prescribed at [facility]. Reports getting medication from [facility] and [facility]. Reports left sholder bruise, right hip pain from falling. Reports not drivingReports sleep walking more. Reports cooking in the middle of the night and taking clothes off. Reports was Dx was in the past. fall The symptoms beg an month ago and generally lasts varies. The symptoms are reported as being severe. The symptoms occur randomly. Aggravating factors include unknown. Relieving factors include unknown. Reports falling all the time. Left shoulder bruise and right hip bruise. Reports falling in the exam room today. Lesion on the left and reports hitting left side of face. Reports not sleeping well. Reports getting medications (Opana and Oxycodone) From Dr Huertas at [facility] and medication at [facility]. ER Visit Went to [facility] last Wednesday 07/25 thinking she was having a heart attack. Stated she was having chest pain, numbness/tingling in her arms, and took 2 Nitroglycerine. She was kept overnight for observation with EKG's/Observation. She states, They said I did not have a heart attack this time, but there was damage to my heart. She was told to follow-up with her PCP. Thyroid problems Presenting symp toms include fatigue, intolerance to cold, muscle weakness, skin and nail changes, tremor and weight gain. Presenting symptoms do not include rapid heart beat. Risk factors include age, female and history of hypothyroidism. Additional information: Patient is a 56 year old female presents today for thyroid problems, f/u to [facility], and feet swelling.Here for a recheck of her labs. Is fasting today except water. Eval Feet swelling R foot/leg sw elling that started about 3 weeks ago. She states, I notice it more when I drink a lot of water Reports tenderness around the ankle joint. No warmth noted. Reports no trauma/injury. smoking Reports smoking 35 years. Reports would like to stop smoking. Reports would like help with cessation. Patient has tried patches., chair takes, Wellbutrin, and is unable to chew gum due to having dentures. But like other options. Eval bumps on back, arms Reports bumps on right flank and left arm that appear to be lipomas. Report they don't bother her and arent painful, just wanted to make sure it isn't a blood clot. Thyroid Check Ptient is a 56 y ear old female presents today for headaches, smoking cessation, repeated falls and unsteady gait and a parking plaquard. Patient is here with her friend today. Reports she is still falling and walking like I am drunk. Reports want to be referrered to Dr Orion Ballesteros for neurology at [facility] where her friend recieves care. Handicapp plaquard Filled out pa perwork and gave to patient. MRI results Patient is a 56 year old female presents today for a thyroid check. Explained MRI results to patient. Reports having TIA's 4 years ago. Reports she quit smoking, 3 daysa fter our last visit witht he exception of 1 cigarette yesterday due to stress. Reports she has lost 13lbs and has no longer had headaches. Reports no falls and no worsening of memory. Thyroid check Need med refills . Discuss increased falls The symp toms began 2 years ago. Aggravating factors include nothing. Relieving factors include nothing. She states the symptoms are chronic. Falls randomly. Sometimes she has a warning" sometimes she doesnt. Sometimes she seems disoriented per her friend Salma. Her friend statees sometiems her gait is unsteady, like she has been drinking. Unsure if she is blacking out. Denies nausea and vomiting. Denies ringing in the ears. Smoking cessations Patient state s the chantix made her have the same side effects as she did the previous time. Waking up and turning on the stove in the middle of the night. Reports she has Taken Nicorette gum in the past and it has worked. Patient reports it took one week with Nicorette to stop smoking. Reports that the Nicorette does not work she would like to try Wellbutrin. Patient is currently smoking approximate a pack a day. Saturday, April 09, 2016 will be her quit date. Headache Onset: 15 Weeks. The severity of the problem is moderate. Pain scale: 8/10. The problem has not changed. The symptoms are constant. Additional information: Has had headaches all her life and was taking depakote for the past 15 years That was working. Now it is not. Has had a headache x 3 weeks that won't go away. Headache (comments) Taking ibupr ofen that is not helping. Also has tried naproxen that is not helping. WWE Patient is a 56 year old female who presents to clinic today today for a WWE. Patient denies any breast lumps, bumps, nipple discharge, retraction, rash, vaginal odor, vaginal discharge, pelvic pain, fever, chills or abnormal pap. Reports generalized bilateral breast tenderness with palpation. Patient reports LMP , Pap and Mammogram approx 8 years ago when she went through menapause. Reports she hasn't had any problems with hot flashes or mood swings. Reports she hasn't been sexually active in the past 10 years so has no concerns for STI's. States she is now off of chantix because she was having similiar symptoms as last time, waking in the night and turning on the stove. Sore throat The severity of the problem is moderate. Pain scale: 7/10. The problem has worsened. The symptoms are persistent. Symptoms are not associated with dental infection and exposure to strep. The denies aggravating factors. The denies relieving factors. Associated symptoms include chills/rigors, fatigue, headache and pharyngitis. Pertinent negatives include cough, fever, sinus pressure or sputum. Additional information: Sore throat x 1 week. Denies fever and chills. Has tried OTC. hasn't helped. Follow Up of Thyroid The symptom s are reported as being moderate. She states the symptoms are chronic and are stable. Patient presents the clinic today for two months check on thyroid labs. Reports she is taking her medications as directed. Discuss Smoking Cessation Robin jain requests help with smoking cessation. Reports she has taken Chantix in the past that was working well but was urged to stop taking it by family due to the danger of possible side effects and she was experiencing lack of focus or concentration at the time. Patient reports she is not entirely sure this was not related to her thyroid. Patient reports she smoking at least a pack a day and will like to quit immediately. Patient denies any suicidal or homicidal ideations, hallucinations, delusions increased anger, aggression or night terrors. Rash The patient pres ents for Rash originally diagnosed in 2015. This episode began 1 month ago and has lasted day. The symptom(s) are described as moderate and occurs continuously. Affected area(s) include trunk and groin. The patient describes the affected area(s) as itchy and red. The symptoms are not associated with new skin soaps/lotions. Associated symptoms include erythema (skin) and pruritus. Additional information: Patient is concerned rash is scabies as steroid cream hasn't been helping, rash is worsening. Rash The patient pres ents for Rash originally diagnosed in 2015. This episode has lasted 1 Month. The symptom(s) are described as mild, worse and occurs occasionally. Affected area(s) include both arms and both legs. The patient describes the affected area(s) as itchy and red. The symptoms are not associated with contact with chemicals, contact with plants, new perfume, new skin soaps/lotions, rash began before age 1, recent medicines, recent travel and stress. Denies aggravating factors. Denies relieving factors. Associated symptoms include dry skin, erythema (skin), fatigue and pruritus. Additional information: Reports using multiple OTC creams with no relief. Thyroid problems The severity of the problem is moderate. The problem has worsened. Presenting symptoms include fatigue, skin and nail changes, tremor and weight gain. Presenting symptoms do not include rapid heart beat. Risk factors include age, female and history of hypothyroidism. Additional information: Reports 10lb weight gain within last month. Discuss Back & Knee Braces The s ymptoms are reported as being moderate. The symptoms occur constantly. She states the symptoms are chronic and are uncontrolled. Low back pain, for many years and is getting worse." Patient is here to be measured for brace to reduced pain by restricting mobility of the trunk and support weak spinal muscles. Denies any new injury, incontinence of urine or stool. hyperlipidemia Reasons for scre ening do not include alcohol use. Associated symptoms include headache. Pertinent negatives include abdominal pain, chest pain, dizziness, edema, fatigue, myalgia and nausea. Additional information: Is fasting for labs. headache The severity of the problem is moderate. Pain scale: 7/10. The problem has worsened. The symptoms are recurring. Locations affected include entire head and frontal. Headache timing includes no pattern. Aggravating factors include bright lights. Denies relieving factors. Pertinent negatives include nausea or vomiting. Additional information: Has had headache every day. Has been taking tylenol with minimal relief of symptoms. Has a history of headaches. Noticed worsening of symptoms within the last 3 weeks. Estab Care headache (comments) Has been shubham ing depakote for headaches for years. Thinks it might not be working as well as it used to. hypothyroidism Has been taking levothyroxine as prescribed. Needs TSH check and med refill. depression The patient does not present with depressed mood, fatigue or thoughts of or suicide. The depression is associated with headache. The patient denies any nausea and vomiting. Additional information: Doing well on zoloft. Needs refills. Follow Up of Thyroid problems Pr esenting symptoms include fatigue, rapid heart beat, tremor and weight gain. Medications taken that may be affecting thyroid lab results include phenytoin. Risk factors include age, female and history of hypothyroidism. Additional information: Three months ago low tsh, have decreased the levothyroxine. memory concerns The symptoms beg an 1 year ago. The symptoms are reported as being moderate. The symptoms occur daily. Symptoms have been ongoing for at least a year. She presents with her daughter today, who reports she has been getting up in the middle of the night. Patient remembers getting up however denies knowledge of what she says or has been doing when discussing with her daughter. She even made pancakes in the night. Stopped taking chantix because episodes were more frequent with it. Memory loss (FP) Onset was 2 wee ks ago and it was gradual. Severity level is moderate. The intervention comprises of: Medication taken: Anti-depressants, Neuroleptics; lab test(s) for TSH, CBC, SED Rate and CMP. Associated symptoms include agitation, dizziness, falling, headache and speech difficulty. Pertinent negatives include ataxia, behavioral changes, bladder incontinence, bowel dysfunction, chorea, confusion, difficulty with ADLs, fever, gait disturbances, hallucinations, hyperacusis, mood swings, neck stiffness, paresthesia, personality change, restlessness, sleep disturbances, tingling, tremors and visual disturbances. Follow Up of Swollen Feet Has be en having swelling in both feet daily for the past two weeks. Meds The symptoms beg an 2 weeks ago. The symptoms are reported as being moderate. The symptoms occur randomly. Increased her depakote two weeks ago and has been feeling fatigued, drained of energy, slurred speech at times and continues to get intermittent headache pain. Complains her memory is also suffering. Has also been getting intermittent palpatations, needing to use the nitro tabs to resolve. Denies shortness of breath, chest pain, nor dyspnea on exertion. No pillow orthopnea. Follow Up of Pain Clinic The sym ptoms began 1 week ago. The symptoms are reported as being moderate. The symptoms occur daily. Pt states thats she went to the pain clinic and had x-ray of neck and was told that she had plaque build-up on the right carotid and was told to see her PCP. Headaches The symptoms beg an 45 years ago. The symptoms are reported as being moderate. The symptoms occur weekly. The location is right side of head. Controlled due to medications. History of TIA's, last eight years prior. dysphagia The difficulty i n swallowing began 3 months ago. The symptoms are severe, unchanged and occur occasionally. The symptoms occur with solids and liquids and cause choking and gagging. The patient has a history of reflux. The patient is also experiencing chest pressure or discomfort, choking, cough, epigastric pain, food sticking, forced regurgitation, foreign body sensation in throat and sore throat. The patient denies anorexia, back pain, bloating, cough following swallowing, food on pillow in AM or hoarseness. chest pain Onset 2 weeks ag o. Pain severity level is 8/10. It is not exertional. There is radiation to jaw. Location is upper right. The patient describes it as sharp. It occurs randomly. The problem has resolved. The patient denies any aggravating factors. The patient denies any relieving factors. Associated symptoms include chest pain, diaphoresis, fatigue, headache and orthopnea. Pertinent negatives include dizziness, dyspnea, edema, lightheadedness, nausea, nocturia, paroxysmal nocturnal dyspnea, syncope and visual changes. heart burn The symptoms beg an 2 weeks ago. The symptoms are reported as being moderate. The symptoms occur daily. Aggravating factors include food consumption. Relieving factors include nothing. She states the symptoms are acute. States has had heartburn for the past 6 months. For the past 2 weeks has caused to vomit after eating. Follow Up of Thyroid problems (FP) This has been a problem for 20 Years. The severity of the problem is moderate. The problem has worsened. Presenting symptoms include fatigue, rapid heart beat, tremor and weight gain. Medications taken that may be affecting thyroid lab results include salicylates. Risk factors include female. Additional information: Pt states that she had labs done last visit and she has never revieved the results. Follow Up of Headache (FP) Pain scale: 7/10. Locations affected include bilateral frontal. Aggravating factors include noise. Symptoms are not aggravated by allergies, anxiety, bright lights, caffeine, exercise, head position and certain foods. Symptoms are relieved by darkness and ice. Symptoms are not relieved by analgesics, bath, decongestants, heat, massage, OTC meds and prescription meds. Associated symptoms include blurred vision, dizziness, nausea, neck stiffness, vision loss left and vomiting. Pertinent negatives include diplopia, fever, hemianopsia left, hemianopsia right, loss of consciousness, memory loss, personality changes, phonophobia, photophobia, vision loss right, visual aura or vertigo. Thyroid problems (comments) Has been on meds for 10 years. No new problems with thyroid. Said she is always cold. Has dry skin. Brittle hair and nails. Mood disorders (comments) Contro lled with meds. Lost a brother and brother in law within a week. COPD Mood disorders The pt is needin g refills on her risperidone.TD Thyroid problems Risk factors in clude female. Additional information: Pt is needing refill on medicaitons. COPD (comments) Using inhaler le ss. SOB 1-2 times a day. Rescue inhaler helps. No night time SOB. abdominal pain (comments) During exam pain had pain with palpation of lower Abdomen. Said she has had this pain off and on for a couple of years. Stomach pain can get to 8 on a scale ot 10. Nothing makes it better or worse. When pain occurs will couple of days and then will go away for a week or two and then come back. No diarrhea during these episodes but is constipated a lot. Taking 3 stool softener daily. Said she may not have a BM 3 weeks. abdominal pain Est care with new pcp (comments) Pt has been out of meds the past week. Has not taken levothyroxine for two days. Anxiety (comments) Controlled on meds. depression (comments) Controlled on meds COPD (comments) No nocturnal epi sodes. Uses rescue inhaler 2-3 times a day. Est care with new pcp Pt is here today to est care with new pcp. Anxiety Additional infor curt: Needing multiple medication refills. Zoloft, risperdal, amitrptyline. depression COPD Pro air and adva ir refills. cholesterol Pt states that s he is here today to have mutliple med refills. Pt states that she is needing her cholesterol med refilled. Pt states that she has been fasting today. Functional Status Date Functional Assessmen t No Information Instructions Date Instruction Additional Infor curt Will add hydroxyzine prn nausea/vomiting; continue zofran prn. Continue to follow up with specialist as scheduled and as needed. Call them with concerns specific to the specialty. Continue current medications. Related to Chronic pancreatitis, unspecified pancreatitis type Records obtained and reviewed. To be scanned to chart. Related to Hospital discharge follow-up per above; UA neg an d discussed with pt possible kidney stones though less likely with no blood in UA, could order KUB abd xray and pt declined xray. Related to Lower abdominal pain Probably related to pancreatitis hx. Related to Epigastric abdominal pain per above Related to Left flank pain Labs ordered. UA neg ative today. Call or follow up with concerns related to this assessment. Related to Microscopic hematuria I did not notice an abnormality on X-ray. Will review X ray report and advise pt if abnormal.- Due to pt having COPD and symptoms for a month will treat with antibiotics. Medication with instructions. Rest. If increased SOB or fever over 102 seek medical. Push fluids. Continue inhalers as prescribed. Related to Acute cough Continue current med ications. Prescription sent if due. Follow up depending on how you are doing and every 3-6 months. Related to Essential hypertension Labs ordered. Will c all with results and treat as needed per results. Continue current medications. Prescription sent if due. Follow up depending on how you are doing and every 3-6 months. Related to Hypothyroidism (acquired) per above Related to Adam al head fracture, left, sequela Referral was sent in past but pt had not gotten an appt yet. Did give pt number to call to set up appt but I resent referral again in case. Call if symptoms worsen or persist or if you do not hear back within 2 weeks about your appointment with specialist. Continue current medications. Prescription sent if due. Follow up depending on how you are doing, Related to Chronic left shoulder pain Per above. Pt given phone number to call make her MRI appts for LS spine and L shoulder. Related to Lumbar spondylosis per #2 Related to Other chronic pain per #2 Related to Chron ic left shoulder pain Labs ordered. Will c all with results and treat as needed per results. Continue current medications. Prescription sent if due. Follow up depending on how you are doing and every 3-6 months. 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 Supportive therapy advised. Call if symptoms worsen or persist. Supportive therapy advised: NSAIDs like ibuprofen, if no contraindications or problems with chronic kidney disease, tylenol as needed, ice/heating pad, stretching exercises 3 times per day. Call if symptoms worsen or persist and follow up as needed and every 1-3 months depending on stability. Related to Injury of left shoulder, subsequent encounter improving; continue bland diet, monitor sxs Related to Other chronic pancreatitis Labs ordered. Will c all with results and treat as needed per results. Continue current medications. Prescription sent if due. Follow up depending on how you are doing and every 3-6 months. Related to Hypothyroidism (acquired) Continue current med ications. Prescription sent if due. Follow up depending on how you are doing and every 3-6 months. Related to Essential hypertension Continue current med ications. Prescription sent if due. Follow up depending on how you are doing and every 3-6 months. 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 Let us know when you are ready to set a quit date and get on medication treatment and further counseling for quitting. Related to Cigarette nicotine dependence without complication Had xray at in 2021 with mild to mod spondylosis; will order MRI for [facility] referral. Related to Chronic low back pain without sciatica, unspecified back pain laterality Referral sent for fu rther evaluation and treatment of assessment of concern. Call if symptoms worsen or persist or if you do not hear back within 2 weeks about your appointment. Related to Heart murmur Continue current med ications. Prescription sent if due. Follow up depending on how you are doing and every 3-6 months. 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 Let us know when you are ready to set a quit date and get on medication treatment and further counseling for quitting. Related to Cigarette nicotine dependence without complication Continue current med ications. Prescription sent if due. Follow up depending on how you are doing and every 3-6 months.Discussed risk factors, such as #2, and how we can lower those risk factors to prevent future strokes/TIAs. Related to H/O: stroke Will refer to [facility].Referral sent for further evaluation and treatment of assessment of concern. Call if symptoms worsen or persist or if you do not hear back within 2 weeks about your appointment. Related to Unsteady gait Hypertension education Related t o Heart murmur Continue to follow u p with specialist as scheduled and as needed. Call them with concerns specific to the specialty. Continue current medications. Related to Injury of left shoulder, subsequent encounter Follow up depending on how you are doing and every 3-6 months. Related to Unsteady gait Supportive therapy a dvised: NSAIDs like ibuprofen, if no contraindications or problems with chronic kidney disease, tylenol as needed, ice/heating pad, stretching exercises 3 times per day. Call if symptoms worsen or persist and follow up as needed and every 1-3 months depending on stability. Related to Low back pain, unspecified Labs ordered. Will c all with results and treat as needed per results. Related to Essential (primary) hypertension Labs ordered. Will c all with results and treat as needed per results. Continue current medications. Prescription sent if due. Follow up depending on how you are doing and every 3-6 months. Patient was seen with César Navarro, MS3 and documentation has been prepared under my direction and personally reviewed by me. I confirm that the note above accurately reflects all work, treatment, procedures, counseling and medical decision making performed by me. Related to Vitamin D deficiency, unspecified Labs ordered. Will c all with results and treat as needed per results. Continue current medications. Prescription sent if due. Follow up depending on how you are doing and every 3-6 months. Related to Hypothyroidism, unspecified Will review labs and contact pt with results. Quarantine until results are known. Discussed good handwashing, Seek medical if fever over 102 not reduced with meds, severe headache, confusion or trouble breathing. OTC meds to relieve symptoms. Given info on quarantine guidelines. Related to Fatigue, unspecified type Continue mirtazepine , reassess at next visit. Recommend sleep hygiene techniques. Related to Primary insomnia Follow up with baljit gutierrezs as directed. Related to Right carotid artery occlusion Continue ondansetron. Related to Other chronic pancreatitis Restart Eliquis 5mg. Related to Personal hx of PE Ondansetron refill. Continue to follow with GI. See above. Related to Chronic nausea Continue walker use. Related to Repeated falls PT/OT and home healt h assessment. Referral to neurology for clarification of neurologic deficits and stroke management. Related to TIA (transient ischemic attack) Weight control education Related to TIA (transient ischemic attack) Hypertension education Related t o TIA (transient ischemic attack) - Post viral cough i n setting of chronic copd - use albuterol prn - use fluticasone nasal spray - use famotidine prn - flu shot today advised covid booster advised shingles vaccine at pharmacy Related to Cough, persistent - Brace ordered sent to [facility] Related to Right foot drop Shingles education d one.Is already on gabapentin.Will add acyclovir.Follow up with PCP PRN. Related to Herpes zoster without complication Dietary management e ducation, guidance, and counseling Related to Dermatitis Patient advised about exercise R elated to Dermatitis Weight control education Related to Dermatitis Hypertension education Related t o Dermatitis PAP Smear done last year Related to Screening for cervical cancer Continue Levothyroxine TSH done today Related to Hypothyroidism (acquired) Continue Zofran Related to Chron ic nausea Will schedule follow up mammogra m Related to Encounter for screening mammogram for malignant neoplasm of breast No further symptoms Followed up with Neurology Related to TIA (transient ischemic attack) Reviewed dietary radha delines for hypertension management Continue current medication and monitor BP regularly Call office for consistently elevated SBP > 150 mmhg or DBP > 90mmHgEmphasized importance of daily exercise and low salt diet. 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 Referred to neurology Related to Right carotid artery occlusion Will f/u gi Related to Phary ngoesophageal dysphagia will f/u neuro for r ecommendations on any needed changes/right ica stenosis Added atorvastatin as no documented statin allergy Last lipids in 05/2020 were normal Related to TIA (transient ischemic attack) Episodes are more in frequent now than before Related to Other chronic pancreatitis Will f/u with GI Related to Left lower quadrant abdominal pain Referred to Neurology Related to Dizziness Reviewed dietary radha delines for hypertension management Continue current medication and monitor BP regularly Call office for consistently elevated SBP > 150 mmhg or DBP > 90mmHgEmphasized importance of daily exercise and low salt diet. Related to Essential hypertension Dietary management e ducation, guidance, and counseling Related to Essential hypertension Dietary management e ducation, guidance, and counseling Related to Essential hypertension Hypertension education Related t o Essential hypertension Carotid US to evalua te Reassess on f/u in 2 months on need for ECHO or further imaging if still present after adequate BP control Related to Right carotid bruit -Expect improvement with better bp control - F/U in 2 months - No medication changes today Related to Migraine without aura and without status migrainosus, not intractable -Start Lisinopril 5m g- F/U Laial in 2 weeks - Low salt diet Related to Essential hypertension -Monitor for now-Use heat / ice as needed Related to Pain in right axilla Dietary management e ducation, guidance, and counseling Related to Essential hypertension Hypertension education Related t o Essential hypertension - Increased amitrypt iline to 50mg OD - F/U in 1 month with BP log - Start low salt diet and potassium Related to Migraine without aura and without status migrainosus, not intractable - Brace to [facility] Related to Right foot drop - NCM to contact wit h BP cuff - Will start low salt diet - F/U in 1 month with BP log Related to Elevated BP without diagnosis of hypertension Results in 7-10 days No abnormal findingsEncouraged to schedule for mammogramNo current symptoms of incontinence Related to Encounter for gynecological examination (general) (routine) without abnormal findings Tdap today Related to Encou nter for immunization Continue Levothyroxi ne Check TSH today Related to Hypothyroidism (acquired) [facility] Will review notes from Dr. 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- Zofran to ODT Related to Other chronic pancreatitis - Will use corn pads - Supportive shoes Related to [place] of foot Continue Inhalers Related to Chr onic obstructive pulmonary disease, unspecified Hopefully she has qu it smokingEncouraged to maintain Related to Tobacco abuse - Continue to advanc e diet as tolerated- Continue to avoid cigarettes Related to Other chronic pancreatitis recheck labs today Related to Hy pothyroidism recheck labs todayrefill K Relat ed to Hypokalemia hx of pancreatitis d oes take pancreatic enzymes with mealscontinue to stay hydrated, take Zofran as needed Related to Nausea with vomiting, unspecified F?U with GI Dr. Cristina and discuss other investigations/prevention of episodes Related to Other chronic pancreatitis Referred for screening mammogram Related to Screening mammogram, encounter for Resolved Related to Hypok alemia Low TSH but will re- check due to possible sick euthyroid syndrome no symptoms of hyperthyroidism However did reduce dose of LTX on refill Related to Hypothyroidism - Continue to advanc e diet as tolerated- Will follow up with GI on February 25 to evaluate Pseudocysts and assess need for alterante management - May need referral to a tertiary care center Related to Idiopathic chronic pancreatitis UA now normal - no e vidence of gross or microscopic hematuria Related to Gross hematuria - Renal US ordered- Blood and RBC on UA from ED - If pain worsened - will need CT A/P and further investigation Related to Gross hematuria Continued intermitte nt symptomsPatient has a f/u with GI in 03/2019 Related to Other chronic pancreatitis Chronic disease Potassium supplement sent x 10 d ays Related to Hypokalemia LTX dose increased t o 175mcgRepeat TSH in 12 weeks Related to Hypothyroidism See #1 Related to Nause a with vomiting, unspecified - Continue Ice chips /Popsicles to stay hydrated and advance as tolerated - Restart Creon - Tolerating medication - If pain worsens/unable to tolerate hydration, go to the ED for admission - GI Referral placed for recommendations regarding chronic episodes- Creon restarted- She is abstinent from drugs/alcohol Related to Idiopathic chronic pancreatitis Repeat BMP done toda y and this is improved Related to Hypokalemia Flu shot given today Related to Encounter for immunization Continue Levothyroxi ne at 175 mcg TSH, FT4 in 8 weeks Related to Hypothyroidism Taper off Amitryptil line since patient is also on RemeronConsider Ambien or Trazodone Related to Insomnia Continue Fenofibrate, refilled R elated to Hyperlipidemia See above # Related to Major depressive disorder, single episode, unspecified Take medications as directed.Encouraged therapy. RTC for recheck in and refills in 3 month.Call with any questions or concerns.Go to ED immediately for SI, HI, hallucinations or delusions.Patient verbalized understanding and is agreeable to plan. Related to Anxiety disorder, unspecified Take medications as directed.Call with any questions or concerns.RTC in one month or sooner if symptoms don't improve or worsenPatient verbalizes understanding and is agreeable to plan. Related to Insomnia, unspecified Labs today. Will not epi of results. Treatment will depend on results. Related to Hypothyroidism, unspecified Labs today. Will not epi of results. Treatment will depend on results. Will recheck 2 weeks or PRN. Related to Nausea with vomiting, unspecified Will call with lab r esults and any changes in medications/dosing. If pt has not heard from this office in two weeks regarding results, instructed to call and inquire.Recheck in 1-3 months for chronic conditions if you are doing well and your conditions are stable. Call if having any concerning symptoms.Rajni Foss was acting as the scribe for this visit. The scribes documentation has been prepared under my direction and personally reviewed by me. I confirm that the note above accurately reflects all work, treatment, procedures, counseling and medical decision making performed by me. 1-9-18 11:00am Related to Abnormal weight loss Try to cut back on t obacco smoking and quit smoking. Let us know when you are ready to set a quit date and get on medication treatment and further counseling for quitting. Related to Nicotine dependence, unspecified, uncomplicated Continue current sonu atment plan and follow-up with PCP as instructed/needed. Related to Vitamin D deficiency, unspecified Continue to follow u p with specialist as scheduled and as needed. Call them with concerns specific to the specialty. Continue current medications. Related to Other chronic pancreatitis Will call with lab r esults and any changes in medications/dosing. If pt has not heard from this office in two weeks regarding results, instructed to call and inquire. Related to Hypothyroidism, unspecified Will start Remeron for sleep. Re lated to Insomnia, unspecified Will stop Zoloft. Wi ll start Abilify. Take medications as directed.Encouraged therapy. Will have [facility] contact patient psychRTC for recheck in and refills in 1 month.Call with any questions or concerns.Go to ED immediately for SI, HI, hallucinations or delusions.Patient verbalized understanding and is agreeable to plan. Related to Major depressive disorder, single episode, unspecified Will f/u w/ wound care. Related to Disorder of the skin Labs today. Will not epi of results. Treatment will depend on results. Cont low fat diet Related to Hyperlipidemia, unspecified Labs today. Will not epi of results. Treatment will depend on results. Recheck in 2 months. Related to Hypothyroidism, unspecified labs today and will resend meds if needed and be sure to get 30 minutes of sunlight daily. Call with any questions or concerns. Pt verbalzied understanding and is agreeable to plan. Related to Vitamin D deficiency, unspecified Will Topimax as her headaches are stable and Topimax may be increasing weight loss. Pt verbalized understanding and is agreeable to plan. Related to Headache Mental health care education Rel ated to Major depressive disorder, single episode, unspecified Chronic disease Will refer to wound care Related to Disorder of the skin will refer to GI Related to Acut e pancreatitis with infected necrosis, unspecified Mental health care education Rel ated to Major depressive disorder, single episode, unspecified Chronic disease Cultures obtained, w ill try oral clindamycin, Pt to f/u with PCP in 7-10 days if not better or sooner if problems. Will contact pt when cultures are available. Related to Local infection of the skin and subcutaneous tissue, unspecified Will send CREON but consider:Pancreaze, Pertzye, Viokace or Zenpep capsules if this isnt approved. Will also have pt f/u with [facility]. Related to Chronic pancreatitis Labs today. Will not epi of results. Treatment will depend on results. Related to Hypothyroidism, unspecified Labs today. Will not epi of results. Treatment will depend on results. Related to Hypokalemia Chronic disease Chronic disease Mental health care education Rel ated to Major depressive disorder, single episode, unspecified Gave ensure today Related to Abn ormal wt loss Will try and get PA approved for [facility] GI med has been continously declined. Related to Other chronic pancreatitis Labs today. Will not epi of results. Treatment will depend on results. Related to Hypokalemia Labs today. Will not epi of results. Treatment will depend on results. Related to Hypothyroidism, unspecified Labs today. Will not epi of results. Treatment will depend on results. Related to Edema, unspecified Will refer to ER for further evaluation and potassium replacement. Pt will travel by POV, pt stable at time of transfer. Pt to f/u with PCP in 2 days after ER visit as scheduled. Related to Localized swelling of leg w/ lump Get records. Discuss ed FAST of stroke sxs. Non smoker. Continue to take ASA and eliquis. F/u with PCP every 3 months or as needed. Related to Prsnl hx of TIA (TIA), and cereb infrc w/o resid deficits Labs today. Will not epi of results. Treatment will depend on results.Take K as directed. Related to Hypokalemia See hpif/u in one month or prn R elated to Acute pancreatitis with infected necrosis, unspecified Keep all appt with [facility]. Take meds as directed.Go to ED for worsening of symptoms. Related to Idiopathic acute pancreatitis without necrosis or infection Patient is taking op ioid pain medication through Dr. Huertas at [facility]. So she will begin taking coolies stool softeners twice a day and Mag Citrate.Pt will let us know if this doesnt produce a BM. Related to Constipation, unspecified See above # Related to Hypot hyroidism, unspecified Rx [facility] as directedCall with any questions or concerns Related to Vitamin D deficiency, unspecified Healthy Lifestyle activities Rx sent to [facility] as directedEncouraged to eat ice chips and drink sips of gatoradeCall with any questions or concerns Ada Alvarez was acting as the scribe for this visit. The scribe's documentation has been prepared under my direction and personally reviewed by me. I confirm that the note above accurately reflects all work, treatment, procedures, counseling and medical decision making performed by me. Related to Nausea with vomiting, unspecified Will refer for CTTre atment will depend on resultsGo to ER if worsensRTC in 10 days or PRN Related to Generalized abdominal pain Weight control education Related to Generalized abdominal pain Labs done todayWill notify with resultsTreatment will depend on results Related to Hypothyroidism, unspecified Labs doneWill notify with result s Related to Vitamin D deficiency, unspecified Rx sent to [facility] as directedRTC if worsensCall with any questions or concernsPatient understands and agrees to plan Related to Acute sinusitis, unspecified Will increase dose t o 100 mg a day Patient given refill 3 months. Continue to take medications as directed.RTC for recheck in and refills in 3 month.Call with any questions or concerns.Go to ED immediately for SI, HI, hallucinations or delusions.Patient verbalized understanding and is agreeable to plan. Ada Alvarez was acting as the scribe for this visit. The scribe's documentation has been prepared under my direction and personally reviewed by me. I confirm that the note above accurately reflects all work, treatment, procedures, counseling and medical decision making performed by me. Related to Headache Weight control education Related to Hypothyroidism, unspecified [facility] directedPatient understands and agrees to plan. Ada Alvarez was acting as the scribe for this visit. The scribe's documentation has been prepared under my direction and personally reviewed by me. I confirm that the note above accurately reflects all work, treatment, procedures, counseling and medical decision making performed by me. Related to Nicotine dependence Will refer for sleep study.Also advised patient to decrease her pain medication and speak to Dr. Huertas about how it is affecting her, specifically falls. Patient states she will do so immediately.Treatment will depend on the study.Patient verbalized understanding and is agreeable to plan. Related to Sleepwalking [somnambulism] Labs done today Will notify with results Treatment will depend on resultsRTC in 6 months or PRN for f/u on medicationsCall with any questions or concerns Related to Hypothyroidism See above Related to Encou nter for screening for lipoid disorders Chronic Disease - COPD Related t o Chronic obstructive pulmonary disease, unspecified Weight control education Related to [facility]othyroidism [facility] or concerns.Patient verbalizes and agrees to plan.Ada Farrell was acting as the scribe for this visit. The scribe's documentation has been prepared under my direction and personally reviewed by me. I confirm that the note above accurately reflects all work, treatment, procedures, and medical decision making performed by me. Related to Nicotine dependence, unspecified, uncomplicated [facility] directedRTC in 1 monthCall with any questions or concerns.Patient verbalizes and agrees to plan. Related to Wheezing Will check throid ne xt visit.Call with any questions or concernsPatient verbalizes and agrees to plan Related to Hypothyroidism See above #1 Related to Histo ry of falling Will refer to [facility] neurology Dr Orion Ballesteros after reviewing the MRI if appropriate.Keep all apointsments as madeFilled out paperwork for parking pass and gave to patient. Related to Headache Thyroid today. Will refill meds. Continue to medication as prescribed. Related to Hypothyroidism See above #4Aselena Hong leandro was acting as the scribe for this visit. The scribe's documentation has been prepared under my direction and personally reviewed by me. I confirm that the note above accurately reflects all work, treatment, procedures, and medical decision making performed by me. Related to Repeated falls Labs and MRI reviewe d.Filled out handicap parking pass.Call with questions or concerns.RTC in 2 months. Related to Other amnesia Chronic Disease - hyperlipidemia Related to Hyperlipidemia Patient deseed tawana lf off of Chantix. Stop date is April 09, 2016 this upcoming Saturday. Will trial Nicorette gum as this has worked for her in the past. his insurance does not pay will send Wellbutrin. Return to clinic in one month. or prn. Call with any questions or concerns. Patient verbalized understanding and is agreeable to plan. Related to Nicotine dependence, unspecified, uncomplicated Will order CT of hea d.Will notify patient of results.Call with any questions or concerns.Go to ER for any new falls. Or loss of onsciousness Related to Repeated falls Keep a headache jour nal. Will DC patient off of Depakote. Two start Topamax on Saturday. Related to Headache Pap today. Will noti fy of results. Treatment will depend on results.Will refer for Mammogram at [facility] as this was were she believes her last was peformed.Patient verbalized understanding and is agreeable to plan. Related to Encntr for knitter hand exam (general) (routine) w/o abn findings See above #1 Related to Encou nter for screening for malignant neoplasm of cervix See above #1 Related to Encou nter for oth screening for malignant neoplasm of breast Chronic Disease - COPD Related t o Chronic obstructive pulmonary disease, unspecified Will start Chantix t [place]. Discussed with and benefits. As well as precautions. Patient will call with any questions or concerns. Take medications as directed. Patient verbalized understanding and is agreeable to plan. Related to Nicotine dependence Take medications as directed.Call with any questions or concerns.RTC if symptoms don't improve or worsen within the next 3 days. Patient verbalizes understanding and is agreeable to plan. Related to Acute pharyngitis, unspecified Labs today. Will not epi of results. Treatment will depend on results. Patient verbalized understanding and is agreeable to plan. Related to Hypothyroidism Weight control education Related to Hypothyroidism Patient given inform ation on how to treat home and person for scabies.Take medications as directed.Call with any questions or concerns.RTC if symptoms don't improve or worsen within the next 3 days. Patient verbalizes understanding and is agreeable to plan. Related to Rash Weight control education Related to Rash Measured for brace t [place]. Paper work completed and faxed back.Patient is aware that it may be 2 months before she actually receives brace. Related to Low back pain Labs today. Will not epi of results. Will increase medication and recheck in 2 months. Patient verbalized understanding and is agreeable to plan. Related to Hypothyroidism Take medications as directed.Call with any questions or concerns.RTC if symptoms don't improve or worsen within the next 3 days. Patient verbalizes understanding and is agreeable to plan. Related to Rash Lipid profile today. Will call with results and refill lovastatin and tricor accordingly. Low-cholesterol, low-fat diet, regular physical activity strongly encouraged. Follow up in 6 months or sooner as needed. Related to Hyperlipidemia Zoloft refilled. Doi ng well on it. Will let me know if counseling needed. Follow up in 6 months or sooner as needed. Related to Depression Depakote refilled. W ill restart amitriptyline. Noticed headaches at the same time when she ran out of amitriptyline. Monitor frequency and precipitating events of headaches. Proper hydration emphasized. Stress reduction. Adequate sleep. Follow up in 1 month or sooner as needed. Related to Headache TSH. Will call with results and refill levothyroxine accordingly. Follow up depends on lab results. Related to Hypothyroidism Weight control education Related to Hyperlipidemia Chronic Disease - hyperlipidemia Related to Hyperlipidemia Will check level tod ay and notify pt of results. Related to Hypothyroidism Will check additiona l labs. Passed mini mintal status exam. See scanned document. Related to Memory disturbance Weight control education Related to Hypothyroidism Chronic Disease - thyroid diseas e Related to Hypothyroidism Discussed signs of c va. Please proceed to the emergency room if have return of slurred speech, difficulty speaking, feeling of thick tongue or increased confusion/ memory loss. Related to CVA, Late Effects of Good job and efforts to quit and no smoking in the past two weeks. Keep up the strong work. Related to Tobacco abuse Checking thyroid fun ction today. May be over replaced with sign of palpatation. Will notify pt of results. Related to Hypothyroidism [facility] agreeable with plan. Will monitor for signs of cva. Related to Carotid artery bruit Weight control education Related to Hypothyroidism Carotid doppler orde red. Pt and I had a long conversation on signs and symptoms of stroke. Will add a daily aspirin. Related to Carotid artery bruit EKG reveals changed from last in 2010. No chest pain on arrival. Discussed when to proceed to the emergency room. Pt verbalizes understanding. Will add nitroglycerin tabs. Pt verbalizes understanding of use. Will order stress test. Related to Chest Pain, Unspecified Continue taking amyt riptiline daily. May take ibuprofen if needed or if worse may take a pain pill. Check your blood pressure. If elevated > 160/90, go to emergency room. Related to Headache Continue current reg imen Advair and proventil. Lungs sounds good today. Try to completely stop smoking. Related to COPD Weight control education Related to Chest Pain, Unspecified Chronic Disease - copd Related t o COPD Doing well on Chanti x. Will reevaluate in one to two if need to continue. Related to Tobacco abuse Will check lab work and urinalysis. She is not moving bowels regularly. Recommend adding miralax; one capfull daily and increase water consumption. Additionally adding ranitidine as above. Related to Abdominal pain Will add ranitidine with instructions. Antireflux precautions: 1. Avoid or minimize foods and beverages that affect lower esophageal sphincter muscle pressure or irritate the esophagus lining, including fried and fatty foods, peppermint, chocolate, alcohol, coffee, citrus fruit and juices, and tomato products.2. Lose weight if overweight (as much as 10 to 20 pounds can make a difference).3. Stop smoking (as applicable, continue to work on reduction).4. Elevate the head of the bed 6 inches with blocks. 5. Avoid lying down 2 to 3 hours after eating.6. Take an antacid medication (ranitidine) as prescribed. Related to Heartburn symptom Continue controller medications at this time. Denies increased use of proventil. Related to COPD Will continue preven tative agents. Suspect headache pain may be related to electrolyte imbalance as she has been vomiting for the past 2 weeks intermittently. Will monitor. May need to add fiorcet. Related to Headache Will check thyroid f unction today. Continues to gain weight. Not moving bowels regularly. May need to increase. Will notify of results and further plan. Related to Hypothyroidism Weight control education Related to Heartburn symptom Said she quit for th ree weeks last time on Chantix and now smoking a pack a day. Related to Tobacco abuse CCT on all issues un itl labs reviewed. Related to Headache Will review labs and contact pt with results. Patient advised to contact the clinic if any reaction to the medication, problems or concerns. Related to Hypothyroidism Assessments Type Assessment Date No Information Patient Care Teams Name Effective Dates (start - stop) Status Members No Information
--- NOTE | 2025-05-04 20:02 | XRR_ITS ---
PROCEDURE INFORMATION: Exam: XR Chest Exam date and time: 05/04/2025 8:16 PM Age: 65 years old Clinical indication: Chest wall pain; Additional info: Cp TECHNIQUE: Imaging protocol: Radiologic exam of the chest. Views: 1 view. COMPARISON: CR XR chest 1V portable [id number] 11/26/2024 9:33 AM FINDINGS: Lungs: Chronic interstitial coarsening but no acute consolidation or overt edema. Pleural spaces: Unremarkable. No pleural effusion. No pneumothorax. Heart/Mediastinum: Unremarkable. No cardiomegaly. Bones/joints: Unremarkable. XR/XR chest 1V portable [id number] IMPRESSION: No acute findings.
[2025-05-04 20:03] VITALS: BP 172/72; PULSE 59; RESP 18; TEMP 36.7; O2SAT 100; BMI 26.6
--- OUTSIDE RECORDS SUMMARY | 2025-05-04 20:05 | XMS_ITS | Encounter Summary ---
Author Organization [facility] Address [address] 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
--- OUTSIDE RECORDS SUMMARY | 2025-05-04 20:05 | XMS_ITS | Encounter Summary ---
Author Organization [facility] Address [address] [place] [address] Care Team Providers Care Sr. Unix System Administrator Name Role Phone Kathy Tolliver MD Primary Care Provider +1- [phone] Encounter Details Date Type Department Care Team (Latest Contact Info) Description 09/04/2002 Outpatient Historical [facility] Medicine-[facility] [address] [place] [phone] Reena Tillman MD [address] [place] [address] Pain in limb (Primary Dx); LUMBAGO Social History Tobacco Use Types Packs/Day Years Used Date Smoking Tobacco: Never Assessed Comments Unknown Sex and Gender Information Value Date Recorded Sex Assigned at Not on file Legal Sex Female 2:46 AM 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 Unix System Administrator Relationship Specialty Start Date End Date Kathy Tolliver MD [address] [place] [address] PCP - General Internal Medicine 07/06/20 documented as of this encounter
--- OUTSIDE RECORDS SUMMARY | 2025-05-04 20:05 | XMS_ITS | Encounter Summary ---
Author Organization [facility] Address [address] 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
--- OUTSIDE RECORDS SUMMARY | 2025-05-04 20:05 | XMS_ITS | Encounter Summary ---
Author Organization [facility] Address [address] Gupta: [place] [address] Care Team Providers Care Supervisor Electronics Assembly Name Role Phone Kathy Tolliver MD Primary Care Provider +1- [phone] Encounter Details Date Type Department Care Team (Late st Contact Info) Description 03/26/2002 Inpatient Historical Matty Barlow MD [address] [place] [address] Social History Tobacco Use Types Packs/Day Years Used Date Smoking Tobacco: Never Assessed Comments Unknown Sex and Gender Information Value Date Recorded Sex Assigned at Not on file Legal Sex Female 2:46 AM SENIOR SAS DEVELOPER Gender Identity Not on file Sexual Orientation Not on file documented as of this encounter Plan of Treatment Not on file documented as of this encounter Visit Diagnoses Not on filedocumented in this encounter Care Teams Supervisor Electronics Assembly Relationship Specialty Start Date End Date Kathy Tolliver MD [address] [place] [address] PCP - General Internal Medicine 07/06/20 documented as of this encounter
--- OUTSIDE RECORDS SUMMARY | 2025-05-04 20:05 | XMS_ITS | Encounter Summary ---
Author Organization [facility] Address [address] [place] [address] Care Team Providers Care Zig Zag Stitcher Name Role Phone Kathy Tolliver MD Primary Care Provider +1- [phone] Encounter Details Date Type Department Care Team (Latest Contact Info) Description 03/23/2002 Outpatient Historical [facility] [address] [place] [address] Krishna Toscano, NO ADDRESS ON FILE LUMBAGO (Primary Dx) Social History Tobacco Use Types Packs/Day Years Used Date Smoking Tobacco: Never Assessed Comments Unknown Sex and Gender Information Value Date Recorded Sex Assigned at Not on file Legal Sex Female 2:46 AM TURKEY CLEANER Gender Identity Not on file Sexual Orientation Not on file documented as of this encounter Plan of Treatment Not on file documented as of this encounter Visit Diagnoses Diagnosis Lumbago- Primary documented in this encounter Care Teams Zig Zag Stitcher Relationship Specialty Start Date End Date Kathy Tolliver MD [address] [place] [address] PCP - General Internal Medicine 07/06/20 documented as of this encounter
--- OUTSIDE RECORDS SUMMARY | 2025-05-04 20:05 | XMS_ITS | Encounter Summary ---
Author Organization [facility] Address [address] Gupta: [place] [address] Care Team Providers Care Coat Fitter Name Role Phone Kathy Tolliver MD Primary Care Provider +1- [phone] Encounter Details Date Type Department Care Team (Late st Contact Info) Description 03/22/2002 Outpatient Historical Leroy Hernandez DO NO ADDRESS ON FILE Social History Tobacco Use Types Packs/Day Years Used Date Smoking Tobacco: Never Assessed Comments Unknown Sex and Gender Information Value Date Recorded Sex Assigned at Not on file Legal Sex Female 2:46 AM DATA WAREHOUSE SPECIALIST Gender Identity Not on file Sexual Orientation Not on file documented as of this encounter Plan of Treatment Not on file documented as of this encounter Visit Diagnoses Not on filedocumented in this encounter Care Teams Coat Fitter Relationship Specialty Start Date End Date Kathy Tolliver MD [address] [place] [address] PCP - General Internal Medicine 07/06/20 documented as of this encounter
--- OUTSIDE RECORDS SUMMARY | 2025-05-04 20:05 | XMS_ITS | Encounter Summary ---
Author Organization [facility] Address [address] [place] [address] Care Team Providers Care Geographic Analyst Name Role Phone Kathy Tolliver MD Primary Care Provider +1- [phone] Encounter Details Date Type Department Care Team (Latest Contact Info) Description 02/05/2002 Outpatient [facility] [address] [place] [address] Krishna Toscano, NO ADDRESS ON FILE LUMBAGO (Primary Dx) Social History Tobacco Use Types Packs/Day Years Used Date Smoking Tobacco: Never Assessed Comments Unknown Sex and Gender Information Value Date Recorded Sex Assigned at Not on file Legal Sex Female 2:46 AM ANTENNA RIGGER Gender Identity Not on file Sexual Orientation Not on file documented as of this encounter Plan of Treatment Not on file documented as of this encounter Visit Diagnoses Diagnosis Lumbago- Primary documented in this encounter Care Teams Geographic Analyst Relationship Specialty Start Date End Date Kathy Tolliver MD [address] [place] [address] PCP - General Internal Medicine 07/06/20 documented as of this encounter
--- OUTSIDE RECORDS SUMMARY | 2025-05-04 20:05 | XMS_ITS | Encounter Summary ---
Author Organization [facility] Address [address] [place] [address] Care Team Providers Care It Instructor Name Role Phone Kathy Tolliver MD Primary Care Provider +1- [phone] Encounter Details Date Type Department Care Team (Latest Contact Info) Description 02/24/2002 Outpatient Historical [facility] Medicine-[facility] [address] [place] [address] Krishna Toscano DO NO ADDRESS ON FILE LUMBAGO (Primary Dx); HYPOTHYROIDISM NOS Social History Tobacco Use Types Packs/Day Years Used Date Smoking Tobacco: Never Assessed Comments Unknown Sex and Gender Information Value Date Recorded Sex Assigned at Not on file Legal Sex Female 2:46 AM TAPE RECORDER MECHANIC Gender Identity Not on file Sexual Orientation Not on file documented as of this encounter Plan of Treatment Not on file documented as of this encounter Visit Diagnoses Diagnosis Lumbago- Primary Unspecified hypothyroidism documented in this encounter Care Teams It Instructor Relationship Specialty Start Date End Date Kathy Tolliver MD [address] [place] [address] PCP - General Internal Medicine 07/06/20 documented as of this encounter
--- OUTSIDE RECORDS SUMMARY | 2025-05-04 20:05 | XMS_ITS | Encounter Summary ---
Author Organization [facility] Address [address] 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
--- OUTSIDE RECORDS SUMMARY | 2025-05-04 20:05 | XMS_ITS | Encounter Summary ---
Author Organization [facility] Address [address] [place] [address] Care Team Providers Care Router Operator Radial Name Role Phone Kathy Tolliver MD Primary Care Provider +1- [phone] Encounter Details Date Type Department Care Team (Latest Contact Info) Description 03/19/2002 Outpatient Historical [facility] [address] [place] [address] Krishna Toscano, NO ADDRESS ON FILE LUMBAGO (Primary Dx) Social History Tobacco Use Types Packs/Day Years Used Date Smoking Tobacco: Never Assessed Comments Unknown Sex and Gender Information Value Date Recorded Sex Assigned at Not on file Legal Sex Female 2:46 AM SMOOTH AND BURR WORKER COMPOSITES Gender Identity Not on file Sexual Orientation Not on file documented as of this encounter Plan of Treatment Not on file documented as of this encounter Visit Diagnoses Diagnosis Lumbago- Primary documented in this encounter Care Teams Router Operator Radial Relationship Specialty Start Date End Date Kathy Tolliver MD [address] [place] [address] PCP - General Internal Medicine 07/06/20 documented as of this encounter
--- OUTSIDE RECORDS SUMMARY | 2025-05-04 20:05 | XMS_ITS | Encounter Summary ---
Author Organization [facility] Address [address] [place] [address] Care Team Providers Care Furnace Operator Oil Or Gas Name Role Phone Kathy Tolliver MD Primary Care Provider +1- [phone] Encounter Details Date Type Department Care Team (Latest Contact Info) Description 09/10/2002 Outpatient Historical [facility] Induction Manager Central [address] [place] [address] Krishna Toscano, NO ADDRESS ON FILE ABNORMAL FINDINGS- ORGANS (Primary Dx) Social History Tobacco Use Types Packs/Day Years Used Date Smoking Tobacco: Never Assessed Comments Unknown Sex and Gender Information Value Date Recorded Sex Assigned at Not on file Legal Sex Female 2:46 AM OBJECTIVE C DEVELOPER Gender Identity Not on file Sexual Orientation Not on file documented as of this encounter Plan of Treatment Not on file documented as of this encounter Visit Diagnoses Diagnosis Nonspecific (abnormal) findings on radiological and other examination of genitourinary organs- Primary documented in this encounter Care Teams Furnace Operator Oil Or Gas Relationship Specialty Start Date End Date Kathy Tolliver MD [address] [place] [address] PCP - General Internal Medicine 07/06/20 documented as of this encounter
--- OUTSIDE RECORDS SUMMARY | 2025-05-04 20:05 | XMS_ITS | Encounter Summary ---
Author Organization [facility] Address [address] Gupta: [place] [address] Care Team Providers Care Service Station Operator Name Role Phone Kathy Tolliver MD Primary Care Provider +1- [phone] Encounter Details Date Type Department Care Team (Late st Contact Info) Description 01/08/2002 Outpatient Historical Ruben Geiger MD [address] [place] [address] Social History Tobacco Use Types Packs/Day Years Used Date Smoking Tobacco: Never Assessed Comments Unknown Sex and Gender Information Value Date Recorded Sex Assigned at Not on file Legal Sex Female 2:46 AM NURSES EDUCATOR Gender Identity Not on file Sexual Orientation Not on file documented as of this encounter Plan of Treatment Not on file documented as of this encounter Visit Diagnoses Not on filedocumented in this encounter Care Teams Service Station Operator Relationship Specialty Start Date End Date Kathy Tolliver MD [address] [place] [address] PCP - General Internal Medicine 07/06/20 documented as of this encounter
--- OUTSIDE RECORDS SUMMARY | 2025-05-04 20:05 | XMS_ITS | Encounter Summary ---
Author Organization [facility] Address [address] [place] [address] Care Team Providers Care Dba Name Role Phone Kathy Tolliver MD Primary Care Provider +1- [phone] Encounter Details Date Type Department Care Team (Latest Contact Info) Description 09/07/2002 Outpatient [facility] Podiatry[facility] Alfredo [address] [place] [address] Issa Howard, DPM NO ADDRESS ON FILE MONONEURITIS LEG NOS (Primary Dx); Hallux valgus Social History Tobacco Use Types Packs/Day Years Used Date Smoking Tobacco: Never Assessed Comments Unknown Sex and Gender Information Value Date Recorded Sex Assigned at Not on file Legal Sex Female 2:46 AM UNDERGROUND MINER Gender Identity Not on file Sexual Orientation Not on file documented as of this encounter Plan of Treatment Not on file documented as of this encounter Visit Diagnoses Diagnosis Mononeuritis of lower limb, unspecified- Primary Hallux valgus Hallux valgus (acquired) documented in this encounter Care Teams Dba Relationship Specialty Start Date End Date Kathy Tolliver MD [address] [place] [address] PCP - General Internal Medicine 07/06/20 documented as of this encounter
--- OUTSIDE RECORDS SUMMARY | 2025-05-04 20:05 | XMS_ITS | Encounter Summary ---
Author Organization [facility] Address [address] [place] [address] Care Team Providers Care Boat Laborer Name Role Phone Kathy Tolliver MD Primary Care Provider +1- [phone] Encounter Details Date Type Department Care Team (Latest Contact Info) Description 01/09/2002 Outpatient [facility] Cardiology [facility] [address] [phone] Robin Brito MD [address] [address] [place] [phone] PRECORDIAL PAIN (Primary Dx); SHORTNESS OF BREATH Social History Tobacco Use Types Packs/Day Years Used Date Smoking Tobacco: Never Assessed Comments Unknown Sex and Gender Information Value Date Recorded Sex Assigned at Not on file Legal Sex Female 2:46 AM MACHINE SET UP OPERATOR Gender Identity Not on file Sexual Orientation Not on file documented as of this encounter Plan of Treatment Not on file documented as of this encounter Visit Diagnoses Diagnosis Precordial pain- Primary Shortness of breath documented in this encounter Care Teams Boat Laborer Relationship Specialty Start Date End Date Kathy Tolliver MD [address] [place] [address] PCP - General Internal Medicine 07/06/20 documented as of this encounter
--- OUTSIDE RECORDS SUMMARY | 2025-05-04 20:05 | XMS_ITS | Encounter Summary ---
Author Organization [facility] Address [address] [place] [address] Care Team Providers Care Nature Photographer Name Role Phone Kathy Tolliver MD Primary Care Provider +1- [phone] Encounter Details Date Type Department Care Team (Latest Contact Info) Description 12/31/2001 Outpatient [facility] [address] [address] Miguel A Augustine MD NO ADDRESS ON FILE MAMMOGRAPHIC MICROCALCIFICATION (Primary Dx) Social History Tobacco Use Types Packs/Day Years Used Date Smoking Tobacco: Never Assessed Comments Unknown Sex and Gender Information Value Date Recorded Sex Assigned at Not on file Legal Sex Female 2:46 AM SHOE ASSOCIATE Gender Identity Not on file Sexual Orientation Not on file documented as of this encounter Plan of Treatment Not on file documented as of this encounter Visit Diagnoses Diagnosis Mammographic microcalcification- Primary documented in this encounter Care Teams Nature Photographer Relationship Specialty Start Date End Date Kathy Tolliver MD [address] [place] [address] PCP - General Internal Medicine 07/06/20 documented as of this encounter
--- OUTSIDE RECORDS SUMMARY | 2025-05-04 20:05 | XMS_ITS | Encounter Summary ---
Author Organization [facility] Address [address] [place] [address] Care Team Providers Care Live In Housekeeper Name Role Phone Kathy Tolliver MD Primary Care Provider +1- [phone] Encounter Details Date Type Department Care Team (Latest Contact Info) Description 09/01/2002 Outpatient Historical [facility] Medicine[facility] [address] [place] [address] Krishna Toscano, NO ADDRESS ON FILE Pain in limb (Primary Dx) Social History Tobacco Use Types Packs/Day Years Used Date Smoking Tobacco: Never Assessed Comments Unknown Sex and Gender Information Value Date Recorded Sex Assigned at Not on file Legal Sex Female 2:46 AM CONDUCTOR YARD Gender Identity Not on file Sexual Orientation Not on file documented as of this encounter Plan of Treatment Not on file documented as of this encounter Visit Diagnoses Diagnosis Pain in limb- Primary Pain in soft tissues of limb documented in this encounter Care Teams Live In Housekeeper Relationship Specialty Start Date End Date Kathy Tolliver MD [address] [place] [address] PCP - General Internal Medicine 07/06/20 documented as of this encounter
--- OUTSIDE RECORDS SUMMARY | 2025-05-04 20:05 | XMS_ITS | Encounter Summary ---
Author Organization [facility] Address [address] [place] [address] Care Team Providers Care Wealth Management Director Name Role Phone Kathy Tolliver MD Primary Care Provider +1- [phone] Encounter Details Date Type Department Care Team (Latest Contact Info) Description 01/15/2002 Outpatient Historical [facility] [address] [place] [address] Reena Tillman MD [address] [place] [address] SPRAIN SACROILIAC NOS (Primary Dx); POSTSURGICAL STATES NEC; LUMBAGO Social History Tobacco Use Types Packs/Day Years Used Date Smoking Tobacco: Never Assessed Comments Unknown Sex and Gender Information Value Date Recorded Sex Assigned at Not on file Legal Sex Female 2:46 AM CASINO GAMING WORKER Gender Identity Not on file Sexual Orientation Not on file documented as of this encounter Plan of Treatment Not on file documented as of this encounter Visit Diagnoses Diagnosis Sprain of unspecified site of sacroiliac region- Primary Other postprocedural status(V45.89) Other postprocedural status Lumbago documented in this encounter Care Teams Wealth Management Director Relationship Specialty Start Date End Date Kathy Tolliver MD [address] [place] [address] PCP - General Internal Medicine 9/2/20 documented as of this encounter
--- OUTSIDE RECORDS SUMMARY | 2025-05-04 20:05 | XMS_ITS | Encounter Summary ---
Author Organization [facility] Address [address] Gupta: [place] [address] Care Team Providers Care Sanitation Tank Washer Name Role Phone Kathy Tolliver MD Primary Care Provider +1- [phone] Encounter Details Date Type Department Care Team (Late st Contact Info) Description 02/10/2002 Outpatient Historical Krishna Toscnao DO NO ADDRESS ON FILE Social History Tobacco Use Types Packs/Day Years Used Date Smoking Tobacco: Never Assessed Comments Unknown Sex and Gender Information Value Date Recorded Sex Assigned at Not on file Legal Sex Female 2:46 AM TRIBAL COUNCIL MEMBER Gender Identity Not on file Sexual Orientation Not on file documented as of this encounter Plan of Treatment Not on file documented as of this encounter Visit Diagnoses Not on filedocumented in this encounter Care Teams Sanitation Tank Washer Relationship Specialty Start Date End Date Kathy Tolliver MD [address] [place] [address] PCP - General Internal Medicine 07/06/20 documented as of this encounter
--- NOTE | 2025-05-04 20:06 | ECG_ITS ---
[facility]: 2025-[facility]-04 Pat Name: Judy Malloy Department: Room: Gender: Female Tobacco Sample Puller: : 1960 Requested By: Latoya Warren Order Number: [id number] Juli MD: Catracho Doherty M.D. Measurements Intervals [place] Rate: 59 P: 65 KS: 169 QRS: -68 QRSD: 112 T: 86 QT: 445 QTc: 443 Interpretive Statements SINUS BRADYCARDIA INCOMPLETE RIGHT BUNDLE BRANCH BLOCK [90+ ms QRS DURATION, TERMINAL R IN V1/V2, 40+ ms S IN I/aVL/V4/V5/V6] LEFT ANTERIOR FASCICULAR BLOCK [QRS AXIS <= -45, QR IN I, RS IN II] Compared to ECG 05/04/2025 08:05:27 Left ventricular hypertrophy no longer present ST (T wave) deviation no longer present Myocardial infarct finding no longer present Electronically Signed On 05-06-2025 08:58:59 CDT by Catracho Doherty M.D. [email or web address]
--- OUTSIDE RECORDS SUMMARY | 2025-05-04 20:06 | XMS_ITS | Encounter Summary ---
Author Organization [facility] Address [address] [place] [address] Care Team Providers Care General Office Worker Name Role Phone Kathy Tolliver MD Primary Care Provider +1- [phone] Encounter Details Date Type Department Care Team (Latest Contact Info) Description 09/27/2003 Outpatient [facility] Podiatry-[facility] Alfredo [address] [place] [address] Issa Howard, DPM NO ADDRESS ON FILE MONONEURITIS LEG NOS (Primary Dx); Pain in limb Social History Tobacco Use Types Packs/Day Years Used Date Smoking Tobacco: Never Assessed Comments Unknown Sex and Gender Information Value Date Recorded Sex Assigned at Not on file Legal Sex Female 2:46 AM 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
--- OUTSIDE RECORDS SUMMARY | 2025-05-04 20:06 | XMS_ITS | Encounter Summary ---
Author Organization [facility] Address [address] [place] [address] Care Team Providers Care Department Head College Or University Name Role Phone Kathy Tolliver MD Primary Care Provider +1- [phone] Encounter Details Date Type Department Care Team (Latest Contact Info) Description 11/26/2003 Outpatient Historical [facility] Medicine[facility] [place] [address] [place] [address] Reena Tillman MD [address] [place] [address] SHOULDER REGION DIS NEC (Primary Dx) Social History Tobacco Use Types Packs/Day Years Used Date Smoking Tobacco: Never Assessed Comments Unknown Sex and Gender Information Value Date Recorded Sex Assigned at Not on file Legal Sex Female 2:46 AM LOAN EXPEDITOR Gender Identity Not on file Sexual Orientation Not on file documented as of this encounter Plan of Treatment Not on file documented as of this encounter Visit Diagnoses Diagnosis Other affections of shoulder region, not elsewhere classified- Primary documented in this encounter Care Teams Department Head College Or University Relationship Specialty Start Date End Date Kathy Tolliver MD [address] [place] [address] PCP - General Internal Medicine 07/06/20 documented as of this encounter
--- OUTSIDE RECORDS SUMMARY | 2025-05-04 20:06 | XMS_ITS | Encounter Summary ---
Author Organization [facility] Address [address] [place] [address] Care Team Providers Care Clothing Examiner Name Role Phone Kathy Tolliver MD Primary Care Provider +1- [phone] Encounter Details Date Type Department Care Team (Late st Contact Info) Description 07/30/2005 Emergency [facility] Emergency Department [address] [place] [phone] Kaleb Maki MD [address] [place] [address] LUMBAGO (Primary Dx) Social History Tobacco Use Types Packs/Day Years Used Date Smoking Tobacco: Never Assessed Comments Unknown Sex and Gender Information Value Date Recorded Sex Assigned at Not on file Legal Sex Female 2:46 AM AUTHORIZATION NURSE Gender Identity Not on file Sexual Orientation [...] ORDERABLES Final Resul t Performing Organization Address [facility] Co de Phone Number INTERFACE SYSTEM Refer to clinic/hospital department * URINALYSIS MICROSCOPY ONLY (07/30/2005 3:30 PM CDT) WBC URINE 0-2 0 - 2 INTERFACE SYSTEM RBC UA None Seen 0 - 2 INTERFACE SYSTEM HYALINE CAST None Seen 0 - 2 INTERFA CE SYSTEM 07/30/2005 3:30 PM CDT Kaleb Maki MD URINE ORDERABLES Final Resul t Performing Organization Address [facility] Co de Phone Number INTERFACE SYSTEM Refer to clinic/hospital department documented in this encounter Visit Diagnoses Diagnosis Lumbago- Primary documented in this encounter Care Teams Clothing Examiner Relationship Specialty Start Date End Date Kathy Tolliver MD [address] [place] [address] PCP - General Internal Medicine 07/06/20 documented as of this encounter
--- OUTSIDE RECORDS SUMMARY | 2025-05-04 20:06 | XMS_ITS | Encounter Summary ---
Author Organization [facility] Address [address] [place] [address] Care Team Providers Care Sales Agent Food Vending Service Name Role Phone Kathy Tolliver MD Primary Care Provider +1- [phone] Encounter Details Date Type Department Care Team (Latest Contact Info) Description 10/06/2002 Outpatient [facility] Podiatry[facility] Alfredo [address] [place] [address] Issa Howard, DPM NO ADDRESS ON FILE Pain in limb (Primary Dx); MONONEURITIS LEG NOS Social History Tobacco Use Types Packs/Day Years Used Date Smoking Tobacco: Never Assessed Comments Unknown Sex and Gender Information Value Date Recorded Sex Assigned at Not on file Legal Sex Female 2:46 AM SQL TECH Gender Identity Not on file Sexual Orientation Not on file documented as of this encounter Plan of Treatment Not on file documented as of this encounter Visit Diagnoses Diagnosis Pain in limb- Primary Pain in soft tissues of limb Mononeuritis of lower limb, unspecified documented in this encounter Care Teams Sales Agent Food Vending Service Relationship Specialty Start Date End Date Kathy Tolliver MD [address] [place] [address] PCP - General Internal Medicine 07/06/20 documented as of this encounter
--- OUTSIDE RECORDS SUMMARY | 2025-05-04 20:06 | XMS_ITS | Encounter Summary ---
Author Organization [facility] Address [address] [place] [address] Care Team Providers Care Negative Turner Apprentice Name Role Phone Kathy Tolliver MD Primary Care Provider +1- [phone] Encounter Details Date Type Department Care Team (Latest Contact Info) Description 03/14/[address] [facility] Medicine-[facility] [address] [place] [address] Krishna Toscano, NO ADDRESS ON FILE JOINT PAIN-SHLDER (Primary Dx) Social History Tobacco Use Types Packs/Day Years Used Date Smoking Tobacco: Never Assessed Comments Unknown Sex and Gender Information Value Date Recorded Sex Assigned at Not on file Legal Sex Female 2:46 AM TUBE PULLER Gender Identity Not on file Sexual Orientation Not on file documented as of this encounter Plan of Treatment Not on file documented as of this encounter Visit Diagnoses Diagnosis Pain in joint, shoulder region- Primary documented in this encounter Care Teams Negative Turner Apprentice Relationship Specialty Start Date End Date Kathy Tolliver MD [address] [place] [address] PCP - General Internal Medicine 07/06/20 documented as of this encounter
--- OUTSIDE RECORDS SUMMARY | 2025-05-04 20:06 | XMS_ITS | Encounter Summary ---
Author Organization [facility] Address [address] [place] [address] Care Team Providers Care College Professor Name Role Phone Kathy Tolliver MD Primary Care Provider +1- [phone] Encounter Details Date Type Department Care Team (Late st Contact Info) Description 07/30/2005 Outpatient [facility] [address] [place] [address] Social History Tobacco Use Types Packs/Day Years Used Date Smoking Tobacco: Never Assessed Comments Unknown Sex and Gender Information Value Date Recorded Sex Assigned at Not on file Legal Sex Female 2:46 AM MEDICAL ASSISTING INSTRUCTOR Gender Identity Not on file Sexual Orientation Not on file documented as of this encounter Plan of Treatment Not on file documented as of this encounter Visit Diagnoses Not on filedocumented in this encounter Care Teams College Professor Relationship Specialty Start Date End Date Kathy Tolliver MD [address] [place] [address] PCP - General Internal Medicine 07/06/20 documented as of this encounter
--- OUTSIDE RECORDS SUMMARY | 2025-05-04 20:06 | XMS_ITS | Encounter Summary ---
Author Organization [facility] Address [address] [place] [address] Care Team Providers Care Lock Fitter Name Role Phone Kathy Tolliver MD Primary Care Provider +1- [phone] Encounter Details Date Type Department Care Team (Late st Contact Info) Description 08/05/2003 Emergency [facility] Emergency Department [address] [place] [phone] Edgar Powell MD NO ADDRESS ON FILE TRICHOMONIASIS NOS (Primary Dx) Social History Tobacco Use Types Packs/Day Years Used Date Smoking Tobacco: Never Assessed Comments Unknown Sex and Gender Information Value Date Recorded Sex Assigned at Not on file Legal Sex Female 2:46 AM TABLEAU REPORT DEVELOPER Gender Identity Not on file Sexual Orientation Not on file documented as of this encounter Plan of Treatment Not on file documented as of this encounter Visit Diagnoses Diagnosis Trichomoniasis, unspecified- Primary documented in this encounter Care Teams Lock Fitter Relationship Specialty Start Date End Date Kathy Tolliver MD [address] [place] [address] PCP - General Internal Medicine 07/06/20 documented as of this encounter
--- OUTSIDE RECORDS SUMMARY | 2025-05-04 20:06 | XMS_ITS | Encounter Summary ---
Author Organization [facility] Address [address] [place] [address] Care Team Providers Care Medical Records Secretary Name Role Phone Kathy Tolliver MD Primary Care Provider +1- [phone] Encounter Details Date Type Department Care Team (Latest Contact Info) Description 09/10/2002 Outpatient Historical [facility] Medicine-[facility] [address] [place] [address] Krishna Toscano DO NO ADDRESS ON FILE MENSTRUAL DISORDER NOS (Primary Dx); DEPRESSIVE DISORDER NEC; FEMALE GENITAL SYMPTOMS NOS Social History Tobacco Use Types Packs/Day Years Used Date Smoking Tobacco: Never Assessed Comments Unknown Sex and Gender Information Value Date Recorded Sex Assigned at Not on file Legal Sex Female 2:46 AM ONION TOPPER Gender Identity Not on file Sexual Orientation Not on file documented as of this encounter Plan of Treatment Not on file documented as of this encounter Visit Diagnoses Diagnosis Unspecified disorder of menstruation and other abnormal bleeding from female genital tract- Primary Depressive disorder, not elsewhere classified Unspecified symptom associated with female genital organs documented in this encounter Care Teams Medical Records Secretary Relationship Specialty Start Date End Date Kathy Tolliver MD [address] [place] [address] PCP - General Internal Medicine 07/06/20 documented as of this encounter
--- OUTSIDE RECORDS SUMMARY | 2025-05-04 20:06 | XMS_ITS | Encounter Summary ---
Author Organization [facility] Address [address] [place] [address] Care Team Providers Care Allergist Immunologist Name Role Phone Kathy Tolliver MD Primary Care Provider +1- [phone] Encounter Details Date Type Department Care Team (Latest Contact Info) Description 09/11/2002 Outpatient Historical [facility] Imaging Services [address] [place] [phone] Krishna Toscano, NO ADDRESS ON FILE OVARIAN CYST NEC/NOS (Primary Dx) Social History Tobacco Use Types Packs/Day Years Used Date Smoking Tobacco: Never Assessed Comments Unknown Sex and Gender Information Value Date Recorded Sex Assigned at Not on file Legal Sex Female 2:46 AM SALES ADVISOR Gender Identity Not on file Sexual Orientation Not on file documented as of this encounter Plan of Treatment Not on file documented as of this encounter Visit Diagnoses Diagnosis Other and unspecified ovarian cyst- Primary documented in this encounter Care Teams Allergist Immunologist Relationship Specialty Start Date End Date Kathy Tolliver MD [address] [place] [address] PCP - General Internal Medicine 07/06/20 documented as of this encounter
--- OUTSIDE RECORDS SUMMARY | 2025-05-04 20:06 | XMS_ITS | Encounter Summary ---
Author Organization [facility] Address [address] [place] [address] Care Team Providers Care Senior C Software Engineer Name Role Phone Kathy Tolliver MD Primary Care Provider +1- [phone] Encounter Details Date Type Department Care Team [...] on file Legal Sex Female 2:46 AM PRESSURE TESTING TECHNICIAN Gender Identity Not on file Sexual [...] Primary documented in this encounter Care Teams Senior C Software Engineer Relationship Specialty Start Date End Date Kathy Tolliver MD [address] [place] [address] PCP - General Internal Medicine 07/06/20 documented as of this encounter
--- OUTSIDE RECORDS SUMMARY | 2025-05-04 20:06 | XMS_ITS | Encounter Summary ---
Author Organization [facility] Address [address] [place] [address] Care Team Providers Care Director Digital Marketing Name Role Phone Kathy Tolliver MD Primary Care Provider +1- [phone] Encounter Details Date Type Department Care Team (Latest Contact Info) Description 05/01/2004 Outpatient Historical [facility] [place] [address] Kiel Chen MD [address] [place] [address] JOINT PAIN-SHLDER (Primary Dx); SHOULDER REGION DIS NEC Social History Tobacco Use Types Packs/Day Years Used Date Smoking Tobacco: Never Assessed Comments Unknown Sex and Gender Information Value Date Recorded Sex Assigned at Not on file Legal Sex Female 2:46 AM SPEECH AND LANGUAGE CLINICIAN Gender Identity Not on file Sexual Orientation Not on file documented as of this encounter Plan of Treatment Not on file documented as of this encounter Visit Diagnoses Diagnosis Pain in joint, shoulder region- Primary Other affections of shoulder region, not elsewhere classified documented in this encounter Care Teams Director Digital Marketing Relationship Specialty Start Date End Date Kathy Tolliver MD [address] [place] [address] PCP - General Internal Medicine 07/06/20 documented as of this encounter
--- OUTSIDE RECORDS SUMMARY | 2025-05-04 20:06 | XMS_ITS | Encounter Summary ---
Author Organization [facility] Address [address] [place] [address] Care Team Providers Care Pool Servicer Name Role Phone Kathy Tolliver MD Primary Care Provider +1- [phone] Encounter Details Date Type Department Care Team (Late st Contact Info) Description 04/17/2005 Emergency [facility] Emergency Department [address] [place] [phone] Aline Young MD [address] [address] BACKACHE NOS (Primary Dx) Social History Tobacco Use Types Packs/Day Years Used Date Smoking Tobacco: Never Assessed Comments Unknown Sex and Gender Information Value Date Recorded Sex Assigned at Not on file Legal Sex Female 2:46 AM DRUM SAW OPERATOR Gender Identity Not on file Sexual Orientation Not on file documented as of this encounter Plan of Treatment Not on file documented as of this encounter Visit Diagnoses Diagnosis Backache, unspecified- Primary documented in this encounter Care Teams Pool Servicer Relationship Specialty Start Date End Date Kathy Tolliver MD [address] [place] [address] PCP - General Internal Medicine 07/06/20 documented as of this encounter
--- OUTSIDE RECORDS SUMMARY | 2025-05-04 20:06 | XMS_ITS | Encounter Summary ---
Author Organization [facility] Address [address] [place] [address] Care Team Providers Care Domestic Technician Name Role Phone Kathy Tolliver MD Primary Care Provider +1- [phone] Encounter Details Date Type Department Care Team (Late st Contact Info) Description 09/21/1999 Outpatient Historical [facility] Social History Tobacco Use Types Packs/Day Years Used Date Smoking Tobacco: Never Assessed Comments Unknown Sex and Gender Information Value Date Recorded Sex Assigned at Not on file Legal Sex Female 2:46 AM JOURNALISM PROFESSOR Gender Identity Not on file Sexual Orientation Not on file documented as of this encounter Plan of Treatment Not on file documented as of this encounter Visit Diagnoses Not on filedocumented in this encounter Care Teams Domestic Technician Relationship Specialty Start Date End Date Kathy Tolliver MD [address] [place] [address] PCP - General Internal Medicine 07/06/20 documented as of this encounter
--- OUTSIDE RECORDS SUMMARY | 2025-05-04 20:06 | XMS_ITS | Encounter Summary ---
Author Organization [facility] Address [address] [place] [address] Care Team Providers Care Nephrology Nurse Name Role Phone Kathy Tolliver MD Primary Care Provider +1- [phone] Encounter Details Date Type Department Care Team (Late st Contact Info) Description 06/13/2003 Emergency [facility] Emergency Department [address] [place] [phone] Joe Marcano, DO NO ADDRESS ON FILE LUMBAGO (Primary Dx) Social History Tobacco Use Types Packs/Day Years Used Date Smoking Tobacco: Never Assessed Comments Unknown Sex and Gender Information Value Date Recorded Sex Assigned at Not on file Legal Sex Female 2:46 AM FIBER LOCKING SUPERVISOR Gender Identity Not on file Sexual Orientation Not on file documented as of this encounter Plan of Treatment Not on file documented as of this encounter Visit Diagnoses Diagnosis Lumbago- Primary documented in this encounter Care Teams Nephrology Nurse Relationship Specialty Start Date End Date Kathy Tolliver MD [address] [place] [address] PCP - General Internal Medicine 07/06/20 documented as of this encounter
--- OUTSIDE RECORDS SUMMARY | 2025-05-04 20:06 | XMS_ITS | Encounter Summary ---
Author Organization [facility] Address [address] [place] [address] Care Team Providers Care Medical Staff Services Coordinator Name Role Phone Kathy Tolliver MD Primary Care Provider +1- [phone] Encounter Details Date Type Department Care Team (Latest Contact Info) Description 04/11/2004 Outpatient Historical [facility] Medicine-[facility] [address] [place] [address] Krishna Toscano DO NO ADDRESS ON FILE MENSTRUAL DISORDER NOS (Primary Dx); UTERINE LEIOMYOMA NOS; HYPOTHYROIDISM NOS Social History Tobacco Use Types Packs/Day Years Used Date Smoking Tobacco: Never Assessed Comments Unknown Sex and Gender Information Value Date Recorded Sex Assigned at Not on file Legal Sex Female 2:46 AM DIGITAL ASSET MANAGER Gender Identity Not on file Sexual Orientation Not on file documented as of this encounter Plan of Treatment Not on file documented as of this encounter Visit Diagnoses Diagnosis Unspecified disorder of menstruation and other abnormal bleeding from female genital tract- Primary Leiomyoma of uterus, unspecified Unspecified hypothyroidism documented in this encounter Care Teams Medical Staff Services Coordinator Relationship Specialty Start Date End Date Kathy Tolliver MD [address] [place] [address] PCP - General Internal Medicine 07/06/20 documented as of this encounter
--- OUTSIDE RECORDS SUMMARY | 2025-05-04 20:06 | XMS_ITS | Encounter Summary ---
Author Organization [facility] Address [address] [place] [address] Care Team Providers Care Director Client Services Name Role Phone Kathy Tolliver MD Primary Care Provider +1- [phone] Encounter Details Date Type Department Care Team (Late st Contact Info) Description 04/11/[address] [address] Krishna Toscano, NO ADDRESS ON FILE Social History Tobacco Use Types Packs/Day Years Used Date Smoking Tobacco: Never Assessed Comments Unknown Sex and Gender Information Value Date Recorded Sex Assigned at Not on file Legal Sex Female 2:46 AM HEATER ROOM HELPER Gender Identity Not on file Sexual Orientation Not on file documented as of this encounter Plan of Treatment Not on file documented as of this encounter Visit Diagnoses Not on filedocumented in this encounter Care Teams Director Client Services Relationship Specialty Start Date End Date Kathy Tolliver MD [address] [place] [address] PCP - General Internal Medicine 07/06/20 documented as of this encounter
--- OUTSIDE RECORDS SUMMARY | 2025-05-04 20:06 | XMS_ITS | Encounter Summary ---
Author Organization [facility] Address [address] [place] [address] Care Team Providers Care Water Commissioner Name Role Phone Kathy Tolliver MD Primary Care Provider +1- [phone] Encounter Details Date Type Department Care Team (Latest Contact Info) Description 04/21/2004 Outpatient Historical [facility] Imaging Services [address] [place] [phone] Krishna Toscano, NO ADDRESS ON FILE FOLLICULAR CYST OF OVARY (Primary Dx) Social History Tobacco Use Types Packs/Day Years Used Date Smoking Tobacco: Never Assessed Comments Unknown Sex and Gender Information Value Date Recorded Sex Assigned at Not on file Legal Sex Female 2:46 AM RN OCCUPATIONAL Gender Identity Not on file Sexual Orientation Not on file documented as of this encounter Plan of Treatment Not on file documented as of this encounter Visit Diagnoses Diagnosis Follicular cyst of ovary- Primary documented in this encounter Care Teams Water Commissioner Relationship Specialty Start Date End Date Kathy Tolliver MD [address] [place] [address] PCP - General Internal Medicine 07/06/20 documented as of this encounter
--- OUTSIDE RECORDS SUMMARY | 2025-05-04 20:06 | XMS_ITS | Encounter Summary ---
Author Organization [facility] Address [address] [place] [address] Care Team Providers Care Registry Nurse Name Role Phone Kathy Tolliver MD Primary Care Provider +1- [phone] Encounter Details Date Type Department Care Team (Late st Contact Info) Description 01/08/2002 Outpatient [facility]- [place] [address] [place] [address] Ruben Geiger MD [address] [place] [address] CARDIAC DYSRHYTHMIA NOS (Primary Dx); PRECORDIAL PAIN Social History Tobacco Use Types Packs/Day Years Used Date Smoking Tobacco: Never Assessed Comments Unknown Sex and Gender Information Value Date Recorded Sex Assigned at Not on file Legal Sex Female 2:46 AM ASSEMBLY DETAILER Gender Identity Not on file Sexual Orientation Not on file documented as of this encounter Plan of Treatment Not on file documented as of this encounter Visit Diagnoses Diagnosis Cardiac dysrhythmia, unspecified- Primary Precordial pain documented in this encounter Care Teams Registry Nurse Relationship Specialty Start Date End Date Kathy Tolliver MD [address] [place] [address] PCP - General Internal Medicine 07/06/20 documented as of this encounter
--- OUTSIDE RECORDS SUMMARY | 2025-05-04 20:06 | XMS_ITS | Encounter Summary ---
Author Organization [facility] Address [address] [place] [address] Care Team Providers Care Rubber Tire And Tubes Supervisor Name Role Phone Kathy Tolliver MD Primary Care Provider +1- [phone] Encounter Details Date Type Department Care Team (Latest Contact Info) Description 02/29/2004 Outpatient Historical [facility] Medicine-[facility] [address] [place] [address] Krishna Toscano DO NO ADDRESS ON FILE JOINT PAIN-SHLDER (Primary Dx); VIRAL WARTS NOS; DEPRESSIVE DISORDER NEC Social History Tobacco Use Types Packs/Day Years Used Date Smoking Tobacco: Never Assessed Comments Unknown Sex and Gender Information Value Date Recorded Sex Assigned at Not on file Legal Sex Female 2:46 AM VISUAL COORDINATOR Gender Identity Not on file Sexual Orientation Not on file documented as of this encounter Plan of Treatment Not on file documented as of this encounter Visit Diagnoses Diagnosis Pain in joint, shoulder region- Primary Viral warts, unspecified Depressive disorder, not elsewhere classified documented in this encounter Care Teams Rubber Tire And Tubes Supervisor Relationship Specialty Start Date End Date Kathy Tolliver MD [address] [place] [address] PCP - General Internal Medicine 07/06/20 documented as of this encounter
--- OUTSIDE RECORDS SUMMARY | 2025-05-04 20:06 | XMS_ITS | Encounter Summary ---
Author Organization [facility] Address [address] [place] [address] Care Team Providers Care Digital Campaign Specialist Name Role Phone Kathy Tolliver MD Primary Care Provider +1- [phone] Encounter Details Date Type Department Care Team (Late st Contact Info) Description 09/20/1999 Outpatient Historical [facility] Social History Tobacco Use Types Packs/Day Years Used Date Smoking Tobacco: Never Assessed Comments Unknown Sex and Gender Information Value Date Recorded Sex Assigned at Not on file Legal Sex Female 2:46 AM MAINTENANCE AND CUSTODIAN SUPERVISOR Gender Identity Not on file Sexual Orientation Not on file documented as of this encounter Plan of Treatment Not on file documented as of this encounter Visit Diagnoses Not on filedocumented in this encounter Care Teams Digital Campaign Specialist Relationship Specialty Start Date End Date Kathy Tolliver MD [address] [place] [address] PCP - General Internal Medicine 07/06/20 documented as of this encounter
--- OUTSIDE RECORDS SUMMARY | 2025-05-04 20:06 | XMS_ITS | Encounter Summary ---
Author Organization [facility] Address [address] [place] [address] Care Team Providers Care Tennis Racket Repairer Name Role Phone Kathy Tolliver MD Primary Care Provider +1- [phone] Encounter Details Date Type Department Care Team (Late st Contact Info) Description 03/20/2004 Outpatient Historical [facility] Imaging Services [place] [address] [place] [address] Krishna Toscano, NO ADDRESS ON FILE Social History Tobacco Use Types Packs/Day Years Used Date Smoking Tobacco: Never Assessed Comments Unknown Sex and Gender Information Value Date Recorded Sex Assigned at Not on file Legal Sex Female 2:46 AM MANAGEMENT PLANNER Gender Identity Not on file Sexual Orientation Not on file documented as of this encounter Plan of Treatment Not on file documented as of this encounter Visit Diagnoses Not on filedocumented in this encounter Care Teams Tennis Racket Repairer Relationship Specialty Start Date End Date Kathy Tolliver MD [address] [place] [address] PCP - General Internal Medicine 07/06/20 documented as of this encounter
--- OUTSIDE RECORDS SUMMARY | 2025-05-04 20:06 | XMS_ITS | Encounter Summary ---
Author Organization [facility] Address [address] [place] [address] Care Team Providers Care Ground Crewman Aircraft Support Name Role Phone Kathy Tolliver MD Primary Care Provider +1- [phone] Encounter Details Date Type Department Care Team (Latest Contact Info) Description 09/21/2002 Outpatient [facility] Podiatry-[facility] [place] [address] Issa Howard, DPM NO ADDRESS ON FILE MONONEURITIS LEG NOS (Primary Dx); Pain in limb Social History Tobacco Use Types Packs/Day Years Used Date Smoking Tobacco: Never Assessed Comments Unknown Sex and Gender Information Value Date Recorded Sex Assigned at Not on file Legal Sex Female 2:46 AM IMAGE SCIENTIST Gender Identity Not on file Sexual Orientation Not on file documented as of this encounter Plan of Treatment Not on file documented as of this encounter Visit Diagnoses Diagnosis Mononeuritis of lower limb, unspecified- Primary Pain in limb Pain in soft tissues of limb documented in this encounter Care Teams Ground Crewman Aircraft Support Relationship Specialty Start Date End Date Kathy Tolliver MD [address] [place] [address] PCP - General Internal Medicine 07/06/20 documented as of this encounter
--- OUTSIDE RECORDS SUMMARY | 2025-05-04 20:06 | XMS_ITS | Encounter Summary ---
Author Organization [facility] Address [address] [place] [address] Care Team Providers Care Machine Engineer Name Role Phone Kathy Tolliver MD Primary Care Provider +1- [phone] Encounter Details Date Type Department Care Team (Late st Contact Info) Description 08/16/2005 Emergency [facility] Emergency Department [address] [place] [address] Edgar Powell MD NO ADDRESS ON FILE JOINT PAIN-L/LEG (Primary Dx) Social History Tobacco Use Types Packs/Day Years Used Date Smoking Tobacco: Never Assessed Comments Unknown Sex and Gender Information Value Date Recorded Sex Assigned at Not on file Legal Sex Female 2:46 AM PLATEN PRESS OPERATOR Gender Identity Not on file Sexual Orientation Not on file documented as of this encounter Plan of Treatment Not on file documented as of this encounter Visit Diagnoses Diagnosis Pain in joint, lower leg- Primary documented in this encounter Care Teams Machine Engineer Relationship Specialty Start Date End Date Kathy Tolliver MD [address] [place] [address] PCP - General Internal Medicine 07/06/20 documented as of this encounter
--- OUTSIDE RECORDS SUMMARY | 2025-05-04 20:06 | XMS_ITS | Encounter Summary ---
Author Organization [facility] Address [address] [place] [address] Care Team Providers Care Reforestation Worker Name Role Phone Kathy Tolliver MD Primary Care Provider +1- [phone] Encounter Details Date Type Department Care Team (Late st Contact Info) Description 10/31/2003 Emergency [facility] Emergency Department [address] [place] [phone] Choco George MD SPRAIN LUMBAR REGION (Primary Dx) Social History Tobacco Use Types Packs/Day Years Used Date Smoking Tobacco: Never Assessed Comments Unknown Sex and Gender Information Value Date Recorded Sex Assigned at Not on file Legal Sex Female 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
--- OUTSIDE RECORDS SUMMARY | 2025-05-04 20:06 | XMS_ITS | Encounter Summary ---
Author Organization [facility] Address [address] [place] [address] Care Team Providers Care Kindergarten Assistant Name Role Phone Kathy Tolliver MD Primary Care Provider +1- [phone] Encounter Details Date Type Department Care Team (Late st Contact Info) Description 09/25/2004 Emergency [facility] Emergency Department [address] [place] [address] Elisabet Craig MD [address] [place] [address] SPRAIN LUMBAR REGION (Primary Dx) Social History Tobacco Use Types Packs/Day Years Used Date Smoking Tobacco: Never Assessed Comments Unknown Sex and Gender Information Value Date Recorded Sex Assigned at Not on file Legal Sex Female 2:46 AM HIM ASSISTANT Gender Identity Not on file Sexual Orientation Not on file documented as of this encounter Plan of Treatment Not on file documented as of this encounter Visit Diagnoses Diagnosis Sprain of lumbar region- Primary documented in this encounter Care Teams Kindergarten Assistant Relationship Specialty Start Date End Date Kathy Tolliver MD [address] [place] [address] PCP - General Internal Medicine 07/06/20 documented as of this encounter
--- OUTSIDE RECORDS SUMMARY | 2025-05-04 20:06 | XMS_ITS | Encounter Summary ---
Author Organization [facility] Address [address] [place] [address] Care Team Providers Care Hand Driller Name Role Phone Kathy Tolliver MD Primary Care Provider +1- [phone] Encounter Details Date Type Department Care Team (Latest Contact Info) Description 04/20/2003 Outpatient Historical [facility] Medicine-[facility] [address] [place] [address] Krishna Toscano DO NO ADDRESS ON FILE LUMBAGO (Primary Dx); HYPOTHYROIDISM NOS Social History Tobacco Use Types Packs/Day Years Used Date Smoking Tobacco: Never Assessed Comments Unknown Sex and Gender Information Value Date Recorded Sex Assigned at Not on file Legal Sex Female 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
--- OUTSIDE RECORDS SUMMARY | 2025-05-04 20:06 | XMS_ITS | Encounter Summary ---
Author Organization [facility] Address [address] [place] [address] Care Team Providers Care Size Cutter Name Role Phone Kathy Tolliver MD Primary Care Provider +1- [phone] Encounter Details Date Type Department Care Team (Late st Contact Info) Description 02/28/2003 Emergency [facility] Emergency Department [address] [place] [phone] Aline Young MD [address] [address] PAIN IN LIMB (Primary Dx) Social History Tobacco Use Types Packs/Day Years Used Date Smoking Tobacco: Never Assessed Comments Unknown Sex and Gender Information Value Date Recorded Sex Assigned at Not on file Legal Sex Female 2:46 AM ACTIVITIES SPECIALIST Gender Identity Not on file Sexual Orientation Not on file documented as of this encounter Plan of Treatment Not on file documented as of this encounter Visit Diagnoses Diagnosis Pain in limb- Primary documented in this encounter Care Teams Size Cutter Relationship Specialty Start Date End Date Kathy Tolliver MD [address] [place] [address] PCP - General Internal Medicine 07/06/20 documented as of this encounter
--- OUTSIDE RECORDS SUMMARY | 2025-05-04 20:06 | XMS_ITS | Encounter Summary ---
Author Organization [facility] Address [address] [place] [address] Care Team Providers Care Box Toe Flanger Stitchdowns Name Role Phone Kathy Tolliver MD Primary Care Provider +1- [phone] Encounter Details Date Type Department Care Team (Latest Contact Info) Description 09/22/2003 Outpatient Historical [facility] [address] [place] [address] Krishna Toscano DO NO ADDRESS ON FILE BONE/SKIN NEOPLASM NOS (Primary Dx); HYPOTHYROIDISM NOS; LUMBAGO Social History Tobacco Use Types Packs/Day Years Used Date Smoking Tobacco: Never Assessed Comments Unknown Sex and Gender Information Value Date Recorded Sex Assigned at Not on file Legal Sex Female 2: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
--- OUTSIDE RECORDS SUMMARY | 2025-05-04 20:06 | XMS_ITS | Encounter Summary ---
Author Organization [facility] Address [address] [place] [address] Care Team Providers Care Service Team Leader Name Role Phone Kathy Tolliver MD Primary Care Provider +1- [phone] Encounter Details Date Type Department Care Team (Latest Contact Info) Description 09/24/2003 Outpatient [facility] Dermatology- 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
--- OUTSIDE RECORDS SUMMARY | 2025-05-04 20:06 | XMS_ITS | Encounter Summary ---
Author Organization [facility] Address [address] [place] [address] Care Team Providers Care Hot Mill Roller Name Role Phone Kathy Tolliver MD Primary Care Provider +1- [phone] Encounter Details Date Type Department Care Team (Late st Contact Info) Description 02/08/2003 Emergency [facility] Emergency Department [address] [place] [phone] Agustín Scales MD [address] [facility] [address] [place] [address] UNS ASTHMA WOSTATUS ASTHMATICUS (Primary Dx) Social History Tobacco Use Types Packs/Day Years Used Date Smoking Tobacco: Never Assessed Comments Unknown Sex and Gender Information Value Date Recorded Sex Assigned at Not on file Legal Sex Female 2:46 AM PROPERTY HANDLER Gender Identity Not on file Sexual Orientation Not on file documented as of this encounter Plan of Treatment Not on file documented as of this encounter Visit Diagnoses Diagnosis Unspecified asthma(493.90)- Primary Unspecified asthma documented in this encounter Care Teams Hot Mill Roller Relationship Specialty Start Date End Date Kathy Tolliver MD [address] [place] [address] PCP - General Internal Medicine 07/06/20 documented as of this encounter
--- OUTSIDE RECORDS SUMMARY | 2025-05-04 20:06 | XMS_ITS | Encounter Summary ---
Author Organization [facility] Address [address] [place] [address] Care Team Providers Care Rolling Mill Plugger Name Role Phone Kathy Tolliver MD Primary Care Provider +1- [phone] Encounter Details Date Type Department Care Team (Latest Contact Info) Description 04/11/2004 Outpatient Historical [facility] [place] [address] [place] [address] Krishna Toscano, NO ADDRESS ON FILE DISORDERS OF UTERUS NEC (Primary Dx) Social History Tobacco Use Types Packs/Day Years Used Date Smoking Tobacco: Never Assessed Comments Unknown Sex and Gender Information Value Date Recorded Sex Assigned at Not on file Legal Sex Female 2:46 AM CHILD NURSE Gender Identity Not on file Sexual Orientation Not on file documented as of this encounter Plan of Treatment Not on file documented as of this encounter Visit Diagnoses Diagnosis Other specified disorders of uterus, not elsewhere classified- Primary documented in this encounter Care Teams Rolling Mill Plugger Relationship Specialty Start Date End Date Kathy Tolliver MD [address] [place] [address] PCP - General Internal Medicine 07/06/20 documented as of this encounter
--- OUTSIDE RECORDS SUMMARY | 2025-05-04 20:06 | XMS_ITS | Encounter Summary ---
Author Organization [facility] Address [address] [place] [address] Care Team Providers Care Special Systems Technician Name Role Phone Kathy Tolliver MD Primary Care Provider +1- [phone] Encounter Details Date Type Department Care Team (Late st Contact Info) Description 01/10/2004 Emergency [facility] Emergency Department [address] [place] [phone] Aline Yuong MD [address] [address] LUMBAGO (Primary Dx) Social History Tobacco Use Types Packs/Day Years Used Date Smoking Tobacco: Never Assessed Comments Unknown Sex and Gender Information Value Date Recorded Sex Assigned at Not on file Legal Sex Female 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
--- OUTSIDE RECORDS SUMMARY | 2025-05-04 20:06 | XMS_ITS | Encounter Summary ---
Author Organization [facility] Address [address] [place] [address] Care Team Providers Care Assistant Professor Of Surgery Name Role Phone Kathy Tolliver MD Primary Care Provider +1- [phone] Encounter Details Date Type Department Care Team (Late st Contact Info) Description 01/12/2004 Emergency [facility] Emergency Department [address] [place] [phone] Luke Brown DO NO ADDRESS ON FILE LUMBAGO (Primary Dx) Social History Tobacco Use Types Packs/Day Years Used Date Smoking Tobacco: Never Assessed Comments Unknown Sex and Gender Information Value Date Recorded Sex Assigned at Not on file Legal Sex Female 2: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
--- OUTSIDE RECORDS SUMMARY | 2025-05-04 20:07 | XMS_ITS | Encounter Summary ---
Author Organization [facility] Address [address] [place] [address] Care Team Providers Care Blueprint Clerk Name Role Phone Kathy Tolliver MD Primary Care Provider +1- [phone] Encounter Details Date Type Department Care Team (Latest Contact Info) Description 12/16/2000 Outpatient Historical [facility] Medicine [address] [address] Ashish Woodruff MD NO ADDRESS ON FILE Primary localized osteoarthrosis, other specified sites (Primary Dx); Excessive menstruation Social History Tobacco Use Types Packs/Day Years Used Date Smoking Tobacco: Never Assessed Comments Unknown Sex and Gender Information Value Date Recorded Sex Assigned at Not on file Legal Sex Female 2:46 AM TYPE MAPPER Gender Identity Not on file Sexual Orientation Not on file documented as of this encounter Plan of Treatment Not on file documented as of this encounter Visit Diagnoses Diagnosis Primary localized osteoarthrosis, other specified sites- Primary Excessive menstruation Excessive or frequent menstruation documented in this encounter Care Teams Blueprint Clerk Relationship Specialty Start Date End Date Kathy Tolliver MD [address] [place] [address] PCP - General Internal Medicine 07/06/20 documented as of this encounter
--- OUTSIDE RECORDS SUMMARY | 2025-05-04 20:07 | XMS_ITS | Encounter Summary ---
Author Organization [facility] Address [address] [place] [address] Care Team Providers Care Movie Theater Manager Name Role Phone Kathy Tolliver MD Primary Care Provider +1- [phone] Encounter Details Date Type Department Care Team (Latest Contact Info) Description 09/23/2001 Outpatient Historical [facility] Medicine [address] [address] Ashish Woodruff MD NO ADDRESS ON FILE ACUTE SINUSITIS NOS (Primary Dx); JOINT PAIN-FOREARM Social History Tobacco Use Types Packs/Day Years Used Date Smoking Tobacco: Never Assessed Comments Unknown Sex and Gender Information Value Date Recorded Sex Assigned at Not on file Legal Sex Female 2:46 AM 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
--- OUTSIDE RECORDS SUMMARY | 2025-05-04 20:07 | XMS_ITS | Encounter Summary ---
Author Organization [facility] Address [address] [place] [address] Care Team Providers Care Wire Stripper Name Role Phone Kathy Tolliver MD Primary Care Provider +1- [phone] Encounter Details Date Type Department Care Team (Latest Contact Info) Description 08/01/1998 Outpatient Historical [facility] Orion Francis MD [address] [place] [address] Trigger finger (Primary Dx) Social History Tobacco Use Types Packs/Day Years Used Date Smoking Tobacco: Never Assessed Comments Unknown Sex and Gender Information Value Date Recorded Sex Assigned at Not on file Legal Sex Female 2:46 AM LEGAL ADVISOR Gender Identity Not on file Sexual Orientation Not on file documented as of this encounter Plan of Treatment Not on file documented as of this encounter Visit Diagnoses Diagnosis Trigger finger- Primary Trigger finger (acquired) documented in this encounter Care Teams Wire Stripper Relationship Specialty Start Date End Date Kathy Tolliver MD [address] [place] [address] PCP - General Internal Medicine 07/06/20 documented as of this encounter
--- OUTSIDE RECORDS SUMMARY | 2025-05-04 20:07 | XMS_ITS | Encounter Summary ---
Author Organization [facility] Address [address] Gupta: [place] [address] Care Team Providers Care Supervisor Wool Shearing Name Role Phone Kathy Tolliver MD Primary Care Provider +1- [phone] Encounter Details Date Type Department Care Team (Late st Contact Info) Description 12/26/2001 Outpatient Historical Krishna Toscano DO NO ADDRESS ON FILE Social History Tobacco Use Types Packs/Day Years Used Date Smoking Tobacco: Never Assessed Comments Unknown Sex and Gender Information Value Date Recorded Sex Assigned at Not on file Legal Sex Female 2:46 AM MANAGER CARD Gender Identity Not on file Sexual Orientation Not on file documented as of this encounter Plan of Treatment Not on file documented as of this encounter Visit Diagnoses Not on filedocumented in this encounter Care Teams Supervisor Wool Shearing Relationship Specialty Start Date End Date Kathy Tolliver MD [address] [place] [address] PCP - General Internal Medicine 07/06/20 documented as of this encounter
--- OUTSIDE RECORDS SUMMARY | 2025-05-04 20:07 | XMS_ITS | Encounter Summary ---
Author Organization [facility] Address [address] [place] [address] Care Team Providers Care Wood Cabinet Finisher Name Role Phone Kathy Tolliver MD Primary Care Provider +1- [phone] Encounter Details Date Type Department Care Team (Latest Contact Info) Description 04/22/1998 Outpatient Historical 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) Social History Tobacco Use Types Packs/Day Years Used Date Smoking Tobacco: Never Assessed Comments Unknown Sex and Gender Information Value Date Recorded Sex Assigned at Not on file Legal Sex Female 2:46 AM PHARMACEUTICAL SPECIALTY REPRESENTATIVE Gender Identity Not on file Sexual Orientation Not on file documented as of this encounter Plan of Treatment Not on file documented as of this encounter Visit Diagnoses Diagnosis Acute pyelonephritis without lesion of renal medullary necrosis- Primary documented in this encounter Care Teams Wood Cabinet Finisher Relationship Specialty Start Date End Date Kathy Tolliver MD [address] [place] [address] PCP - General Internal Medicine 07/06/20 documented as of this encounter
--- OUTSIDE RECORDS SUMMARY | 2025-05-04 20:07 | XMS_ITS | Encounter Summary ---
Author Organization [facility] Address [address] [place] [address] Care Team Providers Care Acting Instructor Name Role Phone Kathy Tolliver MD Primary Care Provider +1- [phone] Encounter Details Date Type Department Care Team (Latest Contact Info) Description 12/30/[address] [facility] [address] RESEARCH ENGINEER 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
--- OUTSIDE RECORDS SUMMARY | 2025-05-04 20:07 | XMS_ITS | Encounter Summary ---
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
--- OUTSIDE RECORDS SUMMARY | 2025-05-04 20:07 | XMS_ITS | Encounter Summary ---
Author Organization [facility] Address [address] [place] [address] Care Team Providers Care Cobol Application Developer Name Role Phone Kathy Tolliver MD Primary Care Provider +1- [phone] Encounter Details Date Type Department Care Team (Latest Contact Info) Description 12/26/2001 Outpatient [facility] [address] [address] Maegan Huertas MD NO ADDRESS ON FILE SCREENING MAMM-MAILG NEOPL-OTHER (Primary Dx) Social History Tobacco Use Types Packs/Day Years Used Date Smoking Tobacco: Never Assessed Comments Unknown Sex and Gender Information Value Date Recorded Sex Assigned at Not on file Legal Sex Female 2:46 AM RUG SCRATCHER Gender Identity Not on file Sexual Orientation Not on file documented as of this encounter Plan of Treatment Not on file documented as of this encounter Visit Diagnoses Diagnosis Other screening mammogram- Primary documented in this encounter Care Teams Cobol Application Developer Relationship Specialty Start Date End Date Kathy Tolliver MD [address] [place] [address] PCP - General Internal Medicine 07/06/20 documented as of this encounter
--- OUTSIDE RECORDS SUMMARY | 2025-05-04 20:07 | XMS_ITS | Encounter Summary ---
Author Organization [facility] Address [address]pta: [place] [address] Care Team Providers Care Assistant Product Manager Name Role Phone Kathy Tolliver MD Primary Care Provider +1- [phone] Encounter Details Date Type Department Care Team (Late st Contact Info) Description 12/30/2000 Outpatient Historical Cordell Pedersen MD NO ADDRESS ON FILE Social History Tobacco Use Types Packs/Day Years Used Date Smoking Tobacco: Never Assessed Comments Unknown Sex and Gender Information Value Date Recorded Sex Assigned at Not on file Legal Sex Female 2:46 AM INDIAN BLANKET WEAVER Gender Identity Not on file Sexual Orientation Not on file documented as of this encounter Plan of Treatment Not on file documented as of this encounter Visit Diagnoses Not on filedocumented in this encounter Care Teams Assistant Product Manager Relationship Specialty Start Date End Date Kathy Tolliver MD [address] [place] [address] PCP - General Internal Medicine 07/06/20 documented as of this encounter
--- OUTSIDE RECORDS SUMMARY | 2025-05-04 20:07 | XMS_ITS | Encounter Summary ---
Author Organization [facility] Address [address] [place] [address] Care Team Providers Care Supervisor Blueprinting And Photocopy Name Role Phone Kathy Tolliver MD Primary Care Provider +1- [phone] Encounter Details Date Type Department Care Team (Late st Contact Info) Description 08/05/[address] [facility] [address] [place] [phone] Social History Tobacco Use Types Packs/Day Years Used Date Smoking Tobacco: Never Assessed Comments Unknown Sex and Gender Information Value Date Recorded Sex Assigned at Not on file Legal Sex Female 2:46 AM SUPERVISOR BLEACH PLANT Gender Identity Not on file Sexual Orientation Not on file documented as of this encounter Plan of Treatment Not on file documented as of this encounter Visit Diagnoses Not on filedocumented in this encounter Care Teams Supervisor Blueprinting And Photocopy Relationship Specialty Start Date End Date Kathy Tolliver MD [address] [place] [address] PCP - General Internal Medicine 07/06/20 documented as of this encounter
--- OUTSIDE RECORDS SUMMARY | 2025-05-04 20:07 | XMS_ITS | Encounter Summary ---
Author Organization [facility] Address [address] [place] [address] Care Team Providers Care E Commerce Director Name Role Phone Kathy Tollvier MD Primary Care Provider +1- [phone] Encounter Details Date Type Department Care Team (Late st Contact Info) Description 09/18/1999 Outpatient Historical [facility] Social History Tobacco Use Types Packs/Day Years Used Date Smoking Tobacco: Never Assessed Comments Unknown Sex and Gender Information Value Date Recorded Sex Assigned at Not on file Legal Sex Female 2:46 AM MACHINE CLOTH EXAMINER Gender Identity Not on file Sexual Orientation Not on file documented as of this encounter Plan of Treatment Not on file documented as of this encounter Visit Diagnoses Not on filedocumented in this encounter Care Teams E Commerce Director Relationship Specialty Start Date End Date Kathy Tolliver MD [address] [place] [address] PCP - General Internal Medicine 07/06/20 documented as of this encounter
--- OUTSIDE RECORDS SUMMARY | 2025-05-04 20:07 | XMS_ITS | Encounter Summary ---
Author Organization [facility] Address [address] [place] [address] Care Team Providers Care Case Manager Name Role Phone Kathy Tolliver MD Primary Care Provider +1- [phone] Encounter Details Date Type Department Care Team (Late st Contact Info) Description 09/14/1999 Outpatient Historical [facility] Social History Tobacco Use Types Packs/Day Years Used Date Smoking Tobacco: Never Assessed Comments Unknown Sex and Gender Information Value Date Recorded Sex Assigned at Not on file Legal Sex Female 2:46 AM JAMB CUTTER Gender Identity Not on file Sexual Orientation Not on file documented as of this encounter Plan of Treatment Not on file documented as of this encounter Visit Diagnoses Not on filedocumented in this encounter Care Teams Case Manager Relationship Specialty Start Date End Date Kathy Tolliver MD [address] [place] [address] PCP - General Internal Medicine 07/06/20 documented as of this encounter
--- OUTSIDE RECORDS SUMMARY | 2025-05-04 20:07 | XMS_ITS | Encounter Summary ---
Author Organization [facility] Address [address] [place] [address] Care Team Providers Care Cereal Maker Name Role Phone Kathy Tolliver MD Primary Care Provider +1- [phone] Encounter Details Date Type Department Care Team (Latest Contact Info) Description 10/06/1999 Outpatient Historical [facility] [address] [place] [address] Matty Main Jr., DO NO ADDRESS ON FILE Lumbago (Primary Dx) Social History Tobacco Use Types Packs/Day Years Used Date Smoking Tobacco: Never Assessed Comments Unknown Sex and Gender Information Value Date Recorded Sex Assigned at Not on file Legal Sex Female 2:46 AM MIRROR MACHINE FEEDER Gender Identity Not on file Sexual Orientation Not on file documented as of this encounter Plan of Treatment Not on file documented as of this encounter Visit Diagnoses Diagnosis Lumbago- Primary documented in this encounter Care Teams Cereal Maker Relationship Specialty Start Date End Date Kathy Tolliver MD [address] [place] [address] PCP - General Internal Medicine 07/06/20 documented as of this encounter
--- OUTSIDE RECORDS SUMMARY | 2025-05-04 20:07 | XMS_ITS | Encounter Summary ---
Author Organization [facility] Address [address] [place] [address] Care Team Providers Care Tractor Operator Name Role Phone Kathy Tolliver MD Primary Care Provider +1- [phone] Encounter Details Date Type Department Care Team (Late st Contact Info) Description 09/13/1999 Outpatient Historical [facility] Social History Tobacco Use Types Packs/Day Years Used Date Smoking Tobacco: Never Assessed Comments Unknown Sex and Gender Information Value Date Recorded Sex Assigned at Not on file Legal Sex Female 2:46 AM COFFEE TASTER Gender Identity Not on file Sexual Orientation Not on file documented as of this encounter Plan of Treatment Not on file documented as of this encounter Visit Diagnoses Not on filedocumented in this encounter Care Teams Tractor Operator Relationship Specialty Start Date End Date Kathy Tolliver MD [address] [place] [address] PCP - General Internal Medicine 07/06/20 documented as of this encounter
--- OUTSIDE RECORDS SUMMARY | 2025-05-04 20:07 | XMS_ITS | Encounter Summary ---
Author Organization [facility] Address [address] [place] [address] Care Team Providers Care Railroad Surveyor Name Role Phone Kathy Tolliver MD Primary Care Provider +1- [phone] Encounter Details Date Type Department Care Team (Latest Contact Info) Description 08/30/2000 Outpatient Historical [facility] Medicine-[facility] [address] [place] [phone] Matty Main Jr., DO NO ADDRESS ON FILE Abdominal pain, unspecified site (Primary Dx); Unspecified hypothyroidism Social History Tobacco Use Types Packs/Day Years Used Date Smoking Tobacco: Never Assessed Comments Unknown Sex and Gender Information Value Date Recorded Sex Assigned at Not on file Legal Sex Female 2:46 AM BOX SPINNER Gender Identity Not on file Sexual Orientation Not on file documented as of this encounter Plan of Treatment Not on file documented as of this encounter Visit Diagnoses Diagnosis Abdominal pain, unspecified site- Primary Unspecified hypothyroidism documented in this encounter Care Teams Railroad Surveyor Relationship Specialty Start Date End Date Kathy Tolliver MD [address] [place] [address] PCP - General Internal Medicine 07/06/20 documented as of this encounter
--- OUTSIDE RECORDS SUMMARY | 2025-05-04 20:07 | XMS_ITS | Encounter Summary ---
Author Organization [facility] Address [address] [place] [address] Care Team Providers Care Sales Agent Casualty Insurance Name Role Phone Kathy Tolliver MD Primary Care Provider +1- [phone] Encounter Details Date Type Department Care Team (Latest Contact Info) Description 06/20/1998 Outpatient Historical [facility] Orion Francis MD [address] [place] [phone] Trigger finger (Primary Dx) Social History Tobacco Use Types Packs/Day Years Used Date Smoking Tobacco: Never Assessed Comments Unknown Sex and Gender Information Value Date Recorded Sex Assigned at Not on file Legal Sex Female 2:46 AM FILAMENT WELDER Gender Identity Not on file Sexual Orientation Not on file documented as of this encounter Plan of Treatment Not on file documented as of this encounter Visit Diagnoses Diagnosis Trigger finger- Primary Trigger finger (acquired) documented in this encounter Care Teams Sales Agent Casualty Insurance Relationship Specialty Start Date End Date Kathy Tolliver MD [address] [place] [address] PCP - General Internal Medicine 07/06/20 documented as of this encounter
--- OUTSIDE RECORDS SUMMARY | 2025-05-04 20:07 | XMS_ITS | Encounter Summary ---
Author Organization [facility] Address [address] [place] [address] Care Team Providers Care Radio Mechanic Name Role Phone Kathy Tolliver MD Primary Care Provider +1- [phone] Encounter Details Date Type Department Care Team (Late st Contact Info) Description 11/30/2020 Ancillary Orders [facility] [address] [address] Kathy Tolliver MD [address] [place] [address] Screening for breast cancer Social History Tobacco Use Types Packs/Day Years Used Date Smoking Tobacco: Former Cigarettes Q uit: 01/07/2020 Smokeless Tobacco: Never Alcohol Use Standard Drinks/Week Comments No 0 (1 standard drink = 0.6 oz pur e alcohol) Comments No Sex and Gender Information Value Date Recorded Sex Assigned at Not on file Legal Sex Female 2:46 AM EMERY WHEEL WORKER Gender Identity Not on file Sexual Orientation Not on file documented as of this encounter Plan of Treatment Not on file documented as of this encounter Results * MAMMO PRIOR STUDY (12/31/2001 10:50 AM EMERY WHEEL WORKER) Narrative 11/30/2020 10:49 AM EMERY WHEEL WORKER This exam was auto finalized to allow images to be scanned to PACS. us Kathy Tolliver MD DIAGNOSTIC IMAGING ORDERAB LES Final Result * MAMMO PRIOR STUDY (12/26/2001 10:50 AM EMERY WHEEL WORKER) Narrative 11/30/2020 10:48 AM EMERY WHEEL WORKER This exam was auto finalized to allow images to be scanned to PACS. us Kathy Tolliver MD DIAGNOSTIC IMAGING ORDERAB LES Final Result documented in this encounter Visit Diagnoses Diagnosis Screening for breast cancer Breast screening, unspecified Screening for breast cancer Breast screening, unspecified Screening for breast cancer Breast screening, unspecified documented in this encounter Care Teams Radio Mechanic Relationship Specialty Start Date End Date Kathy Tolliver MD [address] [place] [address] PCP - General Internal Medicine 07/06/20 documented as of this encounter
--- OUTSIDE RECORDS SUMMARY | 2025-05-04 20:07 | XMS_ITS | Encounter Summary ---
Author Organization [facility] Address [address] [place] [address] Care Team Providers Care Seo Team Lead Name Role Phone Kathy Tolliver MD Primary Care Provider +1- [phone] Encounter Details Date Type Department Care Team (Latest Contact Info) Description 06/10/2001 Outpatient Historical [facility] [address] [place] [phone] Krishna Toscano, NO ADDRESS ON FILE Acute upper respiratory infections of unspecified site (Primary Dx); Unspecified symptom associated with female genital organs Social History Tobacco Use Types Packs/Day Years Used Date Smoking Tobacco: Never Assessed Comments Unknown Sex and Gender Information Value Date Recorded Sex Assigned at Not on file Legal Sex Female 2:46 AM DIRECTOR OF PROCUREMENT Gender Identity Not on file Sexual Orientation Not on file documented as of this encounter Plan of Treatment Not on file documented as of this encounter Visit Diagnoses Diagnosis Acute upper respiratory infections of unspecified site- Primary Unspecified symptom associated with female genital organs documented in this encounter Care Teams Seo Team Lead Relationship Specialty Start Date End Date Kathy Tolliver MD [address] [place] [address] PCP - General Internal Medicine 07/06/20 documented as of this encounter
--- OUTSIDE RECORDS SUMMARY | 2025-05-04 20:07 | XMS_ITS | Encounter Summary ---
Author Organization [facility] Address [address] [place] [address] Care Team Providers Care Residential Installer Name Role Phone Kathy Tolliver MD Primary Care Provider +1- [phone] Encounter Details Date Type Department Care Team (Latest Contact Info) Description 08/04/2001 Outpatient Historical [facility] Medicine [address] [address] Ashish Woodruff MD NO ADDRESS ON FILE Other tenosynovitis of hand and wrist (Primary Dx); Other synovitis and tenosynovitis Social History Tobacco Use Types Packs/Day Years Used Date Smoking Tobacco: Never Assessed Comments Unknown Sex and Gender Information Value Date Recorded Sex Assigned at Not on file Legal Sex Female 2:46 AM FAMILY PRACTICE MEDICAL DOCTOR Gender Identity Not on file Sexual Orientation Not on file documented as of this encounter Plan of Treatment Not on file documented as of this encounter Visit Diagnoses Diagnosis Other tenosynovitis of hand and wrist- Primary Other synovitis and tenosynovitis documented in this encounter Care Teams Residential Installer Relationship Specialty Start Date End Date Kathy Tolliver MD [address] [place] [phone] PCP - General Internal Medicine 07/06/20 documented as of this encounter
--- OUTSIDE RECORDS SUMMARY | 2025-05-04 20:07 | XMS_ITS | Encounter Summary ---
Author Organization [facility] Address [address] Gupta: [place] [address] Care Team Providers Care Top Closer Name Role Phone Kathy Tolliver MD Primary Care Provider +1- [phone] Encounter Details Date Type Department Care Team (Late st Contact Info) Description 12/06/1999 Outpatient Historical Eleazar Shipman DO NO ADDRESS ON FILE Social History Tobacco Use Types Packs/Day Years Used Date Smoking Tobacco: Never Assessed Comments Unknown Sex and Gender Information Value Date Recorded Sex Assigned at Not on file Legal Sex Female 2:46 AM METAL STORAGE WORKER Gender Identity Not on file Sexual Orientation Not on file documented as of this encounter Plan of Treatment Not on file documented as of this encounter Visit Diagnoses Not on filedocumented in this encounter Care Teams Top Closer Relationship Specialty Start Date End Date Kathy Tolliver MD [address] [place] [address] PCP - General Internal Medicine 07/06/20 documented as of this encounter
--- OUTSIDE RECORDS SUMMARY | 2025-05-04 20:07 | XMS_ITS | Encounter Summary ---
Author Organization [facility] Address [address] Gupta: [place] [address] Care Team Providers Care Cupola Tender Helper Name Role Phone Kathy Tolliver MD Primary Care Provider +1- [phone] Encounter Details Date Type Department Care Team (Late st Contact Info) Description 12/20/1999 Outpatient Historical Wilder Powell MD NO ADDRESS ON FILE Social History Tobacco Use Types Packs/Day Years Used Date Smoking Tobacco: Never Assessed Comments Unknown Sex and Gender Information Value Date Recorded Sex Assigned at Not on file Legal Sex Female 2:46 AM PACKING CLERK Gender Identity Not on file Sexual Orientation Not on file documented as of this encounter Plan of Treatment Not on file documented as of this encounter Visit Diagnoses Not on filedocumented in this encounter Care Teams Cupola Tender Helper Relationship Specialty Start Date End Date Kathy Tolliver MD [address] [place] [address] PCP - General Internal Medicine 07/06/20 documented as of this encounter
--- OUTSIDE RECORDS SUMMARY | 2025-05-04 20:07 | XMS_ITS | Encounter Summary ---
Author Organization [facility] Address [address] [place] [address] Care Team Providers Care Health And Physical Education Professor Name Role Phone Kathy Tolliver MD Primary Care Provider +1- [phone] Encounter Details Date Type Department Care Team (Latest Contact Info) Description 06/11/2001 Outpatient Historical [address] [address] Ashsih Woodruff MD NO ADDRESS ON FILE Acute upper respiratory infections of unspecified site (Primary Dx); Abdominal pain, left lower quadrant; Acute sinusitis, unspecified Social History Tobacco Use Types Packs/Day Years Used Date Smoking Tobacco: Never Assessed Comments Unknown Sex and Gender Information Value Date Recorded Sex Assigned at Not on file Legal Sex Female 2:46 AM LABOR ECONOMICS PROFESSOR Gender Identity Not on file Sexual Orientation Not on file documented as of this encounter Plan of Treatment Not on file documented as of this encounter Visit Diagnoses Diagnosis Acute upper respiratory infections of unspecified site- Primary Abdominal pain, left lower quadrant Acute sinusitis, unspecified documented in this encounter Care Teams Health And Physical Education Professor Relationship Specialty Start Date End Date Kathy Tolliver MD [address] [place] [address] PCP - General Internal Medicine 07/06/20 documented as of this encounter
--- OUTSIDE RECORDS SUMMARY | 2025-05-04 20:07 | XMS_ITS | Encounter Summary ---
Author Organization [facility] Address [address] [place] [address] Care Team Providers Care Open Shank Coverer Name Role Phone Kathy Tolliver MD Primary Care Provider +1- [phone] Encounter Details Date Type Department Care Team (Late st Contact Info) Description 05/13/2001 Outpatient Historical [facility] Imaging Services[facility] [address] [place] [phone] Social History Tobacco Use Types Packs/Day Years Used Date Smoking Tobacco: Never Assessed Comments Unknown Sex and Gender Information Value Date Recorded Sex Assigned at Not on file Legal Sex Female 2:46 AM ACCOUNTS RECEIVABLE COORDINATOR Gender Identity Not on file Sexual Orientation Not on file documented as of this encounter Plan of Treatment Not on file documented as of this encounter Visit Diagnoses Not on filedocumented in this encounter Care Teams Open Shank Coverer Relationship Specialty Start Date End Date Kathy Tolliver MD [address] [place] [address] PCP - General Internal Medicine 07/06/20 documented as of this encounter
--- OUTSIDE RECORDS SUMMARY | 2025-05-04 20:07 | XMS_ITS | Encounter Summary ---
Author Organization [facility] Address [address] [place] [address] Care Team Providers Care Mud Logger Name Role Phone Kathy Tolliver MD Primary Care Provider +1- [phone] Encounter Details Date Type Department Care Team (Latest Contact Info) Description 09/01/2001 Outpatient Historical [facility] Ruben Rivas MD [address] [facility] [address] [place] [address] FAMILY HX GI MALIGNANCY (Primary Dx) Social History Tobacco Use Types Packs/Day Years Used Date Smoking Tobacco: Never Assessed Comments Unknown Sex and Gender Information Value Date Recorded Sex Assigned at Not on file Legal Sex Female 2:46 AM EXCELSIOR MACHINE FEEDER Gender Identity Not on file Sexual Orientation Not on file documented as of this encounter Plan of Treatment Not on file documented as of this encounter Visit Diagnoses Diagnosis Family history of malignant neoplasm of gastrointestinal tract- Primary documented in this encounter Care Teams Mud Logger Relationship Specialty Start Date End Date Kathy Tloliver MD [address] [place] [address] PCP - General Internal Medicine 07/06/20 documented as of this encounter
--- OUTSIDE RECORDS SUMMARY | 2025-05-04 20:07 | XMS_ITS | Encounter Summary ---
Author Organization [facility] Address [address] Gupta: [place] [address] Care Team Providers Care Dehydrator Name Role Phone Kathy Tolliver MD Primary Care Provider +1- [phone] Encounter Details Date Type Department Care Team (Late st Contact Info) Description 11/08/2000 Outpatient Historical Wade Sahni MD NO ADDRESS ON FILE Social History Tobacco Use Types Packs/Day Years Used Date Smoking Tobacco: Never Assessed Comments Unknown Sex and Gender Information Value Date Recorded Sex Assigned at Not on file Legal Sex Female 2:46 AM COMMUNITY OUTREACH DIRECTOR Gender Identity Not on file Sexual Orientation Not on file documented as of this encounter Plan of Treatment Not on file documented as of this encounter Visit Diagnoses Not on filedocumented in this encounter Care Teams Dehydrator Relationship Specialty Start Date End Date Kathy Tolliver MD [address] [place] [address] PCP - General Internal Medicine 07/06/20 documented as of this encounter
--- OUTSIDE RECORDS SUMMARY | 2025-05-04 20:07 | XMS_ITS | Encounter Summary ---
Author Organization [facility] Address [address] [place] [address] Care Team Providers Care Applique Cutter Name Role Phone Kathy Tolliver MD Primary Care Provider +1- [phone] Encounter Details Date Type Department Care Team (Late st Contact Info) Description 09/22/1999 Outpatient Historical [facility] Social History Tobacco Use Types Packs/Day Years Used Date Smoking Tobacco: Never Assessed Comments Unknown Sex and Gender Information Value Date Recorded Sex Assigned at Not on file Legal Sex Female 2:46 AM STEWARD DISHWASHER Gender Identity Not on file Sexual Orientation Not on file documented as of this encounter Plan of Treatment Not on file documented as of this encounter Visit Diagnoses Not on filedocumented in this encounter Care Teams Applique Cutter Relationship Specialty Start Date End Date Kathy Tolliver MD [address] [place] [address] PCP - General Internal Medicine 07/06/20 documented as of this encounter
--- OUTSIDE RECORDS SUMMARY | 2025-05-04 20:07 | XMS_ITS | Encounter Summary ---
Author Organization [facility] Address [address]pta: [place] [address] Care Team Providers Care Paraffiner Name Role Phone Kathy Tolliver MD Primary Care Provider +1- [phone] Encounter Details Date Type Department Care Team (Late st Contact Info) Description 12/31/2001 Outpatient Historical Krishna Toscano DO NO ADDRESS ON FILE Social History Tobacco Use Types Packs/Day Years Used Date Smoking Tobacco: Never Assessed Comments Unknown Sex and Gender Information Value Date Recorded Sex Assigned at Not on file Legal Sex Female 2:46 AM LOCK ASSEMBLER Gender Identity Not on file Sexual Orientation Not on file documented as of this encounter Plan of Treatment Not on file documented as of this encounter Visit Diagnoses Not on filedocumented in this encounter Care Teams Paraffiner Relationship Specialty Start Date End Date Kathy Tolliver MD [address] [place] [address] PCP - General Internal Medicine 07/06/20 documented as of this encounter
--- OUTSIDE RECORDS SUMMARY | 2025-05-04 20:07 | XMS_ITS | Encounter Summary ---
Author Organization [facility] Address [address] Gupta: [place] [address] Care Team Providers Care Nurse Sitter Name Role Phone Kathy Tolliver MD Primary Care Provider +1- [phone] Encounter Details Date Type Department Care Team (Late st Contact Info) Description 01/20/2001 Outpatient Historical Harsha Reyes, NO ADDRESS ON FILE Social History Tobacco Use Types Packs/Day Years Used Date Smoking Tobacco: Never Assessed Comments Unknown Sex and Gender Information Value Date Recorded Sex Assigned at Not on file Legal Sex Female 2:46 AM SPECIMEN BOSS Gender Identity Not on file Sexual Orientation Not on file documented as of this encounter Plan of Treatment Not on file documented as of this encounter Visit Diagnoses Not on filedocumented in this encounter Care Teams Nurse Sitter Relationship Specialty Start Date End Date Kathy Tolliver MD [address] [place] [address] PCP - General Internal Medicine 07/06/20 documented as of this encounter
--- OUTSIDE RECORDS SUMMARY | 2025-05-04 20:07 | XMS_ITS | Encounter Summary ---
Author Organization [facility] Address [address] [address] Gupta: [place] [address] Care Team Providers Care Child Care Specialist Name Role Phone Kathy Tolliver MD Primary Care Provider +1- [phone] Encounter Details Date Type Department Care Team (Late st Contact Info) Description 09/01/2001 Outpatient Historical uRben Rivas MD [address] [facility] [address] [place] [id number] Social History Tobacco Use Types Packs/Day Years Used Date Smoking Tobacco: Never Assessed Comments Unknown Sex and Gender Information Value Date Recorded Sex Assigned at Not on file Legal Sex Female 2:46 AM HAM PASSER Gender Identity Not on file Sexual Orientation Not on file documented as of this encounter Plan of Treatment Not on file documented as of this encounter Visit Diagnoses Not on filedocumented in this encounter Care Teams Child Care Specialist Relationship Specialty Start Date End Date Kathy Tolliver MD [address] [place] [address] PCP - General Internal Medicine 07/06/20 documented as of this encounter
--- OUTSIDE RECORDS SUMMARY | 2025-05-04 20:07 | XMS_ITS | Encounter Summary ---
Author Organization [facility] Address [address] [place] [address] Care Team Providers Care Internet Webmaster Name Role Phone Kathy Tolliver MD Primary Care Provider +1- [phone] Encounter Details Date Type Department Care Team (Latest Contact Info) Description 11/28/2000 Outpatient [facility] Medicine [address] [address] Ashish Woodruff MD NO ADDRESS ON FILE Premenopause menorrhagia (Primary Dx); Thyroiditis, unspecified; Cellulitis and abscess of leg, except foot Social History Tobacco Use Types Packs/Day Years Used Date Smoking Tobacco: Never Assessed Comments Unknown Sex and Gender Information Value Date Recorded Sex Assigned at Not on file Legal Sex Female 2:46 AM CHROME CLEANER Gender Identity Not on file Sexual Orientation Not on file documented as of this encounter Plan of Treatment Not on file documented as of this encounter Visit Diagnoses Diagnosis Premenopause menorrhagia- Primary Premenopausal menorrhagia Thyroiditis, unspecified Cellulitis and abscess of leg, except foot documented in this encounter Care Teams Internet Webmaster Relationship Specialty Start Date End Date Kathy Tolliver MD [address] [place] [address] PCP - General Internal Medicine 07/06/20 documented as of this encounter
--- OUTSIDE RECORDS SUMMARY | 2025-05-04 20:07 | XMS_ITS | Encounter Summary ---
Author Organization [facility] Address [address] [place] [address] Care Team Providers Care Coordinate Measuring Machine Technician Name Role Phone Kathy Tolliver MD Primary Care Provider +1- [phone] Encounter Details Date Type Department Care Team (Latest Contact Info) Description 05/13/2001 Outpatient Historical [facility] Medicine [address] [address] Ashish Woodruff MD NO ADDRESS ON FILE Enthesopathy of knee, unspecified (Primary Dx); Tenosynovitis of foot and ankle; Other specified disease of white blood cells; Other dyschromia Social History Tobacco Use Types Packs/Day Years Used Date Smoking Tobacco: Never Assessed Comments Unknown Sex and Gender Information Value Date Recorded Sex Assigned at Not on file Legal Sex Female 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
--- OUTSIDE RECORDS SUMMARY | 2025-05-04 20:07 | XMS_ITS | Clinical Summary ---
Author Organization [facility] Address [address] [place] [address] Phone Care Team Providers Care Hand Inserter Operator Name Role Phone Kathy Tolliver MD Primary Care Provider +1- [phone] Allergies Active Allergy Reactions Criticality Noted Date [...] on file Legal Sex Female 2:46 AM SYSTEMS CONSULTANT Gender Identity Not on file Sexual [...] or Tdap) 05/13/2030 05/13/2020, 07/29/2010 Insurance MEDICAID [place] [facility] DUAL COMPLETE MCR HMO SNP Advance Directives For more information, please contact: [phone] Documents on File Type Date Recorded Patient Legal Service Specialist Expl anation Advance Directive POA 01/08/2017 4:10 [...] 9:11 PM 01/06/2017 5:51 PM Care Teams Hand Inserter Operator Relationship Specialty Start Date End Date Kathy Tolliver MD [address] [place] [address] PCP - General Internal Medicine 07/06/20
--- OUTSIDE RECORDS SUMMARY | 2025-05-04 20:07 | XMS_ITS | Encounter Summary ---
Author Organization [facility] Address [address] Gupta: [place] [address] Care Team Providers Care Technical Supervisor Name Role Phone Kathy Tolliver MD Primary Care Provider +1- [phone] Encounter Details Date Type Department Care Team (Late st Contact Info) Description 01/29/2000 Outpatient Historical Noah Glover NO ADDRESS ON FILE Social History Tobacco Use Types Packs/Day Years Used Date Smoking Tobacco: Never Assessed Comments Unknown Sex and Gender Information Value Date Recorded Sex Assigned at Not on file Legal Sex Female 2:46 AM TRANSMISSION ENGINEER Gender Identity Not on file Sexual Orientation Not on file documented as of this encounter Plan of Treatment Not on file documented as of this encounter Visit Diagnoses Not on filedocumented in this encounter Care Teams Technical Supervisor Relationship Specialty Start Date End Date Kathy Tolliver MD [address] [place] [address] PCP - General Internal Medicine 07/06/20 documented as of this encounter
--- OUTSIDE RECORDS SUMMARY | 2025-05-04 20:07 | XMS_ITS | Encounter Summary ---
Author Organization [facility] Address [address] [place] [address] Care Team Providers Care Test Hole Driller Name Role Phone Kathy Tolliver MD Primary Care Provider +1- [phone] Encounter Details Date Type Department Care Team (Latest Contact Info) Description 02/20/2001 Outpatient Historical [address] [address] Ashish Woodruff MD NO ADDRESS ON FILE Headache(784.0) (Primary Dx); Abdominal pain, right upper quadrant; Special screening for malignant neoplasms of other sites Social History Tobacco Use Types Packs/Day Years Used Date Smoking Tobacco: Never Assessed Comments Unknown Sex and Gender Information Value Date Recorded Sex Assigned at Not on file Legal Sex Female 2:46 AM JANITOR CLEANER Gender Identity Not on file Sexual Orientation Not on file documented as of this encounter Plan of Treatment Not on file documented as of this encounter Visit Diagnoses Diagnosis Headache(784.0)- Primary Headache Abdominal pain, right upper quadrant Special screening for malignant neoplasms of other sites documented in this encounter Care Teams Test Hole Driller Relationship Specialty Start Date End Date Kathy Tolilver MD [address] [place] [address] PCP - General Internal Medicine 07/06/20 documented as of this encounter
--- OUTSIDE RECORDS SUMMARY | 2025-05-04 20:07 | XMS_ITS | Encounter Summary ---
Author Organization [facility] Address [address] Gupta: [place] [address] Care Team Providers Care Machine Builder Name Role Phone Kathy Tolliver MD Primary Care Provider +1- [phone] Encounter Details Date Type Department Care Team (Late st Contact Info) Description 09/13/1999 Outpatient Historical Matty Barlow MD [address] [facility] [address] [place] [address] Social History Tobacco Use Types Packs/Day Years Used Date Smoking Tobacco: Never Assessed Comments Unknown Sex and Gender Information Value Date Recorded Sex Assigned at Not on file Legal Sex Female 2:46 AM OUTDOOR ILLUMINATING ENGINEER Gender Identity Not on file Sexual Orientation Not on file documented as of this encounter Plan of Treatment Not on file documented as of this encounter Visit Diagnoses Not on filedocumented in this encounter Care Teams Machine Builder Relationship Specialty Start Date End Date Kathy Tolliver MD [address] [place] [address] PCP - General Internal Medicine 07/06/20 documented as of this encounter
--- OUTSIDE RECORDS SUMMARY | 2025-05-04 20:07 | XMS_ITS | Encounter Summary ---
Author Organization [facility] Address [address] [place] [address] Care Team Providers Care Inspector Production Plastic Parts Name Role Phone Kathy Tolliver MD Primary Care Provider +1- [phone] Encounter Details Date Type Department Care Team (Latest Contact Info) Description 06/19/2001 Outpatient Historical [facility] Medicine [address] [address] Ashish Woodruff MD NO ADDRESS ON FILE Abnormal weight gain (Primary Dx); Sprain of neck Social History Tobacco Use Types Packs/Day Years Used Date Smoking Tobacco: Never Assessed Comments Unknown Sex and Gender Information Value Date Recorded Sex Assigned at Not on file Legal Sex Female 2:46 AM LOT PORTER Gender Identity Not on file Sexual Orientation Not on file documented as of this encounter Plan of Treatment Not on file documented as of this encounter Visit Diagnoses Diagnosis Abnormal weight gain- Primary Sprain of neck Neck sprain and strain documented in this encounter Care Teams Inspector Production Plastic Parts Relationship Specialty Start Date End Date Kathy Tolliver MD [address] [place] [address] PCP - General Internal Medicine 07/06/20 documented as of this encounter
--- OUTSIDE RECORDS SUMMARY | 2025-05-04 20:07 | XMS_ITS | Clinical Summary ---
Author Organization [facility] Address [address] [place] [address] Care Team Providers Care Candy Puller Name Role Phone Ole Mcnamara MD Primary Care Provider [phone] Source Comments PLEASE NOTE, if this patient is a minor, it may be UNLAWFUL to discuss sensitive information that is contained in these records (such as FAMILY PLANNING, MENTAL HEALTH or SUBSTANCE ABUSE) with the minor patient's parent or other person without the patient's specific authorization.[facility] Allergies Active Allergy Reactions Criticality Noted Date Comments Morphine 04/15/2017 Other Reaction(s) from [facility]: aggressive behavior Promethazine Anaphylaxis High 12/18/2024 [...] 4 mg disintegrating tabletIndications:O ther chronic pancreatitis ([facility]) Take 1 Tablet by mouth 3 [...] Description 03/08/2025 8:25 AM CDT Ancillary Services [address] [address] Tasha William 02/22/2025 10:00 AM CDT Office Visit [address] [address] Ole Mcnamara MD from Last 3 Months Immunizations Immunization Administration Dates Next Due Flu, Preservative Free 10/10/2021,2019,08/20/2019,10/10/2018, [facility] State Funded Flu Vaccine 07/31/2010 TDAP 05/13/2020,07/29/2010 [...] 06/03/2025 11:00 AM CDT [facility] [address] [place] [address] Abdon Black, [facility] [address] [place] [address] Health Maintenance Due Date Last [...] Prevention 2023 Alcohol and Drug Screen 11/04/2024 [id number] ( season) 2025 07/18/2024, 07/28/2022, 04/27/2022, Additional [...] Procedure Name Priority Date/Time Associated Diagnosis Comments [facility] PDF REPORT DRUG Routine 02/22/2025 2:44 PM CDT Spondylosis of lumbar region without myelopathy or radiculopathy Encounter for long-term (current) use of medications [facility] URINE DRUG TEST Routine 02/22/2025 12:44 PM CDT Spondylosis of lumbar region without myelopathy or radiculopathy Encounter for long-term (current) use of medications HEALTH HISTORY SCANNED DOCUMENT 02/22/2025 2:00 AM CDT IMAGING SCANNED DOCUMENT 02/10/2025 2:00 AM CDT IMAGING SCANNED DOCUMENT 02/10/2025 2:00 AM CDT REFERRAL SCANNED DOCUMENT 02/03/2025 2:00 AM CDT ASSAY OF THYROID STIMULATING HORMONE TSH Routine 12/18/2024 8:36 AM FAMILY MEDICINE PHYSICIAN ASSISTANT Acquired hypothyroidism HEMOGLOBIN GLYCOSYLATED A1C Routine 12/18/2024 8:36 AM FAMILY MEDICINE PHYSICIAN ASSISTANT Encounter for long-term (current) use of medications LIPID PANEL Routine 12/18/2024 8:36 AM FAMILY MEDICINE PHYSICIAN ASSISTANT Essential (primary) hypertension Mixed hyperlipidemia HEPATITIS C VIRUS Routine 12/18/2024 8:3 5 AM FAMILY MEDICINE PHYSICIAN ASSISTANT Screening for viral disease MAMMOGRAM, ABSTRACTED NARRATIVE Routine 08/28/2010 12:00 AM CDT from Last 3 Months or Most Recently Relevant to Health Maintenance Results * [facility] LAB PDF REPORT DRUG (02/22/2025 2:44 PM CDT) 02/22/2025 2:44 PM CDT 02/23/2025 8:15 PM CDT us Ole Mcnamara MD LAB - NO BLOOD DRAW Final Result [facility] [id number] [place] [address], * (ABNORMAL) [employer] URINE DRUG TEST (02/22/2025 12:44 PM CDT) CODEINE QUANTIFICATION negative 50 ng/mL [facility] MORPHINE QUANTIFICATION negative 50 ng/mL [facility] HYDROCODONE QUANTIFICATION negative 50 ng/mL [facility] NORHYDROCODONE QUANTIFICATION negative 50 ng/mL [facility] HYDROMORPHONE QUANTIFICATION negative 50 ng/mL [facility] OXYCODONE QUANTIFICATION negative 50 ng/mL [facility] NOROXYCODONE QUANTIFICATION negative 50 ng/mL [facility] OXYMORPHONE QUANTIFICATION negative 50 ng/mL [facility] BUPRENORPHINE QUANTIFICATION negative 5 ng/mL [facility] NORBUPRENORPHINE QUANTIFICATION negative 20 ng/mL [facility] FENTANYL QUANTIFICATION negative 1 ng/mL [facility] NORFENTANYL QUANTIFICATION negative 8 ng/mL [facility] METHADONE QUANTIFICATION negative 100 ng/mL [facility] EDDP (METHADONE METABOLITE) QUANTIFICATION negative 100 ng/mL [facility] TRAMADOL QUANTIFICATION negative 100 ng/mL [facility] I-OSPFKMFZX-URYGDCZD QUANTIFICATION negative 100 ng/mL [facility] P-MTDQHKAEU-NBAPEYFT QUANTIFICATION negative 100 ng/mL [facility] Tapentadol Quantification negative 50 ng/mL [facility] MEPERIDINE QUANTIFICATION negative 50 ng/mL [facility] NORMEPERIDINE QUANTIFICATION negative 50 ng/mL [facility] ALPHA-HYDROXYALPRAZOLAM QUANTIFICATION negative 20 ng/mL [facility] 6-VNRCZ-NXJXRBADDI QUANTIFICATION negative 20 ng/mL [facility] LORAZEPAM QUANTIFICATION negative 40 ng/mL [facility] NORDIAZEPAM QUANTIFICATION positive-10 6.954(A) 40 ng/mL [facility] TEMAZEPAM QUANTIFICATION positive-14 7.923(A) 50 ng/mL [facility] OXAZEPAM QUANTIFICATION positive-24 2.507(A) 40 ng/mL [facility] AMPHETAMINE QUANTIFICATION negative 100 ng/mL [facility] METHYLPHENIDATE QUANTIFICATION negative 50 ng/mL [facility] RITALINIC ACID QUANTIFICATION negative 50 ng/mL [facility] CITALOPRAM/ESCITALOPRAM QUANTIFICATION negative 25 ng/mL [facility] N-DESMETHYLCITALOPRAM QUANTIFICATION negative 25 ng/mL [facility] Hydroxybupropion Quantification positive-17 224.171 50 ng/mL [facility] DULOXETINE QUANTIFICATION negative 25 ng/mL [facility] Fluoxetine Quantification negative 25 ng/mL [facility] Norfluoxetine Quantification negative 25 ng/mL [facility] Paroxetine Quantification negative 25 ng/mL [facility] Venlafaxine Quantification negative 100 ng/mL [facility] Desmethylvenlafaxine Quantification negative 100 ng/mL [facility] ARIPIPAZOLE QUANTIFICATION positive-15 9.188 5 ng/mL [facility] OPC-3373 Quantification positive-> 3750 15 ng/mL [facility] CLOZAPINE QUANTIFICATION negative 25 ng/mL [facility] N-Desmethylclozapine Quantification negative 25 ng/mL [facility] Haloperidol Quantification negative 5 ng/mL [facility] Reduced Haloperidol Quantification negative 5 ng/mL [facility] Olanzapine Quantification negative 25 ng/mL [facility] Quetiapine Quantification negative 25 ng/mL [facility] NORQUETIAPINE QUANTIFICATION negative 25 ng/mL [facility] Risperidone Quantification negative 10 ng/mL [facility] Hydroxyrisperidone Quantification negative 25 ng/mL [facility] GABAPENTIN QUANTIFICATION positive-> [id number] 6183 ng/mL [facility] PREGABALIN QUANTIFICATION negative 400 ng/mL [facility] Ketamine Quantification negative 50 ng/mL [facility] Norketamine Quantification negative 50 ng/mL [facility] NALTREXONE QUANTIFICATION negative 10 ng/mL [facility] NALTREXOL QUANTIFICATION negative 10 ng/mL [facility] Naloxone Quantification negative 20 ng/mL [facility] CZOLPIDEM QUANTIFICATION negative 10 ng/mL [facility] CARISOPRODOL QUANTIFICATION negative 100 ng/mL [facility] MEPROBAMATE QUANTIFICATION negative 100 ng/mL [facility] PHENOBARBITAL QUANTIFICATION negative 200 ng/mL [facility] SECOBARBITAL QUANTIFICATION negative 200 ng/mL [facility] BUTALBITAL QUANTIFICATION negative 200 ng/mL [facility] Amitriptyline Quantification negative 50 ng/mL [facility] Nortriptyline Quantification negative 50 ng/mL [facility] Imipramine Quantification negative 50 ng/mL [facility] Desipramine Quantification negative 50 ng/mL [facility] Cyclobenzaprine Quantification negative 50 ng/mL [facility] Dextromethorphan negative 50 ng/mL [facility] Levorphanol / Dextrorphan Quantification negative 50 ng/mL [facility] Phentermine Quantification negative 50 ng/mL [facility] METHAMPHETAMINE QUANTIFICATION negative 100 ng/mL [facility] COCAINE METABOLITE QUANTIFICATION negative 50 ng/mL [facility] CTHC (MARIJUANA METABOLITE) QUANTIFICATION negative 15 ng/mL [facility] MDMA QUANTIFICATION negative 100 ng/mL [facility] 6-BRITTNI (HEROIN METABOLITE) QUANTIFICATION negative 10 ng/mL [facility] Phencyclidine Quantification negative 10 ng/mL [facility] ACETYL FENTANYL QUANTIFICATION Fen Neg 2 ng/mL [facility] ACETYL NORFENTANYL QUANTIFICATION Fen Neg 5 ng/mL [facility] ACRYL FENTANYL QUANTIFICATION Fen Neg 1 ng/mL [facility] CARFENTANIL QUANTIFICATION Fen Neg 2 ng/mL [facility] PARA-FLUOROFENTANYL QUANTIFICATION Fen Neg 1 ng/mL [facility] SDD829 METABOLITE QUANTIFICATION negative 10 ng/mL [facility] TUZ954 METABOLITE QUANTIFICATION negative 10 ng/mL [facility] RCS4 METABOLITE QUANTIFICATION negative 10 ng/mL [facility] XLR11/UR144 METABOLITE negative 10 ng/mL [facility] 5F-ADB-M7 negative 10 ng/mL [facility] NM-SEZNZUEA-U9 negative 10 ng/mL [employer] BENI-KHYBDXKM-L6 negative 10 ng/mL [facility] EUTYLONE QUANTIFICATION negative 10 ng/mL [facility] METHYLONE QUANTIFICATION SEE COMMENTS 3 ng/mL [facility] XYLAZINE, URINE negative 10 ng/mL [employer] 4-HYDROXY XYLAZINE QUANTIFICATION negative 10 ng/mL [facility] MITRAGYNINE (KRATOM ALKALOID) QUANTIFICATION negative 1 ng/mL [facility] 8-ZN-QMZHVDMGWUR (KRATOM ALKALOID) QUANTIFICATION negative 1 ng/mL [facility] ETHYL GLUCURONIDE QUANTIFICATION negative 500 ng/mL [facility] ETHYL SULFATE QUANTIFICATION negative 500 ng/mL [facility] NICOTINE METABOLITE SCREEN positive 300 ng/mL [facility] CREATININE (CHEMICAL) normal-161. 6 >20 mg/dL mg/dL [facility] OXIDANT normal-0 <200 ug/mL ug/mL [facility] PH normal-5.8 4.5 - 9.5 [facility] SPECIFIC GRAVITY normal-1.02 9 1.003 - 1.035 [facility] Urine Urine specimen / Unknown 02/22/2025 12:44 PM CDT 02/23/2025 8:15 PM CDT us Ole Mcnamara MD LAB URINE AMBULATORY Final Resul t [facility] [id number] [place] [address], * HEALTH HISTORY SCANNED DOCUMENT (02/22/2025 2:00 AM CDT) 02/22/2025 2:00 AM CDT [facility] Provider Default SCAN OTHER ORDERS Final R [...] Result * (ABNORMAL) TSH (12/18/2024 8:36 AM FAMILY MEDICINE PHYSICIAN ASSISTANT) TSH 13.800(H) 0.450 - 4.500 uIU/mL [facility] Blood Blood / Unknown 12/18/2024 8 :36 AM FAMILY MEDICINE PHYSICIAN ASSISTANT 12/18/2024 8:39 AM FAMILY MEDICINE PHYSICIAN ASSISTANT us Ole Mcnamara MD LAB - BLOOD DRAW Final Result [facility] [address] [place] [address], [place] [phone] * (ABNORMAL) AzhF6o-Hvnti (12/18/2024 8:36 AM FAMILY MEDICINE PHYSICIAN ASSISTANT) DbmP1g-Vqrtd 5.8(H) 4.8 - 5.6 % [facility] Comment: INTERPRETIVE COMMENT: Normal: Below 5.7% Prediabetes: [...] 12+% 298+ mg/dL REFERENCES: 1. Adapted from [place] [employer]. Standards of medical care in diabetes-2014. Diabetes Care.2014;37 (Supp 1):S14-S80, table 8. 2. The A1C Test and Diabetes, National [place] of Diabetes and Digestive and Kidney Diseases, January 2014. Blood Blood / Unknown 12/18/2024 8 :36 AM FAMILY MEDICINE PHYSICIAN ASSISTANT 12/18/2024 8:39 AM FAMILY MEDICINE PHYSICIAN ASSISTANT us Ole Mcnamara MD LAB - BLOOD DRAW Final Result Performing Organization Address City/[facility]/ZIP Co de Phone Number [facility] [address] [place] [address], * (ABNORMAL) Lipid Profile (12/18/2024 8:36 AM FAMILY MEDICINE PHYSICIAN ASSISTANT) Triglycerides 183(H) <149 mg/dL [facility] HDL, Direct 60 39 - 61 mg/dL [facility] Calculated LDL 110(H) <99 [facility] VLDL 37 6 - 40 [facility] CHOL/dHDL RATIO 3 [facility] Cholesterol 206(H) 100 - 199 mg/dL [facility] Blood Blood / Unknown 12/18/2024 8 :36 AM FAMILY MEDICINE PHYSICIAN ASSISTANT 12/18/2024 8:39 AM FAMILY MEDICINE PHYSICIAN ASSISTANT us Ole Mcnamara MD LAB - BLOOD DRAW Final Result Performing Organization Address City/[facility]/ZIP Co de Phone Number [facility] [address] [place] [address], * Noel HCV (12/18/2024 8:35 AM FAMILY MEDICINE PHYSICIAN ASSISTANT) Noel HCV Negative Negative [facility] Blood Blood / Unknown 12/18/2024 8 :35 AM FAMILY MEDICINE PHYSICIAN ASSISTANT 12/18/2024 9:05 AM FAMILY MEDICINE PHYSICIAN ASSISTANT Ole Mcnamara MD LAB - BLOOD DRAW Final Result [facility] [address] [place] [address], * MAMMOGRAM, ABSTRACTED NARRATIVE (08/28/2010 12:00 AM CDT) Anatomical Region Laterality Modality Other 08/28/2010 us [facility] Provider Default IMG MAMMO Final Res ult from Last 3 Months or Most Recently Relevant to Health Maintenance [place] [facility] [place] [facility] [place] [address] Member Subscriber Plan / Payer (Ef fective 2025-Present) Name:Judy Malloy Relation to Subscriber:Self Name:Judy Malloy Payer ID:[id number] Type:Indemnity Address: [address] [address] [place] [address] Care Teams Candy Puller Relationship Specialty Start Date End Date Ole Mcnamara MD [address] [place] [address] PCP - General 04/24/24
--- OUTSIDE RECORDS SUMMARY | 2025-05-04 20:07 | XMS_ITS | Encounter Summary ---
Author Organization [facility] Address [address] 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
--- OUTSIDE RECORDS SUMMARY | 2025-05-04 20:07 | XMS_ITS | Encounter Summary ---
Author Organization [facility] Address [address] [place] [address] Care Team Providers Care M48/M60 Tank Driver Name Role Phone Kathy Tolliver MD Primary Care Provider +1- [phone] Encounter Details Date Type Department Care Team (Latest Contact Info) Description 08/27/2001 Outpatient Historical [facility] Medicine [address] [address] Ashish Woodruff MD NO ADDRESS ON FILE Pain in joint, forearm (Primary Dx) Social History Tobacco Use Types Packs/Day Years Used Date Smoking Tobacco: Never Assessed Comments Unknown Sex and Gender Information Value Date Recorded Sex Assigned at Not on file Legal Sex Female 2:46 AM X RAY EQUIPMENT 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
--- OUTSIDE RECORDS SUMMARY | 2025-05-04 20:07 | XMS_ITS | Encounter Summary ---
Author Organization [facility] Address [address] Gupta: [place] [address] Care Team Providers Care Miller Distillery Name Role Phone Kathy Tolliver MD Primary Care Provider +1- [phone] Encounter Details Date Type Department Care Team (Late st Contact Info) Description 09/04/2001 Outpatient Historical Woodruff, Ashish Bowie MD NO ADDRESS ON FILE Social History Tobacco Use Types Packs/Day Years Used Date Smoking Tobacco: Never Assessed Comments Unknown Sex and Gender Information Value Date Recorded Sex Assigned at Not on file Legal Sex Female 2:46 AM FOOD STYLIST Gender Identity Not on file Sexual Orientation Not on file documented as of this encounter Plan of Treatment Not on file documented as of this encounter Visit Diagnoses Not on filedocumented in this encounter Care Teams Miller Distillery Relationship Specialty Start Date End Date Kathy Tolliver MD [address] [place] [address] PCP - General Internal Medicine 07/06/20 documented as of this encounter
--- OUTSIDE RECORDS SUMMARY | 2025-05-04 20:07 | XMS_ITS | Encounter Summary ---
Author Organization [facility] Address [address] [place] [address] Care Team Providers Care Exercise Specialist Name Role Phone Kathy Tolliver MD Primary Care Provider +1- [phone] Encounter Details Date Type Department Care Team (Latest Contact Info) Description 12/05/2000 Outpatient Historical [facility] Medicine [address] [address] Ashish Woodruff MD NO ADDRESS ON FILE Excessive menstruation (Primary Dx); Depressive disorder, not elsewhere classified Social History Tobacco Use Types Packs/Day Years Used Date Smoking Tobacco: Never Assessed Comments Unknown Sex and Gender Information Value Date Recorded Sex Assigned at Not on file 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
--- OUTSIDE RECORDS SUMMARY | 2025-05-04 20:07 | XMS_ITS | Encounter Summary ---
Author Organization [facility] Address [address] 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
--- OUTSIDE RECORDS SUMMARY | 2025-05-04 20:07 | XMS_ITS | Encounter Summary ---
Author Organization [facility] Address [address] [place] [address] Care Team Providers Care Imaging Manager Name Role Phone Kathy Tolliver MD Primary Care Provider +1- [phone] Encounter Details Date Type Department Care Team (Latest Contact Info) Description 01/22/2001 Outpatient Historical [facility] Medicine [address] [address] Ashish Woodruff MD NO ADDRESS ON FILE Neuralgia, neuritis, and radiculitis, unspecified (Primary Dx); Acute sinusitis, unspecified Social History Tobacco Use Types Packs/Day Years Used Date Smoking Tobacco: Never Assessed Comments Unknown Sex and Gender Information Value Date Recorded Sex Assigned at Not on file 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
--- OUTSIDE RECORDS SUMMARY | 2025-05-04 20:07 | XMS_ITS | Encounter Summary ---
Author Organization [facility] Address [address] 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
--- OUTSIDE RECORDS SUMMARY | 2025-05-04 20:07 | XMS_ITS | Clinical Summary ---
Author Organization [facility] Address [address] [place] [address] Phone Care Team Providers Care Nut Roaster Name Role Phone Ole Mcnamara MD Primary Care Provider [phone] Allergies Active Allergy Reactions Criticality Noted Date [...] 23 Active fluticasone propionate (FLONASE) 50 mcg/spray [place], Suspension nasal inhaler USE 1 TO 2 [...] - 02/10/2025 11:59 PM CDT Hospital Encounter [facility] [address] [place] [address] Faustino Taveras PA Discharge Disposition: Home or Self Care 02/10/2025 Results Follow-Up [facility] [address] [place] [address] Rajni Nelson MRI LUMBAR W WO CONTRAST 02/08/2025 Telephone [facility] [address] [place] [address] Faustino Taveras PA Documentation Only 02/05/2025 Refill [facility] [address] [place] [address] Chris Moya MD Bilateral low back pain with right-sided sciatica, unspecified chronicity 02/02/[address] [facility] Pre-Registration [place] CALL TO MAKE APPOINTMENT ONLY [address] [place] [address] Ole Mcnamara MD Low bone density for age (Primary Dx) from Last 3 Months Immunizations Immunization Administration Dates Next Due (ADACEL/BOOSTRIX)(10 YR UP) TDAP VACCINE, 0.5ML, IM 07/29/2010 (PNEUMOVAX 23)(50 YRS UP) PN EUMOCOCCAL POLYSACCHARIDE (PPV23) 0.5 ML, IM 07/04/2010 INFLUENZA VACCINE QUADRIVALENT 3 YR UP PF IM 01/2017 Family History Medical History Relation Name Comments Heart Disease Mother SD 70's CABG Relation Name Status Comments Mother [...] on file Legal Sex Female 3:43 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 AVG GLUCOSE, A1C 114 mg/dL 02/08/2021 4:15 PM CDT [facility] Blood Venipuncture / Unknown 02/08/2021 3:34 PM CDT 02/08/2021 3:34 PM CDT Narrative [facility] - 02/08/2021 4:15 PM CDT HGB A1C INTERPRETATION NORMAL: <5.7% PRE-DIABETES: 5.7 - 6.4% DIABETES: 6.5% OR GREATER Falsely low A1C measurements can occur when: 1. Anemia and/or hemolytic anemia is present. 2. Hemoglobin variants present. 3. Renal failure. 4. Transfusion of blood product in the last 120 days. We recommend ordering a fructosamine test([id number]) to more accurately assess glycemic status if any of the above conditions are present. Shahnaz Nuñez MD CHEMISTRY ORDERABLES Final Result [facility] CLIA# [id number] [address] [place] [address] [facility] CLIA# [id number] [address] [place] [address] from Last 3 Months or Most Recently Relevant to Health Maintenance Insurance MEDICAID [facility] RX [employer] RX Member Subscriber Plan / Payer (Ef fective 2023-Present) Name:Judy Malloy Relation to Subscriber:Self Name:Vikas Malloyna Karrie Payer ID:Not on file Group ID:[id number] Type:RX Medicare Part D Address: [place], [place] RX INFOCROSSING Medicaid Advance Directives For more information, please contact: [phone] Documents on File Type Date Recorded Patient Food Concession Manager Expl anation Advance Directive POA 01/08/2017 4:10 PM Ad jacobs Directive POA Care Teams Nut Roaster Relationship Specialty Start Date End Date Ole Mcnamara MD [address] [place] [address] PCP - General Family Practice 03/20/23
--- OUTSIDE RECORDS SUMMARY | 2025-05-04 20:07 | XMS_ITS | Encounter Summary ---
Author Organization [facility] Address [address] 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
--- OUTSIDE RECORDS SUMMARY | 2025-05-04 20:07 | XMS_ITS | Encounter Summary ---
Author Organization [facility] Address [address] [place] [address] Care Team Providers Care Panel Gluer Name Role Phone Kathy Tolliver MD Primary Care Provider +1- [phone] Encounter Details Date Type Department Care Team (Latest Contact Info) Description 01/30/2000 Outpatient Historical [facility] General and Trauma Surgery[address] [address] Nelly Hamilton MD NO ADDRESS ON FILE Abdominal pain, unspecified site (Primary Dx) Social History Tobacco Use Types Packs/Day Years Used Date Smoking Tobacco: Never Assessed Comments Unknown Sex and Gender Information Value Date Recorded Sex Assigned at Not on file 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
--- OUTSIDE RECORDS SUMMARY | 2025-05-04 20:07 | XMS_ITS | Encounter Summary ---
Author Organization [facility] Address [address] [place] [address] Care Team Providers Care Admissions Recruiter Name Role Phone Kathy Tolliver MD Primary Care Provider +1- [phone] Encounter Details Date Type Department Care Team (Latest Contact Info) Description 07/25/2001 Outpatient Historical [facility] [address] [place] [address] Krishna Toscano DO NO ADDRESS ON FILE Abdominal pain, unspecified site (Primary Dx); Cervicalgia; CA in situ colon Social History Tobacco Use Types Packs/Day Years Used Date Smoking Tobacco: Never Assessed Comments Unknown Sex and Gender Information Value Date Recorded Sex Assigned at Not on file 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
--- OUTSIDE RECORDS SUMMARY | 2025-05-04 20:07 | XMS_ITS | Encounter Summary ---
Author Organization [facility] Address [address] 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
--- OUTSIDE RECORDS SUMMARY | 2025-05-04 20:07 | XMS_ITS | Encounter Summary ---
Author Organization [facility] Address [address] 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
--- OUTSIDE RECORDS SUMMARY | 2025-05-04 20:07 | XMS_ITS | Encounter Summary ---
Author Organization [facility] Address [address] [place] [address] Care Team Providers Care Child Support Agent Name Role Phone Kathy Tolliver MD Primary Care Provider +1- [phone] Encounter Details Date Type Department Care Team (Latest Contact Info) Description 12/01/2001 [facility]patient [facility] [address] [place] [address] Krishna Toscano DO NO ADDRESS ON FILE ACUTE SINUSITIS NOS (Primary Dx); URIN TRACT INFECTION NOS; IRRITABLE COLON Social History Tobacco Use Types Packs/Day Years Used Date Smoking Tobacco: Never Assessed Comments Unknown Sex and Gender Information Value Date Recorded Sex Assigned at Not on file 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
--- OUTSIDE RECORDS SUMMARY | 2025-05-04 20:07 | XMS_ITS | Encounter Summary ---
Author Organization [facility] Address [address] [place] [address] Care Team Providers Care Microbiology Lab Technician Name Role Phone Kathy Tolliver MD Primary Care Provider +1- [phone] Encounter Details Date Type Department Care Team (Latest Contact Info) Description 07/04/2020 Ancillary Orders [facility] Pre-Registration [place] CALL TO MAKE APPOINTMENT ONLY [address] [place] [address] Kathy Tolliver MD [address] [place] [address] Screening for breast cancer Social History Tobacco Use Types Packs/Day Years Used Date Smoking Tobacco: Former Cigarettes Q uit: 01/07/2020 Smokeless Tobacco: Never Alcohol Use Standard Drinks/Week Comments No 0 (1 standard drink = 0.6 oz pur e alcohol) Comments No Sex and Gender Information Value Date Recorded Sex Assigned at Not on file 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
--- OUTSIDE RECORDS SUMMARY | 2025-05-04 20:07 | XMS_ITS | Encounter Summary ---
Author Organization [facility] Address [address] [place] [address] Care Team Providers Care Soccer Player Name Role Phone Kathy Tolliver MD Primary Care Provider +1- [phone] Encounter Details Date Type Department Care Team (Latest Contact Info) Description 12/30/2001 Outpatient Historical [facility] [address] [place] [address] Krishna Toscano, NO ADDRESS ON FILE CARDIAC DYSRHYTHMIAS NEC (Primary Dx); DIZZINESS AND GIDDINESS; HYPOTHYROIDISM NOS Social History Tobacco Use Types Packs/Day Years Used Date Smoking Tobacco: Never Assessed Comments Unknown Sex and Gender Information Value Date Recorded Sex Assigned at Not on file Legal Sex Female 2:46 AM SIGHTSEEING GUIDE Gender Identity Not on file Sexual Orientation Not on file documented as of this encounter Plan of Treatment Not on file documented as of this encounter Visit Diagnoses Diagnosis Other specified cardiac dysrhythmias(427.89)- Primary Other specified cardiac dysrhythmias Dizziness and giddiness Unspecified hypothyroidism documented in this encounter Care Teams Soccer Player Relationship Specialty Start Date End Date Kathy Tolliver MD [address] [place] [address] PCP - General Internal Medicine 07/06/20 documented as of this encounter
--- OUTSIDE RECORDS SUMMARY | 2025-05-04 20:07 | XMS_ITS | Encounter Summary ---
Author Organization [facility] Address [address] [place] [address] Care Team Providers Care Top Dyeing Machine Tender Name Role Phone Kathy Tolliver MD Primary Care Provider +1- [phone] Encounter Details Date Type Department Care Team (Latest Contact Info) Description 01/06/2001 Outpatient Historical [facility] SALES AND CATERING COORDINATOR 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
--- OUTSIDE RECORDS SUMMARY | 2025-05-04 20:07 | XMS_ITS | Encounter Summary ---
Author Organization [facility] Address [address] 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
--- OUTSIDE RECORDS SUMMARY | 2025-05-04 20:07 | XMS_ITS | Encounter Summary ---
Author Organization [facility] Address [address] [place] [address] Care Team Providers Care Dental Equipment Technician Name Role Phone Kathy Tolliver MD Primary Care Provider [phone]- [phone] Encounter Details Date Type Department Care Team (Latest Contact Info) Description 12/23/2001 [facility] [address] [place] [phone] Krishna Toscano, NO ADDRESS ON FILE OTHER MALAISE AND FATIGUE (Primary Dx); THYROTOX NOS NO CRISIS Social History Tobacco Use Types Packs/Day Years Used Date Smoking Tobacco: Never Assessed Comments Unknown Sex and Gender Information Value Date Recorded Sex Assigned at Not on file Legal 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
--- OUTSIDE RECORDS SUMMARY | 2025-05-04 20:07 | XMS_ITS | Encounter Summary ---
Author Organization [facility] Address [address] [place] [address] Care Team Providers Care Physician'S Aide Name Role Phone Kathy Tolliver MD Primary Care Provider [phone]- [phone] Encounter Details Date Type Department Care Team (Latest Contact Info) Description 04/06/2016 Ancillary Orders [facility] Pre-Registration [facility] CALL TO MAKE APPOINTMENT ONLY [address] [place] [address] Daron Arango, LIMNOLOGY TEACHER [address] [place] [address] Visit for screening mammogram (Primary Dx) Social History Tobacco Use Types Packs/Day Years Used Date Smoking Tobacco: Every Day Cigarettes Alcohol Use Standard Drinks/Week Comments No 0 (1 standard drink = 0.6 oz pur e alcohol) Comments No Sex and Gender Information Value Date Recorded Sex Assigned at Not on file 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
--- OUTSIDE RECORDS SUMMARY | 2025-05-04 20:07 | XMS_ITS | Encounter Summary ---
Author Organization [facility] Address [address] 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
--- OUTSIDE RECORDS SUMMARY | 2025-05-04 20:07 | XMS_ITS | Encounter Summary ---
Author Organization [facility] Address [address] [place] [address] Care Team Providers Care Builder Operator Name Role Phone Kathy Tolliver MD Primary Care Provider +1- [phone] Encounter Details Date Type Department Care Team (Latest Contact Info) Description 02/27/2000 Outpatient Historical [facility] [address] [place] [phone] Matty Main Jr., DO NO ADDRESS ON FILE Abdominal pain, unspecified site (Primary Dx); Other and unspecified ovarian cyst Social History Tobacco Use Types Packs/Day Years Used Date Smoking Tobacco: Never Assessed Comments Unknown Sex and Gender Information Value Date Recorded Sex Assigned at Not on file Legal 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
--- NOTE | 2025-05-04 20:24 | ED_ITS ---
HPI - Chest Pain 2 General: Chief Complaint: Chest Pain Stated Complaint: sob, chest pressure Time Seen by Provider: 05/04/25 20:21 Source: patient Mode of arrival: ambulatory Limitations: no limitations History of Present Illness: 65-year-old female who states she has a history of COPD states she was diagnosed with pneumonia 10 days ago she just finished antibiotics. She states she having the same pain over the last 10 days but this sharp in nature worse when she coughs. States she has had a mild cough as well some slight shortness of breath. She was seen here earlier today for dizziness. She denies any vomiting or diarrhea. Associated symptoms: Reports dyspnea; Deny abdominal pain, fever(s), nausea or vomiting Related Data Home Medications ?Medication ?Instructions ?Recorded ?Confirmed gabapentin 600 mg tablet 600 mg PO BID 11/26/2405/04 ropinirole 2 mg tablet 2 mg PO BEDTIME PRN restless legs 05/04/25 05/04/25 Previous Rx's ?Medication ?Instructions ?Recorded scopolamine base 1 mg over 3 days 1 patch transdermal Q3D PRN nausea 06/25/24 transdermal patch and vomiting #24 ea apixaban 5 mg tablet (Eliquis) 5 mg PO BID #180 tabs 1 12/15/23 aripiprazole 10 mg tablet (Abilify) 10 mg PO DAILY #90 tabs 10/14/24 atorvastatin 80 mg tablet 80 mg PO DAILY #90 tabs 10/04 11/27 bupropion HCl 300 mg 24 hr tablet, 300 mg PO QAM #90 t abs 10/14/24 extended release (Wellbutrin XL) fenofibrate nanocrystallized 48 mg 48 mg PO DAILY #90 tabs 10/14/24 tablet hydroxyzine HCl 25 mg tablet 25 mg PO TID PRN itching #180 tabs 10/14/24 levothyroxine 200 mcg tablet 200 mcg PO DAILY #90 tabs 10/14/24 cyatsk-edngluon-govpweg 1 cap PO TID #90 caps 24,000-76,000-120,000 unit capsule,delayed rel (Creon) pantoprazole 40 mg tablet,delayed 40 mg PO DAILY #90 t abs 10/14/24 release (Protonix) potassium chloride 20 mEq 20 meq PO DAILY #90 tabs 09/27 tablet,extended release tizanidine 4 mg tablet 4 mg PO Q8H PRN muscle spast icity 10/14/24 #180 tabs ondansetron 4 mg disintegrating 4 mg PO Q6H PRN nausea and 10/19/24 tablet vomiting #14 tabs sumatriptan succinate 50 mg tablet See Rx Instructions PO .COMPLEX 02/01/25 #10 tabs ropinirole 0.5 mg tablet 0.5 mg PO .qnightly #30 tabs 04/08/25 clopidogrel 75 mg tablet 75 mg PO DAILY #30 tabs 11/28 meclizine 25 mg tablet 25 mg PO QID PRN dizziness # 20 tabs 05/04/25 Allergies Allergy/AdvReac Type Severity Reaction Status Date / Time morphine Allergy ADR-Halluci Verified 11/23/24 15:19 nating promethazine (From Phenergan) Allergy ADR-Itching Verified 11/23/24 15:19 chantex Allergy ADR-Confusi Uncoded 11/23/24 15:19 on Review of Systems 2 Const: Denies: fever(s), chills, body aches or change in appetite ENMT: Denies: throat pain or dental pain Card: Reports: chest pain Resp: Reports: dyspnea GI: Denies: abdominal pain, nausea, vomiting or diarrhea Musc: Denies: neck pain or back pain Skin/Breast: Denies: rash Neuro: Denies: headache(s) PFSH ED 2 PFSH: Medical History Hx of non-ST elevation myocardial infarction (NSTEMI) Restless leg syndrome Left breast mass Tobacco use disorder, moderate, dependence Pulmonary embolism COPD (chronic obstructive pulmonary disease) History of TIAs Hypokalemia Nausea Chronic pain Severe major depression Insomnia Chronic pancreatitis Hyperlipidemia Hypothyroidism Surgical History History of knee replacement History of back surgery Social History Smoking and tobacco/nicotine status: former use of tobacco/nicotine Alcohol intake: former Substance/Drug Use: former Physical Exam 2 Const: COMMON NORMALS: no acute distress, patient oriented x3 and healthy appearing HENMT: COMMON NORMALS: normocephalic and atraumatic HEAD & SCALP: n ormocephalic and atraumatic Neck/C-Spine: COMMON NORMALS: full ROM and supple Chest: COMMONS NORMALS: normal inspection of the chest Resp: COMMON NORMALS: normal respiratory effort, No retractions, No use of accessory muscles and clear to auscultation bilaterally AUSCULTATION: clear to auscultation bilaterally Cardio: COMMON NORMALS: regular rate, regular rhythm and No murmurs present (Cardio) RATE: regular rate RHYTHM: regular rhythm Extremity: COMMON NORMALS: normal to inspection and full ROM Neuro: COMMON NORMALS: patient oriented x3, moves all extremities and no focal motor deficits Psych: COMMON NORMALS: mental status grossly normal, Normal thought process present and cooperative THOUGHT PROCESS: Normal thought process present Skin: COMMON NORMALS: no rashes or lesions noted and no wounds GENERAL SKIN EXAM: no rashes or lesions noted Course 2 Vital Signs: Vital signs: Vital Signs Temperature 98.0 F 05/04/25 20:03 Pulse Rate 59 L 05/04/25 20:03 Respiratory Rate 18 05/04/25 20:03 Blood Pressure 172/72 05/04/25 20:03 Pulse Oximetry 100 05/04/25 20:03 Oxygen Delivery Me thod Room Air 05/04/25 20:03 MDM - Chest Pain Medical Decision Making Patient presents for chest pains atypical in nature likely pleuritic she has no signs of pneumonia her troponin here is at her baseline she has no signs of pulmonary embolism or acute coronary syndrome she feels much improved after Toradol she is take ibuprofen at home she is follow-up with PCP return if worsening. Medical Records I reviewed the patient's medical records. Lab Data I reviewed the patient's lab results. 05/04/25 20:16 05/04/25 20:16 Laboratory Results WBC 9.67 10^3/uL (3.29-11.43) 05/04/25 20:16 RBC 4.08 10^6/uL (3.85-5.65) 05/04/25 20:16 Hgb 13.00 g/dL (11.27-16.99) 05/04/25 20:16 Hct 38.5 % (36-47) 05/04/25 20:16 MCV 94.4 fl (85-98) 05/04/25 20:16 MCH 31.9 pg (27-33) 05/04/25 20:16 MCHC 33.8 g/dL (30-55) 05/04/25 20:16 RDW 13.9 % (12.1-15.1) 05/04/25 20:16 Plt Count 198 10^3/cmm (157-399) 05/04/25 20:16 MPV 12.0 fL (7.4-10.4) H 05/04/25 20:16 Neut % (Auto) 59.6 % 05/04/25 20:16 Lymph % (Auto) 30.2 % 05/04/25 20:16 [place] % (Auto) 7.5 % 05/04/25 20:16 Eos % (Auto) 1.7 % 05/04/25 20:16 Baso % (Auto) 0.7 % 05/04/25 20:16 Neut # (Auto) 5.76 10^3/uL (1.8-7.7) 05/04/25 20:16 Lymph # (Auto) 2.9 10^3/uL (0.8-4.8) 05/04/25 20:16 [place] # (Auto) 0.7 10^3/uL (0.2-0.9) 05/04/25 20:16 Eos # (Auto) 0.2 10^3/uL (0.0-0.8) 05/04/25 20:16 Baso # (Auto) 0.1 10^3/uL (0.0-0.1) 05/04/25 20:16 Nucleated RBC % (auto) 0 % 05/04/25 20:16 Nucleated RBCs # 0.0 /100WBC 05/04/25 20:16 PT 13.60 SECONDS (12.1-14.9) 05/04/25 20:16 INR 0.97 (0.8-1.2) 05/04/25 20:16 Sodium 140 mmol/L (136-145) 05/04/25 20:16 Potassium 4.0 mmol/L (3.5-5.1) 05/04/25 20:16 Chloride 102 mmol/L (98-107) 05/04/25 20:16 Carbon Dioxide 25 mmol/L (22-29) 05/04/25 20:16 Anion Gap 17.0 (5-19) 05/04/25 20:16 BUN 16 mg/dL (8-23) 05/04/25 20:16 Creatinine 0.8 mg/dL (0.5-0.9) 05/04/25 20:16 GFR Calculation 71.5 mL/min (90-130) L 05/04/25 20:16 Glucose 99 mg/dL (65-115) 05/04/25 20:16 Calculated Osmolality 291 mOsm/kg (285-295) 05/04/25 20:16 Calcium 9.3 mg/dL (8.5-10.5) 05/04/25 20:16 Total Bilirubin 0.7 mg/dL (0.15-1.2) 05/04/25 20:16 AST 23 U/L (0-32) 05/04/25 20:16 ALT 12 U/L (0-33) 05/04/25 20:16 Alkaline Phosphatase 164 U/L (35-105) H 05/04/25 20:16 Troponin T Baseline 14 ng/L (0-10) H 05/04/25 20:16 Total Protein 7.3 g/dL (6.6-8.7) 05/04/25 20:16 Albumin 4.2 g/dL (3.5-5.2) 05/04/25 20:16 Globulin 3.1 g/dL (1.3-4.6) 05/04/25 20:16 Lipase 24 U/L (13-60) 05/04/25 20:16 All radiology interpretation(s) finalized by discharge Discharge Plan Discharge Patient Disposition: Home Clinical Impression: Chest pain Condition: Stable Prescriptions: No Action Creon 24,000-76,000 -120,000 unit capsule,delayed release(DR/EC) 1 cap PO TID Qty: 90 6RF Rx Instructions: administer with meals and/or snacks potassium chloride 20 mEq tablet extended release 20 meq PO DAILY Qty: 90 3RF levothyroxine 200 mcg tablet 200 mcg PO DAILY Qty: 90 3RF Eliquis 5 mg tablet 5 mg PO BID Qty: 180 3RF aripiprazole [Abilify] 10 mg tablet 10 mg PO DAILY Qty: 90 3RF atorvastatin 80 mg tablet 80 mg PO DAILY Qty: 90 3RF bupropion HCl [Wellbutrin XL] 300 mg tablet extended release 24 hr 300 mg PO QAM Qty: 90 3RF fenofibrate nanocrystallized 48 mg tablet 48 mg PO DAILY Qty: 90 3RF hydroxyzine HCl 25 mg tablet 25 mg PO TID PRN (Reason: itching) Qty: 180 3RF Protonix 40 mg tablet,delayed release (DR/EC) 40 mg PO DAILY Qty: 90 3RF tizanidine 4 mg tablet 4 mg PO Q8H PRN (Reason: muscle spasticity) Qty: 180 3RF scopolamine base 1 mg over 3 days patch 3 day 1 patch transdermal Q3D PRN (Reason: nausea and vomiting) Qty: 24 0RF sumatriptan succinate 50 mg tablet See Rx Instructions PO .COMPLEX Qty: 10 4RF Rx Instructions: Take 1 tablet at onset of headache; if no relief may repeat 1 tablet after at least 2 hrs; max = 4 tabs/24 hrs. ropinirole 0.5 mg tablet 0.5 mg PO .qnightly Qty: 30 0RF gabapentin 600 mg tablet 600 mg PO BID ropinirole 2 mg tablet 2 mg PO BEDTIME PRN (Reason: restless legs) clopidogrel 75 mg tablet 75 mg PO DAILY Qty: 30 0RF meclizine 25 mg tablet 25 mg PO QID PRN (Reason: dizziness) Qty: 20 0RF ondansetron 4 mg tablet,disintegrating 4 mg PO Q6H PRN (Reason: nausea and vomiting) Qty: 14 0RF Discharge Orders: Discharge ED (Routine); Ordered 05/04/25 Ordered By: Latoya Warren Discharge Diet: Advance as tolerated Discharge Activity: Resume usual activity Patient Instructions: Chest Pain (ED) Print Language: Bulgarian Coding Level of Care Code 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
[2025-05-04 20:26] LABS: Hematocrit 38.5 % (36-47); Hemoglobin 13.00 g/dL (11.27-16.99); Mean Corpuscular HGB Conc 33.8 g/dL (30-55); Mean Corpuscular Hemoglobin 31.9 pg (27-33); Mean Corpuscular Volume 94.4 fl (85-98); Nucleated Red Blood Cells % 0 %; Platelet Count 198 10^3/cmm (157-399); Red Blood Count 4.08 10^6/uL (3.85-5.65); White Blood Count 9.67 10^3/uL (3.29-11.43)
[2025-05-04 20:44] LABS: INR 0.97 (0.8-1.2); Prothrombin Time 13.60 SECONDS (12.1-14.9)
[2025-05-04 20:47] LABS: Troponin(5th) Baseline 14 ng/L (0-10)
[2025-05-04 20:49] LABS: Alanine Aminotransferase 12 U/L (0-33); Albumin Level 4.2 g/dL (3.5-5.2); Alkaline Phosphatase 164 U/L (35-105); Anion Gap 17.0 (5-19); Aspartate Amino Transferase 23 U/L (0-32); Blood Urea Nitrogen 16 mg/dL (8-23); Calcium 9.3 mg/dL (8.5-10.5); Carbon Dioxide 25 mmol/L (22-29); Chloride 102 mmol/L (98-107); Creatinine Clr Calc Pharmacy 58.4550; Globulin 3.1 g/dL (1.3-4.6); Glucose 99 mg/dL (65-115); Lipase 24 U/L (13-60); Osmolality Calculated 291 mOsm/kg (285-295); Potassium 4.0 mmol/L (3.5-5.1); Sodium 140 mmol/L (136-145); Total Protein 7.3 g/dL (6.6-8.7)
[2025-05-04] MEDS: methylPREDNISolone sod succ 125 mg/2 mL INJ IVP (21:06)
== END 2025-05-04 21:21 | disposition home or self-care (01) ==
PROVIDERS: Emergency Provider Emergency Medicine
DX: R07.89 Other chest pain (principal); Z79.01 Long term (current) use of anticoagulants; Z79.02 Long term (current) use of antithrombotics/antiplatelets; Z87.891 Personal history of nicotine dependence; J44.9 Chronic obstructive pulmonary disease, unspecified; E78.5 Hyperlipidemia, unspecified; Z86.73 Personal history of transient ischemic attack (TIA), and cerebral infarction without residual deficits
CPT/HCPCS: 71045; 80053; 83690; 84484; 85025; 85610; 93005; 96374; 96375; 99285; J1885; J2919